=== PATIENT | male | born 1935 | race Two or more races ===

== ENCOUNTER 2016-05-25 18:31 | Emergency (ER) | payer MEDICARE, OTHER ==
[~2016-05-25] VITALS: Ht 165.1 cm; Wt 68.0 kg
[~2016-05-25 18:31] MED LIST: ACETAMINOPHEN500 MG ORAL; ASCORBIC ACID500 MG GT; BETADINE TOPIC; CLONIDINE0.1 MG GT; COLACE100 MG/10 NG; COZAAR50 MG GT; DAKIN'S1 APPLIC TOPIC; HEPARIN SO5000 UNIT2 SUBQ; LANOXIN125 MCG GT; Multivitamins GT; NITROSTAT0.4 M1 SL; NORVASC10 MG GT; SALINE 10ML FLU10 ML IVF; SULFAMETHOXAZO473 ML NG; TYLENOL650 MG/20. GT; Vancomycin Hcl MISC; ZINC SULFATE220 M1 GT
[2016-05-25 18:53] VITALS: BP 106/74
[2016-05-25 20:14] VITALS: BP 110/80
--- NOTE | 2016-05-25 20:35 | Emergency Room Report ---
History of Present Illness General Chief Complaint: Malfunctioning Gastric Tube Source: Medical Record Present Illness HPI 80-year-old male presents to ED for G-tube placement. Per EMS patient pulled out G-tube today at [facility]. Upon arrival patient not in distress. patient has dementia and is unable to provide any additional history at this time. No reported fevers or chills. Upper nausea or vomiting. No other reported aggravating or leading factors. No other associated symptoms. Per EMS nursing staff placed a Lilly catheter in G-tube site Allergies: Coded Allergies: No Known Allergies (Unverified , 12/08/13) Patient History Past Medical History: HTN, AFib, CVA/TIA Past Surgical History: other - gtube Social History: Denies: alcohol use, drug use, smoking Immunizations: UTD Reviewed Nursing Documentation: PMH: Agreed, PSxH: Agreed Nursing Documentation-PMH Hx Cardiac Problems: Yes - AFIB Hx Hypertension: Yes Hx Pacemaker: No Hx COPD: No - PRESSURE ULCERS Hx Cancer: No Hx Gastrointestinal Problems: Yes - Dysphagia, G-tube Hx Neurological Problems: Yes - Hemiplegia Hx Cerebrovascular Accident: Yes Hx Seizures: No Review of Systems All Other Systems: negative except mentioned in HPI Physical Exam Vital Signs Date Time Temp Pulse Resp B/P Pulse Ox O2 Delivery O2 Flow Rate FiO2 05/25/16 18:40 98.1 113 18 106/74 98 Room Air Sp02 EP Interpretation: reviewed, normal General Appearance: no apparent distress, non-toxic, other - dementia Head: normocephalic Eyes: bilateral eye PERRL, bilateral eye normal inspection ENT: normal ENT inspection Neck: normal inspection Respiratory: normal inspection Cardiovascular #1: normal inspection Gastrointestinal: normal bowel sounds, non tender, soft, non-distended, no guarding, no rebound, other - gtube site c/d/i Rectal: black stool Genitourinary: no CVA tenderness Musculoskeletal: normal inspection Neurologic: other - dementia Psychiatric: other - dementia Skin: normal inspection Lymphatic: normal inspection Procedures Additional Procedure Procedure Narrative G-tube placement Patient placed on stretcher. Old G-tube is removed by deflating the balloon using syringe. G-tube site is inspected with no contraindications to G-tube placement. G-tube slowly inserted until resistance is met; G-tube balloon is slowly filled with 20 mL of normal saline and slowly retracted back until resistance is met. G-tube placement is confirmed with KUB study using Gastrografin Medical Decision Making Diagnostic Impression: Primary Impression: Malfunction of gastrostomy tube ER Course Hospital Course 80-year-old male presents to ED for G-tube placement. Pulled out G-tube at retirement Clinical course Patient placed on stretcher. After initial history and physical I replaced G- tube and inflate the balloon. G-tube placement confirmed with KUB study. Patient remained stable without any signs of distress. senior living called and patient subsequently discharged back to facility. Dr Garcia made aware that G-tube was successfully replaced and patient return to facility Diagnosis - malfunction of G tube stable and discharged back to facility. Followup with PMD. Return to ED if symptoms recur or worsen Other X-Ray Diagnostic Results Other X-Ray Diagnostic Results : X-Ray Ordered: kub EP Interpretation: No Findings: no fractures, no dislocation, no soft tissue swelling, other - gtube in place. Number of Views: 1 Last Vital Signs Date Time Temp Pulse Resp B/P Pulse Ox O2 Delivery O2 Flow Rate FiO2 05/25/16 18:53 98.1 103 18 106/74 98 Room Air Status: improved Disposition: XFER SNF Condition: Stable Referrals: Seamus Garcia MD (PCP) Patient Instructions: Gastrostomy Tube Home Guide, Adult MIKAELA AGGARWAL M.D. May 25, 2016 20:34
--- NOTE | 2016-05-26 09:24 | Diagnostic Imaging Report ---
Indication: Status post gastrostomy replacement Technique: Supine view of the abdomen after injection of water-soluble contrast into gastrostomy Comparison: 10/07/2014 Findings: Contrast opacifies the stomach. No contrast extravasation is demonstrated. The bowel gas pattern is unremarkable. Impression: Satisfactory position of gastrostomy tube
[2016-05-27] MEDS ORDERED: DIGOXIN0.125 MG/2 GT (15:23)
[2016-05-27] MEDS ORDERED: DUONEB 0.5-3(2.53 ML HHN (15:23)
[2016-05-27] MEDS ORDERED: DOCUSATE SODIU100 MG GT (15:23)
[2016-05-27] MEDS ORDERED: ASPIRIN81 MG ORAL (15:23)
[2016-05-27] MEDS ORDERED: COZAAR25 MG GT (15:23)
[2016-05-27] MEDS ORDERED: FISH OIL300 M1 GT (15:23)
[2016-05-27] MEDS ORDERED: MULTIVITAMINS1 EAC2 GT (15:23)
[2016-05-27] MEDS ORDERED: CLONIDINE HCL0.1 MG GT (15:23)
== END 2016-05-25 20:47 ==
LOC: EDBD 18:31 → EDUNIT# 18:31 → EMR 19:35
DX: K94.23 Gastrostomy malfunction (principal); F03.90 Unspecified dementia, unspecified severity, without behavioral disturbance, psychotic disturbance, mood disturbance, and anxiety; I10 Essential (primary) hypertension; I48.91 Unspecified atrial fibrillation; Z86.73 Personal history of transient ischemic attack (TIA), and cerebral infarction without residual deficits; R13.10 Dysphagia, unspecified; G81.90 Hemiplegia, unspecified affecting unspecified side
CPT/HCPCS: 43760; 74000

== ENCOUNTER 2016-05-27 15:26 | Inpatient (IN) | payer OTHER, MEDICARE ==
[~2016-05-27] VITALS: Ht 165.1 cm; Wt 68.9 kg
--- NOTE | 2016-05-27 15:14 | Emergency Room Report ---
History of Present Illness General Source: Patient, EMS Present Illness HPI Patient is an 80-year-old male who presented from long term after increased fever and congestion. Patient prior history of advanced dementia. Patient was noted to have increased respiratory rate as well as some increased congestion. Patient has had prior G-tube placement and is at baseline nonverbal. He had prior history of atrial fibrillation. History is obtained from EMS and old chart. The patient was noted to have a low-grade temperature at the facility. Allergies: Coded Allergies: No Known Allergies (Unverified , 12/08/13) Patient History Past Medical History: see triage record Reviewed Nursing Documentation: PMH: Agreed, PSxH: Agreed Review of Systems All Other Systems: limited - by mental status Physical Exam Sp02 EP Interpretation: normal General Appearance: moderate distress, Chronically Ill Neck: limited range of motion Respiratory: rhonchi Cardiovascular #1: normal peripheral pulses, irregularly irregular Gastrointestinal: normal bowel sounds, non tender, soft Neurologic: aphasia, motor weakness Psychiatric: other - nonverbal Procedures Critical Care Time Critical Care Time Patient had a critical medical condition which untreated could potentially result in life or limb threatening injury. Total critical care time excluding procedures approximately 45 minutes. Medical Decision Making Diagnostic Impression: Primary Impression: Severe sepsis Additional Impressions: Decubitus skin ulcer Dementia Rhabdomyolysis Hypernatremia ER Course Patient presented for fever. Differential diagnosis included was not limited to sepsis, urinary tract infection, pneumonia , decubitus infection, G-tube infection, bowel obstruction among others. Because of complexity of patient's case laboratory testing and imaging studies were ordered.Laboratory testing was notable for elevated white blood count as well as lactic acidosis. Patient started on IV fluids and IV antibiotics. Patient noted have a small neck lesion which appear to be somewhat infected which may be the patient's recent fever. This does not appear be requiring incision and drainage this time.Had Dr. Emmett Pressley was contacted for inpatient management due to the patient severity of illness. Head CT as read by radiologist showed atrophic changes without evident fracture or hemorrhage.The patient started on IV fluids patient was noted to have marked hypernatremia as well as rhabdomyolysis. Labs Test 05/27/16 16:10 05/27/16 16:21 Arterial Blood pH 7.390 (7.350-7.450) Arterial Blood Partial Pressure CO2 47.5 mmHg (35.0-45.0) Arterial Blood Partial Pressure O2 130.5 mmHg (75.0-100.0) Arterial Blood HCO3 28.6 mmol/L (22.0-26.0) Arterial Blood Oxygen Saturation 98.3 % (92.0-98.0) Arterial Blood Base Excess 3.0 Anderson Test Positive White Blood Count 13.4 K/UL (4.8-10.8) Red Blood Count 4.94 M/UL (4.70-6.10) Hemoglobin 16.1 G/DL (14.2-18.0) Hematocrit 53.6 % (42.0-52.0) Mean Corpuscular Volume 109 FL (80-99) Mean Corpuscular Hemoglobin 32.7 PG (27.0-31.0) Mean Corpuscular Hemoglobin Concent 30.1 G/DL (32.0-36.0) Red Cell Distribution Width 14.0 % (11.6-14.8) Platelet Count 160 K/UL (150-450) Mean Platelet Volume 12.3 FL (6.5-10.1) Neutrophils (%) (Auto) 57.2 % (45.0-75.0) Lymphocytes (%) (Auto) 34.3 % (20.0-45.0) Monocytes (%) (Auto) 5.4 % (1.0-10.0) Eosinophils (%) (Auto) 2.6 % (0.0-3.0) Basophils (%) (Auto) 0.5 % (0.0-2.0) Lactic Acid Level 2.30 mmol/L (0.66-2.22) Troponin I < 0.30 ng/mL (<=0.30) EKG Diagnostic Results Rate: tachycardiac - afib rvr Rhythm Strip Diag. Results EP Interpretation: yes Rhythm: no PVC's, no ectopy Chest X-Ray Diagnostic Results EP Interpretation: Yes Findings: no consolidation, no effusion, no pneumothorax, no acute cardiopulmonary disease Number of Views: 1 Status: unchanged Disposition: ADMITTED INPATIENT Condition: Ulices Flowers May 27, 2016 15:14
[~2016-05-27 15:26] MED LIST changes: +ASPIRIN81 MG ORAL; +CLONIDINE HCL0.1 MG GT; +COZAAR25 MG GT; +DIGOXIN0.125 MG/2 GT; +DOCUSATE SODIU100 MG GT; +DUONEB 0.5-3(2.53 ML HHN; +FISH OIL300 M1 GT; +MULTIVITAMINS1 EAC2 GT
[2016-05-27 16:12] VITALS: BP 101/69
[2016-05-27] MEDS ORDERED: Unasyn 3gm Inj ONE (16:17)
[2016-05-27 16:24] LABS: ABG PCO2 47.5 mmHg (35.0-45.0)
[2016-05-27 16:25] LABS: ABG ALLEN TEST POSITIVE
[2016-05-27] MEDS: metroNIDAZOLE 500mg 100 ML IV SCH (16:27)
[2016-05-27] MEDS: Ampicillin/Sulbactam Sod 3 GM in NS 100 ML IV SCH ×3 (16:28→22:00)
[2016-05-27 16:40] VITALS: BP 93/78
[2016-05-27] MEDS ORDERED: Acetaminophen 650 MG SUPP RECTAL ONE (16:45)
[2016-05-27] MEDS ORDERED: LOSARTAN POTAS100 MG GT (16:51)
[2016-05-27] MEDS ORDERED: FISH OIL300 M1 PO (16:51)
[2016-05-27] MEDS ORDERED: VITAMIN C500 M1 GT (16:51)
[2016-05-27] MEDS ORDERED: TYLENOL EXTRA500 MG GT ×2 (16:51)
[2016-05-27] MEDS ORDERED: POTASSIUM CHLO20 ME2 GT (16:51)
[2016-05-27 16:52] LABS: BASOPHILS % (AUTO) 0.5 % (0.0-2.0); EOSINOPHILS % (AUTO) 2.6 % (0.0-3.0); LYMPHOCYTES % (AUTO) 34.3 % (20.0-45.0); MEAN CORPUSCULAR HEMOGLOBIN 32.7 PG (27.0-31.0); MEAN CORPUSCULAR HGB CONC 30.1 G/DL (32.0-36.0); MEAN CORPUSCULAR VOLUME 109 FL (80-99); MEAN PLATELET VOLUME 12.3 FL (6.5-10.1); MONOCYTES % (AUTO) 5.4 % (1.0-10.0); NEUTROPHILS % (AUTO) 57.2 % (45.0-75.0); PLATELET COUNT 160 K/UL (150-450); RED BLOOD COUNT 4.94 M/UL (4.70-6.10); WHITE BLOOD COUNT 13.4 K/UL (4.8-10.8)
[2016-05-27 16:54] LABS: REFLEX LACTIC ACID YES OR NO YES
[2016-05-27 17:56] VITALS: BP 101/70
[2016-05-27 18:14] LABS: ALANINE AMINOTRANSFERASE 31 U/L (3-41); ALBUMIN/GLOBULIN RATIO 0.7 (1.0-2.7); ASPARTATE AMINO TRANSFERASE 51 U/L (5-40); CALCIUM 9.2 mg/dL (8.6-10.2); CARBON DIOXIDE 31 mEQ/L (20-30); CREATININE 2.3 mg/dL (0.7-1.2); HEMOLYSIS 3; POTASSIUM 4.4 mEQ/L (3.4-4.9); TOTAL PROTEIN 7.5 g/dL (6.6-8.7)
[2016-05-27 18:25] LABS: CKMB 2.7 ng/mL (< 6.7)
[2016-05-27 18:35] LABS: ANION GAP 10 (5-15); CHLORIDE 146 mEQ/L (98-107); SODIUM 187 mEQ/L (135-145)
[2016-05-27 18:45] LABS: TROPONIN I < 0.30 ng/mL (<=0.30)
[2016-05-27 19:56] VITALS: BP 102/67
[2016-05-27] MEDS ORDERED: Morphine Sulfate 2mg/ml Inj IVP PRN (20:15)
[2016-05-27] MEDS ORDERED: Nitroglycerin Subl 0.4mg tab (Bottle Of 25) SL PRN (20:15)
[2016-05-27] MEDS ORDERED: DuoNeb 0.5-3(2.5)mg/3ml neb HHN PRN (20:15)
[2016-05-27] MEDS ORDERED: Miralax 17gm pkt ORAL PRN (20:15)
--- NOTE | 2016-05-27 20:40 | Infectious Diseases Prog Note ---
Assessment/Plan Problems: (1) Severe sepsis Assessment & Plan: continue wide spectrum antibiotics with vancomycin and cefepime, send blood culture (2) Hypernatremia Assessment & Plan: due to sever dehydration , continue IVF , with close monitor of sodium level, consult renal (3) Decubitus skin ulcer Assessment & Plan: continue local wound care, and offloading, await culture results, continue wide spectrum antibiotics (4) Rhabdomyolysis Assessment & Plan: continue IVF , and monitor CK level. (5) Cellulitis of right foot Assessment & Plan: on vancomycin and cefepime (6) KINGA (acute kidney injury) Assessment & Plan: due to sever dehydration and rhabdomyolysis , continue hydration and monitor renal function and UOP, avoid nephrotoxic meds (7) Neck abscess Assessment & Plan: will need CT scan image to evaluate once clinically stable , continue wide spectrum antibiotics therapy Subjective Allergies: Coded Allergies: No Known Allergies (Unverified , 12/08/13) Objective Vital Signs Last 24 Hour Vital Signs Date Time Temp Pulse Resp B/P Pulse Ox O2 Delivery O2 Flow Rate FiO2 05/27/16 19:56 98.5 89 23 102/67 100 Nasal Cannula 1.0 05/27/16 17:56 98.5 97 26 101/70 100 Nasal Cannula 1.0 05/27/16 17:26 98.5 05/27/16 16:40 100.8 117 35 93/78 100 Nasal Cannula 3.0 05/27/16 16:12 100.0 118 38 101/69 100 Nasal Cannula 3.0 05/27/16 15:08 100.0 114 36 100/68 99 Nasal Cannula 4.0 Height (Feet): 5 Height (Inches): 5.00 Weight (Pounds): 125 Laboratory Tests Test 05/27/16 16:10 05/27/16 16:21 05/27/16 17:39 Arterial Blood pH 7.390 (7.350-7.450) Arterial Blood Partial Pressure CO2 47.5 mmHg (35.0-45.0) H Arterial Blood Partial Pressure O2 130.5 mmHg (75.0-100.0) H Arterial Blood HCO3 28.6 mmol/L (22.0-26.0) H Arterial Blood Oxygen Saturation 98.3 % (92.0-98.0) H Arterial Blood Base Excess 3.0 Anderson Test Positive White Blood Count 13.4 K/UL (4.8-10.8) H Red Blood Count 4.94 M/UL (4.70-6.10) Hemoglobin 16.1 G/DL (14.2-18.0) Hematocrit 53.6 % (42.0-52.0) H Mean Corpuscular Volume 109 FL (80-99) H Mean Corpuscular Hemoglobin 32.7 PG (27.0-31.0) H Mean Corpuscular Hemoglobin Concent 30.1 G/DL (32.0-36.0) L Red Cell Distribution Width 14.0 % (11.6-14.8) Platelet Count 160 K/UL (150-450) Mean Platelet Volume 12.3 FL (6.5-10.1) H Neutrophils (%) (Auto) 57.2 % (45.0-75.0) Lymphocytes (%) (Auto) 34.3 % (20.0-45.0) Monocytes (%) (Auto) 5.4 % (1.0-10.0) Eosinophils (%) (Auto) 2.6 % (0.0-3.0) Basophils (%) (Auto) 0.5 % (0.0-2.0) Lactic Acid Level 2.30 mmol/L (0.66-2.22) H Sodium Level 187 mEQ/L (135-145) *H Potassium Level 4.4 mEQ/L (3.4-4.9) Chloride Level 146 mEQ/L (98-107) H Carbon Dioxide Level 31 mEQ/L (20-30) H Anion Gap 10 (5-15) Blood Urea Nitrogen 72 mg/dL (7-23) H Creatinine 2.3 mg/dL (0.7-1.2) H Estimat Glomerular Filtration Rate mL/min (>60) Glucose Level 120 mg/dL (74-106) H Calcium Level 9.2 mg/dL (8.6-10.2) Total Bilirubin 1.0 mg/dL (0.0-1.2) Aspartate Amino Transf (AST/SGOT) 51 U/L (5-40) H Alanine Aminotransferase (ALT/SGPT) 31 U/L (3-41) Alkaline Phosphatase 87 U/L (40-129) Total Creatine Kinase 4009 U/L (26-140) H Creatine Kinase MB 2.7 ng/mL (< 6.7) Creatine Kinase MB Relative Index 0.0 Troponin I < 0.30 ng/mL (<=0.30) Pro-B-Type Natriuretic Peptide 258 pg/mL (0-450) Total Protein 7.5 g/dL (6.6-8.7) Albumin 3.1 g/dL (3.5-5.2) L Globulin 4.4 g/dL Albumin/Globulin Ratio 0.7 (1.0-2.7) L Current Medications Medications (Trade) Dose Ordered Sig/Omi Route PRN Reason Start Time Stop Time Status Last Admin Dose Admin Acetaminophen (Tylenol) 650 mg Q4H PRN ORAL fever 05/27/16 20:15 06/26/16 20:14 UNV Albuterol/ Ipratropium 3 ml 3 ml EVERY 4 HOURS PRN HHN Shortness of Breath 05/27/16 20:15 06/01/16 20:14 UNV Amlodipine Besylate (Norvasc) 10 mg DAILY GT 05/28/16 09:00 06/27/16 08:59 UNV Ampicillin Sodium/ Sulbactam Sodium/ Sodium Chloride (Unasyn/Sodium Chloride 100ml bag) 100 ml @ 200 mls/hr Q6H IV 05/27/16 16:00 05/28/16 15:59 05/27/16 16:48 Cefepime HCl 2 gm/ Dextrose 100 ml @ 100 mls/hr EVERY 12 HOURS IV 05/27/16 21:00 06/03/16 20:59 UNV Digoxin (Lanoxin) 0.125 mg DAILY GT 05/28/16 09:00 06/27/16 08:59 UNV Heparin Sodium (Porcine) (Heparin 5000 units/ml) 5,000 units EVERY 12 HOURS SUBQ 05/27/16 21:00 06/26/16 20:59 UNV Metronidazole 100 ml @ 100 mls/hr Q8H IV 05/27/16 16:00 05/28/16 15:59 05/27/16 16:27 Morphine Sulfate (Morphine Sulfate) 2 mg EVERY 4 HOURS PRN IVP Moderate Pain (Pain Scale 4-6) 05/27/16 20:15 06/03/16 20:14 UNV Nitroglycerin 0.4 mg 0.4 mg Every 5 Minutes PRN SL Prn Chest Pain 05/27/16 20:15 06/26/16 20:14 UNV Ondansetron HCl (Zofran) 4 mg Q6H PRN IVP Nausea & Vomiting 05/27/16 20:15 06/26/16 20:14 UNV Polyethylene Glycol (Miralax) 17 gm DAILYPRN PRN ORAL Constipation 05/27/16 20:15 06/26/16 20:14 UNV Sodium Bicarbonate/ Dextrose (Sodium Bicarbonate/D5W 1000ml) 1,150 ml @ 100 mls/hr [id number] IV 05/27/16 20:15 06/26/16 20:14 UNV Temazepam (Restoril) 15 mg HSPRN PRN ORAL Insomnia 05/27/16 20:15 06/03/16 20:14 UNV Vancomycin HCl/ Dextrose (Vancomycin/D5W 250ml) 250 ml @ 167 mls/hr Q24H IV 05/28/16 00:30 06/02/16 00:29 UNV Karla Stringer M.D. May 27, 2016 20:40
[2016-05-27 21:06] LABS: APPEARANCE,URINE CLEAR; KETONES,URINE NEGATIVE (NEGATIVE); LEUKOCYTE ESTERASE ,URINE 1+ (NEGATIVE); NITRITE,URINE NEGATIVE (NEGATIVE); PH,URINE 6 (4.5-8.0); PROTEIN,URINE 3+ (NEGATIVE); UROBILINOGEN,URINE 4 MG/DL (0.0-1.0)
[2016-05-27 21:16] LABS: AMORPHOUS SEDIMENT,UR FEW /LPF; SQUAMOUS EPITHELIAL CELL,UR FEW /LPF (NONE/OCC)
[2016-05-27 21:17] LABS: ICTOTEST N
[2016-05-27 21:41] VITALS: BP 106/69
[2016-05-27] MEDS: Heparin 5000 units/ml inj SUBQ SCH (22:10)
[2016-05-27] MEDS ORDERED: Vancomycin 1250mg/D5W 250ml IVPB ONE ×4 (22:15→23:00)
[2016-05-27 22:42] VITALS: BP 102/71
[2016-05-27] MEDS: Sodium Bicarbonate 150 ML in D5W 1000ml 1,000 ML IV SCH (23:27)
[2016-05-28] VITALS: BP 97/72
[2016-05-28] MEDS: metroNIDAZOLE 500mg 100 ML IV SCH
[2016-05-28 04:00] VITALS: BP 102/59
[2016-05-28 07:55] LABS: BASOPHILS % (AUTO) 0.6 % (0.0-2.0); EOSINOPHILS % (AUTO) 4.6 % (0.0-3.0); LYMPHOCYTES % (AUTO) 27.4 % (20.0-45.0); MEAN CORPUSCULAR HEMOGLOBIN 33.8 PG (27.0-31.0); MEAN CORPUSCULAR HGB CONC 31.6 G/DL (32.0-36.0); MEAN CORPUSCULAR VOLUME 107 FL (80-99); MEAN PLATELET VOLUME 13.5 FL (6.5-10.1); MONOCYTES % (AUTO) 6.3 % (1.0-10.0); PLATELET COUNT 122 K/UL (150-450); RED BLOOD COUNT 3.52 M/UL (4.70-6.10); RED CELL DISTRIBUTION WIDTH 13.5 % (11.6-14.8); WHITE BLOOD COUNT 11.4 K/UL (4.8-10.8)
[2016-05-28 08:00] VITALS: BP 99/59
[2016-05-28 08:19] LABS: ALANINE AMINOTRANSFERASE 27 U/L (3-41); ALBUMIN/GLOBULIN RATIO 0.6 (1.0-2.7); ASPARTATE AMINO TRANSFERASE 56 U/L (5-40); CALCIUM 8.1 mg/dL (8.6-10.2); CARBON DIOXIDE 30 mEQ/L (20-30); CREATININE 1.7 mg/dL (0.7-1.2); HEMOLYSIS 8; POTASSIUM 3.2 mEQ/L (3.4-4.9); TOTAL PROTEIN 6.4 g/dL (6.6-8.7)
[2016-05-28 08:32] LABS: ANION GAP 11 (5-15); CHLORIDE 140 mEQ/L (98-107); SODIUM 181 mEQ/L (135-145)
[2016-05-28] MEDS: Heparin 5000 units/ml inj SUBQ SCH ×2 (09:00→21:19)
[2016-05-28] MEDS ORDERED: Digoxin Elixir 0.125mg GT SCH (09:00)
[2016-05-28] MEDS ORDERED: KCl 10% 40mEq/30ml liquid NG ONE (09:30)
[2016-05-28] MEDS: Digoxin 0.125mg tab GT SCH (10:05)
--- NOTE | 2016-05-28 10:26 | Consultation ---
History of Present Illness General Date patient seen: May 28, 2016 Time patient seen: 09:30 Chief Complaint: General Complaint Referring physician: Huan Reason for Consultation: congestion, fever, tachypnea Present Illness HPI 80 y/old male presented to ED from [facility] with congestion and fever, initial evaluation found to him to be tachypneic, he was placed on supplemental O2 ABG on 3 L NC, mild hypercapnia and stable oxygenation Patient with low grade fever -100.8, tachycardia 118, tachypnea -36 lab work revealed leukocytosis-13.4.; lactic acidosis -2.3 Evidence of severe hypernatremia -187, CK-[id number], BUN 72 and creat 2.3 patient with underlying A fib, tachycardia- 118 troponin negative ECG with A fib tachy CXR with possible infiltrate septic workup initiated in ED, patient started on empiric abx and transferred to [facility] for further management Allergies: Coded Allergies: No Known Allergies (Unverified , 12/08/13) Medication History Scheduled Amlodipine Besylate (Norvasc), 10 MG GT DAILY Ascorbic Acid* (Ascorbic Acid*), 500 MG GT DAILY Ascorbic Acid* (Vitamin C*), 5 ML GT DAILY, (Reported) Aspirin* (Aspirin*), 81 MG ORAL DAILY, (Reported) Digoxin* (Lanoxin*), 0.125 MG GT DAILY Digoxin* (Digoxin*), 0.125 MG GT DAILY, (Reported) Docusate Sodium (Docusate Sodium), 100 MG NG TWICE A DAY Docusate Sodium* (Docusate Sodium*), 100 MG GT BID, (Reported) Losartan Potassium (Losartan Potassium), 100 MG GT DAILY, (Reported) Losartan Potassium* (Cozaar*), 100 MG GT DAILY Losartan Potassium* (Cozaar*), 100 MG GT DAILY, (Reported) Multivitamins* (Multivitamins*), Unknown Dose GT DAILY, (Reported) [place]-3 Fatty Acids (Fish Oil), 1,000 MG GT BID, (Reported) Potassium Chloride (Potassium Chloride), 20 MEQ GT DAILY, (Reported) Zinc Sulfate (Zinc Sulfate*), 220 MG GT DAILY [Multivitamins], 15 ML GT DAILY Scheduled PRN Acetaminophen* (Tylenol Extra Strength*), 650 MG GT Q4HR PRN for Mild Pain/Temp > 100.5, (Reported) Acetaminophen* (Tylenol Extra Strength*), 1,000 MG GT Q6H PRN for Mild Pain/ Temp > 100.5, (Reported) Acetaminophen* (Tylenol Extra Strength*), 500 MG GT Q6H PRN for Mild Pain/Temp > 100.5, (Reported) Clonidine HCl (Clonidine HCl), 0.1 MG GT DAILYPRN PRN for FOR SBP>160 Nitroglycerin (Nitrostat), 0.4 MG SL .Q5MIN X 3 DOSES PRN for Prn Chest Pain Miscellaneous Medications Clonidine Hcl (Clonidine Hcl), 0.1 MG GT, (Reported) Ipratropium/Albuterol Sulfate (DuoNeb 0.5-3(2.5)mg/3ml), 3 ML HHN, (Reported) [place]-3 Fatty Acids (Fish Oil), 1 GM PO, (Reported) Discontinued Medications Acetaminophen (Acetaminophen), 650 MG GT Q4H PRN for Moderate Pain (Pain Scale 4 -6) Discontinued Reason: Therapy completed Acetaminophen* (Tylenol Extra Strength*), 500 MG ORAL Q4H PRN for Mild Pain/ Temp > 100.5 Discontinued Reason: Therapy completed Acetaminophen* (Tylenol Extra Strength*), 1,000 MG ORAL Q4H PRN for Severe Pain (Pain Scale 7-10) Discontinued Reason: Therapy completed Heparin Sod (Porcine) (Heparin Sodium*), 5,000 UNITS SUBQ EVERY 12 HOURS Discontinued Reason: Therapy completed Povidone Iodine (Betadine), 1 APPLIC TOPIC DAILY PRN for FOR DRESSING CHANGES Discontinued Reason: Therapy completed Saline (Sodium Chloride), 10 ML IVF EVERY 8 HOURS PRN for for line flush Discontinued Reason: Therapy completed Sodium Hypochlorite (Dakin's), 1 APPLIC TOPIC DAILY Discontinued Reason: Therapy completed Sulfamethoxazole/Trimethoprim Susp* (Bactrim Susp*), 20 ML NG EVERY 12 HOURS Discontinued Reason: Therapy completed [Vancomycin Hcl], 1 EA MISC DAILY PRN for protocol Discontinued Reason: Therapy completed Patient History History Provided By: Medical Record, EMS Healthcare decision maker Marie Jeffrey () Resuscitation status Full Code Advanced Directive on File Past Medical/Surgical History Past Medical/Surgical History: (1) COPD (chronic obstructive pulmonary disease) (2) Atrial fibrillation (3) Decubitus skin ulcer (4) Foot ulcer, right (5) Osteomyelitis of ankle or foot (6) HTN (hypertension) (7) History of CVA (cerebrovascular accident) Review of Systems ROS Narrative unable to provide any information due to altered LOC Physical Exam General Appearance: no apparent distress, other - chroncially ill looking, nonverbal, bedridden, lethargic male in NAD Lines, tubes and drains: peripheral HEENT: normocephalic, atraumatic Neck: other - neck rigid Respiratory/Chest: lungs clear - with decreased air entry , no respiratory distress, no accessory muscle use Cardiovascular/Chest: no JVD, irregularly irregular - A fib on tele, rate controlled Abdomen: normal bowel sounds, non tender, soft, feeding tube - G tube Extremities: other - R foot drop, L hand % th finger flexion contracture, arthritic changes bilateral hands, spsastic LE, Skin Exam: other Neurologic: other - nonverbal, bedridden, spastic LE, Last 24 Hour Vital Signs Date Time Temp Pulse Resp B/P Pulse Ox O2 Delivery O2 Flow Rate FiO2 05/28/16 10:05 71 05/28/16 09:00 71 99/59 05/28/16 04:00 82 05/28/16 04:00 97.8 90 20 102/59 95 Nasal Cannula 2.0 05/28/16 00:00 89 05/28/16 00:00 97.7 90 16 97/72 98 Nasal Cannula 2.0 05/27/16 22:42 74 18 102/71 Nasal Cannula 1.0 95 05/27/16 22:30 88 05/27/16 21:41 98.5 89 23 102/67 100 Nasal Cannula 1.0 05/27/16 21:41 98.5 83 19 106/69 100 Nasal Cannula 1.0 05/27/16 19:56 98.5 89 23 102/67 100 Nasal Cannula 1.0 05/27/16 17:56 98.5 97 26 101/70 100 Nasal Cannula 1.0 05/27/16 17:26 98.5 05/27/16 16:40 100.8 117 35 93/78 100 Nasal Cannula 3.0 05/27/16 16:12 100.0 118 38 101/69 100 Nasal Cannula 3.0 05/27/16 15:08 100.0 114 36 100/68 99 Nasal Cannula 4.0 Intake and Output 05/27/16 05/28/16 19:00 07:00 Intake Total 1450 ml Output Total 200 ml Balance 1250 ml Free Water 400 ml IV Total 1050 ml Output Urine Total 200 ml # Voids 1 # Bowel Movements 2 Laboratory Tests Test 05/27/16 16:10 05/27/16 16:21 05/27/16 17:39 05/27/16 20:45 Arterial Blood pH 7.390 (7.350-7.450) Arterial Blood Partial Pressure CO2 47.5 mmHg (35.0-45.0) H Arterial Blood Partial Pressure O2 130.5 mmHg (75.0-100.0) H Arterial Blood HCO3 28.6 mmol/L (22.0-26.0) H Arterial Blood Oxygen Saturation 98.3 % (92.0-98.0) H Arterial Blood Base Excess 3.0 Anderson Test Positive White Blood Count 13.4 K/UL (4.8-10.8) H Red Blood Count 4.94 M/UL (4.70-6.10) Hemoglobin 16.1 G/DL (14.2-18.0) Hematocrit 53.6 % (42.0-52.0) H Mean Corpuscular Volume 109 FL (80-99) H Mean Corpuscular Hemoglobin 32.7 PG (27.0-31.0) H Mean Corpuscular Hemoglobin Concent 30.1 G/DL (32.0-36.0) L Red Cell Distribution Width 14.0 % (11.6-14.8) Platelet Count 160 K/UL (150-450) Mean Platelet Volume 12.3 FL (6.5-10.1) H Neutrophils (%) (Auto) 57.2 % (45.0-75.0) Lymphocytes (%) (Auto) 34.3 % (20.0-45.0) Monocytes (%) (Auto) 5.4 % (1.0-10.0) Eosinophils (%) (Auto) 2.6 % (0.0-3.0) Basophils (%) (Auto) 0.5 % (0.0-2.0) Lactic Acid Level 2.30 mmol/L (0.66-2.22) H Sodium Level 187 mEQ/L (135-145) *H Potassium Level 4.4 mEQ/L (3.4-4.9) Chloride Level 146 mEQ/L (98-107) H Carbon Dioxide Level 31 mEQ/L (20-30) H Anion Gap 10 (5-15) Blood Urea Nitrogen 72 mg/dL (7-23) H Creatinine 2.3 mg/dL (0.7-1.2) H Estimat Glomerular Filtration Rate mL/min (>60) Glucose Level 120 mg/dL (74-106) H Calcium Level 9.2 mg/dL (8.6-10.2) Total Bilirubin 1.0 mg/dL (0.0-1.2) Aspartate Amino Transf (AST/SGOT) 51 U/L (5-40) H Alanine Aminotransferase (ALT/SGPT) 31 U/L (3-41) Alkaline Phosphatase 87 U/L (40-129) Total Creatine Kinase 4009 U/L (26-140) H Creatine Kinase MB 2.7 ng/mL (< 6.7) Creatine Kinase MB Relative Index 0.0 Troponin I < 0.30 ng/mL (<=0.30) Pro-B-Type Natriuretic Peptide 258 pg/mL (0-450) Total Protein 7.5 g/dL (6.6-8.7) Albumin 3.1 g/dL (3.5-5.2) L Globulin 4.4 g/dL Albumin/Globulin Ratio 0.7 (1.0-2.7) L Urine Color Kelli Urine Appearance Clear Urine pH 6 (4.5-8.0) Urine Specific [place] 1.015 (1.005-1.035) Urine Protein 3+ (NEGATIVE) H Urine Glucose (UA) Negative (NEGATIVE) Urine Ketones Negative (NEGATIVE) Urine Occult Blood 5+ (NEGATIVE) H Urine Nitrite Negative (NEGATIVE) Urine Bilirubin Negative (NEGATIVE) Urine Ictotest N Urine Urobilinogen 4 MG/DL (0.0-1.0) H Urine Leukocyte Esterase 1+ (NEGATIVE) H Urine RBC 2-4 /HPF (0 - 0) H Urine WBC 2-4 /HPF (0 - 0) Urine Squamous Epithelial Cells Few /LPF (NONE/OCC) Urine Amorphous Sediment Few /LPF (NONE) H Urine Bacteria None /HPF (NONE) Test 05/27/16 21:53 05/28/16 07:10 Lactic Acid Level 1.80 mmol/L (0.66-2.22) White Blood Count 11.4 K/UL (4.8-10.8) H Red Blood Count 3.52 M/UL (4.70-6.10) L Hemoglobin 11.9 G/DL (14.2-18.0) L Hematocrit 37.7 % (42.0-52.0) L Mean Corpuscular Volume 107 FL (80-99) H Mean Corpuscular Hemoglobin 33.8 PG (27.0-31.0) H Mean Corpuscular Hemoglobin Concent 31.6 G/DL (32.0-36.0) L Red Cell Distribution Width 13.5 % (11.6-14.8) Platelet Count 122 K/UL (150-450) L Mean Platelet Volume 13.5 FL (6.5-10.1) H Neutrophils (%) (Auto) 61.0 % (45.0-75.0) Lymphocytes (%) (Auto) 27.4 % (20.0-45.0) Monocytes (%) (Auto) 6.3 % (1.0-10.0) Eosinophils (%) (Auto) 4.6 % (0.0-3.0) H Basophils (%) (Auto) 0.6 % (0.0-2.0) Sodium Level 181 mEQ/L (135-145) *H Potassium Level 3.2 mEQ/L (3.4-4.9) L Chloride Level 140 mEQ/L (98-107) H Carbon Dioxide Level 30 mEQ/L (20-30) Anion Gap 11 (5-15) Blood Urea Nitrogen 60 mg/dL (7-23) H Creatinine 1.7 mg/dL (0.7-1.2) H Estimat Glomerular Filtration Rate mL/min (>60) Glucose Level 147 mg/dL (74-106) H Calcium Level 8.1 mg/dL (8.6-10.2) L Total Bilirubin 0.9 mg/dL (0.0-1.2) Aspartate Amino Transf (AST/SGOT) 56 U/L (5-40) H Alanine Aminotransferase (ALT/SGPT) 27 U/L (3-41) Alkaline Phosphatase 78 U/L (40-129) Total Protein 6.4 g/dL (6.6-8.7) L Albumin 2.6 g/dL (3.5-5.2) L Globulin 3.8 g/dL Albumin/Globulin Ratio 0.6 (1.0-2.7) L Height (Feet): 5 Height (Inches): 5.00 Weight (Pounds): 152 Medications Current Medications Medications (Trade) Dose Ordered Sig/Omi Route PRN Reason Start Time Stop Time Status Last Admin Dose Admin Acetaminophen (Tylenol) 650 mg Q4H PRN ORAL fever 05/27/16 20:15 06/26/16 20:14 Albuterol/ Ipratropium 3 ml 3 ml EVERY 4 HOURS PRN HHN Shortness of Breath 05/27/16 20:15 06/01/16 20:14 Amlodipine Besylate (Norvasc) 10 mg DAILY GT 05/28/16 09:00 06/27/16 08:59 Cefepime HCl/ Dextrose (Maxipime/D5W 100ml) 100 ml @ 100 mls/hr Q12H IV 05/28/16 01:00 06/04/16 00:59 05/28/16 01:10 Digoxin (Lanoxin) 0.125 mg DAILY GT 05/28/16 09:45 06/27/16 09:44 05/28/16 10:05 Heparin Sodium (Porcine) (Heparin 5000 units/ml) 5,000 units EVERY 12 HOURS SUBQ 05/27/16 21:00 06/26/16 20:59 05/28/16 09:00 Morphine Sulfate (Morphine Sulfate) 2 mg EVERY 4 HOURS PRN IVP Moderate Pain (Pain Scale 4-6) 05/27/16 20:15 06/03/16 20:14 Nitroglycerin 0.4 mg 0.4 mg Q 5 MINS PRN SL Prn Chest Pain 05/27/16 20:15 06/26/16 20:14 Ondansetron HCl (Zofran) 4 mg Q6H PRN IVP Nausea & Vomiting 05/27/16 20:15 06/26/16 20:14 Polyethylene Glycol (Miralax) 17 gm DAILYPRN PRN ORAL Constipation 05/27/16 20:15 06/26/16 20:14 Sodium Bicarbonate 150 ml/Dextrose 1,150 ml @ 100 mls/hr [id number] IV 05/27/16 23:30 06/26/16 23:29 05/27/16 23:27 Temazepam (Restoril) 15 mg HSPRN PRN ORAL Insomnia 05/27/16 20:15 06/03/16 20:14 Vancomycin HCl/ Dextrose (Vancomycin/D5W 250ml) 250 ml @ 167 mls/hr Q48H IVPB 05/29/16 21:00 06/03/16 20:59 Assessment/Plan Assessment/Plan ASSESSMENT sepsis possible HCAP severe hypernatremia rhabdo KINGA 2 to rhabdo and dehydration AF with RVR R foot cellulitis hypokalemia HTN COPD Hx of CVA functional quadriplegia ulcer R leg (POA) hx of osteo R leg PLAN OF CARE tele septic workup initiated, started on empiric abx, ID follows fup with cx O2, HHN fup with CXR in am change IVF to D5W, monitor lytes closely K replaced already as per nephro orders avoid nephrotoxic trend CK KINGA likely 2 to dehydration and rhabdo acute hypernatremia, depletional due to dehydration strict aspiration precautions, GT feeding- start after dietary eval and recommendations, monitor tolerance, increase free water via G tube MRI R knee as ordered by ID to eval for osteo BP management with CCB, optimize as needed continue Digoxin, check level cardio follows wound care wound nurse eval DVT, GI prophylaxis pain management bowel regimen case discussed and evaluated by supervising physician Saul (Martín),Alyssa CANELA May 28, 2016 10:26
[2016-05-28] MEDS: Sodium Bicarbonate 150 ML in D5W 1000ml 1,000 ML IV SCH (11:00)
--- NOTE | 2016-05-28 11:42 | Diagnostic Imaging Report ---
Indication: Dyspnea Comparison: None A single view chest radiograph was obtained. Findings: No definite infiltrate or pulmonary vascular congestion identified. The heart is enlarged. The aorta is mildly enlarged consistent with atherosclerotic vascular disease. The bones are osteopenic. Impression: No acute disease
[2016-05-28 12:00] VITALS: BP 97/56
--- NOTE | 2016-05-28 12:03 | Cardiac Electrophysiology PN ---
Subjective Subjective [id number]. Cardiology consult dictated. HELEN RN,Dr. Pressley and Alyssa Hughes. Objective Last 24 Hour Vital Signs Date Time Temp Pulse Resp B/P Pulse Ox O2 Delivery O2 Flow Rate FiO2 05/28/16 10:05 71 05/28/16 09:00 71 99/59 05/28/16 08:00 80 05/28/16 08:00 97.8 71 18 99/59 Nasal Cannula 2.0 05/28/16 04:00 82 05/28/16 04:00 97.8 90 20 102/59 95 Nasal Cannula 2.0 05/28/16 00:00 89 05/28/16 00:00 97.7 90 16 97/72 98 Nasal Cannula 2.0 05/27/16 22:42 74 18 102/71 Nasal Cannula 1.0 95 05/27/16 22:30 88 05/27/16 21:41 98.5 89 23 102/67 100 Nasal Cannula 1.0 05/27/16 21:41 98.5 83 19 106/69 100 Nasal Cannula 1.0 05/27/16 19:56 98.5 89 23 102/67 100 Nasal Cannula 1.0 05/27/16 17:56 98.5 97 26 101/70 100 Nasal Cannula 1.0 05/27/16 17:26 98.5 05/27/16 16:40 100.8 117 35 93/78 100 Nasal Cannula 3.0 05/27/16 16:12 100.0 118 38 101/69 100 Nasal Cannula 3.0 05/27/16 15:08 100.0 114 36 100/68 99 Nasal Cannula 4.0 Intake and Output 05/27/16 05/28/16 19:00 07:00 Intake Total 1450 ml Output Total 200 ml Balance 1250 ml Free Water 400 ml IV Total 1050 ml Output Urine Total 200 ml # Voids 1 # Bowel Movements 2 Laboratory Tests Test 05/27/16 16:10 05/27/16 16:21 05/27/16 17:39 05/27/16 20:45 Arterial Blood pH 7.390 (7.350-7.450) Arterial Blood Partial Pressure CO2 47.5 mmHg (35.0-45.0) H Arterial Blood Partial Pressure O2 130.5 mmHg (75.0-100.0) H Arterial Blood HCO3 28.6 mmol/L (22.0-26.0) H Arterial Blood Oxygen Saturation 98.3 % (92.0-98.0) H Arterial Blood Base Excess 3.0 Anderson Test Positive White Blood Count 13.4 K/UL (4.8-10.8) H Red Blood Count 4.94 M/UL (4.70-6.10) Hemoglobin 16.1 G/DL (14.2-18.0) Hematocrit 53.6 % (42.0-52.0) H Mean Corpuscular Volume 109 FL (80-99) H Mean Corpuscular Hemoglobin 32.7 PG (27.0-31.0) H Mean Corpuscular Hemoglobin Concent 30.1 G/DL (32.0-36.0) L Red Cell Distribution Width 14.0 % (11.6-14.8) Platelet Count 160 K/UL (150-450) Mean Platelet Volume 12.3 FL (6.5-10.1) H Neutrophils (%) (Auto) 57.2 % (45.0-75.0) Lymphocytes (%) (Auto) 34.3 % (20.0-45.0) Monocytes (%) (Auto) 5.4 % (1.0-10.0) Eosinophils (%) (Auto) 2.6 % (0.0-3.0) Basophils (%) (Auto) 0.5 % (0.0-2.0) Lactic Acid Level 2.30 mmol/L (0.66-2.22) H Sodium Level 187 mEQ/L (135-145) *H Potassium Level 4.4 mEQ/L (3.4-4.9) Chloride Level 146 mEQ/L (98-107) H Carbon Dioxide Level 31 mEQ/L (20-30) H Anion Gap 10 (5-15) Blood Urea Nitrogen 72 mg/dL (7-23) H Creatinine 2.3 mg/dL (0.7-1.2) H Estimat Glomerular Filtration Rate mL/min (>60) Glucose Level 120 mg/dL (74-106) H Calcium Level 9.2 mg/dL (8.6-10.2) Total Bilirubin 1.0 mg/dL (0.0-1.2) Aspartate Amino Transf (AST/SGOT) 51 U/L (5-40) H Alanine Aminotransferase (ALT/SGPT) 31 U/L (3-41) Alkaline Phosphatase 87 U/L (40-129) Total Creatine Kinase 4009 U/L (26-140) H Creatine Kinase MB 2.7 ng/mL (< 6.7) Creatine Kinase MB Relative Index 0.0 Troponin I < 0.30 ng/mL (<=0.30) Pro-B-Type Natriuretic Peptide 258 pg/mL (0-450) Total Protein 7.5 g/dL (6.6-8.7) Albumin 3.1 g/dL (3.5-5.2) L Globulin 4.4 g/dL Albumin/Globulin Ratio 0.7 (1.0-2.7) L Urine Color Kelli Urine Appearance Clear Urine pH 6 (4.5-8.0) Urine Specific [place] 1.015 (1.005-1.035) Urine Protein 3+ (NEGATIVE) H Urine Glucose (UA) Negative (NEGATIVE) Urine Ketones Negative (NEGATIVE) Urine Occult Blood 5+ (NEGATIVE) H Urine Nitrite Negative (NEGATIVE) Urine Bilirubin Negative (NEGATIVE) Urine Ictotest N Urine Urobilinogen 4 MG/DL (0.0-1.0) H Urine Leukocyte Esterase 1+ (NEGATIVE) H Urine RBC 2-4 /HPF (0 - 0) H Urine WBC 2-4 /HPF (0 - 0) Urine Squamous Epithelial Cells Few /LPF (NONE/OCC) Urine Amorphous Sediment Few /LPF (NONE) H Urine Bacteria None /HPF (NONE) Test 05/27/16 21:53 05/28/16 07:10 Lactic Acid Level 1.80 mmol/L (0.66-2.22) White Blood Count 11.4 K/UL (4.8-10.8) H Red Blood Count 3.52 M/UL (4.70-6.10) L Hemoglobin 11.9 G/DL (14.2-18.0) L Hematocrit 37.7 % (42.0-52.0) L Mean Corpuscular Volume 107 FL (80-99) H Mean Corpuscular Hemoglobin 33.8 PG (27.0-31.0) H Mean Corpuscular Hemoglobin Concent 31.6 G/DL (32.0-36.0) L Red Cell Distribution Width 13.5 % (11.6-14.8) Platelet Count 122 K/UL (150-450) L Mean Platelet Volume 13.5 FL (6.5-10.1) H Neutrophils (%) (Auto) 61.0 % (45.0-75.0) Lymphocytes (%) (Auto) 27.4 % (20.0-45.0) Monocytes (%) (Auto) 6.3 % (1.0-10.0) Eosinophils (%) (Auto) 4.6 % (0.0-3.0) H Basophils (%) (Auto) 0.6 % (0.0-2.0) Sodium Level 181 mEQ/L (135-145) *H Potassium Level 3.2 mEQ/L (3.4-4.9) L Chloride Level 140 mEQ/L (98-107) H Carbon Dioxide Level 30 mEQ/L (20-30) Anion Gap 11 (5-15) Blood Urea Nitrogen 60 mg/dL (7-23) H Creatinine 1.7 mg/dL (0.7-1.2) H Estimat Glomerular Filtration Rate mL/min (>60) Glucose Level 147 mg/dL (74-106) H Calcium Level 8.1 mg/dL (8.6-10.2) L Total Bilirubin 0.9 mg/dL (0.0-1.2) Aspartate Amino Transf (AST/SGOT) 56 U/L (5-40) H Alanine Aminotransferase (ALT/SGPT) 27 U/L (3-41) Alkaline Phosphatase 78 U/L (40-129) Total Protein 6.4 g/dL (6.6-8.7) L Albumin 2.6 g/dL (3.5-5.2) L Globulin 3.8 g/dL Albumin/Globulin Ratio 0.6 (1.0-2.7) L TRINIDAD RUBY May 28, 2016 12:03
--- NOTE | 2016-05-28 13:25 | Consultation ---
Consult Note Assessment/Plan Discussed with Dr. Maier and Dr. Saeed. Will change IVF to D5W @100cc/hr. Monitor Na closely. Repeat BMP this afternoon. Free water flush via GT. FEMI MEZA May 28, 2016 13:25
[2016-05-28 16:00] VITALS: BP 107/59
[2016-05-28 16:54] LABS: ANION GAP 11 (5-15); CARBON DIOXIDE 28 mEQ/L (20-30); CHLORIDE 135 mEQ/L (98-107); CREATININE 1.6 mg/dL (0.7-1.2); HEMOLYSIS 12; POTASSIUM 3.3 mEQ/L (3.4-4.9)
[2016-05-28 17:23] LABS: SODIUM 175 mEQ/L (135-145)
[2016-05-28] MEDS ORDERED: Tubing IV Secondary IV ONE (17:42)
[2016-05-28] MEDS ORDERED: NS 275ml ONE (17:42)
[2016-05-28] MEDS ORDERED: Sterile Water Irrig 1000ml IRRIG ONE (17:42)
[2016-05-28] MEDS ORDERED: KCl 10% 20 mEq/15ml liquid NG ONE (18:00)
--- NOTE | 2016-05-28 18:01 | Infectious Diseases Prog Note ---
Assessment/Plan Problems: (1) Severe sepsis Assessment & Plan: continue wide spectrum antibiotics with vancomycin and cefepime, await blood culture (2) Hypernatremia Assessment & Plan: due to sever dehydration , continue IVF , with close monitor of sodium level, nephrology is following (3) Decubitus skin ulcer Assessment & Plan: will order an MRI of the right foot and knee to rule out osteomyelitis, continue local wound care, and offloading, await culture results , continue wide spectrum antibiotics (4) Rhabdomyolysis Assessment & Plan: continue IVF , and monitor CK level. (5) Cellulitis of right foot Assessment & Plan: on vancomycin and cefepime (6) KINGA (acute kidney injury) Assessment & Plan: due to sever dehydration and rhabdomyolysis , continue hydration and monitor renal function and UOP, avoid nephrotoxic meds (7) Neck abscess Assessment & Plan: will need CT scan image to evaluate once clinically stable , continue wide spectrum antibiotics therapy Subjective ROS Limited/Unobtainable: Yes Allergies: Coded Allergies: No Known Allergies (Unverified , 12/08/13) Subjective he is comfortable, demented, resting in bed , not in distress Objective Vital Signs Last 24 Hour Vital Signs Date Time Temp Pulse Resp B/P Pulse Ox O2 Delivery O2 Flow Rate FiO2 05/28/16 16:00 97.2 80 20 107/59 Nasal Cannula 2.0 94 05/28/16 16:00 82 05/28/16 12:00 97.4 73 18 97/56 Nasal Cannula 2.0 05/28/16 10:05 71 05/28/16 09:00 71 99/59 05/28/16 08:00 80 05/28/16 08:00 97.8 71 18 99/59 Nasal Cannula 2.0 05/28/16 04:00 82 05/28/16 04:00 97.8 90 20 102/59 95 Nasal Cannula 2.0 05/28/16 00:00 89 05/28/16 00:00 97.7 90 16 97/72 98 Nasal Cannula 2.0 05/27/16 22:42 74 18 102/71 Nasal Cannula 1.0 95 05/27/16 22:30 88 05/27/16 21:41 98.5 89 23 102/67 100 Nasal Cannula 1.0 05/27/16 21:41 98.5 83 19 106/69 100 Nasal Cannula 1.0 05/27/16 19:56 98.5 89 23 102/67 100 Nasal Cannula 1.0 Height (Feet): 5 Height (Inches): 5.00 Weight (Pounds): 152 General Appearance: WD/WN, no acute distress HEENT: normocephalic, atraumatic, anicteric Respiratory/Chest: chest wall non-tender, normal breath sounds, no respiratory distress, no accessory muscle use, decreased breath sounds, crackles/rales Cardiovascular: normal rate, regular rhythm, no gallop/murmur Abdomen: normal bowel sounds, soft, non tender, no organomegaly, non distended , no mass, no scars Extremities: no cyanosis, no clubbing Skin: no rash, ulcers Laboratory Tests Test 05/27/16 20:45 05/27/16 21:53 05/28/16 07:10 05/28/16 16:00 Urine Color Kelli Urine Appearance Clear Urine pH 6 (4.5-8.0) Urine Specific [place] 1.015 (1.005-1.035) Urine Protein 3+ (NEGATIVE) H Urine Glucose (UA) Negative (NEGATIVE) Urine Ketones Negative (NEGATIVE) Urine Occult Blood 5+ (NEGATIVE) H Urine Nitrite Negative (NEGATIVE) Urine Bilirubin Negative (NEGATIVE) Urine Ictotest N Urine Urobilinogen 4 MG/DL (0.0-1.0) H Urine Leukocyte Esterase 1+ (NEGATIVE) H Urine RBC 2-4 /HPF (0 - 0) H Urine WBC 2-4 /HPF (0 - 0) Urine Squamous Epithelial Cells Few /LPF (NONE/OCC) Urine Amorphous Sediment Few /LPF (NONE) H Urine Bacteria None /HPF (NONE) Lactic Acid Level 1.80 mmol/L (0.66-2.22) White Blood Count 11.4 K/UL (4.8-10.8) H Red Blood Count 3.52 M/UL (4.70-6.10) L Hemoglobin 11.9 G/DL (14.2-18.0) L Hematocrit 37.7 % (42.0-52.0) L Mean Corpuscular Volume 107 FL (80-99) H Mean Corpuscular Hemoglobin 33.8 PG (27.0-31.0) H Mean Corpuscular Hemoglobin Concent 31.6 G/DL (32.0-36.0) L Red Cell Distribution Width 13.5 % (11.6-14.8) Platelet Count 122 K/UL (150-450) L Mean Platelet Volume 13.5 FL (6.5-10.1) H Neutrophils (%) (Auto) 61.0 % (45.0-75.0) Lymphocytes (%) (Auto) 27.4 % (20.0-45.0) Monocytes (%) (Auto) 6.3 % (1.0-10.0) Eosinophils (%) (Auto) 4.6 % (0.0-3.0) H Basophils (%) (Auto) 0.6 % (0.0-2.0) Sodium Level 181 mEQ/L (135-145) *H 175 mEQ/L (135-145) *H Potassium Level 3.2 mEQ/L (3.4-4.9) L 3.3 mEQ/L (3.4-4.9) L Chloride Level 140 mEQ/L (98-107) H 135 mEQ/L (98-107) H Carbon Dioxide Level 30 mEQ/L (20-30) 28 mEQ/L (20-30) Anion Gap 11 (5-15) 11 (5-15) Blood Urea Nitrogen 60 mg/dL (7-23) H 53 mg/dL (7-23) H Creatinine 1.7 mg/dL (0.7-1.2) H 1.6 mg/dL (0.7-1.2) H Estimat Glomerular Filtration Rate mL/min (>60) mL/min (>60) Glucose Level 147 mg/dL (74-106) H 139 mg/dL (74-106) H Calcium Level 8.1 mg/dL (8.6-10.2) L 8.0 mg/dL (8.6-10.2) L Total Bilirubin 0.9 mg/dL (0.0-1.2) Aspartate Amino Transf (AST/SGOT) 56 U/L (5-40) H Alanine Aminotransferase (ALT/SGPT) 27 U/L (3-41) Alkaline Phosphatase 78 U/L (40-129) Total Protein 6.4 g/dL (6.6-8.7) L Albumin 2.6 g/dL (3.5-5.2) L Globulin 3.8 g/dL Albumin/Globulin Ratio 0.6 (1.0-2.7) L Current Medications Medications (Trade) Dose Ordered Sig/Omi Route PRN Reason Start Time Stop Time Status Last Admin Dose Admin Acetaminophen (Tylenol) 650 mg Q4H PRN ORAL fever 05/27/16 20:15 06/26/16 20:14 Albuterol/ Ipratropium 3 ml 3 ml EVERY 4 HOURS PRN HHN Shortness of Breath 05/27/16 20:15 06/01/16 20:14 Amlodipine Besylate (Norvasc) 10 mg DAILY GT 05/28/16 09:00 06/27/16 08:59 Cefepime HCl 2 gm/ Dextrose 100 ml @ 100 mls/hr Q24H IV 05/29/16 01:00 06/05/16 00:59 Dextrose (D5W 1000ml) 1,000 ml @ 100 mls/hr Q10H IV 05/28/16 13:30 06/27/16 13:29 05/28/16 13:00 Digoxin (Lanoxin) 0.125 mg DAILY GT 05/28/16 09:45 06/27/16 09:44 05/28/16 10:05 Heparin Sodium (Porcine) (Heparin 5000 units/ml) 5,000 units EVERY 12 HOURS SUBQ 05/27/16 21:00 06/26/16 20:59 05/28/16 09:00 Morphine Sulfate (Morphine Sulfate) 2 mg EVERY 4 HOURS PRN IVP Moderate Pain (Pain Scale 4-6) 05/27/16 20:15 06/03/16 20:14 Nitroglycerin (Ntg) 0.4 mg Q 5 MINS PRN SL Prn Chest Pain 05/27/16 20:15 06/26/16 20:14 Ondansetron HCl (Zofran) 4 mg Q6H PRN IVP Nausea & Vomiting 05/27/16 20:15 06/26/16 20:14 Polyethylene Glycol (Miralax) 17 gm DAILYPRN PRN ORAL Constipation 05/27/16 20:15 06/26/16 20:14 Potassium Chloride (KCl 10% 20 mEq oral solution) 20 meq ONCE ONCE NG 05/28/16 18:00 05/28/16 18:01 05/28/16 17:51 Ranitidine HCl 150 mg 150 mg BEDTIME ORAL 05/28/16 21:00 06/27/16 20:59 Temazepam (Restoril) 15 mg HSPRN PRN ORAL Insomnia 05/27/16 20:15 06/03/16 20:14 Vancomycin HCl/ Dextrose (Vancomycin/D5W 250ml) 250 ml @ 167 mls/hr Q48H IVPB 05/29/16 21:00 06/03/16 20:59 Karla Stringer M.D. May 28, 2016 18:01
--- NOTE | 2016-05-28 18:40 | Wound Care Consultation ---
Wound Assessment Wound Assessment #1: Wound Present on Admission: Yes New Wound: No Status Change of Wound: No Wound Location Body Site Modif: right, upper Wound Location Body Site: back Wound Type: pressure ulcer Royer Test: Does not Royer Pressure Ulcer Stage: IV/unstageable Wound Thickness: Full Thickness Wound Length: 4.0 Wound Width: 3.0 Wound Depth: utd Percent of Wound [place]/Red: 10 Percent of Wound Bed Yellow/Wh: 90 Wound Drainage Description: Serosanguineous Wound Drainage Amount: Moderate Wound Drainage Odor: None/Absent Tissue Surrounding Wound: Erythemic Wound General Appearance: Reddened, Draining, Necrotic Wound Assessment #2: Wound Number: #2 Wound Present on Admission: Yes New Wound: No Status Change of Wound: No Wound Location Body Site Modif: right, lateral Wound Location Body Site: malleolus/ankle Wound Type: pressure ulcer Royer Test: Does not Royer Pressure Ulcer Stage: IV/unstageable Wound Thickness: Full Thickness Wound Length: 4.0 Wound Width: 4.0 Wound Depth: utd Percent of Wound [place]/Red: 10 Percent of Wound Bed Yellow/Wh: 90 Wound Drainage Description: Serosanguineous Wound Drainage Amount: Moderate Wound Drainage Odor: None/Absent Tissue Surrounding Wound: Macerated Wound General Appearance: Reddened, Draining, Necrotic Wound Assessment #3: Wound Number: #3 Wound Present on Admission: Yes New Wound: No Status Change of Wound: No Wound Location Body Site Modif: right, lateral Wound Location Body Site: foot Wound Type: pressure ulcer Royer Test: Does not Royer Pressure Ulcer Stage: IV/unstageable Wound Thickness: Full Thickness Wound Length: 2.0 Wound Width: 2.0 Wound Depth: utd Percent of Wound [place]/Red: 80 Percent of Wound Bed Yellow/Wh: 20 Wound Drainage Description: Serosanguineous Wound Drainage Amount: Moderate Wound Drainage Odor: None/Absent Tissue Surrounding Wound: Macerated Wound General Appearance: Reddened, Draining Wound Assessment #4: Wound Number: #4 Wound Present on Admission: Yes New Wound: No Status Change of Wound: No Wound Location Body Site Modif: left, anterior Wound Location Body Site: toe - 4th Wound Type: lesion-etiology unknown Royer Test: Does not Royer Wound Thickness: Full Thickness Wound Length: 2.0 Wound Width: 2.0 Wound Depth: utd Percent of Wound [place]/Red: 80 Percent of Wound Bed Yellow/Wh: 20 Wound Drainage Description: Serosanguineous Wound Drainage Amount: Scant Wound Drainage Odor: None/Absent Tissue Surrounding Wound: Macerated Wound General Appearance: Reddened, Draining Wound Assessment #5: Wound Number: #5 Wound Present on Admission: Yes New Wound: No Status Change of Wound: No Wound Location Body Site Modif: mid Wound Location Body Site: sacral Wound Type: pressure ulcer Wound Thickness: Full Thickness Wound Length: 5.0 Wound Width: 9.0 Wound Depth: utd Percent of Wound [place]/Red: 00 Wound Drainage Amount: None Wound Drainage Odor: None/Absent Tissue Surrounding Wound: full-thickness scar tissue Wound General Appearance: Reddened Wound Assessment #6: Wound Number: #6 Wound Present on Admission: Yes New Wound: No Status Change of Wound: No Wound Location Body Site Modif: left, upper Wound Location Body Site: back Wound Type: pressure ulcer Royer Test: Does not Royer Pressure Ulcer Stage: deep tissue injury Wound Thickness: Full Thickness Wound Length: 2.5 Wound Width: 3.5 Wound Depth: utd Percent of Wound Black/Brown: 100 Wound Drainage Amount: None Wound Drainage Odor: None/Absent Tissue Surrounding Wound: Intact Wound General Appearance: Asymptomatic, Blackened Wound Assessment #7: Wound Number: #7 Wound Present on Admission: Yes New Wound: No Status Change of Wound: No Wound Location Body Site Modif: left Wound Location Body Site: heel Wound Type: pressure ulcer Royer Test: Does not Royer Pressure Ulcer Stage: IV/unstageable Wound Thickness: Full Thickness Wound Length: 3.0 Wound Width: 4.0 Wound Depth: utd Percent of Wound Bed Yellow/Wh: 100 Wound Drainage Amount: None Wound Drainage Odor: None/Absent Tissue Surrounding Wound: Erythemic Wound General Appearance: Reddened Wound Assessment #8: Wound Number: #8 Wound Present on Admission: Yes New Wound: No Status Change of Wound: No Wound Location Body Site Modif: right Wound Location Body Site: heel Wound Type: pressure ulcer Royer Test: Does not Royer Pressure Ulcer Stage: deep tissue injury Wound Thickness: Full Thickness Wound Length: 4.0 Wound Width: 4.0 Wound Depth: utd Percent of Wound [place]/Red: 50 Percent of Wound Purple/Maroon: 50 Wound Drainage Amount: None Wound Drainage Odor: None/Absent Tissue Surrounding Wound: Erythemic Wound General Appearance: Asymptomatic, Reddened Wound Assessment #9: Wound Number: #9 Wound Present on Admission: Yes New Wound: No Status Change of Wound: No Wound Location Body Site Modif: right, lower, anterior Wound Location Body Site: leg Wound Type: lesion-etiology unknown Royer Test: Does not Royer Wound Thickness: Full Thickness Wound Length: 4.0 Wound Width: 2.0 Wound Depth: utd Percent of Wound [place]/Red: 50 Percent of Wound Bed Yellow/Wh: 50 Wound Drainage Amount: None Wound Drainage Odor: None/Absent Tissue Surrounding Wound: Intact Wound General Appearance: Asymptomatic Wound Comment #1 sacral pressure ulcer redness with full thickness scar tissue #2 Right upper back stage IV/unstageable pressure ulcer #3 Right lateral malleolus stage IV/unstageable pressure ulcer #4 Right lateral foot stage IV/unstageable pressure ulcer #5 Left anterior 4th toe open wound etiology unknown #6 Left heel stage IV/unstageable healing pressure ulcer #7 Right lower anterior leg wound with dry scab, open partial-thickness wound and scattered scar tissue etiology unknown #8 Left upper back suspected DTI pressure ulcer #9 Right heel DTI pressure ulcer Recommendation -Turn and reposition -Keep clean and dry -Local wound care as ordered -Low air loss overlay mattress -Optimize nutrition -Offload both heels -Assess and f/u with MD for any changes KALINA LENZ RN May 28, 2016 18:40
[2016-05-28 20:00] VITALS: BP 111/40
--- NOTE | 2016-05-28 21:48 | Consultation ---
DATE OF CONSULTATION: 05/28/2016 REASON FOR CONSULTATION: Atrial fibrillation rapid ventricular response. HISTORY OF PRESENT ILLNESS: The patient is an 80-year-old gentleman was [place] for fever and congestion. The patient has advanced dementia. The patient has had prior G-tube placement and he is usually nonverbal. The patient also has history of atrial fibrillation. The patient's EKG showed atrial fibrillation, ventricular response rate of 118 beats per minute. PAST MEDICAL HISTORY: Includes, 1. Dementia. 2. Dysphagia, status post G-tube placement. 3. Decubitus ulcer. 4. Questionable history of atrial fibrillation. SOCIAL HISTORY: He lives in a detention. FAMILY HISTORY: Noncontributory. REVIEW OF SYSTEMS: Cannot be obtained. PHYSICAL EXAMINATION: VITAL SIGNS: Blood pressure is 99/59, pulse 71, respirations 18, and temperature 97.8 degrees. HEAD AND NECK: No JVD. LUNGS: Decreased breath sounds. CARDIOVASCULAR: Irregular S1-S2 with no gallop. ABDOMEN: Status post G-tube. EXTREMITIES: No pitting edema. LABORATORY DATA: Sodium initially 187 today is 181, potassium of 3.2, BUN 60, creatinine 1.7, and glucose of 147. CK is more than 4000. BNP 258. White count is 11.4, hemoglobin 11.9, hematocrit 37.7, and platelet 122,000. ASSESSMENT AND PLAN: 1. Atrial fibrillation with rapid ventricular response. The patient is on digoxin 0.125 mg through gastrostomy tube daily. However, there is no digoxin level. At this time, digoxin in view of patient's acute renal failure. The patient is on no other AV marnie blocking agents off anticoagulation. I will check PT and INR as he has not any baseline. Echocardiogram will also performed to rule out myocardial infarction protocol. 2. Hypertension on Norvasc 10 mg daily and will be continued. Losartan is held in view of the patient's renal failure. 3. Profound hypernatremia. Sodium bicarbonate will be discontinued and start the patient on D5W and further evaluation by Dr. Maier from Nephrology perspective. 4. Rhabdomyolysis, recent profound dehydration. 5. Severe azotemia with BUN of 70 and creatinine 2.3 that is going down to 60 and 1.7. Further evaluation by Dr. Maier. We will start the patient on D5W for now. 6. Rhabdomyolysis with a CK of more than 4000 and troponin is negative. His BNP is only 258. Keep the patient on IV fluids for now. the patient is scheduled Dr. Maier. Thank you very much, Dr. Pressley, for allowing me to participate in the care of this patient. Please do not hesitate to contact me for any questions regarding my evaluation. Juan Ramon Saeed M.D. DR: Franko JOB#: [id number] CC:
--- NOTE | 2016-05-28 22:18 | History and Physical Report ---
DATE OF ADMISSION: 05/27/2016 Time: 10:00 a.m. CONSULTANTS: 1. Karla Stringer M.D. 2. Aleksey Reyes M.D. 3. CHIEF COMPLAINT: Fever, shortness of breath, and congestion. BRIEF HISTORY: This is an 80-year-old male from [facility], presented with above-mentioned diagnosis diagnosed with pneumonia, fever, sepsis, and shock, and admitted to telemetry for further care. Currently, O2 via NC, sleeping in bed, not talking much. PAST MEDICAL HISTORY: Include decubitus ulcer, dementia, and atrial fibrillation. PAST SURGICAL HISTORY: Unknown. MEDICATIONS: Include vancomycin, digoxin, Norvasc, cefepime, heparin, albuterol, morphine, Zofran, and temazepam. ALLERGIES: Denies. SOCIAL HISTORY: Unable to be obtained. FAMILY HISTORY: Noncontributory . REVIEW OF SYSTEMS: Not available. PHYSICAL EXAMINATION: GENERAL: Lethargic in bed, nonverbal, O2 via NC, and very sleepy. VITAL SIGNS: Temperature 97 degrees, pulse 71, respirations 20, and blood pressure 99/59. CARDIOVASCULAR: No murmur. LUNGS: Distant and poor air exchange. ABDOMEN: Bowel sounds are positive. Nontender and nondistended. EXTREMITIES: No cyanosis, clubbing, or edema. NEUROLOGIC: The patient moves all extremities. Does not want to follow commands. LABORATORY AND DIAGNOSTIC DATA: White count 11.4, hemoglobin and hematocrit 11.9 /37, and platelets 122,000. BMP shows sodium 181, potassium 3.2, chloride , BUN and creatinine 60 and 1.7, and glucose 147. Urinalysis shows 1+ leukocyte esterase. ASSESSMENT: 1. Pneumonia. 2. Fever. 3. Congestion. 4. Renal failure. 5. Septic shock. 6. Decubitus ulcer. 7. Dementia. 8. Atrial fibrillation. 9. Hypernatremia. PLAN: Continue premedications. O2 pulmonary treatment. Antibiotics per Infectious Disease. Blood pressure and blood sugar controlled. Nephrology followup. OT/PT and dietary evaluation. CBC and BMP in the morning. We will continue follow this patient medically. Dr. Stringer, Dr. Reyes, and to consult. Emmett Pressley D.O. DR: Ashtyn JOB#: [id number] CC:
--- NOTE | 2016-05-28 22:38 | Consultation ---
DATE OF CONSULTATION: INFECTIOUS DISEASES CONSULTATION CONSULTING PHYSICIAN: Karla Stringer M.D. REQUESTING PHYSICIAN: Emmett Pressley D.O. REASON FOR CONSULTATION: Sepsis, multiple decubitus wound infection. Recommendation for antibiotics therapy. HISTORY OF PRESENT ILLNESS: The patient is an 80-year-old male, [facility] resident, who was brought into [facility] with increasing fever and pulmonary congestion. The patient had advanced dementia. He was found to have increased breathing rate. His chest was congested as per the report. The patient also was found to have low-grade fever at the [facility] facility and he was altered, so he was brought into [facility] for evaluation and management. ABG has showed hypoxemia with CO2 retention. White count was elevated. He met the criteria for sepsis and he was admitted to the hospital for further evaluation and management and I was consulted by the primary provider for antibiotics recommendation and management. As of note, the patient is demented, cannot provide any history. History was mainly obtained from the medical record. PAST MEDICAL HISTORY: Includes dementia, dysphagia, and atrial fibrillation. PAST SURGICAL HISTORY: He had G-tube placement due to dysphagia. ALLERGIES: The patient had no known drug allergy. MEDICATIONS: The patient was started on vancomycin, digoxin, Norvasc, cefepime, sodium bicarb, DuoNeb, Tylenol, morphine sulfate, MiraLAX, Zofran, Restoril, and nitroglycerin. FAMILY HISTORY: Unable to obtain. SOCIAL HISTORY: alf resident. No recent drugs, tobacco, or alcohol. PHYSICAL EXAMINATION: VITAL SIGNS: Temperature 98.5, pulse 97, respirations 26, blood pressure 101/70, and pulse oximetry is 100% on 1 liter nasal cannula. GENERAL: This is an elderly male, demented, lying in bed, unresponsive, not in distress. HEENT: Normocephalic and atraumatic. Pale sclera. Dry oral mucosa. NECK: Supple. No lymphadenopathy. CARDIOVASCULAR: He was tachycardic. S1 and S2 positive. No gallop or murmur. LUNGS: He had diminished breathing sound on the bases. No wheezing. No rhonchi. No tachypnea. ABDOMEN: Soft, nontender, and nondistended. PEG tube site looks intact. No bleeding or drainage. EXTREMITIES: He had multiple decubitus wounds, mainly on the right leg including right knee and the right toes with cellulitis involving the right foot area. SKIN: He had multiple decubitus ulcer, one on the sacrum and one on his back, which looks infected, had multiple on both legs, mainly on the right side. LABORATORY DATA: Showed his white count of 13.4, hemoglobin 16.1, hematocrit of 53.6, and platelet count of 160,000. Sodium of 187, chloride of 146, BUN of 72, and creatinine of 2.3. Lactic acid of 2.3. AST of 51. CK level of 4009. Urinalysis showed protein, blood, +1 leukocyte esterase, WBC 2 to 4, and no bacteria. IMAGING DATA: Chest x-ray did not show any acute infiltration, effusion, or consolidation. ASSESSMENT AND PLAN: 1. Severe sepsis. The patient will be started on wide-spectrum antibiotics therapy with vancomycin and cefepime. We will await blood culture results. We will adjust antibiotics as needed. 2. Decubitus skin ulcer, mainly on the back and the right foot looks infected. We will get an MRI of his right foot and right knee to rule out septic joint and osteomyelitis. Continue wide-spectrum antibiotics therapy, offloading, and local wound care. 3. Hypernatremia due to severe dehydration. Continue intravenous fluids and close monitor of sodium level. Consult renal service. 4. Rhabdomyolysis. Continue intravenous fluid for hydration and monitor CK level. 5. Cellulitis of the right foot. The patient will be on vancomycin and cefepime. 6. Acute renal failure due to severe dehydration, hypotension, sepsis, and rhabdomyolysis. Continue hydration, monitor renal function, urine output, avoid nephrotoxic medications. Karla Stringer M.D. DR: BIRDIE JOB#: [id number] CC: ELIZABETH
[2016-05-29 00:23] VITALS: BP 118/58
[2016-05-29 04:25] VITALS: BP 106/70
[2016-05-29 08:07] LABS: BASOPHILS % (AUTO) 0.9 % (0.0-2.0); EOSINOPHILS % (AUTO) 6.2 % (0.0-3.0); LYMPHOCYTES % (AUTO) 29.9 % (20.0-45.0); MEAN CORPUSCULAR HEMOGLOBIN 31.6 PG (27.0-31.0); MEAN CORPUSCULAR HGB CONC 30.4 G/DL (32.0-36.0); MEAN CORPUSCULAR VOLUME 104 FL (80-99); MEAN PLATELET VOLUME 13.1 FL (6.5-10.1); MONOCYTES % (AUTO) 5.1 % (1.0-10.0); NEUTROPHILS % (AUTO) 57.9 % (45.0-75.0); PLATELET COUNT 124 K/UL (150-450); WHITE BLOOD COUNT 8.7 K/UL (4.8-10.8)
[2016-05-29 08:10] LABS: INR 1.1 (0.9-1.1); PROTHROMBIN TIME 11.4 SEC (9.30-11.50)
[2016-05-29 08:14] VITALS: BP 96/49
[2016-05-29] MEDS: Heparin 5000 units/ml inj SUBQ SCH ×2 (08:15→21:00)
[2016-05-29 08:23] LABS: CALCIUM 8.1 mg/dL (8.6-10.2); CARBON DIOXIDE 25 mEQ/L (20-30); CHLORIDE 131 mEQ/L (98-107); CREATININE 1.5 mg/dL (0.7-1.2); HEMOLYSIS 5
[2016-05-29 08:36] LABS: TROPONIN I < 0.30 ng/mL (<=0.30)
[2016-05-29 08:40] LABS: ANION GAP 14 (5-15)
[2016-05-29 08:42] LABS: SODIUM 170 mEQ/L (135-145)
[2016-05-29] MEDS: Digoxin 0.125mg tab GT SCH (09:22)
--- NOTE | 2016-05-29 10:04 | Consultation ---
History of Present Illness General Date patient seen: May 28, 2016 Chief Complaint: General Complaint Referring physician: Huan Reason for Consultation: congestion, fever, tachypnea Present Illness HPI This is an 80 y/o male with hx of dementia and dysphagia s/p PEG from SNF who was BIBA for fever. Patient also reported to have chest congestion and altered mental status from his baseline. Patient's history is limited due to his mental status and obtained from patient's chart. In the ED, patient had ABG which showed hypoexmia ands CO2 retention. WBC was elevated. Severe hypernatremia with renal failure was noted and renal consult was requested by primary MD. Allergies: Coded Allergies: No Known Allergies (Unverified , 12/08/13) Medication History Scheduled Amlodipine Besylate (Norvasc), 10 MG GT DAILY Ascorbic Acid* (Ascorbic Acid*), 500 MG GT DAILY Ascorbic Acid* (Vitamin C*), 5 ML GT DAILY, (Reported) Aspirin* (Aspirin*), 81 MG ORAL DAILY, (Reported) Digoxin* (Lanoxin*), 0.125 MG GT DAILY Digoxin* (Digoxin*), 0.125 MG GT DAILY, (Reported) Docusate Sodium (Docusate Sodium), 100 MG NG TWICE A DAY Docusate Sodium* (Docusate Sodium*), 100 MG GT BID, (Reported) Losartan Potassium (Losartan Potassium), 100 MG GT DAILY, (Reported) Losartan Potassium* (Cozaar*), 100 MG GT DAILY Losartan Potassium* (Cozaar*), 100 MG GT DAILY, (Reported) Multivitamins* (Multivitamins*), Unknown Dose GT DAILY, (Reported) Bethel-3 Fatty Acids (Fish Oil), 1,000 MG GT BID, (Reported) Potassium Chloride (Potassium Chloride), 20 MEQ GT DAILY, (Reported) Zinc Sulfate (Zinc Sulfate*), 220 MG GT DAILY [Multivitamins], 15 ML GT DAILY Scheduled PRN Acetaminophen* (Tylenol Extra Strength*), 650 MG GT Q4HR PRN for Mild Pain/Temp > 100.5, (Reported) Acetaminophen* (Tylenol Extra Strength*), 1,000 MG GT Q6H PRN for Mild Pain/ Temp > 100.5, (Reported) Acetaminophen* (Tylenol Extra Strength*), 500 MG GT Q6H PRN for Mild Pain/Temp > 100.5, (Reported) Clonidine HCl (Clonidine HCl), 0.1 MG GT DAILYPRN PRN for FOR SBP>160 Nitroglycerin (Nitrostat), 0.4 MG SL .Q5MIN X 3 DOSES PRN for Prn Chest Pain Miscellaneous Medications Clonidine Hcl (Clonidine Hcl), 0.1 MG GT, (Reported) Ipratropium/Albuterol Sulfate (DuoNeb 0.5-3(2.5)mg/3ml), 3 ML HHN, (Reported) Bethel-3 Fatty Acids (Fish Oil), 1 GM PO, (Reported) Discontinued Medications Acetaminophen (Acetaminophen), 650 MG GT Q4H PRN for Moderate Pain (Pain Scale 4 -6) Discontinued Reason: Therapy completed Acetaminophen* (Tylenol Extra Strength*), 500 MG ORAL Q4H PRN for Mild Pain/ Temp > 100.5 Discontinued Reason: Therapy completed Acetaminophen* (Tylenol Extra Strength*), 1,000 MG ORAL Q4H PRN for Severe Pain (Pain Scale 7-10) Discontinued Reason: Therapy completed Heparin Sod (Porcine) (Heparin Sodium*), 5,000 UNITS SUBQ EVERY 12 HOURS Discontinued Reason: Therapy completed Povidone Iodine (Betadine), 1 APPLIC TOPIC DAILY PRN for FOR DRESSING CHANGES Discontinued Reason: Therapy completed Saline (Sodium Chloride), 10 ML IVF EVERY 8 HOURS PRN for for line flush Discontinued Reason: Therapy completed Sodium Hypochlorite (Dakin's), 1 APPLIC TOPIC DAILY Discontinued Reason: Therapy completed Sulfamethoxazole/Trimethoprim Susp* (Bactrim Susp*), 20 ML NG EVERY 12 HOURS Discontinued Reason: Therapy completed [Vancomycin Hcl], 1 EA MISC DAILY PRN for protocol Discontinued Reason: Therapy completed Patient History Limited by: medical condition History Provided By: Medical Record Healthcare decision maker Marie Jeffrey () Resuscitation status Full Code Advanced Directive on File Past Medical/Surgical History Past Medical/Surgical History: (1) Dementia (2) COPD (chronic obstructive pulmonary disease) (3) Atrial fibrillation (4) Decubitus skin ulcer Review of Systems ROS Narrative unable to obtain due to patient's mental status. Physical Exam General Appearance: WD/WN, confused HEENT: normocephalic, atraumatic Respiratory/Chest: decreased breath sounds Cardiovascular/Chest: normal rate, regular rhythm Abdomen: non tender, soft Extremities: trace edema Neurologic: disoriented Last 24 Hour Vital Signs Date Time Temp Pulse Resp B/P Pulse Ox O2 Delivery O2 Flow Rate FiO2 05/29/16 09:22 61 05/29/16 08:16 61 96/49 05/29/16 08:14 96.8 61 20 96/49 96 Nasal Cannula 2.0 05/29/16 04:25 97.0 61 20 106/70 100 Room Air 05/29/16 04:00 62 05/29/16 00:23 98.2 69 20 118/58 95 Nasal Cannula 2.0 05/29/16 00:00 63 05/28/16 20:00 61 05/28/16 20:00 97.7 70 18 111/40 Nasal Cannula 2.0 90 05/28/16 16:00 97.2 80 20 107/59 Nasal Cannula 2.0 94 05/28/16 16:00 82 05/28/16 12:00 97.4 73 18 97/56 Nasal Cannula 2.0 05/28/16 10:05 71 Intake and Output 05/28/16 05/29/16 19:00 07:00 Intake Total 940 ml 1525 ml Output Total 200 ml 2 ml Balance 740 ml 1523 ml Free Water 200 ml 400 ml IV Total 260 ml 1125 ml Other 480 ml Output Urine Total 200 ml 2 ml # Voids 1 2 # Bowel Movements 3 2 Laboratory Tests Test 05/28/16 16:00 05/29/16 07:00 Sodium Level 175 mEQ/L (135-145) *H 170 mEQ/L (135-145) *H Potassium Level 3.3 mEQ/L (3.4-4.9) L 3.0 mEQ/L (3.4-4.9) L Chloride Level 135 mEQ/L (98-107) H 131 mEQ/L (98-107) H Carbon Dioxide Level 28 mEQ/L (20-30) 25 mEQ/L (20-30) Anion Gap 11 (5-15) 14 (5-15) Blood Urea Nitrogen 53 mg/dL (7-23) H 40 mg/dL (7-23) H Creatinine 1.6 mg/dL (0.7-1.2) H 1.5 mg/dL (0.7-1.2) H Estimat Glomerular Filtration Rate mL/min (>60) mL/min (>60) Glucose Level 139 mg/dL (74-106) H 136 mg/dL (74-106) H Calcium Level 8.0 mg/dL (8.6-10.2) L 8.1 mg/dL (8.6-10.2) L White Blood Count 8.7 K/UL (4.8-10.8) Red Blood Count 3.80 M/UL (4.70-6.10) L Hemoglobin 12.0 G/DL (14.2-18.0) L Hematocrit 39.5 % (42.0-52.0) L Mean Corpuscular Volume 104 FL (80-99) H Mean Corpuscular Hemoglobin 31.6 PG (27.0-31.0) H Mean Corpuscular Hemoglobin Concent 30.4 G/DL (32.0-36.0) L Red Cell Distribution Width 13.0 % (11.6-14.8) Platelet Count 124 K/UL (150-450) L Mean Platelet Volume 13.1 FL (6.5-10.1) H Neutrophils (%) (Auto) 57.9 % (45.0-75.0) Lymphocytes (%) (Auto) 29.9 % (20.0-45.0) Monocytes (%) (Auto) 5.1 % (1.0-10.0) Eosinophils (%) (Auto) 6.2 % (0.0-3.0) H Basophils (%) (Auto) 0.9 % (0.0-2.0) Prothrombin Time 11.4 SEC (9.30-11.50) Prothromb Time International Ratio 1.1 (0.9-1.1) Total Creatine Kinase 6254 U/L (38-174) H Troponin I < 0.30 ng/mL (<=0.30) Free Thyroxine 1.06 ng/dL (0.86-1.85) Digoxin Level 0.3 ng/mL (0.5-2.0) L Height (Feet): 5 Height (Inches): 5.00 Weight (Pounds): 152 Medications Current Medications Medications (Trade) Dose Ordered Sig/Omi Route PRN Reason Start Time Stop Time Status Last Admin Dose Admin Acetaminophen (Tylenol) 650 mg Q4H PRN ORAL fever 05/27/16 20:15 2/6/17 20:14 Albuterol/ Ipratropium 3 ml 3 ml EVERY 4 HOURS PRN HHN Shortness of Breath 05/27/16 20:15 06/01/16 20:14 Amlodipine Besylate (Norvasc) 10 mg DAILY GT 05/28/16 09:00 06/27/16 08:59 Cefepime HCl 2 gm/ Dextrose 100 ml @ 100 mls/hr Q24H IV 05/29/16 01:00 06/05/16 00:59 05/29/16 01:14 Dextrose (D5W 1000ml) 1,000 ml @ 100 mls/hr Q10H IV 05/28/16 13:30 06/27/16 13:29 05/29/16 08:08 Digoxin (Lanoxin) 0.125 mg DAILY GT 05/28/16 09:45 06/27/16 09:44 05/29/16 09:22 Heparin Sodium (Porcine) (Heparin 5000 units/ml) 5,000 units EVERY 12 HOURS SUBQ 05/27/16 21:00 06/26/16 20:59 05/28/16 21:19 Morphine Sulfate (Morphine Sulfate) 2 mg EVERY 4 HOURS PRN IVP Moderate Pain (Pain Scale 4-6) 05/27/16 20:15 06/03/16 20:14 Nitroglycerin (Ntg) 0.4 mg Q 5 MINS PRN SL Prn Chest Pain 05/27/16 20:15 06/26/16 20:14 Ondansetron HCl (Zofran) 4 mg Q6H PRN IVP Nausea & Vomiting 05/27/16 20:15 06/26/16 20:14 Polyethylene Glycol (Miralax) 17 gm DAILYPRN PRN ORAL Constipation 05/27/16 20:15 06/26/16 20:14 Potassium Chloride (KCl 10% 20 mEq oral solution) 40 meq ONCE ONCE NG 05/29/16 10:00 05/29/16 10:01 UNV Ranitidine HCl 150 mg 150 mg BEDTIME ORAL 05/28/16 21:00 06/27/16 20:59 05/28/16 21:19 Temazepam (Restoril) 15 mg HSPRN PRN ORAL Insomnia 05/27/16 20:15 06/03/16 20:14 Vancomycin HCl/ Dextrose (Vancomycin/D5W 250ml) 250 ml @ 167 mls/hr Q48H IVPB 05/29/16 21:00 06/03/16 20:59 Assessment/Plan Problem List: (1) Hypernatremia ICD Codes: E87.0 - Hyperosmolality and hypernatremia SNOMED: 49131453 (2) KINGA (acute kidney injury) ICD Codes: N17.9 - Acute kidney failure, unspecified SNOMED: 82396945 (3) COPD (chronic obstructive pulmonary disease) ICD Codes: J44.9 - Chronic obstructive pulmonary disease, unspecified SNOMED: 15723059 (4) Atrial fibrillation ICD Codes: I48.91 - Unspecified atrial fibrillation SNOMED: 26993618 (5) Foot ulcer, right ICD Codes: L97.519 - Non-prs chronic ulcer oth prt right foot w unsp severity SNOMED: 56835164 (6) HTN (hypertension) ICD Codes: I10 - Essential (primary) hypertension SNOMED: 64786151 (7) History of CVA (cerebrovascular accident) ICD Codes: Z86.73 - Personal history of transient ischemic attack (TIA), and cerebral infarction without residual deficits SNOMED: 253453168 (8) Dementia ICD Codes: F03.90 - Unspecified dementia without behavioral disturbance SNOMED: 26470803 (9) Decubitus skin ulcer ICD Codes: L89.90 - Pressure ulcer of unspecified site, unspecified stage SNOMED: 895316459 (10) Rhabdomyolysis ICD Codes: M62.82 - Rhabdomyolysis SNOMED: 963999555 (11) Sepsis ICD Codes: A41.9 - Sepsis SNOMED: 33972011 (12) Hypokalemia ICD Codes: E87.6 - Hypokalemia SNOMED: 18912943 Assessment/Plan Discussed with Dr. Maier and Dr. Saeed. Will change IVF to D5W @100cc/hr. Monitor Na closely. Repeat BMP this afternoon. Free water flush via GT. FEMI MEZA May 29, 2016 10:04
[2016-05-29] MEDS ORDERED: KCl 10% 20 mEq/15ml liquid NG ONE (10:30)
[2016-05-29 11:39] VITALS: BP 96/65
--- NOTE | 2016-05-29 13:54 | Nephrology Progress Note ---
Assessment/Plan Problem List: (1) Prerenal azotemia (2) Decubitus skin ulcer (3) Dementia (4) Hypernatremia (5) Severe sepsis (6) Cellulitis of right foot (7) KINGA (acute kidney injury) (8) Hypokalemia (9) Foot ulcer, right (10) Atrial fibrillation Plan Continue D5W, monitor Na level Replace K Monitor BUN/cr Monitor lytes Cardiology F/U Leucocytosis resolved, continue abx per ID Monitor counts Continue wound care Continue free water flush via G-tube Monitor I&O DVT prophylaxis Resume tube feeding AM labs Subjective ROS Limited/Unobtainable: Yes Subjective Unable to obtain due to patient's mental state Objective Objective Last 24 Hour Vital Signs Date Time Temp Pulse Resp B/P Pulse Ox O2 Delivery O2 Flow Rate FiO2 05/29/16 11:39 96.6 68 20 96/65 96 Nasal Cannula 2.0 05/29/16 09:22 61 05/29/16 08:16 61 96/49 05/29/16 08:14 96.8 61 20 96/49 96 Nasal Cannula 2.0 05/29/16 08:00 69 05/29/16 04:25 97.0 61 20 106/70 100 Room Air 05/29/16 04:00 62 05/29/16 00:23 98.2 69 20 118/58 95 Nasal Cannula 2.0 05/29/16 00:00 63 05/28/16 20:00 61 05/28/16 20:00 97.7 70 18 111/40 Nasal Cannula 2.0 90 05/28/16 16:00 97.2 80 20 107/59 Nasal Cannula 2.0 94 05/28/16 16:00 82 Intake and Output 05/28/16 05/29/16 19:00 07:00 Intake Total 940 ml 1525 ml Output Total 200 ml 2 ml Balance 740 ml 1523 ml Free Water 200 ml 400 ml IV Total 260 ml 1125 ml Other 480 ml Output Urine Total 200 ml 2 ml # Voids 1 2 # Bowel Movements 3 2 Laboratory Tests 05/28/16 16:00: Sodium Level 175*H, Potassium Level 3.3L, Chloride Level 135H, Carbon Dioxide Level 28, Anion Gap 11, Blood Urea Nitrogen 53H, Creatinine 1.6H, Estimat Glomerular Filtration Rate , Glucose Level 139H, Calcium Level 8.0L 1/9/17 07:00: Sodium Level 170*H, Potassium Level 3.0L, Chloride Level 131H, Carbon Dioxide Level 25, Anion Gap 14, Blood Urea Nitrogen 40H, Creatinine 1.5H, Estimat Glomerular Filtration Rate , Glucose Level 136H, Calcium Level 8.1L, White Blood Count 8.7, Red Blood Count 3.80L, Hemoglobin 12.0L, Hematocrit 39.5L, Mean Corpuscular Volume 104H, Mean Corpuscular Hemoglobin 31.6H, Mean Corpuscular Hemoglobin Concent 30.4L, Red Cell Distribution Width 13.0, Platelet Count 124L, Mean Platelet Volume 13.1H, Neutrophils (%) (Auto) 57.9, Lymphocytes (%) (Auto) 29.9, Monocytes (%) (Auto) 5.1, Eosinophils (%) (Auto) 6.2H, Basophils (%) (Auto) 0.9, Prothrombin Time 11.4, Prothromb Time International Ratio 1.1, Total Creatine Kinase 6254H, Troponin I < 0.30, Free Thyroxine 1.06, Digoxin Level 0.3L Height (Feet): 5 Height (Inches): 5.00 Weight (Pounds): 152 General Appearance: no apparent distress, confused EENT: normal ENT inspection Neck: non-tender, normal alignment Cardiovascular: normal rate, no JVD Respiratory/Chest: crackles/rales Abdomen: non tender, soft, other - PEG Extremities: other - extremities contracted Neurologic: motor weakness, disoriented Janeth Cuello N.P. May 29, 2016 13:54
--- NOTE | 2016-05-29 14:14 | Pulmonology Progress Note ---
Assessment/Plan Problems: (1) Severe sepsis (2) Prerenal azotemia (3) Hypokalemia (4) Foot ulcer, right (5) COPD (chronic obstructive pulmonary disease) (6) Decubitus skin ulcer (7) History of CVA (cerebrovascular accident) Assessment/Plan IV antibiotics check cultures wound care K supplement check electrolytes dvt prophylaxis heart rate controlled might go to med/surg Subjective ROS Limited/Unobtainable: Yes Constitutional: Reports: no symptoms Allergies: Coded Allergies: No Known Allergies (Unverified , 12/08/13) Objective Last 24 Hour Vital Signs Date Time Temp Pulse Resp B/P Pulse Ox O2 Delivery O2 Flow Rate FiO2 05/29/16 12:00 66 05/29/16 11:39 96.6 68 20 96/65 96 Nasal Cannula 2.0 05/29/16 09:22 61 05/29/16 08:16 61 96/49 05/29/16 08:14 96.8 61 20 96/49 96 Nasal Cannula 2.0 05/29/16 08:00 69 05/29/16 04:25 97.0 61 20 106/70 100 Room Air 05/29/16 04:00 62 05/29/16 00:23 98.2 69 20 118/58 95 Nasal Cannula 2.0 05/29/16 00:00 63 05/28/16 20:00 61 05/28/16 20:00 97.7 70 18 111/40 Nasal Cannula 2.0 90 05/28/16 16:00 97.2 80 20 107/59 Nasal Cannula 2.0 94 05/28/16 16:00 82 Intake and Output 05/28/16 05/29/16 19:00 07:00 Intake Total 940 ml 1525 ml Output Total 200 ml 2 ml Balance 740 ml 1523 ml Free Water 200 ml 400 ml IV Total 260 ml 1125 ml Other 480 ml Output Urine Total 200 ml 2 ml # Voids 1 2 # Bowel Movements 3 2 General Appearance: WD/WN HEENT: normocephalic Respiratory/Chest: chest wall non-tender, lungs clear Cardiovascular: normal peripheral pulses, normal rate, no JVD Abdomen: normal bowel sounds, soft, non tender Genitourinary: normal external genitalia Extremities: no cyanosis 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 Complete 05/27/16 17:11 Rectum VRE Culture - Final NO VANCOMYCIN RESISTANT ENTEROCOCCUS ... Complete Laboratory Tests 05/28/16 16:00: Sodium Level 175*H, Potassium Level 3.3L, Chloride Level 135H, Carbon Dioxide Level 28, Anion Gap 11, Blood Urea Nitrogen 53H, Creatinine 1.6H, Estimat Glomerular Filtration Rate , Glucose Level 139H, Calcium Level 8.0L 05/29/16 07:00: Sodium Level 170*H, Potassium Level 3.0L, Chloride Level 131H, Carbon Dioxide Level 25, Anion Gap 14, Blood Urea Nitrogen 40H, Creatinine 1.5H, Estimat Glomerular Filtration Rate , Glucose Level 136H, Calcium Level 8.1L, White Blood Count 8.7, Red Blood Count 3.80L, Hemoglobin 12.0L, Hematocrit 39.5L, Mean Corpuscular Volume 104H, Mean Corpuscular Hemoglobin 31.6H, Mean Corpuscular Hemoglobin Concent 30.4L, Red Cell Distribution Width 13.0, Platelet Count 124L, Mean Platelet Volume 13.1H, Neutrophils (%) (Auto) 57.9, Lymphocytes (%) (Auto) 29.9, Monocytes (%) (Auto) 5.1, Eosinophils (%) (Auto) 6.2H, Basophils (%) (Auto) 0.9, Prothrombin Time 11.4, Prothromb Time International Ratio 1.1, Total Creatine Kinase 6254H, Troponin I < 0.30, Free Thyroxine 1.06, Digoxin Level 0.3L Current Medications Medications (Trade) Dose Ordered Sig/Omi Route PRN Reason Start Time Stop Time Status Last Admin Dose Admin Acetaminophen (Tylenol) 650 mg Q4H PRN ORAL fever 05/27/16 20:15 06/26/16 20:14 Albuterol/ Ipratropium 3 ml 3 ml EVERY 4 HOURS PRN HHN Shortness of Breath 05/27/16 20:15 06/01/16 20:14 Amlodipine Besylate (Norvasc) 10 mg DAILY GT 05/28/16 09:00 06/27/16 08:59 Cefepime HCl 2 gm/ Dextrose 100 ml @ 100 mls/hr Q24H IV 05/29/16 01:00 06/05/16 00:59 05/29/16 01:14 Dextrose (D5W 1000ml) 1,000 ml @ 100 mls/hr Q10H IV 05/28/16 13:30 06/27/16 13:29 05/29/16 08:08 Digoxin (Lanoxin) 0.125 mg DAILY GT 05/28/16 09:45 06/27/16 09:44 05/29/16 09:22 Heparin Sodium (Porcine) (Heparin 5000 units/ml) 5,000 units EVERY 12 HOURS SUBQ 05/27/16 21:00 06/26/16 20:59 05/28/16 21:19 Morphine Sulfate (Morphine Sulfate) 2 mg EVERY 4 HOURS PRN IVP Moderate Pain (Pain Scale 4-6) 05/27/16 20:15 06/03/16 20:14 Nitroglycerin (Ntg) 0.4 mg Q 5 MINS PRN SL Prn Chest Pain 05/27/16 20:15 06/26/16 20:14 Ondansetron HCl (Zofran) 4 mg Q6H PRN IVP Nausea & Vomiting 05/27/16 20:15 06/26/16 20:14 Polyethylene Glycol (Miralax) 17 gm DAILYPRN PRN ORAL Constipation 05/27/16 20:15 06/26/16 20:14 Ranitidine HCl 150 mg 150 mg BEDTIME ORAL 05/28/16 21:00 06/27/16 20:59 05/28/16 21:19 Temazepam (Restoril) 15 mg HSPRN PRN ORAL Insomnia 05/27/16 20:15 06/03/16 20:14 Vancomycin HCl/ Dextrose (Vancomycin/D5W 250ml) 250 ml @ 167 mls/hr Q48H IVPB 05/29/16 21:00 06/03/16 20:59 BOB IGNACIO May 29, 2016 14:14
--- NOTE | 2016-05-29 14:30 | General Progress Note ---
Assessment/Plan Problem List: (1) Hypernatremia ICD Codes: E87.0 - Hyperosmolality and hypernatremia SNOMED: 28887597 (2) Dementia ICD Codes: F03.90 - Unspecified dementia without behavioral disturbance SNOMED: 78404885 (3) Decubitus skin ulcer ICD Codes: L89.90 - Pressure ulcer of unspecified site, unspecified stage SNOMED: 606799473 (4) KINGA (acute kidney injury) ICD Codes: N17.9 - Acute kidney failure, unspecified SNOMED: 34296502 Status: stable, progressing, tolerating diet Assessment/Plan ot pt diet o2 pulm tx abx neph eval cbc bmp am Subjective Constitutional: Reports: weakness Allergies: Coded Allergies: No Known Allergies (Unverified , 12/08/13) All Systems: reviewed and negative except above Subjective o2nc sleepy Objective Last 24 Hour Vital Signs Date Time Temp Pulse Resp B/P Pulse Ox O2 Delivery O2 Flow Rate FiO2 05/29/16 12:00 66 05/29/16 11:39 96.6 68 20 96/65 96 Nasal Cannula 2.0 05/29/16 09:22 61 05/29/16 08:16 61 96/49 05/29/16 08:14 96.8 61 20 96/49 96 Nasal Cannula 2.0 05/29/16 08:00 69 05/29/16 04:25 97.0 61 20 106/70 100 Room Air 05/29/16 04:00 62 05/29/16 00:23 98.2 69 20 118/58 95 Nasal Cannula 2.0 05/29/16 00:00 63 05/28/16 20:00 61 05/28/16 20:00 97.7 70 18 111/40 Nasal Cannula 2.0 90 05/28/16 16:00 97.2 80 20 107/59 Nasal Cannula 2.0 94 05/28/16 16:00 82 Intake and Output 05/28/16 05/29/16 19:00 07:00 Intake Total 940 ml 1525 ml Output Total 200 ml 2 ml Balance 740 ml 1523 ml Free Water 200 ml 400 ml IV Total 260 ml 1125 ml Other 480 ml Output Urine Total 200 ml 2 ml # Voids 1 2 # Bowel Movements 3 2 Laboratory Tests 05/28/16 16:00: Sodium Level 175*H, Potassium Level 3.3L, Chloride Level 135H, Carbon Dioxide Level 28, Anion Gap 11, Blood Urea Nitrogen 53H, Creatinine 1.6H, Estimat Glomerular Filtration Rate , Glucose Level 139H, Calcium Level 8.0L 05/29/16 07:00: Sodium Level 170*H, Potassium Level 3.0L, Chloride Level 131H, Carbon Dioxide Level 25, Anion Gap 14, Blood Urea Nitrogen 40H, Creatinine 1.5H, Estimat Glomerular Filtration Rate , Glucose Level 136H, Calcium Level 8.1L, White Blood Count 8.7, Red Blood Count 3.80L, Hemoglobin 12.0L, Hematocrit 39.5L, Mean Corpuscular Volume 104H, Mean Corpuscular Hemoglobin 31.6H, Mean Corpuscular Hemoglobin Concent 30.4L, Red Cell Distribution Width 13.0, Platelet Count 124L, Mean Platelet Volume 13.1H, Neutrophils (%) (Auto) 57.9, Lymphocytes (%) (Auto) 29.9, Monocytes (%) (Auto) 5.1, Eosinophils (%) (Auto) 6.2H, Basophils (%) (Auto) 0.9, Prothrombin Time 11.4, Prothromb Time International Ratio 1.1, Total Creatine Kinase 6254H, Troponin I < 0.30, Free Thyroxine 1.06, Digoxin Level 0.3L Height (Feet): 5 Height (Inches): 5.00 Weight (Pounds): 152 General Appearance: lethargic EENT: normal ENT inspection Neck: normal alignment Cardiovascular: normal peripheral pulses, normal rate, regular rhythm Respiratory/Chest: chest wall non-tender, lungs clear, normal breath sounds Abdomen: normal bowel sounds, non tender, soft Extremities: normal inspection Edema: no edema noted Arm (L), no edema noted Arm (R), no edema noted Leg (L), no edema noted Leg (R), no edema noted Pedal (L), no edema noted Pedal (R), no edema noted Generalized Neurologic: motor weakness Skin: normal pigmentation, warm/dry DEVEN GRACE May 29, 2016 14:30
[2016-05-29] MEDS: Potassium Chloride 10 MEQ in D5W 1000ml 1,000 ML IV SCH (15:44)
[2016-05-29] MEDS ORDERED: Sterile Water Irrig 1000ml IRRIG ONE (15:49)
[2016-05-29 16:00] VITALS: BP 136/58
--- NOTE | 2016-05-29 16:09 | Diagnostic Imaging Report ---
Indication: right knee pain and swelling. Concern for prostatitis Technique: MRI of the right knee was imaged in a 1.5 Tamia magnet. Pulse sequences obtained include T1 fast spin-echo and STIR in multiple planes. Comparison: None Findings: The study was protocoled for evaluation of infection and not internal derangement. There is a small joint effusion. Bone marrow signal is essentially normal and there is no compelling evidence for osteomyelitis. Severe degenerative changes of the knee are noted with tricompartmental osteophyte formation, grade 3-4 loss of articular cartilage/chondrosis, rupture of ACL. There is severe meniscal degeneration present in the medial compartment. Impression: No evidence of acute osteomyelitis. Trace joint effusion noted. Moderate to severe osteoarthritis of the knee as discussed above.
--- NOTE | 2016-05-29 16:12 | Diagnostic Imaging Report ---
Indication: Pain Technique: Right forefoot imaging utilizing multiplanar T1 fast spin-echo, proton and T2 fast spin-echo with fat saturation, and STIR. Comparison: None Findings: There is no plain film correlation. Examination demonstrates abnormal low T1/high T2 signal involving the phalanges of the fourth toe. There is no obvious fracture appreciated on this examination. However plain film may be more sensitive and the current exam as obtained is limited as there is motion artifact present. The findings could certainly be on the basis of osteomyelitis. Please correlate clinically. The remainder of the osseous structures of the forefoot appear normal in signal. There is generalized subcutaneous edema of the foot which is nonspecific finding. There is no abscess. Ulceration is better demonstrated clinically. Impression: Abnormal signal involving the phalanges of the fourth toe. Osteomyelitis is certainly possible and could account for the findings. Differential diagnosis includes trauma which should be considered and not excludable on the basis of the current exam as obtained. Correlation with plain film is recommended
--- NOTE | 2016-05-29 17:28 | Infectious Diseases Prog Note ---
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 (5) Cellulitis of right foot Assessment & Plan: on vancomycin and cefepime (6) KINGA (acute kidney injury) Assessment & Plan: due to sever dehydration and rhabdomyolysis , continue hydration and monitor renal function and UOP, avoid nephrotoxic meds Subjective ROS Limited/Unobtainable: Yes Allergies: Coded Allergies: No Known Allergies (Unverified , 12/08/13) Subjective he is comfortable, demented, resting in bed , not in distress Objective Vital Signs Last 24 Hour Vital Signs Date Time Temp Pulse Resp B/P Pulse Ox O2 Delivery O2 Flow Rate FiO2 05/29/16 16:00 97.5 70 21 136/58 97 Nasal Cannula 2.0 05/29/16 12:00 66 05/29/16 11:39 96.6 68 20 96/65 96 Nasal Cannula 2.0 05/29/16 09:22 61 05/29/16 08:16 61 96/49 05/29/16 08:14 96.8 61 20 96/49 96 Nasal Cannula 2.0 05/29/16 08:00 69 05/29/16 04:25 97.0 61 20 106/70 100 Room Air 05/29/16 04:00 62 05/29/16 00:23 98.2 69 20 118/58 95 Nasal Cannula 2.0 05/29/16 00:00 63 05/28/16 20:00 61 05/28/16 20:00 97.7 70 18 111/40 Nasal Cannula 2.0 90 Height (Feet): 5 Height (Inches): 5.00 Weight (Pounds): 152 General Appearance: WD/WN, no acute distress HEENT: normocephalic, atraumatic, anicteric Respiratory/Chest: chest wall non-tender, lungs clear, normal breath sounds, no respiratory distress Cardiovascular: normal peripheral pulses, normal rate, regular rhythm, no gallop/murmur Abdomen: normal bowel sounds, soft, non tender, no organomegaly, non distended , no mass Extremities: no cyanosis, no clubbing, other - wounds with cellulitis Skin: no rash, no lesions, ulcers Microbiology Date/Time Source Procedure Growth Status 05/27/16 16:25 Blood Blood Culture - Preliminary NO GROWTH AFTER 24 HOURS Resulted 05/27/16 16:00 Blood Blood Culture - Preliminary NO GROWTH AFTER 24 HOURS Resulted 05/28/16 01:00 Wound Gram Stain - Final Resulted 05/28/16 01:00 Wound Wound Culture Pending Resulted 05/27/16 17:11 Nasal Nares MRSA Culture - Final NO METHICILLIN RESISTANT STAPH AUREUS... Complete 05/27/16 17:11 Rectum VRE Culture - Final NO VANCOMYCIN RESISTANT ENTEROCOCCUS ... Complete Laboratory Tests Test 05/29/16 07:00 White Blood Count 8.7 K/UL (4.8-10.8) Red Blood Count 3.80 M/UL (4.70-6.10) L Hemoglobin 12.0 G/DL (14.2-18.0) L Hematocrit 39.5 % (42.0-52.0) L Mean Corpuscular Volume 104 FL (80-99) H Mean Corpuscular Hemoglobin 31.6 PG (27.0-31.0) H Mean Corpuscular Hemoglobin Concent 30.4 G/DL (32.0-36.0) L Red Cell Distribution Width 13.0 % (11.6-14.8) Platelet Count 124 K/UL (150-450) L Mean Platelet Volume 13.1 FL (6.5-10.1) H Neutrophils (%) (Auto) 57.9 % (45.0-75.0) Lymphocytes (%) (Auto) 29.9 % (20.0-45.0) Monocytes (%) (Auto) 5.1 % (1.0-10.0) Eosinophils (%) (Auto) 6.2 % (0.0-3.0) H Basophils (%) (Auto) 0.9 % (0.0-2.0) Prothrombin Time 11.4 SEC (9.30-11.50) Prothromb Time International Ratio 1.1 (0.9-1.1) Sodium Level 170 mEQ/L (135-145) *H Potassium Level 3.0 mEQ/L (3.4-4.9) L Chloride Level 131 mEQ/L (98-107) H Carbon Dioxide Level 25 mEQ/L (20-30) Anion Gap 14 (5-15) Blood Urea Nitrogen 40 mg/dL (7-23) H Creatinine 1.5 mg/dL (0.7-1.2) H Estimat Glomerular Filtration Rate mL/min (>60) Glucose Level 136 mg/dL (74-106) H Calcium Level 8.1 mg/dL (8.6-10.2) L Total Creatine Kinase 6254 U/L (38-174) H Troponin I < 0.30 ng/mL (<=0.30) Free Thyroxine 1.06 ng/dL (0.86-1.85) Digoxin Level 0.3 ng/mL (0.5-2.0) L Current Medications Medications (Trade) Dose Ordered Sig/Omi Route PRN Reason Start Time Stop Time Status Last Admin Dose Admin Acetaminophen (Tylenol) 650 mg Q4H PRN ORAL fever 05/27/16 20:15 06/26/16 20:14 Albuterol/ Ipratropium 3 ml 3 ml EVERY 4 HOURS PRN HHN Shortness of Breath 05/27/16 20:15 06/01/16 20:14 Amlodipine Besylate (Norvasc) 10 mg DAILY GT 05/28/16 09:00 06/27/16 08:59 Cefepime HCl 2 gm/ Dextrose 100 ml @ 100 mls/hr Q24H IV 05/29/16 01:00 06/05/16 00:59 05/29/16 01:14 Digoxin (Lanoxin) 0.125 mg DAILY GT 05/28/16 09:45 06/27/16 09:44 05/29/16 09:22 Heparin Sodium (Porcine) (Heparin 5000 units/ml) 5,000 units EVERY 12 HOURS SUBQ 05/27/16 21:00 06/26/16 20:59 05/28/16 21:19 Morphine Sulfate (Morphine Sulfate) 2 mg EVERY 4 HOURS PRN IVP Moderate Pain (Pain Scale 4-6) 05/27/16 20:15 1/14/17 20:14 Nitroglycerin (Ntg) 0.4 mg Q 5 MINS PRN SL Prn Chest Pain 05/27/16 20:15 06/26/16 20:14 Ondansetron HCl (Zofran) 4 mg Q6H PRN IVP Nausea & Vomiting 05/27/16 20:15 06/26/16 20:14 Polyethylene Glycol (Miralax) 17 gm DAILYPRN PRN ORAL Constipation 05/27/16 20:15 06/26/16 20:14 Potassium Chloride/Dextrose (KCl/D5W 1000ml) 1,005 ml @ 100 mls/hr Q10H3M IV 05/30/16 14:45 06/29/16 14:44 05/29/16 15:44 Ranitidine HCl 150 mg 150 mg BEDTIME ORAL 05/28/16 21:00 06/27/16 20:59 05/28/16 21:19 Temazepam (Restoril) 15 mg HSPRN PRN ORAL Insomnia 05/27/16 20:15 06/03/16 20:14 Vancomycin HCl (Vanco rx to dose) 1 ea DAILY PRN MISC . 05/29/16 16:45 06/28/16 16:44 Vancomycin HCl/ Dextrose (Vancomycin/D5W 250ml) 250 ml @ 167 mls/hr Q48H IVPB 05/29/16 21:00 06/03/16 20:59 Karla Stringer M.D. May 29, 2016 17:28
[2016-05-29 20:00] VITALS: BP 91/61
[2016-05-30] VITALS (7 sets, daily range): BP systolic 91–114; BP diastolic 43–61
[2016-05-30] MEDS: Potassium Chloride 10 MEQ in D5W 1000ml 1,000 ML IV SCH (08:05)
[2016-05-30] MEDS: Digoxin 0.125mg tab GT SCH (08:53)
[2016-05-30] MEDS: Heparin 5000 units/ml inj SUBQ SCH (08:54)
[2016-05-30 09:24] LABS: BASOPHILS % (AUTO) 0.6 % (0.0-2.0); EOSINOPHILS % (AUTO) 3.6 % (0.0-3.0); LYMPHOCYTES % (AUTO) 32.2 % (20.0-45.0); MEAN CORPUSCULAR HEMOGLOBIN 32.4 PG (27.0-31.0); MEAN CORPUSCULAR HGB CONC 31.9 G/DL (32.0-36.0); MEAN CORPUSCULAR VOLUME 102 FL (80-99); MEAN PLATELET VOLUME 14.2 FL (6.5-10.1); MONOCYTES % (AUTO) 5.6 % (1.0-10.0); PLATELET COUNT 136 K/UL (150-450); RED CELL DISTRIBUTION WIDTH 12.9 % (11.6-14.8)
[2016-05-30 09:37] LABS: INR 1.1 (0.9-1.1); PROTHROMBIN TIME 10.7 SEC (9.30-11.50)
[2016-05-30 09:41] LABS: ALANINE AMINOTRANSFERASE 41 U/L (3-41); ALBUMIN/GLOBULIN RATIO 0.6 (1.0-2.7); ASPARTATE AMINO TRANSFERASE 88 U/L (5-40); CALCIUM 7.7 mg/dL (8.6-10.2); CARBON DIOXIDE 26 mEQ/L (20-30); CHLORIDE 126 mEQ/L (98-107); CREATININE 1.4 mg/dL (0.7-1.2); HEMOLYSIS 2; MAGNESIUM 2.3 mg/dL (1.7-2.5); PHOSPHORUS 1.8 mg/dL (2.5-4.8); POTASSIUM 3.2 mEQ/L (3.4-4.9); TOTAL PROTEIN 6.5 g/dL (6.6-8.7)
[2016-05-30 09:46] LABS: ANION GAP 9 (5-15)
[2016-05-30 10:33] LABS: SODIUM 161 mEQ/L (135-145)
--- NOTE | 2016-05-30 11:50 | Nephrology Progress Note ---
Assessment/Plan Problem List: (1) Rhabdomyolysis (2) Prerenal azotemia (3) Hypokalemia Assessment: being repleted. (4) Sepsis (5) History of CVA (cerebrovascular accident) (6) HTN (hypertension) (7) COPD (chronic obstructive pulmonary disease) (8) KINGA (acute kidney injury) Assessment: improving. (9) Hypernatremia Assessment: improving. (10) Dementia Plan Recommend to dec ivf rate to avoid fluid overload. agree with adding kcl in ivf. also give po dose via GT. cont h20 flush via gt. monitor labs. Subjective Subjective no acute events. Objective Objective Last 24 Hour Vital Signs Date Time Temp Pulse Resp B/P Pulse Ox O2 Delivery O2 Flow Rate FiO2 05/30/16 11:33 97.5 76 20 96/55 99 Nasal Cannula 1.0 05/30/16 08:53 65 05/30/16 08:53 65 114/61 05/30/16 07:56 98.1 65 20 114/61 99 Nasal Cannula 1.0 05/30/16 04:25 100.6 80 20 96/59 96 Room Air 05/30/16 00:00 97.0 86 20 106/61 99 Room Air 05/29/16 20:00 97.8 69 21 91/61 95 Nasal Cannula 2.0 05/29/16 19:49 72 05/29/16 16:00 61 05/29/16 16:00 97.5 70 21 136/58 97 Nasal Cannula 2.0 05/29/16 12:00 66 Intake and Output 05/29/16 05/30/16 19:00 07:00 Intake Total 1050 ml 1900 ml Output Total 3 ml Balance 1050 ml 1897 ml Free Water 300 ml IV Total 1000 ml 1100 ml Tube Feeding 50 ml 500 ml Output Urine Total 3 ml # Voids 2 # Bowel Movements 1 2 Laboratory Tests 05/30/16 08:20: White Blood Count 9.0, Red Blood Count 3.80L, Hemoglobin 12.3L, Hematocrit 38.6L , Mean Corpuscular Volume 102H, Mean Corpuscular Hemoglobin 32.4H, Mean Corpuscular Hemoglobin Concent 31.9L, Red Cell Distribution Width 12.9, Platelet Count 136L, Mean Platelet Volume 14.2H, Neutrophils (%) (Auto) 58.0, Lymphocytes (%) (Auto) 32.2, Monocytes (%) (Auto) 5.6, Eosinophils (%) (Auto) 3.6H, Basophils (%) (Auto) 0.6, Prothrombin Time 10.7, Prothromb Time International Ratio 1.1, Activated Partial Thromboplast Time 28, Sodium Level 161*H, Potassium Level 3.2L, Chloride Level 126H, Carbon Dioxide Level 26, Anion Gap 9, Blood Urea Nitrogen 27H, Creatinine 1.4H, Estimat Glomerular Filtration Rate , Glucose Level 146H, Calcium Level 7.7L, Phosphorus Level 1.8L , Magnesium Level 2.3, Total Bilirubin 0.8, Aspartate Amino Transf (AST/SGOT) 88H, Alanine Aminotransferase (ALT/SGPT) 41, Alkaline Phosphatase 99, Total Protein 6.5L, Albumin 2.6L, Globulin 3.9, Albumin/Globulin Ratio 0.6L Height (Feet): 5 Height (Inches): 5.00 Weight (Pounds): 152 General Appearance: no apparent distress Cardiovascular: normal rate, regular rhythm Respiratory/Chest: lungs clear Abdomen: non tender, soft Extremities: trace edema ERNESTO BEACH May 30, 2016 11:50
[2016-05-30] MEDS ORDERED: Potassium Chloride 10 MEQ in D5W 1000ml 1,000 ML IV SCH ×3 (12:00→20:45)
[2016-05-30] MEDS ORDERED: KCl 10% 40mEq/30ml liquid NG ONE (12:00)
[2016-05-30] MEDS ORDERED: Miralax 17gm pkt ORAL PRN (12:15)
[2016-05-30] MEDS ORDERED: Nitroglycerin Subl 0.4mg tab (Bottle Of 25) SL PRN (12:15)
[2016-05-30] MEDS ORDERED: Morphine Sulfate 2mg/ml Inj IVP PRN (13:00)
[2016-05-30] MEDS ORDERED: DuoNeb 0.5-3(2.5)mg/3ml neb HHN PRN (13:00)
--- NOTE | 2016-05-30 14:22 | Nephrology Progress Note ---
Assessment/Plan Problem List: (1) Prerenal azotemia (2) Decubitus skin ulcer (3) Dementia (4) Hypernatremia (5) Severe sepsis (6) Cellulitis of right foot (7) KINGA (acute kidney injury) (8) Hypokalemia (9) Foot ulcer, right (10) Atrial fibrillation Plan Continue D5W+K, Na level improved Monitor BUN/cr - improved renal function Monitor lytes Cardiology F/U Leucocytosis resolved, continue abx per ID Monitor counts Continue wound care Continue free water flush via G-tube Monitor I&O DVT prophylaxis Continue G-tube feeding, monitor residual AM labs Subjective ROS Limited/Unobtainable: Yes Subjective In bed, no distress observed Objective Objective Last 24 Hour Vital Signs Date Time Temp Pulse Resp B/P Pulse Ox O2 Delivery O2 Flow Rate FiO2 05/30/16 11:33 97.5 76 20 96/55 99 Nasal Cannula 1.0 05/30/16 08:53 65 05/30/16 08:53 65 114/61 05/30/16 07:56 98.1 65 20 114/61 99 Nasal Cannula 1.0 05/30/16 04:25 100.6 80 20 96/59 96 Room Air 05/30/16 00:00 97.0 86 20 106/61 99 Room Air 05/29/16 20:00 97.8 69 21 91/61 95 Nasal Cannula 2.0 05/29/16 19:49 72 05/29/16 16:00 61 05/29/16 16:00 97.5 70 21 136/58 97 Nasal Cannula 2.0 Intake and Output 05/29/16 05/30/16 19:00 07:00 Intake Total 1050 ml 1900 ml Output Total 3 ml Balance 1050 ml 1897 ml Free Water 300 ml IV Total 1000 ml 1100 ml Tube Feeding 50 ml 500 ml Output Urine Total 3 ml # Voids 2 # Bowel Movements 1 2 Laboratory Tests 05/30/16 08:20: White Blood Count 9.0, Red Blood Count 3.80L, Hemoglobin 12.3L, Hematocrit 38.6L , Mean Corpuscular Volume 102H, Mean Corpuscular Hemoglobin 32.4H, Mean Corpuscular Hemoglobin Concent 31.9L, Red Cell Distribution Width 12.9, Platelet Count 136L, Mean Platelet Volume 14.2H, Neutrophils (%) (Auto) 58.0, Lymphocytes (%) (Auto) 32.2, Monocytes (%) (Auto) 5.6, Eosinophils (%) (Auto) 3.6H, Basophils (%) (Auto) 0.6, Prothrombin Time 10.7, Prothromb Time International Ratio 1.1, Activated Partial Thromboplast Time 28, Sodium Level 161*H, Potassium Level 3.2L, Chloride Level 126H, Carbon Dioxide Level 26, Anion Gap 9, Blood Urea Nitrogen 27H, Creatinine 1.4H, Estimat Glomerular Filtration Rate , Glucose Level 146H, Calcium Level 7.7L, Phosphorus Level 1.8L , Magnesium Level 2.3, Total Bilirubin 0.8, Aspartate Amino Transf (AST/SGOT) 88H, Alanine Aminotransferase (ALT/SGPT) 41, Alkaline Phosphatase 99, Total Protein 6.5L, Albumin 2.6L, Globulin 3.9, Albumin/Globulin Ratio 0.6L Height (Feet): 5 Height (Inches): 5.00 Weight (Pounds): 152 General Appearance: no apparent distress EENT: normal ENT inspection Neck: normal alignment Cardiovascular: regular rhythm, no JVD Respiratory/Chest: normal breath sounds, no respiratory distress Abdomen: normal bowel sounds, other - PEG Extremities: trace edema - contracted Neurologic: sensory deficit, disoriented Janeth Cuello N.P. May 30, 2016 14:22
--- NOTE | 2016-05-30 14:29 | General Progress Note ---
Assessment/Plan Problem List: (1) Hypernatremia ICD Codes: E87.0 - Hyperosmolality and hypernatremia SNOMED: 23215923 (2) Dementia ICD Codes: F03.90 - Unspecified dementia without behavioral disturbance SNOMED: 18150853 (3) Decubitus skin ulcer ICD Codes: L89.90 - Pressure ulcer of unspecified site, unspecified stage SNOMED: 458677428 (4) KINGA (acute kidney injury) ICD Codes: N17.9 - Acute kidney failure, unspecified SNOMED: 31456091 Status: stable, progressing, tolerating diet Assessment/Plan ot pt diet o2 pulm tx abx neph eval dc if clear w cardio pulm Subjective Constitutional: Reports: weakness Allergies: Coded Allergies: No Known Allergies (Unverified , 12/08/13) All Systems: reviewed and negative except above Subjective calm in bed Objective Last 24 Hour Vital Signs Date Time Temp Pulse Resp B/P Pulse Ox O2 Delivery O2 Flow Rate FiO2 05/30/16 11:33 97.5 76 20 96/55 99 Nasal Cannula 1.0 05/30/16 08:53 65 05/30/16 08:53 65 114/61 05/30/16 07:56 98.1 65 20 114/61 99 Nasal Cannula 1.0 05/30/16 04:25 100.6 80 20 96/59 96 Room Air 05/30/16 00:00 97.0 86 20 106/61 99 Room Air 05/29/16 20:00 97.8 69 21 91/61 95 Nasal Cannula 2.0 05/29/16 19:49 72 05/29/16 16:00 61 05/29/16 16:00 97.5 70 21 136/58 97 Nasal Cannula 2.0 Intake and Output 05/29/16 05/30/16 19:00 07:00 Intake Total 1050 ml 1900 ml Output Total 3 ml Balance 1050 ml 1897 ml Free Water 300 ml IV Total 1000 ml 1100 ml Tube Feeding 50 ml 500 ml Output Urine Total 3 ml # Voids 2 # Bowel Movements 1 2 Laboratory Tests 05/30/16 08:20: White Blood Count 9.0, Red Blood Count 3.80L, Hemoglobin 12.3L, Hematocrit 38.6L , Mean Corpuscular Volume 102H, Mean Corpuscular Hemoglobin 32.4H, Mean Corpuscular Hemoglobin Concent 31.9L, Red Cell Distribution Width 12.9, Platelet Count 136L, Mean Platelet Volume 14.2H, Neutrophils (%) (Auto) 58.0, Lymphocytes (%) (Auto) 32.2, Monocytes (%) (Auto) 5.6, Eosinophils (%) (Auto) 3.6H, Basophils (%) (Auto) 0.6, Prothrombin Time 10.7, Prothromb Time International Ratio 1.1, Activated Partial Thromboplast Time 28, Sodium Level 161*H, Potassium Level 3.2L, Chloride Level 126H, Carbon Dioxide Level 26, Anion Gap 9, Blood Urea Nitrogen 27H, Creatinine 1.4H, Estimat Glomerular Filtration Rate , Glucose Level 146H, Calcium Level 7.7L, Phosphorus Level 1.8L , Magnesium Level 2.3, Total Bilirubin 0.8, Aspartate Amino Transf (AST/SGOT) 88H, Alanine Aminotransferase (ALT/SGPT) 41, Alkaline Phosphatase 99, Total Protein 6.5L, Albumin 2.6L, Globulin 3.9, Albumin/Globulin Ratio 0.6L Height (Feet): 5 Height (Inches): 5.00 Weight (Pounds): 152 General Appearance: lethargic EENT: normal ENT inspection Neck: normal alignment Cardiovascular: normal peripheral pulses, normal rate, regular rhythm Respiratory/Chest: chest wall non-tender, lungs clear, normal breath sounds Abdomen: normal bowel sounds, non tender, soft Extremities: normal inspection Edema: no edema noted Arm (L), no edema noted Arm (R), no edema noted Leg (L), no edema noted Leg (R), no edema noted Pedal (L), no edema noted Pedal (R), no edema noted Generalized Neurologic: motor weakness Skin: normal pigmentation, warm/dry DEVEN GRACE May 30, 2016 14:29
--- NOTE | 2016-05-30 16:55 | Pulmonology Progress Note ---
Assessment/Plan Problems: (1) Severe sepsis (2) Prerenal azotemia (3) Hypokalemia (4) Foot ulcer, right (5) COPD (chronic obstructive pulmonary disease) (6) Decubitus skin ulcer (7) History of CVA (cerebrovascular accident) Assessment/Plan bun/creatinte decreasing Na improvng IV antibiotics check cultures staph in wound wound care K supplement check electrolytes dvt prophylaxis heart rate controlled Subjective ROS Limited/Unobtainable: Yes Constitutional: Reports: no symptoms HEENT: Repors: no symptoms Allergies: Coded Allergies: No Known Allergies (Unverified , 12/08/13) Objective Last 24 Hour Vital Signs Date Time Temp Pulse Resp B/P Pulse Ox O2 Delivery O2 Flow Rate FiO2 05/30/16 16:00 98.7 116 20 91/56 97 Nasal Cannula 2.0 05/30/16 11:33 97.5 76 20 96/55 99 Nasal Cannula 1.0 05/30/16 08:53 65 05/30/16 08:53 65 114/61 05/30/16 07:56 98.1 65 20 114/61 99 Nasal Cannula 1.0 05/30/16 04:25 100.6 80 20 96/59 96 Room Air 05/30/16 00:00 97.0 86 20 106/61 99 Room Air 05/29/16 20:00 97.8 69 21 91/61 95 Nasal Cannula 2.0 05/29/16 19:49 72 Intake and Output 05/29/16 05/30/16 19:00 07:00 Intake Total 1050 ml 1900 ml Output Total 3 ml Balance 1050 ml 1897 ml Free Water 300 ml IV Total 1000 ml 1100 ml Tube Feeding 50 ml 500 ml Output Urine Total 3 ml # Voids 2 # Bowel Movements 1 2 General Appearance: WD/WN HEENT: normocephalic, PERRL Respiratory/Chest: normal breath sounds Cardiovascular: normal peripheral pulses, regular rhythm Abdomen: normal bowel sounds, soft, non tender Genitourinary: normal external genitalia Skin: no rash Microbiology Date/Time Source Procedure Growth Status 05/28/16 01:00 Wound Gram Stain - Final Resulted 05/28/16 01:00 Wound Culture - Preliminary Staphylococcus Aureus Resulted 05/27/16 17:11 Nasal Nares MRSA Culture - Final NO METHICILLIN RESISTANT STAPH AUREUS... Complete 05/27/16 17:11 Rectum VRE Culture - Final NO VANCOMYCIN RESISTANT ENTEROCOCCUS ... Complete Laboratory Tests 05/30/16 08:20: White Blood Count 9.0, Red Blood Count 3.80L, Hemoglobin 12.3L, Hematocrit 38.6L , Mean Corpuscular Volume 102H, Mean Corpuscular Hemoglobin 32.4H, Mean Corpuscular Hemoglobin Concent 31.9L, Red Cell Distribution Width 12.9, Platelet Count 136L, Mean Platelet Volume 14.2H, Neutrophils (%) (Auto) 58.0, Lymphocytes (%) (Auto) 32.2, Monocytes (%) (Auto) 5.6, Eosinophils (%) (Auto) 3.6H, Basophils (%) (Auto) 0.6, Prothrombin Time 10.7, Prothromb Time International Ratio 1.1, Activated Partial Thromboplast Time 28, Sodium Level 161*H, Potassium Level 3.2L, Chloride Level 126H, Carbon Dioxide Level 26, Anion Gap 9, Blood Urea Nitrogen 27H, Creatinine 1.4H, Estimat Glomerular Filtration Rate , Glucose Level 146H, Calcium Level 7.7L, Phosphorus Level 1.8L , Magnesium Level 2.3, Total Bilirubin 0.8, Aspartate Amino Transf (AST/SGOT) 88H, Alanine Aminotransferase (ALT/SGPT) 41, Alkaline Phosphatase 99, Total Protein 6.5L, Albumin 2.6L, Globulin 3.9, Albumin/Globulin Ratio 0.6L Current Medications Medications (Trade) Dose Ordered Sig/Omi Route PRN Reason Start Time Stop Time Status Last Admin Dose Admin Acetaminophen (Tylenol) 650 mg Q4H PRN ORAL fever 05/30/16 12:15 06/29/16 12:14 Albuterol/ Ipratropium (DuoNeb 0.5-3(2.5)mg/3ml) 3 ml Q4H PRN HHN Shortness of Breath 05/30/16 13:00 06/04/16 12:59 Amlodipine Besylate (Norvasc) 10 mg DAILY GT 05/31/16 09:00 06/30/16 08:59 Cefepime HCl 2 gm/ Dextrose 100 ml @ 100 mls/hr Q24H IV 05/31/16 01:00 06/07/16 00:59 Digoxin (Lanoxin) 0.125 mg DAILY GT 05/31/16 09:00 06/30/16 08:59 Heparin Sodium (Porcine) (Heparin 5000 units/ml) 5,000 units EVERY 12 HOURS SUBQ 05/30/16 21:00 06/29/16 20:59 Morphine Sulfate (Morphine Sulfate) 2 mg Q4H PRN IVP Moderate Pain (Pain Scale 4-6) 05/30/16 13:00 06/06/16 12:59 Nitroglycerin (Ntg) 0.4 mg Q 5 MINS PRN SL Prn Chest Pain 05/30/16 12:15 06/29/16 12:14 Ondansetron HCl (Zofran) 4 mg Q6H PRN IVP Nausea & Vomiting 05/30/16 12:15 06/29/16 12:14 Polyethylene Glycol (Miralax) 17 gm DAILYPRN PRN ORAL Constipation 05/30/16 12:15 06/29/16 12:14 Potassium Chloride 10 meq/ Dextrose 1,005 ml @ 80 mls/hr [id number] IV 05/30/16 12:15 06/29/16 12:14 05/30/16 16:08 Ranitidine HCl (Zantac) 150 mg BEDTIME ORAL 05/30/16 21:00 06/29/16 20:59 Temazepam (Restoril) 15 mg HSPRN PRN ORAL Insomnia 05/30/16 20:15 06/06/16 20:14 Vancomycin HCl (Vanco rx to dose) 1 ea DAILY PRN MISC PRN RX PROTOCOL 05/30/16 15:00 06/29/16 14:59 Vancomycin HCl/ Dextrose (Vancomycin/D5W 250ml) 250 ml @ 167 mls/hr Q48H IVPB 05/31/16 21:00 06/05/16 20:59 BOB IGNACIO May 30, 2016 16:55
--- NOTE | 2016-05-30 18:01 | Cardiology Report ---
APPROVED REPORT EKG Measurement Heart [id number] Atrial fibrillation with rapid ventricular response Abnormal ECG
--- NOTE | 2016-05-30 18:18 | Infectious Diseases Prog Note ---
Assessment/Plan Problems: (1) Osteoarthritis of right foot Assessment & Plan: will treat with IV antibiotics for 6 weeks, await culture results (2) Severe sepsis Assessment & Plan: continue wide spectrum antibiotics with vancomycin and cefepime, await blood culture (3) Hypernatremia Assessment & Plan: due to sever dehydration , continue IVF , with close monitor of sodium level, nephrology is following (4) Decubitus skin ulcer Assessment & Plan: MRI of the right foot was suggestive of osteomylitis, and MRI of the right knee was negative for osteomyelitis , continue local wound care, and offloading, await culture results, will continue wide spectrum antibiotics for 6 weeks to treat right foot osteomyelitis (5) Rhabdomyolysis Assessment & Plan: continue IVF , and monitor CK level. (6) Cellulitis of right foot Assessment & Plan: on vancomycin and cefepime (7) KINGA (acute kidney injury) Assessment & Plan: due to sever dehydration and rhabdomyolysis , continue hydration and monitor renal function and UOP, avoid nephrotoxic meds Subjective ROS Limited/Unobtainable: Yes Allergies: Coded Allergies: No Known Allergies (Unverified , 12/08/13) Subjective he is comfortable, demented, resting in bed , not in distress Objective Vital Signs Last 24 Hour Vital Signs Date Time Temp Pulse Resp B/P Pulse Ox O2 Delivery O2 Flow Rate FiO2 05/30/16 16:00 98.7 116 20 91/56 97 Nasal Cannula 2.0 05/30/16 11:33 97.5 76 20 96/55 99 Nasal Cannula 1.0 05/30/16 08:53 65 05/30/16 08:53 65 114/61 05/30/16 07:56 98.1 65 20 114/61 99 Nasal Cannula 1.0 05/30/16 04:25 100.6 80 20 96/59 96 Room Air 05/30/16 00:00 97.0 86 20 106/61 99 Room Air 05/29/16 20:00 97.8 69 21 91/61 95 Nasal Cannula 2.0 05/29/16 19:49 72 Height (Feet): 5 Height (Inches): 5.00 Weight (Pounds): 152 General Appearance: WD/WN, no acute distress HEENT: normocephalic, atraumatic, anicteric, mucous membranes moist Respiratory/Chest: chest wall non-tender, lungs clear, normal breath sounds, no respiratory distress, no accessory muscle use Cardiovascular: normal peripheral pulses, normal rate, regular rhythm, no gallop/murmur Abdomen: normal bowel sounds, soft, non tender, no organomegaly, non distended , no mass Extremities: no cyanosis, no clubbing Skin: no rash, no lesions Microbiology Date/Time Source Procedure Growth Status 05/28/16 01:00 Wound Gram Stain - Final Resulted 05/28/16 01:00 Wound Culture - Preliminary Staphylococcus Aureus Resulted Laboratory Tests Test 05/30/16 08:20 White Blood Count 9.0 K/UL (4.8-10.8) Red Blood Count 3.80 M/UL (4.70-6.10) L Hemoglobin 12.3 G/DL (14.2-18.0) L Hematocrit 38.6 % (42.0-52.0) L Mean Corpuscular Volume 102 FL (80-99) H Mean Corpuscular Hemoglobin 32.4 PG (27.0-31.0) H Mean Corpuscular Hemoglobin Concent 31.9 G/DL (32.0-36.0) L Red Cell Distribution Width 12.9 % (11.6-14.8) Platelet Count 136 K/UL (150-450) L Mean Platelet Volume 14.2 FL (6.5-10.1) H Neutrophils (%) (Auto) 58.0 % (45.0-75.0) Lymphocytes (%) (Auto) 32.2 % (20.0-45.0) Monocytes (%) (Auto) 5.6 % (1.0-10.0) Eosinophils (%) (Auto) 3.6 % (0.0-3.0) H Basophils (%) (Auto) 0.6 % (0.0-2.0) Prothrombin Time 10.7 SEC (9.30-11.50) Prothromb Time International Ratio 1.1 (0.9-1.1) Activated Partial Thromboplast Time 28 SEC (23-33) Sodium Level 161 mEQ/L (135-145) *H Potassium Level 3.2 mEQ/L (3.4-4.9) L Chloride Level 126 mEQ/L (98-107) H Carbon Dioxide Level 26 mEQ/L (20-30) Anion Gap 9 (5-15) Blood Urea Nitrogen 27 mg/dL (7-23) H Creatinine 1.4 mg/dL (0.7-1.2) H Estimat Glomerular Filtration Rate mL/min (>60) Glucose Level 146 mg/dL (74-106) H Calcium Level 7.7 mg/dL (8.6-10.2) L Phosphorus Level 1.8 mg/dL (2.5-4.8) L Magnesium Level 2.3 mg/dL (1.7-2.5) Total Bilirubin 0.8 mg/dL (0.0-1.2) Aspartate Amino Transf (AST/SGOT) 88 U/L (5-40) H Alanine Aminotransferase (ALT/SGPT) 41 U/L (3-41) Alkaline Phosphatase 99 U/L (40-129) Total Protein 6.5 g/dL (6.6-8.7) L Albumin 2.6 g/dL (3.5-5.2) L Globulin 3.9 g/dL Albumin/Globulin Ratio 0.6 (1.0-2.7) L Current Medications Medications (Trade) Dose Ordered Sig/Omi Route PRN Reason Start Time Stop Time Status Last Admin Dose Admin Acetaminophen (Tylenol) 650 mg Q4H PRN ORAL fever 05/30/16 12:15 06/29/16 12:14 Albuterol/ Ipratropium (DuoNeb 0.5-3(2.5)mg/3ml) 3 ml Q4H PRN HHN Shortness of Breath 05/30/16 13:00 06/04/16 12:59 Amlodipine Besylate (Norvasc) 10 mg DAILY GT 05/31/16 09:00 06/30/16 08:59 Cefepime HCl 2 gm/ Dextrose 100 ml @ 100 mls/hr Q24H IV 05/31/16 01:00 06/07/16 00:59 Digoxin (Lanoxin) 0.125 mg DAILY GT 05/31/16 09:00 06/30/16 08:59 Heparin Sodium (Porcine) (Heparin 5000 units/ml) 5,000 units EVERY 12 HOURS SUBQ 05/30/16 21:00 06/29/16 20:59 Morphine Sulfate (Morphine Sulfate) 2 mg Q4H PRN IVP Moderate Pain (Pain Scale 4-6) 05/30/16 13:00 06/06/16 12:59 Nitroglycerin (Ntg) 0.4 mg Q 5 MINS PRN SL Prn Chest Pain 05/30/16 12:15 06/29/16 12:14 Ondansetron HCl (Zofran) 4 mg Q6H PRN IVP Nausea & Vomiting 05/30/16 12:15 06/29/16 12:14 Polyethylene Glycol (Miralax) 17 gm DAILYPRN PRN ORAL Constipation 05/30/16 12:15 06/29/16 12:14 Potassium Chloride 10 meq/ Dextrose 1,005 ml @ 80 mls/hr [id number] IV 05/30/16 12:15 06/29/16 12:14 05/30/16 16:08 Ranitidine HCl (Zantac) 150 mg BEDTIME ORAL 05/30/16 21:00 06/29/16 20:59 Temazepam (Restoril) 15 mg HSPRN PRN ORAL Insomnia 05/30/16 20:15 06/06/16 20:14 Vancomycin HCl (Vanco rx to dose) 1 ea DAILY PRN MISC PRN RX PROTOCOL 05/30/16 15:00 06/29/16 14:59 Vancomycin HCl/ Dextrose (Vancomycin/D5W 250ml) 250 ml @ 167 mls/hr Q48H IVPB 05/31/16 21:00 06/05/16 20:59 Karla Stringer M.D. May 30, 2016 18:18
--- NOTE | 2016-05-30 18:35 | Cardiac Electrophysiology PN ---
Assessment/Plan Assessment/Plan 1. Atrial fibrillation with rapid ventricular response. Continue digoxin 0.125 mg through gastrostomy tube daily. Echocardiogram EF 50% 2. Hypertension on Norvasc 10 mg daily. 3. Profound hypernatremia. D5W @ 80cc/hr. NA still 161 but much better than 187 when he came in. 4. Rhabdomyolysis, recent profound dehydration. 5. Severe azotemia with BUN of 70 and creatinine 2.3 that is going down to 27 and 1.4. 6. Rhabdomyolysis with a CK of more than 4000 and troponin is negative. 7. S/p PEG DW RN Subjective Subjective Comfortable in NAD. No events overnight. Nonverbal with PEG feeding. Objective Last 24 Hour Vital Signs Date Time Temp Pulse Resp B/P Pulse Ox O2 Delivery O2 Flow Rate FiO2 05/30/16 16:00 98.7 116 20 91/56 97 Nasal Cannula 2.0 05/30/16 11:33 97.5 76 20 96/55 99 Nasal Cannula 1.0 05/30/16 08:53 65 05/30/16 08:53 65 114/61 05/30/16 07:56 98.1 65 20 114/61 99 Nasal Cannula 1.0 05/30/16 04:25 100.6 80 20 96/59 96 Room Air 05/30/16 00:00 97.0 86 20 106/61 99 Room Air 05/29/16 20:00 97.8 69 21 91/61 95 Nasal Cannula 2.0 05/29/16 19:49 72 Intake and Output 05/29/16 05/30/16 19:00 07:00 Intake Total 1050 ml 1900 ml Output Total 3 ml Balance 1050 ml 1897 ml Free Water 300 ml IV Total 1000 ml 1100 ml Tube Feeding 50 ml 500 ml Output Urine Total 3 ml # Voids 2 # Bowel Movements 1 2 Laboratory Tests Test 05/30/16 08:20 White Blood Count 9.0 K/UL (4.8-10.8) Red Blood Count 3.80 M/UL (4.70-6.10) L Hemoglobin 12.3 G/DL (14.2-18.0) L Hematocrit 38.6 % (42.0-52.0) L Mean Corpuscular Volume 102 FL (80-99) H Mean Corpuscular Hemoglobin 32.4 PG (27.0-31.0) H Mean Corpuscular Hemoglobin Concent 31.9 G/DL (32.0-36.0) L Red Cell Distribution Width 12.9 % (11.6-14.8) Platelet Count 136 K/UL (150-450) L Mean Platelet Volume 14.2 FL (6.5-10.1) H Neutrophils (%) (Auto) 58.0 % (45.0-75.0) Lymphocytes (%) (Auto) 32.2 % (20.0-45.0) Monocytes (%) (Auto) 5.6 % (1.0-10.0) Eosinophils (%) (Auto) 3.6 % (0.0-3.0) H Basophils (%) (Auto) 0.6 % (0.0-2.0) Prothrombin Time 10.7 SEC (9.30-11.50) Prothromb Time International Ratio 1.1 (0.9-1.1) Activated Partial Thromboplast Time 28 SEC (23-33) Sodium Level 161 mEQ/L (135-145) *H Potassium Level 3.2 mEQ/L (3.4-4.9) L Chloride Level 126 mEQ/L (98-107) H Carbon Dioxide Level 26 mEQ/L (20-30) Anion Gap 9 (5-15) Blood Urea Nitrogen 27 mg/dL (7-23) H Creatinine 1.4 mg/dL (0.7-1.2) H Estimat Glomerular Filtration Rate mL/min (>60) Glucose Level 146 mg/dL (74-106) H Calcium Level 7.7 mg/dL (8.6-10.2) L Phosphorus Level 1.8 mg/dL (2.5-4.8) L Magnesium Level 2.3 mg/dL (1.7-2.5) Total Bilirubin 0.8 mg/dL (0.0-1.2) Aspartate Amino Transf (AST/SGOT) 88 U/L (5-40) H Alanine Aminotransferase (ALT/SGPT) 41 U/L (3-41) Alkaline Phosphatase 99 U/L (40-129) Total Protein 6.5 g/dL (6.6-8.7) L Albumin 2.6 g/dL (3.5-5.2) L Globulin 3.9 g/dL Albumin/Globulin Ratio 0.6 (1.0-2.7) L Microbiology Date/Time Source Procedure Growth Status 05/28/16 01:00 Wound Gram Stain - Final Resulted 05/28/16 01:00 Wound Culture - Preliminary Staphylococcus Aureus Resulted Objective HEAD AND NECK: No JVD. LUNGS: Decreased breath sounds. CARDIOVASCULAR: Irregular S1-S2 with no gallop. ABDOMEN: Status post G-tube. EXTREMITIES: No pitting edema. TRINIDAD RUBY May 30, 2016 18:35
[2016-05-30] MEDS ORDERED: Heparin 5000 units/ml inj SUBQ SCH (21:00)
[2016-05-31] MEDS ORDERED: CEFEPIME-D2 GM/50 ML IVPB (00:51)
[2016-05-31] MEDS ORDERED: HEPARIN SO5000 UNIT2 SUBQ (00:51)
[2016-05-31] MEDS ORDERED: MORPHINE 22 MG/1 ML IV (00:52)
[2016-05-31] MEDS ORDERED: ZOFRAN 4 MG4 MG/2 ML IV (00:52)
[2016-05-31] MEDS ORDERED: MIRALAX17 G2 ORAL (00:52)
[2016-05-31] MEDS ORDERED: RANITIDINE HCL150 M2 GT (00:53)
[2016-05-31] MEDS ORDERED: RESTORIL15 MG ORAL (00:54)
[2016-05-31] MEDS ORDERED: VANCOMYCIN1 GM/2502 IVPB (00:54)
[2016-05-31] MEDS ORDERED: POTASSIUM CHLORIDE IV (00:56)
[2016-05-31] MEDS ORDERED: DEXTROSE IV (00:56)
[2016-05-31] MEDS ORDERED: Digoxin 0.125mg tab GT SCH (09:00)
--- NOTE | 2016-06-01 12:21 | Discharge Summary ---
Discharge Summary Hospital Course Date of Admission May 27, 2016 at 17:51 Date of Discharge May 31, 2016 at 03:15 Admitting Diagnosis severe sepsis, chronic dementia OSIRIS Jeffrey is a 80 year old male who was admitted on May 27, 2016 at 17:51 for Severe Sepsis/Chronic Dementia Hospital Course [id number] Discharge Discharge Disposition Patient was discharged to Contracted Hospital Discharge Diagnoses: Shonna Angeles NP Jun 01, 2016 12:21
--- NOTE | 2016-06-02 04:48 | Discharge Summary 2 SIG ---
DATE OF ADMISSION: 05/27/2016 DATE OF DISCHARGE: 05/31/2016 CONSULTANTS: 1. Juan Ramon Saeed M.D. 2. Karla Stringer M.D. 3. Aleksey Reyes M.D. 4. Alessandro Maier M.D. BRIEF HOSPITAL COURSE: The patient is an 80-year-old male from [facility], came in to ED for increased fever and congestion. He has history of advanced dementia, atrial fibrillation, and had a prior gastrostomy tube placement. He was noted to have low-grade temperature at the facility. On evaluation at ED, head CT showed atrophic changes without evidence of fracture or hemorrhage. Laboratories showed elevated WBC as well as lactic acidosis. He was started on IV fluids and IV antibiotics and had marked hypernatremia as well as rhabdomyolysis. Dr. Reyes was consulted. The patient was placed on O2. ABG showed mild hypercapnia with stable oxygenation. Chest x-ray showed possible infiltrate. Septic workup was initiated at ED and was started on empiric antibiotic and was admitted to telemetry. Dr. Stringer was consulted for foot cellulitis and was started on wide spectrum antibiotic with vancomycin and cefepime. MRI confirmed osteomyelitis. Dr. Maier was consulted for evaluation of hypernatremia and rhabdomyolysis. He was given IV hydration. Dr. Saeed was consulted for atrial fibrillation with rapid ventricular response. He was continued on digoxin 0.125 mg daily. Echocardiogram showed ejection fraction of 50%. Intravenous fluids was changed to D5 water. Sodium still elevated, but improved. Also, came in with severe azotemia and elevated creatinine. Wound care nurse was consulted for right lateral foot and lateral malleolus stage IV/unstageable pressure ulcer, left heel stage 4/unstageable pressure ulcer, right lower leg dry scab with open partial thickness wound, right heel DTI pressure ulcer, left upper back DTI pressure ulcer, and right upper back stage IV/unstageable pressure ulcer. Wound care was provided. Given low air loss overlay mattress with offloading and frequent repositioning. He was then eventually discharged to [facility]. FINAL DIAGNOSES: 1. Osteomyelitis of the right foot. 2. Severe sepsis. 3. Severe hypernatremia. 4. Multiple decubiti pressure ulcer, present on admission. 5. Rhabdomyolysis. 6. Cellulitis of right foot. 7. Atrial fibrillation with rapid ventricular response. 8. Hypertension. 9. Acute kidney injury. 10. Old cerebrovascular accident. 11. Dementia. 12. Chronic obstructive pulmonary disease. 13. Functional quadriplegia. Emmett Pressley D.O. I have been assigned to dictate discharge summary on this account and I was not involved in the patient's management. Shonna Angeles N.P. DR: RAMYA JOB#: [id number] CC: ELIZABETH
--- NOTE | 2016-06-06 11:55 | Cardiology Report ---
APPROVED REPORT EXAM: Two-dimensional and M-mode echocardiogram with Doppler and color Doppler. M-Mode DIMENSIONS IVSd1.4 (0.7-1.1cm)Left Atrium (MM)3.8 (1.6-4.0cm) LVDd4.7 (3.5-5.6cm)Aortic Root3.2 (2.0-3.7cm) PWd1.2 (0.7-1.1cm)Aortic Cusp Exc.1.7 (1.5-2.0cm) LVDs3.2 (2.5-4.0cm) PWs1.3 cm Technically difficult study due to poor acoustic windows patient posistion and patient not responsive. Normal left ventricular chamber size, systolic function and wall motion. Left ventricular ejection fraction estimated to be 60-65%. Mild left ventricular hypertrophy. Mild aortic root calcification. Mild Bi-atrial enlargment seen in 2D. Focal aortic valve sclerosis with adequate cusp excursion Mildy thickened mitral valve leaflets with normal excursion. Pulmonic valve not well visualized. Normal tricuspid valve structure. IVC not obtainable due to GI tube. A color flow and spectral Doppler study was performed and revealed: Trace aortic regurgitation. Mild mitral regurgitation. Mitral inflow velocities not indicated Mild-moderate tricuspid regurgitation. Tricuspid systolic velocities suggests peak right ventricular systolic pressure of 32 mmHg. Mild pulmonic regurgitation present.
--- NOTE | 2016-06-06 11:59 | Diagnostic Imaging Report ---
Indication: Pain Technique: Right ankle/hind foot imaging utilizing multiplanar T1 fast spin-echo, proton and T2 fast spin-echo with fat saturation, and STIR. Comparison: None Findings: There is skin thickening and ulceration along the lateral part of the ankle demonstrated on this study. The adjacent lateral aspect of the lateral malleolus demonstrates abnormal signal intensity which is low on T1 and high and T2. The abnormal signal is ill-defined. There is some loss of cortex. The findings are suspicious for acute osteomyelitis. There is alignment deformity of the ankle due to severe contraction. Impression: Suspected acute osteomyelitis involving the lateral malleolus.
--- NOTE | 2016-06-06 12:00 | Diagnostic Imaging Report ---
Indication: Chest Pain Comparison: 05/27/16 A single view chest radiograph was obtained. Findings: Left hemidiaphragm is elevated. The heart is enlarged. Aorta is enlarged and calcified. Impression: Development of mild volume loss atelectasis left lung base
== END 2016-05-31 03:15 | disposition short-term general hospital (02) | DRG 720 ==
LOC: EDBD 15:26 → EMR 16:05 → 2E 17:51 → EDBEDREQ 21:05 → 2E 05-28 17:07 → 4E 05-30 14:15
DX: A41.9 Sepsis, unspecified organism (principal); L89.894 Pressure ulcer of other site, stage 4; N17.9 Acute kidney failure, unspecified; L89.624 Pressure ulcer of left heel, stage 4; E87.0 Hyperosmolality and hypernatremia; E87.2 Acidosis; L89.129 Pressure ulcer of left upper back, unspecified stage; R53.2 Functional quadriplegia; F03.90 Unspecified dementia, unspecified severity, without behavioral disturbance, psychotic disturbance, mood disturbance, and anxiety; M62.82 Rhabdomyolysis; I48.91 Unspecified atrial fibrillation; J44.9 Chronic obstructive pulmonary disease, unspecified; R65.20 Severe sepsis without septic shock; L89.619 Pressure ulcer of right heel, unspecified stage; M86.8X7 Other osteomyelitis, ankle and foot; L03.115 Cellulitis of right lower limb; R06.89 Other abnormalities of breathing; E87.6 Hypokalemia; E86.0 Dehydration; I69.398 Other sequelae of cerebral infarction; I69.365 Other paralytic syndrome following cerebral infarction, bilateral; Z93.1 Gastrostomy status; R13.10 Dysphagia, unspecified; I10 Essential (primary) hypertension; M17.11 Unilateral primary osteoarthritis, right knee
CPT/HCPCS: 36415; 36600; 71010; 80048; 80053; 80162; 81003; 82550; 82553; 82803; 82962; 83605; 83735; 83880; 84100; 84439; 84484; 85025; 85610; 85730; 86710; 87040; 87070; 87081; 87181; 87205; 93005; 93306

== ENCOUNTER 2016-07-25 00:27 | Inpatient (IN) | payer OTHER, MEDICARE ==
[~2016-07-25] VITALS: Ht 177.8 cm; Wt 81.2 kg
[2016-07-25] VITALS (18 sets, daily range): BP systolic 93–128; BP diastolic 54–96
[~2016-07-25 00:27] MED LIST changes: +CEFEPIME-D2 GM/50 ML IVPB; +DEXTROSE IV; +FISH OIL300 M1 PO; +LOSARTAN POTAS100 MG GT; +MIRALAX17 G2 ORAL; +MORPHINE 22 MG/1 ML IV; +POTASSIUM CHLO20 ME2 GT; +POTASSIUM CHLORIDE IV; +RANITIDINE HCL150 M2 GT; +RESTORIL15 MG ORAL; +TYLENOL EXTRA500 MG GT; +VANCOMYCIN1 GM/2502 IVPB; +VITAMIN C500 M1 GT; +ZOFRAN 4 MG4 MG/2 ML IV
[2016-07-25 01:26] LABS: MEAN CORPUSCULAR HEMOGLOBIN 32.3 PG (27.0-31.0); MEAN CORPUSCULAR HGB CONC 34.1 G/DL (32.0-36.0); MEAN CORPUSCULAR VOLUME 95 FL (80-99); MEAN PLATELET VOLUME 9.5 FL (6.5-10.1); PLATELET COUNT 289 K/UL (150-450); RED CELL DISTRIBUTION WIDTH 13.3 % (11.6-14.8)
[2016-07-25 01:30] LABS: WHITE BLOOD COUNT 24.8 K/UL (4.8-10.8)
[2016-07-25 01:37] LABS: ALANINE AMINOTRANSFERASE 20 U/L (3-41); ALBUMIN/GLOBULIN RATIO 0.8 (1.0-2.7); ASPARTATE AMINO TRANSFERASE 22 U/L (5-40); CALCIUM 9.8 mg/dL (8.6-10.2); CARBON DIOXIDE 23 mEQ/L (20-30); CREATININE 1.1 mg/dL (0.7-1.2); HEMOLYSIS 3; TOTAL PROTEIN 8.2 g/dL (6.6-8.7); TROPONIN I < 0.30 ng/mL (<=0.30)
[2016-07-25] MEDS ORDERED: Piperacillin/Tazobactam 3.375 GM in NS 110 ML IVPB ONE (01:45)
[2016-07-25] MEDS ORDERED: Vancomycin 1.5gm/D5W 300ml 325 ML IVPB ONE (01:45)
[2016-07-25 01:47] LABS: CKMB < 1.5 ng/mL (< 6.7); PROTHROMBIN TIME 10.6 SEC (9.30-11.50)
[2016-07-25 01:53] LABS: ANION GAP 18 (5-15); CHLORIDE 100 mEQ/L (98-107)
[2016-07-25] MEDS ORDERED: Zosyn 3.375gm inj ONE (01:53)
[2016-07-25 01:55] LABS: SODIUM 141 mEQ/L (135-145)
[2016-07-25 01:58] LABS: BILIRUBIN,DIRECT 0.3 mg/dL (0.1-0.3)
[2016-07-25 02:06] LABS: BAND NEUTROPHILS % (MANUAL) 2 % (0-8); BASOPHILS % (MANUAL) 0 % (0-2); EOSINOPHILS % (MANUAL) 0 % (0-3); LYMPHOCYTES % (MANUAL) 25 % (20-45); NEUTROPHILS % (MANUAL) 65 % (45-75); PLATELET ESTIMATE ADEQUATE; PLATELET MORPHOLOGY NORMAL; TOTAL CELLS COUNTED 100
[2016-07-25 02:26] LABS: APPEARANCE,URINE CLEAR; KETONES,URINE NEGATIVE (NEGATIVE); LEUKOCYTE ESTERASE ,URINE 2+ (NEGATIVE); NITRITE,URINE NEGATIVE (NEGATIVE); PH,URINE 6.5 (4.5-8.0); PROTEIN,URINE 2+ (NEGATIVE); UROBILINOGEN,URINE NORMAL MG/DL (0.0-1.0)
--- NOTE | 2016-07-25 02:29 | Emergency Room Report ---
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 Also has a history of atrial fibrillation. He present with chief complaint of fever and vomiting x3. Onset tonight. He also has a history of sepsis secondary to UTI and wound infection. Unable to get any history from this patient. Allergies: Coded Allergies: No Known Allergies (Unverified , 12/08/13) Patient History Past Medical History: see triage record, old chart reviewed Past Surgical History: other Pertinent Family History: none Social History: Denies: smoking Immunizations: other Reviewed Nursing Documentation: PMH: Agreed, PSxH: Agreed Nursing Documentation-PMH Hx Cardiac Problems: Yes - atrial fibrillation Hx Hypertension: Yes Hx Pacemaker: No Hx COPD: No - PRESSURE ULCERS Hx Diabetes: Yes Hx Cancer: No Hx Gastrointestinal Problems: Yes - G tube Hx Neurological Problems: Yes - functional quadriplegia Hx Cerebrovascular Accident: Yes Hx Dementia: Yes Hx Seizures: No Hx Aphasia: Yes Review of Systems Constitutional: Reports: weakness Gastrointestinal: Reports: vomiting All Other Systems: limited - Secondary condition Physical Exam Vital Signs Date Time Temp Pulse Resp B/P Pulse Ox O2 Delivery O2 Flow Rate FiO2 07/25/16 00:27 99.0 80 16 124/76 90 Room Air vitals with low-grade fever and hypoxia Sp02 EP Interpretation: reviewed, normal General Appearance: alert, mild distress, Chronically Ill Head: normocephalic, atraumatic Eyes: bilateral eye EOMI, bilateral eye PERRL ENT: normal pharynx, dry mucus membranes Neck: full range of motion, supple, no meningismus Respiratory: chest non-tender, decreased breath sounds Cardiovascular #1: no murmur, irregularly irregular Gastrointestinal: normal bowel sounds, non tender, no mass, no organomegaly, no bruit, non-distended, other - G-tube intact Musculoskeletal: other - Contracted. Unable to Left side Skin: warm/dry Procedures Critical Care Time Critical Care Time Critical care is mandated in this patient who presented with sepsis. Patient require my urgent intervention to attenuate the risks of metabolic collapse which may lead to cardiovascular collapse and . Critical care time is 35 minutes excluding any reportable procedure. Critical care time included evaluation, multiple reevaluation, looking at old charts, interpreting laboratory and diagnostic data, discussing case with patient and family and consultants, and charting. Medical Decision Making Diagnostic Impression: Primary Impression: Sepsis Qualified Codes: A41.9 - Sepsis, unspecified organism Additional Impressions: Dehydration Chronic a-fib UTI (urinary tract infection) Qualified Codes: N30.00 - Acute cystitis without hematuria Proteinuria ER Course She presents with fever and high white count. Urinalysis still pending. He does have previous ulcer infection. He grew out MRSA in gram-negative rods. We 'll put him on Zosyn and vancomycin to cover for these to bugs. He has been sensitive in the past. Blood pressure improved after IV fluid. No longer vomiting here. Will admit patient to telemetry. Laboratory Tests Test 07/25/16 01:10 07/25/16 02:20 White Blood Count 24.8 K/UL (4.8-10.8) *H Red Blood Count 4.30 M/UL (4.70-6.10) L Hemoglobin 13.9 G/DL (14.2-18.0) L Hematocrit 40.7 % (42.0-52.0) L Mean Corpuscular Volume 95 FL (80-99) Mean Corpuscular Hemoglobin 32.3 PG (27.0-31.0) H Mean Corpuscular Hemoglobin Concent 34.1 G/DL (32.0-36.0) Red Cell Distribution Width 13.3 % (11.6-14.8) Platelet Count 289 K/UL (150-450) Mean Platelet Volume 9.5 FL (6.5-10.1) Neutrophils (%) (Auto) % (45.0-75.0) Lymphocytes (%) (Auto) % (20.0-45.0) Monocytes (%) (Auto) % (1.0-10.0) Eosinophils (%) (Auto) % (0.0-3.0) Basophils (%) (Auto) % (0.0-2.0) Differential Total Cells Counted 100 Neutrophils % (Manual) 65 % (45-75) Lymphocytes % (Manual) 25 % (20-45) Monocytes % (Manual) 8 % (1-10) Eosinophils % (Manual) 0 % (0-3) Basophils % (Manual) 0 % (0-2) Band Neutrophils 2 % (0-8) Platelet Estimate Adequate Platelet Morphology Normal Red Blood Cell Morphology Normal Prothrombin Time 10.6 SEC (9.30-11.50) Prothromb Time International Ratio 1.0 (0.9-1.1) Activated Partial Thromboplast Time 31 SEC (23-33) Sodium Level 141 mEQ/L (135-145) Potassium Level 4.0 mEQ/L (3.4-4.9) Chloride Level 100 mEQ/L (98-107) Carbon Dioxide Level 23 mEQ/L (20-30) Anion Gap 18 (5-15) H Blood Urea Nitrogen 24 mg/dL (7-23) H Creatinine 1.1 mg/dL (0.7-1.2) Estimat Glomerular Filtration Rate mL/min (>60) Glucose Level 115 mg/dL (74-106) H Lactic Acid Level 1.60 mmol/L (0.66-2.22) Calcium Level 9.8 mg/dL (8.6-10.2) Total Bilirubin 1.4 mg/dL (0.0-1.2) H Direct Bilirubin 0.3 mg/dL (0.1-0.3) Aspartate Amino Transf (AST/SGOT) 22 U/L (5-40) Alanine Aminotransferase (ALT/SGPT) 20 U/L (3-41) Alkaline Phosphatase 82 U/L (40-129) Total Creatine Kinase 225 U/L (38-174) H Creatine Kinase MB < 1.5 ng/mL (< 6.7) Creatine Kinase MB Relative Index 0.6 Troponin I < 0.30 ng/mL (<=0.30) Total Protein 8.2 g/dL (6.6-8.7) Albumin 3.8 g/dL (3.5-5.2) Globulin 4.4 g/dL Albumin/Globulin Ratio 0.8 (1.0-2.7) L Urine Color Pending Urine Appearance Pending Urine pH Pending Urine Specific [place] Pending Urine Protein Pending Urine Glucose (UA) Pending Urine Ketones Pending Urine Occult Blood Pending Urine Nitrite Pending Urine Bilirubin Pending Urine Urobilinogen Pending Urine Leukocyte Esterase Pending Lab Results Impression labs with leukocytosis EKG Diagnostic Results Rate: normal Rhythm: other - afib ST Segments: no acute changes Rhythm Strip Diag. Results EP Interpretation: yes Rate: 65 Rhythm: no PVC's, no ectopy, other - afib Chest X-Ray Diagnostic Results EP Interpretation: Yes Findings: no effusion, no pneumothorax, no acute cardiopulmonary disease, other - atectlasis Number of Views: 1 Last Vital Signs Date Time Temp Pulse Resp B/P Pulse Ox O2 Delivery O2 Flow Rate FiO2 07/25/16 00:27 99.0 80 16 124/76 90 Room Air Status: improved Disposition: ADMITTED INPATIENT Condition: Serious Referrals: Seamus Garcia MD (PCP) BHAVYA ARANDA M.D. Jul 25, 2016 02:29
[2016-07-25 02:40] LABS: BACTERIA,URINE FEW /HPF; RBC,URINE 0-2 /HPF (0 - 0); SQUAMOUS EPITHELIAL CELL,UR FEW /LPF (NONE/OCC); WBC,URINE 15-20 /HPF (0 - 0)
[2016-07-25] MEDS ORDERED: HEPARIN SO5000 UNIT2 SUBQ (05:50)
[2016-07-25] MEDS ORDERED: NORVASC10 MG ORAL (05:50)
[2016-07-25] MEDS ORDERED: ZOFRAN4 M1 ORAL (05:50)
[2016-07-25] MEDS ORDERED: DOCUSATE SODIU100 MG NG (05:50)
[2016-07-25] MEDS ORDERED: HUMALOG100 UNIT/4 SUBQ (05:50)
[2016-07-25] MEDS ORDERED: DIGOXIN125 MCG NG (05:50)
[2016-07-25] MEDS ORDERED: IPRAT-ALBUT 0.5-3 ML IH (05:50)
[2016-07-25] MEDS ORDERED: MULTI-DELYN237 ML NG (05:50)
[2016-07-25] MEDS ORDERED: TYLENOL EXTRA500 MG ORAL (05:50)
[2016-07-25] MEDS ORDERED: TYLENOL EXTRA500 MG NG (05:50)
[2016-07-25] MEDS ORDERED: NITROGLYCERIN0.4 MG SL (05:50)
[2016-07-25] MEDS ORDERED: VITAMIN C500 MG/11 PO (05:50)
[2016-07-25] MEDS ORDERED: FAMOTIDINE20 MG ORAL (05:50)
[2016-07-25] MEDS ORDERED: FISH OIL CAP1000 MG NG (05:50)
[2016-07-25] MEDS ORDERED: TYLENOL650 MG/20. NG (05:50)
[2016-07-25] MEDS ORDERED: DuoNeb 0.5-3(2.5)mg/3ml neb HHN PRN (07:00)
[2016-07-25] MEDS ORDERED: Miralax 17gm pkt ORAL PRN (07:00)
[2016-07-25] MEDS ORDERED: Morphine Sulfate 2mg/ml Inj IVP PRN (07:00)
[2016-07-25] MEDS ORDERED: Morphine Sulfate 2mg/ml Inj IV PRN (07:00)
[2016-07-25] MEDS ORDERED: Nitroglycerin Subl 0.4mg tab (Bottle Of 25) SL PRN (07:15)
[2016-07-25] MEDS ORDERED: Cefepime HCl 2 GM in D5W 110 ML IV SCH (09:00)
[2016-07-25] MEDS ORDERED: Cefepime 2gm ONE ×2 (10:05→10:27)
[2016-07-25] MEDS: Heparin 5000 units/ml inj SUBQ SCH ×2 (10:14→22:16)
[2016-07-25] MEDS: Digoxin Elixir 0.125mg GT SCH (10:31)
--- NOTE | 2016-07-25 11:04 | Diagnostic Imaging Report ---
Indication: Chest pain Technique: One view of the chest Comparison: 05/29/2016 Findings: Inspiration is suboptimal. Patient's chin obscures the upper mediastinum and bilateral medial lung apices. There is mild generalized interstitial prominence, particularly on the right, which appears similar to the prior study. The heart is borderline enlarged. Impression: Borderline cardiomegaly Mild interstitial prominence, probably exaggerated by vascular crowding from suboptimal inspiration, mild interstitial congestion not completely excludable. Correlate with clinical findings
[2016-07-25 11:55] LABS: APPEARANCE,URINE CLEAR; KETONES,URINE NEGATIVE (NEGATIVE); LEUKOCYTE ESTERASE ,URINE 1+ (NEGATIVE); NITRITE,URINE NEGATIVE (NEGATIVE); PH,URINE 8 (4.5-8.0); PROTEIN,URINE 2+ (NEGATIVE); UROBILINOGEN,URINE NORMAL MG/DL (0.0-1.0)
[2016-07-25 12:04] LABS: BACTERIA,URINE FEW /HPF; SQUAMOUS EPITHELIAL CELL,UR OCCASIONAL /LPF (NONE/OCC)
--- NOTE | 2016-07-25 14:10 | Infectious Diseases Prog Note ---
Assessment/Plan Problems: (1) HCAP (healthcare-associated pneumonia) Assessment & Plan: will send sputum culture and screen for influenza , continue vancomycin and cefepime (2) Osteomyelitis of ankle or foot Assessment & Plan: with right malleolus wound, continue vancomycin and cefepime , will order ankle X ray. recommend ecological economist consult (3) UTI (urinary tract infection) Assessment & Plan: will send culture, continue cefepime (4) Sepsis Assessment & Plan: will send blood culture and continue vancomycin and cefepime , pharmacy to monitor vancomycin trough and to keep between 15-20 (5) History of CVA (cerebrovascular accident) Assessment & Plan: stable, continue meds Subjective Allergies: Coded Allergies: No Known Allergies (Unverified , 12/08/13) Objective Vital Signs Last 24 Hour Vital Signs Date Time Temp Pulse Resp B/P Pulse Ox O2 Delivery O2 Flow Rate FiO2 07/25/16 10:31 80 07/25/16 10:23 80 108/62 07/25/16 08:20 72 27 128/71 100 Nasal Cannula 2.0 07/25/16 07:17 68 26 120/64 100 Nasal Cannula 2.0 07/25/16 06:53 84 15 120/64 100 Nasal Cannula 2.0 07/25/16 06:32 98.0 83 17 98/69 100 Nasal Cannula 2.0 07/25/16 04:30 81 15 118/68 99 Nasal Cannula 2.0 07/25/16 03:00 98.9 70 17 99/54 100 Nasal Cannula 2.0 07/25/16 02:00 68 16 93/57 100 Nasal Cannula 2.0 07/25/16 00:30 99.0 67 16 103/96 97 Room Air 07/25/16 00:27 99.0 80 16 124/76 90 Room Air Height (Feet): 5 Height (Inches): 10.00 Weight (Pounds): 180 Laboratory Tests Test 07/25/16 01:10 07/25/16 02:20 07/25/16 11:25 White Blood Count 24.8 K/UL (4.8-10.8) *H Red Blood Count 4.30 M/UL (4.70-6.10) L Hemoglobin 13.9 G/DL (14.2-18.0) L Hematocrit 40.7 % (42.0-52.0) L Mean Corpuscular Volume 95 FL (80-99) Mean Corpuscular Hemoglobin 32.3 PG (27.0-31.0) H Mean Corpuscular Hemoglobin Concent 34.1 G/DL (32.0-36.0) Red Cell Distribution Width 13.3 % (11.6-14.8) Platelet Count 289 K/UL (150-450) Mean Platelet Volume 9.5 FL (6.5-10.1) Neutrophils (%) (Auto) % (45.0-75.0) Lymphocytes (%) (Auto) % (20.0-45.0) Monocytes (%) (Auto) % (1.0-10.0) Eosinophils (%) (Auto) % (0.0-3.0) Basophils (%) (Auto) % (0.0-2.0) Differential Total Cells Counted 100 Neutrophils % (Manual) 65 % (45-75) Lymphocytes % (Manual) 25 % (20-45) Monocytes % (Manual) 8 % (1-10) Eosinophils % (Manual) 0 % (0-3) Basophils % (Manual) 0 % (0-2) Band Neutrophils 2 % (0-8) Platelet Estimate Adequate Platelet Morphology Normal Red Blood Cell Morphology Normal Prothrombin Time 10.6 SEC (9.30-11.50) Prothromb Time International Ratio 1.0 (0.9-1.1) Activated Partial Thromboplast Time 31 SEC (23-33) Sodium Level 141 mEQ/L (135-145) Potassium Level 4.0 mEQ/L (3.4-4.9) Chloride Level 100 mEQ/L (98-107) Carbon Dioxide Level 23 mEQ/L (20-30) Anion Gap 18 (5-15) H Blood Urea Nitrogen 24 mg/dL (7-23) H Creatinine 1.1 mg/dL (0.7-1.2) Estimat Glomerular Filtration Rate mL/min (>60) Glucose Level 115 mg/dL (74-106) H Lactic Acid Level 1.60 mmol/L (0.66-2.22) Calcium Level 9.8 mg/dL (8.6-10.2) Total Bilirubin 1.4 mg/dL (0.0-1.2) H Direct Bilirubin 0.3 mg/dL (0.1-0.3) Aspartate Amino Transf (AST/SGOT) 22 U/L (5-40) Alanine Aminotransferase (ALT/SGPT) 20 U/L (3-41) Alkaline Phosphatase 82 U/L (40-129) Total Creatine Kinase 225 U/L (38-174) H Creatine Kinase MB < 1.5 ng/mL (< 6.7) Creatine Kinase MB Relative Index 0.6 Troponin I < 0.30 ng/mL (<=0.30) Total Protein 8.2 g/dL (6.6-8.7) Albumin 3.8 g/dL (3.5-5.2) Globulin 4.4 g/dL Albumin/Globulin Ratio 0.8 (1.0-2.7) L Urine Color Pale yellow Pale yellow Urine Appearance Clear Clear Urine pH 6.5 (4.5-8.0) 8 (4.5-8.0) Urine Specific [place] 1.010 (1.005-1.035) 1.010 (1.005-1.035) Urine Protein 2+ (NEGATIVE) H 2+ (NEGATIVE) H Urine Glucose (UA) Negative (NEGATIVE) Negative (NEGATIVE) Urine Ketones Negative (NEGATIVE) Negative (NEGATIVE) Urine Occult Blood 1+ (NEGATIVE) H 2+ (NEGATIVE) H Urine Nitrite Negative (NEGATIVE) Negative (NEGATIVE) Urine Bilirubin Negative (NEGATIVE) Negative (NEGATIVE) Urine Urobilinogen Normal MG/DL (0.0-1.0) Normal MG/DL (0.0-1.0) Urine Leukocyte Esterase 2+ (NEGATIVE) H 1+ (NEGATIVE) H Urine RBC 0-2 /HPF (0 - 0) H 5-10 /HPF (0 - 0) H Urine WBC 15-20 /HPF (0 - 0) H 2-4 /HPF (0 - 0) Urine Squamous Epithelial Cells Few /LPF (NONE/OCC) Occasional /LPF Urine Bacteria Few /HPF (NONE) Few /HPF (NONE) Current Medications Medications (Trade) Dose Ordered Sig/Omi Route PRN Reason Start Time Stop Time Status Last Admin Dose Admin Acetaminophen (Tylenol) 650 mg Q4H PRN ORAL T>100.5 07/25/16 07:00 08/24/16 06:59 Albuterol/ Ipratropium 3 ml 3 ml Q4H PRN HHN Shortness of Breath 07/25/16 07:00 07/30/16 06:59 Amlodipine Besylate (Norvasc) 10 mg DAILY GT 07/25/16 09:00 08/24/16 08:59 07/25/16 10:23 Cefepime HCl 2 gm/ Dextrose 110 ml @ 220 mls/hr EVERY 12 HOURS IV 07/25/16 09:00 08/01/16 08:59 07/25/16 10:25 Digoxin (Lanoxin) 0.125 mg DAILY GT 07/25/16 09:00 08/24/16 08:59 07/25/16 10:31 Heparin Sodium (Porcine) (Heparin 5000 units/ml) 5,000 units EVERY 12 HOURS SUBQ 07/25/16 09:00 08/24/16 08:59 07/25/16 10:14 Morphine Sulfate (Morphine Sulfate) 2 mg Q4H PRN IVP PAIN 4-10 07/25/16 07:00 08/01/16 06:59 Nitroglycerin (Ntg) 0.4 mg Q5MIN X 3 DOSES PRN SL Prn Chest Pain 07/25/16 07:15 08/24/16 07:14 Ondansetron HCl (Zofran) 4 mg Q6H PRN IVP Nausea & Vomiting 07/25/16 07:00 08/24/16 06:59 Polyethylene Glycol (Miralax) 17 gm DAILYPRN PRN ORAL Constipation 07/25/16 07:00 08/24/16 06:59 Temazepam (Restoril) 15 mg HSPRN PRN ORAL Insomnia 07/25/16 21:00 08/01/16 20:59 Vancomycin HCl (Vanco rx to dose) 1 ea DAILY PRN MISC . 07/25/16 07:15 08/24/16 07:14 Vancomycin HCl/ Dextrose (Vancomycin/D5W) 275 ml @ 183.3 mls/ hr Q24H IV 07/26/16 00:30 07/31/16 00:29 Karla Potter M.D. Jul 25, 2016 14:10
--- NOTE | 2016-07-25 16:20 | Diagnostic Imaging Report ---
Indication: Infection, pain Technique: 3 views of the right ankle Comparison: Reference made to MRI of 05/29/2016 Findings: Exam is very limited, due to severe extension abnormality of the ankle as well as without osteoporotic changes. There is some irregularity of the tibiotalar joint, probably secondary to degenerative change. Prior MRI suggested osteomyelitis of the distal fibula. Due to bony overlap, the distal fibular cortex is only seen well on a single view, where it appears grossly unremarkable. No definite osseous erosions elsewhere. No definite acute fractures. No dislocations. There are vascular calcifications. Impression: No definite plain radiographic evidence of osteomyelitis. Note, however, limitations of this exam, and limitations of plain radiography in general, for evaluation of such. If there is high clinical suspicion, MRI or bone scan should be considered. Note that prior MRI of 05/29/2016 was positive for acute osteomyelitis of the distal fibula.
[2016-07-25] MEDS ORDERED: CLONIDINE HCL0.1 MG (19:31)
--- NOTE | 2016-07-25 20:28 | History and Physical Report ---
DATE OF ADMISSION: 07/25/2016 HISTORY OF PRESENT ILLNESS: The patient reported early dementia. The patient is being admitted for vomiting x2, fever of 100 at the long-term and white blood cell of 25,000, rule out pneumonia. Rule out sepsis. Cannot obtain any history from the patient, as the patient is a poor historian. PAST MEDICAL HISTORY: Dementia, NIDDM, hypertension, GERD, psychosis, and mood disorder. PAST SURGICAL HISTORY: Denies. MEDICATIONS: Refer to medications in the chart. ALLERGIES: . SOCIAL HISTORY: Denies alcohol or illicit drugs. FAMILY HISTORY: Noncontributory. REVIEW OF SYSTEMS: Poor historian, cannot get a reliable history from him. PHYSICAL EXAMINATION: VITAL SIGNS: Temperature 97.3 degrees, pulse 78, and blood pressure 130/70. HEENT: PERRLA. NECK: Supple. No lymphadenopathy. CHEST: Clear to auscultation. GASTROINTESTINAL: Soft and nontender. Positive bowel sounds. EXTREMITIES: There is 1+ edema. NEUROLOGIC: Reflexes on both sides. LABORATORY AND DIAGNOSTIC DATA: White blood cell 25,000. ASSESSMENT AND PLAN: Sepsis, possible pneumonia. The patient has had leukocytosis and vomiting at the long-term. I have contacted Dr. Reyes, Dr. Stringer, Dr. Alvarado, Dr. Kan for the above-mentioned diagnoses and treatment. Seamus Garcia M.D. DR: FEDE JOB#: [id number] CC:
--- NOTE | 2016-07-25 21:08 | Consultation ---
DATE OF CONSULTATION: INFECTIOUS DISEASE CONSULTATION: REASON FOR CONSULTATION: Sepsis, leukocytosis, right ankle wound, and recommendation for antibiotics therapy. REQUESTING PHYSICIAN: Seamus Garcia M.D. HISTORY OF PRESENT ILLNESS: The patient is an 80-year-old male with a history of CVA and left side weakness with paralysis and history of right ankle osteomyelitis, who was treated in May of this year with vancomycin and cefepime for six weeks for osteomyelitis of the right ankle, was sent from his convalescent home for fever, nausea, and vomiting. The patient vomited for couple of times and he had previous history of sepsis and wound infection, so he was sent to the emergency room for evaluation. In ED, he had low grade temperature of 99 degrees. His white count was found to be elevated at 24.8. The patient's urinalysis showed evidence of infection, so he was started on vancomycin and cefepime and I was consulted by the primary provider for antibiotics recommendation. PAST MEDICAL HISTORY: Significant for atrial fibrillation, hypertension, decubitus wound ulcer, diabetes, dysphagia status post G-tube placement, quadriplegia with contractions, CVA, dementia, and aphasia. PAST SURGICAL HISTORY: He had a G-tube placement . MEDICATIONS: He is on vancomycin and cefepime. For the rest of his medications, please refer to [facility]. ALLERGIES: He has no known drug allergy. SOCIAL HISTORY: He lives in convalescent home. No recent drugs, tobacco, or alcohol. FAMILY HISTORY: Unable to obtain. REVIEW OF SYSTEMS: Unable to obtain. The patient demented, cannot provide any history. PHYSICAL EXAMINATION: VITAL SIGNS: Temperature 98 degrees, pulse 77, respiration 27, blood pressure 117/62, and pulse oximetry 92% on two liters nasal cannula. GENERAL: The patient is an elderly male, demented, aphasic, quadriplegic, contracted, lying in bed, seems comfortable, open eyes spontaneously, not in distress. HEENT: Normocephalic and atraumatic. Congested sclera. Dry oral mucosa. Poor dental hygiene. NECK: Supple. No lymphadenopathy. CARDIOVASCULAR: Regular rate and rhythm. No murmur or gallop. LUNGS: He had diminished breathing sounds with crackles on the bases. ABDOMEN: Soft, nontender, nondistended. Positive bowel sounds. G-tube site looks intact. No bleeding or drainage. EXTREMITIES: He has contraction nearly in the right foot with the right lateral malleolus wound draining serosanguineous fluids with cellulitis. SKIN: No rash or hives. LABORATORY AND DIAGNOSTIC DATA: Labs showed white count 24.8, hemoglobin 13.9, and platelet count 289,000. BUN 24 and creatinine 1.1. Urinalysis was negative for nitrite, positive for leukocyte esterase +2, WBC 15-20, and few bacteria. Imaging, chest x-ray showed mild interstitial prominence, with vascular crowding . ASSESSMENT AND PLAN: 1. Healthcare-acquired pneumonia with bilateral interstitial infiltrates. We will continue vancomycin and cefepime for now and sent sputum for culture. We will screen for influenza. Continue oxygen titrate as needed. 2. Urinary tract infection. The patient already on cefepime. We will send urine culture . 3. Sepsis due to the above. Blood culture already sent. Continue vancomycin and cefepime. Empiric treatment. Pharmacy to monitor vancomycin trough to keep between 50 to 20 . 4. Right ankle osteomyelitis. We will open lateral malleolus wound draining pus material. We will continue vancomycin and cefepime for now. We will send wound culture. Order x-ray of the ankle to further evaluate his above condition. Recommend specialties operator consultation. Karla Stringer M.D. DR: Jessica JOB#: [id number] CC: [email or web address]
--- NOTE | 2016-07-25 22:04 | General Progress Note ---
Assessment/Plan Assessment/Plan Assessment - N/V - dysphagia / GT - OBS Recommendations - Hold TF - follow labs and exam - check stool cultures Subjective Allergies: Coded Allergies: No Known Allergies (Unverified , 12/08/13) Objective Last 24 Hour Vital Signs Date Time Temp Pulse Resp B/P Pulse Ox O2 Delivery O2 Flow Rate FiO2 07/25/16 20:00 97.5 86 19 122/76 Nasal Cannula 2.0 92 07/25/16 18:44 88 24 117/60 100 Nasal Cannula 2.0 07/25/16 17:50 99.0 88 24 117/60 100 Nasal Cannula 2.0 07/25/16 16:27 87 33 125/61 94 Nasal Cannula 2.0 07/25/16 15:23 99.5 83 33 127/78 99 Nasal Cannula 2.0 07/25/16 14:00 77 27 117/62 29 Nasal Cannula 2.0 07/25/16 13:00 65 27 93/62 96 Nasal Cannula 2.0 07/25/16 12:00 61 26 123/63 96 Nasal Cannula 2.0 07/25/16 11:00 74 29 121/77 95 Nasal Cannula 2.0 07/25/16 10:31 80 07/25/16 10:23 80 108/62 07/25/16 10:00 68 29 108/62 97 Nasal Cannula 2.0 07/25/16 09:00 72 27 110/61 96 Nasal Cannula 2.0 07/25/16 08:20 72 27 128/71 100 Nasal Cannula 2.0 07/25/16 07:17 68 26 120/64 100 Nasal Cannula 2.0 07/25/16 06:53 84 15 120/64 100 Nasal Cannula 2.0 07/25/16 06:32 98.0 83 17 98/69 100 Nasal Cannula 2.0 07/25/16 04:30 81 15 118/68 99 Nasal Cannula 2.0 07/25/16 03:00 98.9 70 17 99/54 100 Nasal Cannula 2.0 07/25/16 02:00 68 16 93/57 100 Nasal Cannula 2.0 07/25/16 00:30 99.0 67 16 103/96 97 Room Air 07/25/16 00:27 99.0 80 16 124/76 90 Room Air Intake and Output 07/24/16 07/25/16 19:00 07:00 Intake Total 2500 ml Output Total 100 ml Balance 2400 ml Intake IV Total 2500 ml Output Urine Total 100 ml Laboratory Tests 07/25/16 01:10: White Blood Count 24.8*H, Red Blood Count 4.30L, Hemoglobin 13.9L, Hematocrit 40.7L, Mean Corpuscular Volume 95, Mean Corpuscular Hemoglobin 32.3H, Mean Corpuscular Hemoglobin Concent 34.1, Red Cell Distribution Width 13.3, Platelet Count 289, Mean Platelet Volume 9.5, Neutrophils (%) (Auto) , Lymphocytes (%) ( Auto) , Monocytes (%) (Auto) , Eosinophils (%) (Auto) , Basophils (%) (Auto) , Differential Total Cells Counted 100, Neutrophils % (Manual) 65, Lymphocytes % ( Manual) 25, Monocytes % (Manual) 8, Eosinophils % (Manual) 0, Basophils % ( Manual) 0, Band Neutrophils 2, Platelet Estimate Adequate, Platelet Morphology Normal, Red Blood Cell Morphology Normal, Prothrombin Time 10.6, Prothromb Time International Ratio 1.0, Activated Partial Thromboplast Time 31, Sodium Level 141, Potassium Level 4.0, Chloride Level 100, Carbon Dioxide Level 23, Anion Gap 18H, Blood Urea Nitrogen 24H, Creatinine 1.1, Estimat Glomerular Filtration Rate , Glucose Level 115H, Lactic Acid Level 1.60, Calcium Level 9.8, Total Bilirubin 1.4H, Direct Bilirubin 0.3, Aspartate Amino Transf (AST/SGOT) 22, Alanine Aminotransferase (ALT/SGPT) 20, Alkaline Phosphatase 82, Total Creatine Kinase 225H, Creatine Kinase MB < 1.5, Creatine Kinase MB Relative Index 0.6, Troponin I < 0.30, Total Protein 8.2, Albumin 3.8, Globulin 4.4, Albumin/ Globulin Ratio 0.8L 07/25/16 02:20: Urine Color Pale yellow, Urine Appearance Clear, Urine pH 6.5, Urine Specific [place] 1.010, Urine Protein 2+H, Urine Glucose (UA) Negative, Urine Ketones Negative, Urine Occult Blood 1+H, Urine Nitrite Negative, Urine Bilirubin Negative, Urine Urobilinogen Normal, Urine Leukocyte Esterase 2+H, Urine RBC 0- 2H, Urine WBC 15-20H, Urine Squamous Epithelial Cells Few, Urine Bacteria Few 07/25/16 11:25: Urine Color Pale yellow, Urine Appearance Clear, Urine pH 8, Urine Specific [place] 1.010, Urine Protein 2+H, Urine Glucose (UA) Negative, Urine Ketones Negative, Urine Occult Blood 2+H, Urine Nitrite Negative, Urine Bilirubin Negative, Urine Urobilinogen Normal, Urine Leukocyte Esterase 1+H, Urine RBC 5- 10H, Urine WBC 2-4, Urine Squamous Epithelial Cells Occasional, Urine Bacteria Few Height (Feet): 5 Height (Inches): 10.00 Weight (Pounds): 180 ALMAZ VIVAS Jul 25, 2016 22:04
--- NOTE | 2016-07-25 23:18 | Pulmonology Progress Note ---
Assessment/Plan Problems: (1) Sepsis (2) Chronic a-fib (3) HTN (hypertension) (4) History of CVA (cerebrovascular accident) (5) COPD (chronic obstructive pulmonary disease) Assessment/Plan iv fluids iv antibiotics vogel cultures telemetry monitoring respiratory treatment nutrition evaluation dvt prophylaxis Subjective ROS Limited/Unobtainable: No Interval Events: awake, not communicating Allergies: Coded Allergies: No Known Allergies (Unverified , 12/08/13) Objective Last 24 Hour Vital Signs Date Time Temp Pulse Resp B/P Pulse Ox O2 Delivery O2 Flow Rate FiO2 07/25/16 20:00 97.5 86 19 122/76 Nasal Cannula 2.0 92 07/25/16 18:44 88 24 117/60 100 Nasal Cannula 2.0 07/25/16 17:50 99.0 88 24 117/60 100 Nasal Cannula 2.0 07/25/16 16:27 87 33 125/61 94 Nasal Cannula 2.0 07/25/16 15:23 99.5 83 33 127/78 99 Nasal Cannula 2.0 07/25/16 14:00 77 27 117/62 29 Nasal Cannula 2.0 07/25/16 13:00 65 27 93/62 96 Nasal Cannula 2.0 07/25/16 12:00 61 26 123/63 96 Nasal Cannula 2.0 07/25/16 11:00 74 29 121/77 95 Nasal Cannula 2.0 07/25/16 10:31 80 07/25/16 10:23 80 108/62 07/25/16 10:00 68 29 108/62 97 Nasal Cannula 2.0 07/25/16 09:00 72 27 110/61 96 Nasal Cannula 2.0 07/25/16 08:20 72 27 128/71 100 Nasal Cannula 2.0 07/25/16 07:17 68 26 120/64 100 Nasal Cannula 2.0 07/25/16 06:53 84 15 120/64 100 Nasal Cannula 2.0 07/25/16 06:32 98.0 83 17 98/69 100 Nasal Cannula 2.0 07/25/16 04:30 81 15 118/68 99 Nasal Cannula 2.0 07/25/16 03:00 98.9 70 17 99/54 100 Nasal Cannula 2.0 07/25/16 02:00 68 16 93/57 100 Nasal Cannula 2.0 07/25/16 00:30 99.0 67 16 103/96 97 Room Air 07/25/16 00:27 99.0 80 16 124/76 90 Room Air Intake and Output 07/24/16 07/25/16 19:00 07:00 Intake Total 2500 ml Output Total 100 ml Balance 2400 ml Intake IV Total 2500 ml Output Urine Total 100 ml General Appearance: WD/WN HEENT: normocephalic, atraumatic Respiratory/Chest: chest wall non-tender, lungs clear Cardiovascular: normal peripheral pulses, normal rate Abdomen: normal bowel sounds, soft, non tender, other - peg in place Extremities: no cyanosis, no clubbing Skin: no rash Laboratory Tests 07/25/16 01:10: White Blood Count 24.8*H, Red Blood Count 4.30L, Hemoglobin 13.9L, Hematocrit 40.7L, Mean Corpuscular Volume 95, Mean Corpuscular Hemoglobin 32.3H, Mean Corpuscular Hemoglobin Concent 34.1, Red Cell Distribution Width 13.3, Platelet Count 289, Mean Platelet Volume 9.5, Neutrophils (%) (Auto) , Lymphocytes (%) ( Auto) , Monocytes (%) (Auto) , Eosinophils (%) (Auto) , Basophils (%) (Auto) , Differential Total Cells Counted 100, Neutrophils % (Manual) 65, Lymphocytes % ( Manual) 25, Monocytes % (Manual) 8, Eosinophils % (Manual) 0, Basophils % ( Manual) 0, Band Neutrophils 2, Platelet Estimate Adequate, Platelet Morphology Normal, Red Blood Cell Morphology Normal, Prothrombin Time 10.6, Prothromb Time International Ratio 1.0, Activated Partial Thromboplast Time 31, Sodium Level 141, Potassium Level 4.0, Chloride Level 100, Carbon Dioxide Level 23, Anion Gap 18H, Blood Urea Nitrogen 24H, Creatinine 1.1, Estimat Glomerular Filtration Rate , Glucose Level 115H, Lactic Acid Level 1.60, Calcium Level 9.8, Total Bilirubin 1.4H, Direct Bilirubin 0.3, Aspartate Amino Transf (AST/SGOT) 22, Alanine Aminotransferase (ALT/SGPT) 20, Alkaline Phosphatase 82, Total Creatine Kinase 225H, Creatine Kinase MB < 1.5, Creatine Kinase MB Relative Index 0.6, Troponin I < 0.30, Total Protein 8.2, Albumin 3.8, Globulin 4.4, Albumin/ Globulin Ratio 0.8L 07/25/16 02:20: Urine Color Pale yellow, Urine Appearance Clear, Urine pH 6.5, Urine Specific [place] 1.010, Urine Protein 2+H, Urine Glucose (UA) Negative, Urine Ketones Negative, Urine Occult Blood 1+H, Urine Nitrite Negative, Urine Bilirubin Negative, Urine Urobilinogen Normal, Urine Leukocyte Esterase 2+H, Urine RBC 0- 2H, Urine WBC 15-20H, Urine Squamous Epithelial Cells Few, Urine Bacteria Few 07/25/16 11:25: Urine Color Pale yellow, Urine Appearance Clear, Urine pH 8, Urine Specific [place] 1.010, Urine Protein 2+H, Urine Glucose (UA) Negative, Urine Ketones Negative, Urine Occult Blood 2+H, Urine Nitrite Negative, Urine Bilirubin Negative, Urine Urobilinogen Normal, Urine Leukocyte Esterase 1+H, Urine RBC 5- 10H, Urine WBC 2-4, Urine Squamous Epithelial Cells Occasional, Urine Bacteria Few Current Medications Medications (Trade) Dose Ordered Sig/Omi Route PRN Reason Start Time Stop Time Status Last Admin Dose Admin Acetaminophen (Tylenol) 650 mg Q4H PRN ORAL T>100.5 07/25/16 07:00 08/24/16 06:59 Albuterol/ Ipratropium 3 ml 3 ml Q4H PRN HHN Shortness of Breath 07/25/16 07:00 07/30/16 06:59 Amlodipine Besylate (Norvasc) 10 mg DAILY GT 07/25/16 09:00 08/24/16 08:59 07/25/16 10:23 Cefepime HCl 2 gm/ Dextrose 110 ml @ 220 mls/hr EVERY 12 HOURS IV 07/25/16 09:00 08/01/16 08:59 07/25/16 10:25 Digoxin (Lanoxin) 0.125 mg DAILY GT 07/25/16 09:00 08/24/16 08:59 07/25/16 10:31 Heparin Sodium (Porcine) (Heparin 5000 units/ml) 5,000 units EVERY 12 HOURS SUBQ 07/25/16 09:00 08/24/16 08:59 07/25/16 22:16 Morphine Sulfate (Morphine Sulfate) 2 mg Q4H PRN IVP PAIN 4-10 07/25/16 07:00 08/01/16 06:59 Nitroglycerin (Ntg) 0.4 mg Q5MIN X 3 DOSES PRN SL Prn Chest Pain 07/25/16 07:15 08/24/16 07:14 Ondansetron HCl (Zofran) 4 mg Q6H PRN IVP Nausea & Vomiting 07/25/16 07:00 08/24/16 06:59 Polyethylene Glycol (Miralax) 17 gm DAILYPRN PRN ORAL Constipation 07/25/16 07:00 08/24/16 06:59 Temazepam (Restoril) 15 mg HSPRN PRN ORAL Insomnia 07/25/16 21:00 08/01/16 20:59 Vancomycin HCl (Vanco rx to dose) 1 ea DAILY PRN MISC . 07/25/16 07:15 08/24/16 07:14 Vancomycin HCl/ Dextrose (Vancomycin/D5W) 275 ml @ 183.3 mls/ hr Q24H IVPB 07/26/16 02:00 07/31/16 01:59 BOB IGNACIO Jul 25, 2016 23:18
[2016-07-26] VITALS (7 sets, daily range): BP systolic 117–127; BP diastolic 66–82
[2016-07-26] MEDS ORDERED: Cefepime 2gm ONE (01:28)
[2016-07-26] MEDS: Cefepime HCl 2 GM in D5W 110 ML IV SCH ×2 (01:41→13:05)
[2016-07-26] MEDS: Vancomycin 1.25 GM in D5W 275 ML IVPB SCH (02:21)
[2016-07-26 08:08] LABS: BASOPHILS % (AUTO) 1.1 % (0.0-2.0); EOSINOPHILS % (AUTO) 2.9 % (0.0-3.0); LYMPHOCYTES % (AUTO) 28.4 % (20.0-45.0); MEAN CORPUSCULAR HGB CONC 33.2 G/DL (32.0-36.0); MEAN CORPUSCULAR VOLUME 96 FL (80-99); MEAN PLATELET VOLUME 9.9 FL (6.5-10.1); MONOCYTES % (AUTO) 7.7 % (1.0-10.0); NEUTROPHILS % (AUTO) 59.9 % (45.0-75.0); PLATELET COUNT 287 K/UL (150-450); RED BLOOD COUNT 4.59 M/UL (4.70-6.10); RED CELL DISTRIBUTION WIDTH 13.4 % (11.6-14.8)
[2016-07-26 08:30] LABS: ALANINE AMINOTRANSFERASE 21 U/L (3-41); ANION GAP 18 (5-15); ASPARTATE AMINO TRANSFERASE 23 U/L (5-40); CALCIUM 9.7 mg/dL (8.6-10.2); CARBON DIOXIDE 23 mEQ/L (20-30); CHLORIDE 101 mEQ/L (98-107); CREATININE 1.1 mg/dL (0.7-1.2); HEMOLYSIS 7; POTASSIUM 4.4 mEQ/L (3.4-4.9); SODIUM 142 mEQ/L (135-145); TOTAL PROTEIN 8.1 g/dL (6.6-8.7)
[2016-07-26] MEDS: Pantoprazole Inj IVP SCH (08:46)
[2016-07-26] MEDS: Digoxin Elixir 0.125mg GT SCH (08:47)
[2016-07-26] MEDS: Heparin 5000 units/ml inj SUBQ SCH ×2 (08:48→21:14)
[2016-07-26 09:00] LABS: BILIRUBIN,DIRECT 0.2 mg/dL (0.1-0.3)
--- NOTE | 2016-07-26 10:18 | General Progress Note ---
Assessment/Plan Problem List: (1) HTN (hypertension) ICD Codes: I10 - Essential (primary) hypertension SNOMED: 79847303 (2) UTI (urinary tract infection) ICD Codes: N39.0 - Urinary tract infection, site not specified SNOMED: 58924230 Qualifiers: Qualified Codes: N30.00 - Acute cystitis without hematuria (3) Chronic a-fib ICD Codes: I48.2 - Chronic atrial fibrillation SNOMED: 417698749 (4) Dehydration ICD Codes: E86.0 - Dehydration SNOMED: 04744725 (5) Sepsis ICD Codes: A41.9 - Sepsis SNOMED: 77273874 Qualifiers: Qualified Codes: A41.9 - Sepsis, unspecified organism (6) History of CVA (cerebrovascular accident) ICD Codes: Z86.73 - Personal history of transient ischemic attack (TIA), and cerebral infarction without residual deficits SNOMED: 579882255 Status: progressing Assessment/Plan sepsis afebrile abx per id reviewed chart and labs getting better Subjective ROS Limited/Unobtainable: Yes Constitutional: Reports: no symptoms Allergies: Coded Allergies: No Known Allergies (Unverified , 12/08/13) Objective Last 24 Hour Vital Signs Date Time Temp Pulse Resp B/P Pulse Ox O2 Delivery O2 Flow Rate FiO2 07/26/16 08:47 83 07/26/16 08:46 83 122/68 07/26/16 08:10 98.1 83 20 122/68 98 Nasal Cannula 2.0 07/26/16 04:15 97.9 80 20 120/80 98 Room Air 07/26/16 04:00 62 07/26/16 01:53 97.3 68 20 117/68 97 Room Air 07/26/16 00:06 98.2 92 20 121/66 97 Nasal Cannula 2.0 07/26/16 00:00 53 07/25/16 20:00 97.5 86 19 122/76 Nasal Cannula 2.0 92 07/25/16 20:00 91 07/25/16 18:44 88 24 117/60 100 Nasal Cannula 2.0 07/25/16 17:50 99.0 88 24 117/60 100 Nasal Cannula 2.0 07/25/16 16:27 87 33 125/61 94 Nasal Cannula 2.0 07/25/16 15:23 99.5 83 33 127/78 99 Nasal Cannula 2.0 07/25/16 14:00 77 27 117/62 29 Nasal Cannula 2.0 07/25/16 13:00 65 27 93/62 96 Nasal Cannula 2.0 07/25/16 12:00 61 26 123/63 96 Nasal Cannula 2.0 07/25/16 11:00 74 29 121/77 95 Nasal Cannula 2.0 07/25/16 10:31 80 07/25/16 10:23 80 108/62 Intake and Output 07/25/16 07/26/16 19:00 07:00 Intake Total 366.6 ml Balance 366.6 ml Intake IV Total 366.6 ml Laboratory Tests 07/25/16 11:25: Urine Color Pale yellow, Urine Appearance Clear, Urine pH 8, Urine Specific [place] 1.010, Urine Protein 2+H, Urine Glucose (UA) Negative, Urine Ketones Negative, Urine Occult Blood 2+H, Urine Nitrite Negative, Urine Bilirubin Negative, Urine Urobilinogen Normal, Urine Leukocyte Esterase 1+H, Urine RBC 5- 10H, Urine WBC 2-4, Urine Squamous Epithelial Cells Occasional, Urine Bacteria Few 07/26/16 07:28: White Blood Count 13.0H, Red Blood Count 4.59L, Hemoglobin 14.7, Hematocrit 44.2 , Mean Corpuscular Volume 96, Mean Corpuscular Hemoglobin 32.0H, Mean Corpuscular Hemoglobin Concent 33.2, Red Cell Distribution Width 13.4, Platelet Count 287, Mean Platelet Volume 9.9, Neutrophils (%) (Auto) 59.9, Lymphocytes (% ) (Auto) 28.4, Monocytes (%) (Auto) 7.7, Eosinophils (%) (Auto) 2.9, Basophils ( %) (Auto) 1.1, Sodium Level 142, Potassium Level 4.4, Chloride Level 101, Carbon Dioxide Level 23, Anion Gap 18H, Blood Urea Nitrogen 19, Creatinine 1.1, Estimat Glomerular Filtration Rate , Glucose Level 113H, Calcium Level 9.7, Total Bilirubin 1.1, Direct Bilirubin 0.2, Aspartate Amino Transf (AST/SGOT) 23 , Alanine Aminotransferase (ALT/SGPT) 21, Alkaline Phosphatase 85, Total Protein 8.1, Albumin 4.1, Globulin 4.0, Albumin/Globulin Ratio 1.0, Amylase Level 52 Height (Feet): 5 Height (Inches): 10.00 Weight (Pounds): 179 Cardiovascular: normal rate Respiratory/Chest: lungs clear Abdomen: soft Seamus Garcia MD Jul 26, 2016 10:18
--- NOTE | 2016-07-26 12:51 | Pulmonology Progress Note ---
Assessment/Plan Problems: (1) Sepsis (2) Chronic a-fib (3) HTN (hypertension) (4) History of CVA (cerebrovascular accident) (5) COPD (chronic obstructive pulmonary disease) Assessment/Plan wbc lowerr cultures pending iv fluids iv antibiotics vogel cultures telemetry monitoring respiratory treatment nutrition evaluation dvt prophylaxis Subjective ROS Limited/Unobtainable: No Allergies: Coded Allergies: No Known Allergies (Unverified , 12/08/13) Objective Last 24 Hour Vital Signs Date Time Temp Pulse Resp B/P Pulse Ox O2 Delivery O2 Flow Rate FiO2 07/26/16 11:21 98.1 80 20 124/70 97 Nasal Cannula 2.0 07/26/16 08:47 83 07/26/16 08:46 83 122/68 07/26/16 08:10 98.1 83 20 122/68 98 Nasal Cannula 2.0 07/26/16 08:00 74 07/26/16 04:15 97.9 80 20 120/80 98 Room Air 07/26/16 04:00 62 07/26/16 01:53 97.3 68 20 117/68 97 Room Air 07/26/16 00:06 98.2 92 20 121/66 97 Nasal Cannula 2.0 07/26/16 00:00 53 07/25/16 20:00 97.5 86 19 122/76 Nasal Cannula 2.0 92 07/25/16 20:00 91 07/25/16 18:44 88 24 117/60 100 Nasal Cannula 2.0 07/25/16 17:50 99.0 88 24 117/60 100 Nasal Cannula 2.0 07/25/16 16:27 87 33 125/61 94 Nasal Cannula 2.0 07/25/16 15:23 99.5 83 33 127/78 99 Nasal Cannula 2.0 07/25/16 14:00 77 27 117/62 29 Nasal Cannula 2.0 07/25/16 13:00 65 27 93/62 96 Nasal Cannula 2.0 Intake and Output 07/25/16 07/26/16 19:00 07:00 Intake Total 366.6 ml Balance 366.6 ml Intake IV Total 366.6 ml Objective General Appearance: WD/WN HEENT: normocephalic, atraumatic Respiratory/Chest: chest wall non-tender, lungs clear Cardiovascular: normal peripheral pulses, normal rate Abdomen: normal bowel sounds, soft, non tender, other - peg in place Extremities: no cyanosis, no clubbing Skin: no rash Laboratory Tests Microbiology Date/Time Source Procedure Growth Status 07/25/16 01:10 Blood Blood Culture - Preliminary NO GROWTH AFTER 24 HOURS Resulted 07/25/16 01:10 Blood Blood Culture - Preliminary NO GROWTH AFTER 24 HOURS Resulted 07/25/16 02:20 Urine,Clean Catch Urine Culture - Preliminary Gram Negative Bacillus 1 Resulted Laboratory Tests 07/26/16 07:28: White Blood Count 13.0H, Red Blood Count 4.59L, Hemoglobin 14.7, Hematocrit 44.2 , Mean Corpuscular Volume 96, Mean Corpuscular Hemoglobin 32.0H, Mean Corpuscular Hemoglobin Concent 33.2, Red Cell Distribution Width 13.4, Platelet Count 287, Mean Platelet Volume 9.9, Neutrophils (%) (Auto) 59.9, Lymphocytes (% ) (Auto) 28.4, Monocytes (%) (Auto) 7.7, Eosinophils (%) (Auto) 2.9, Basophils ( %) (Auto) 1.1, Sodium Level 142, Potassium Level 4.4, Chloride Level 101, Carbon Dioxide Level 23, Anion Gap 18H, Blood Urea Nitrogen 19, Creatinine 1.1, Estimat Glomerular Filtration Rate , Glucose Level 113H, Calcium Level 9.7, Total Bilirubin 1.1, Direct Bilirubin 0.2, Aspartate Amino Transf (AST/SGOT) 23 , Alanine Aminotransferase (ALT/SGPT) 21, Alkaline Phosphatase 85, Total Protein 8.1, Albumin 4.1, Globulin 4.0, Albumin/Globulin Ratio 1.0, Amylase Level 52 Current Medications Medications (Trade) Dose Ordered Sig/Omi Route PRN Reason Start Time Stop Time Status Last Admin Dose Admin Acetaminophen (Tylenol) 650 mg Q4H PRN ORAL T>100.5 07/25/16 07:00 08/24/16 06:59 Albuterol/ Ipratropium 3 ml 3 ml Q4H PRN HHN Shortness of Breath 07/25/16 07:00 07/30/16 06:59 Amlodipine Besylate (Norvasc) 10 mg DAILY GT 07/25/16 09:00 08/24/16 08:59 07/26/16 08:46 Cefepime HCl/ Dextrose (Maxipime/D5W) 110 ml @ 220 mls/hr Q12H IV 07/26/16 01:30 08/02/16 01:29 07/26/16 01:41 Digoxin (Lanoxin) 0.125 mg DAILY GT 07/25/16 09:00 08/24/16 08:59 07/26/16 08:47 Heparin Sodium (Porcine) (Heparin 5000 units/ml) 5,000 units EVERY 12 HOURS SUBQ 07/25/16 09:00 08/24/16 08:59 07/26/16 08:48 Morphine Sulfate (Morphine Sulfate) 2 mg Q4H PRN IVP PAIN 4-10 07/25/16 07:00 08/01/16 06:59 Nitroglycerin (Ntg) 0.4 mg Q5MIN X 3 DOSES PRN SL Prn Chest Pain 07/25/16 07:15 08/24/16 07:14 Ondansetron HCl (Zofran) 4 mg Q6H PRN IVP Nausea & Vomiting 07/25/16 07:00 08/24/16 06:59 Pantoprazole (Protonix) 40 mg DAILY IVP 07/26/16 09:00 08/25/16 08:59 07/26/16 08:46 Polyethylene Glycol (Miralax) 17 gm DAILYPRN PRN ORAL Constipation 07/25/16 07:00 08/24/16 06:59 Temazepam (Restoril) 15 mg HSPRN PRN ORAL Insomnia 07/25/16 21:00 08/01/16 20:59 Vancomycin HCl 1 ea 1 ea DAILY PRN MISC . 07/25/16 07:15 08/24/16 07:14 Vancomycin HCl/ Dextrose (Vancomycin/D5W) 275 ml @ 183.3 mls/ hr Q24H IVPB 07/26/16 02:00 07/31/16 01:59 07/26/16 02:21 BOB IGNACIO Jul 26, 2016 12:51
--- NOTE | 2016-07-26 13:28 | Consultation ---
DATE OF CONSULTATION: 07/25/2016 GASTROLOGY CONSULTATION: CONSULTING PHYSICIAN: Trent Kan M.D. CHIEF COMPLAINT: I was asked to see this patient by Dr. Seamus Garcia today for evaluation of vomiting and gastrostomy tube feeds. HISTORY OF PRESENT ILLNESS: The patient is a debilitated 80-year-old man with a history of dementia, who was brought into the hospital due to nausea, vomiting, and fevers in the long term. He has a high white count and was admitted for possible pneumonia. The patient himself is unable to provide any history and most of the information is only available from the chart. The patient is debilitated and has contractures. He has a history of osteomyelitis of the lower extremities. PAST MEDICAL HISTORY: History of dementia, dysphagia, status post gastrostomy tube placement, right lower extremity osteomyelitis, skin breakdown, history of stroke, status post gastrostomy tube placement for feeding. ALLERGIES: Unobtainable. FAMILY HISTORY: Unobtainable. SOCIAL HISTORY: The patient is a long-term long term resident with no recent history of smoking or drinking. REVIEW OF SYSTEMS: Unobtainable. PHYSICAL EXAMINATION: GENERAL: This is a debilitated man, seen in his room. HEENT: Normocephalic and atraumatic. Oropharynx could not be seen. NECK: Appeared supple. CHEST: Revealed coarse rhonchi. CARDIOVASCULAR: Revealed regular rate. ABDOMEN: Soft with gastrostomy tube in place. EXTREMITIES: Revealed right lower extremity . NEUROLOGIC: Notable for dementia, but arousable state. LABORATORY DATA: Noted the patient had white count of 25,000. Urinalysis, which showed some white count. ASSESSMENT: This patient appears to have a urinary tract infection with leukocytosis. Nausea and vomiting may have been secondary. On the other hand, degree of gastroesophageal reflux, esophagitis, and vomiting. The pathology also reveals gastroenteritis, could also be due to pain. At this time, the patient appears somewhat stable and became hydrated. Tube feedings can be started from tomorrow if stable. I will place the patient on proton pump inhibitor and I will also add antibiotics for his infection. condition persists, then further workup would be recommended. RECOMMENDATION: 1. Keep NPO overnight IV fluids and treat tomorrow. 2. Proton pump inhibitor. 3. I will follow this patient closely with you. Thank you for asking me to participate in the care of this patient. Trent Kan M.D. DR: NELLA JOB#: [id number] CC:
--- NOTE | 2016-07-26 14:09 | Diagnostic Imaging Report ---
Indication: Vomiting and abdominal pain Comparison: 05/25/16 Single view of the abdomen obtained Gastrostomy tube projected over the upper abdomen. Bowel gas pattern is nonspecific. Lilly catheter noted. Degenerative changes of the lumbar spine noted with extensive hypertrophic endplate osteophytes. Impression: No acute findings
--- NOTE | 2016-07-26 15:55 | Cardiology Report ---
APPROVED REPORT EKG Measurement Heart [id number] Atrial fibrillation Abnormal ECG
--- NOTE | 2016-07-26 16:08 | Consultation ---
DATE OF CONSULTATION: 07/25/2016 HEMATOLOGY/ONCOLOGY CONSULTATION: REASON FOR CONSULTATION: Evaluation of leukocytosis. IDENTIFYING DATA: Dear Dr. Seamus Garcia, The patient is an 80-year-old male with past medical history significant for pneumonia, fever, septic shock, , atrial fibrillation, osteomyelitis of the right foot, functional quadriplegia on digoxin May this year, sent to the hospital with elevated leukocytosis and fever as well as vomiting for the last several days. He has a history sepsis, UTI as well. Difficult to obtain any further information from the patient given the mental status. Hematology service was consulted for evaluation of the patient's leukocytosis, which is new. PAST MEDICAL HISTORY: As noted above. PAST SURGICAL HISTORY: None noted except as noted above. ALLERGIES: No known drug allergies. SOCIAL HISTORY: No alcohol, tobacco, or illicit drug use. FAMILY HISTORY: Difficult to obtain. REVIEW OF SYSTEMS: Difficult to obtain given the patient's dementia. PHYSICAL EXAMINATION: GENERAL: No acute distress. VITAL SIGNS: Temperature 99 degrees Fahrenheit, heart rate , respiratory rate 12, blood pressure 117/60, and O2 saturation . PULMONARY: Decreased breath sounds. CARDIOVASCULAR: Regular rate and rhythm. No S3 or S4. ABDOMEN: Soft, nontender, and nondistended. EXTREMITIES: A 1+ edema. LABORATORY AND DIAGNOSTIC DATA: WBC 25,000, hemoglobin 13.9, hematocrit , platelet 289,000. Imaging, ankle x-ray evidence of osteomyelitis. Chest x-ray shows mild interstitial prominence. ASSESSMENT: 1. Leukocytosis likely secondary to underlying urinary tract infection. 2. Healthcare associated pneumonia. 3. Anemia of chronic disease. 4. Decreased hemoglobin and hematocrit, rule out gastrointestinal bleed. 5. Sepsis. 6. Septic shock. 7. Functional quadriplegia. 8. Proteinuria. 9. Atrial fibrillation on digoxin. RECOMMENDATIONS: 1. Obtain peripheral smear. 2. Antibiotics per ID service. 3. Follow up . 4. Peripheral smear again to review. 5. Does not require anemia workup at this point. 6. Unlikely, the patient has myelodysplastic syndrome. 7. The patient does have a history of , which has currently resolved interestingly patient's transaminitis . 8. DVT prophylaxis with heparin. 9. Pain control . 10. Imaging reviewed. 11. Discussed with staff. Thank you, Dr. Seamus Garcia, for this kind referral. Please do not hesitate to contact me if you have any further questions. Raul Tapia M.D. DR: Una JOB#: [id number] CC:
--- NOTE | 2016-07-26 16:11 | Infectious Diseases Prog Note ---
Assessment/Plan Problems: (1) HCAP (healthcare-associated pneumonia) Assessment & Plan: sputum culture and screen for influenza are pending , continue vancomycin and cefepime (2) Osteomyelitis of ankle or foot Assessment & Plan: with right malleolus wound, vancomycin and cefepime , ankle X ray didn't show osteomyelitis, will order MRI . recommend winch driver consult (3) UTI (urinary tract infection) Assessment & Plan: culture is growing gram negative rods, on cefepime (4) Sepsis Assessment & Plan: blood culture is pending . continue vancomycin and cefepime , pharmacy to monitor vancomycin trough and to keep between 15-20 (5) History of CVA (cerebrovascular accident) Assessment & Plan: stable, continue meds Subjective ROS Limited/Unobtainable: Yes Allergies: Coded Allergies: No Known Allergies (Unverified , 12/08/13) Subjective he is demented lying in bed, not in distress Objective Vital Signs Last 24 Hour Vital Signs Date Time Temp Pulse Resp B/P Pulse Ox O2 Delivery O2 Flow Rate FiO2 07/26/16 12:00 80 07/26/16 11:21 98.1 80 20 124/70 97 Nasal Cannula 2.0 07/26/16 08:47 83 07/26/16 08:46 83 122/68 07/26/16 08:10 98.1 83 20 122/68 98 Nasal Cannula 2.0 07/26/16 08:00 74 07/26/16 04:15 97.9 80 20 120/80 98 Room Air 07/26/16 04:00 62 07/26/16 01:53 97.3 68 20 117/68 97 Room Air 07/26/16 00:06 98.2 92 20 121/66 97 Nasal Cannula 2.0 07/26/16 00:00 53 07/25/16 20:00 97.5 86 19 122/76 Nasal Cannula 2.0 92 07/25/16 20:00 91 07/25/16 18:44 88 24 117/60 100 Nasal Cannula 2.0 07/25/16 17:50 99.0 88 24 117/60 100 Nasal Cannula 2.0 07/25/16 16:27 87 33 125/61 94 Nasal Cannula 2.0 Height (Feet): 5 Height (Inches): 10.00 Weight (Pounds): 179 General Appearance: WD/WN, no acute distress HEENT: normocephalic, atraumatic, anicteric Respiratory/Chest: chest wall non-tender, lungs clear, normal breath sounds, no respiratory distress, no accessory muscle use Cardiovascular: normal peripheral pulses, normal rate, regular rhythm, no gallop/murmur Abdomen: normal bowel sounds, soft, non tender, no organomegaly, non distended , no mass Extremities: no cyanosis, no clubbing Skin: no rash, ulcers - right lateral malleoullus Microbiology Date/Time Source Procedure Growth Status 07/25/16 01:10 Blood Blood Culture - Preliminary NO GROWTH AFTER 24 HOURS Resulted 07/25/16 01:10 Blood Blood Culture - Preliminary NO GROWTH AFTER 24 HOURS Resulted 07/25/16 02:20 Urine,Clean Catch Urine Culture - Preliminary Gram Negative Bacillus 1 Resulted Laboratory Tests Test 07/26/16 07:28 White Blood Count 13.0 K/UL (4.8-10.8) H Red Blood Count 4.59 M/UL (4.70-6.10) L Hemoglobin 14.7 G/DL (14.2-18.0) Hematocrit 44.2 % (42.0-52.0) Mean Corpuscular Volume 96 FL (80-99) Mean Corpuscular Hemoglobin 32.0 PG (27.0-31.0) H Mean Corpuscular Hemoglobin Concent 33.2 G/DL (32.0-36.0) Red Cell Distribution Width 13.4 % (11.6-14.8) Platelet Count 287 K/UL (150-450) Mean Platelet Volume 9.9 FL (6.5-10.1) Neutrophils (%) (Auto) 59.9 % (45.0-75.0) Lymphocytes (%) (Auto) 28.4 % (20.0-45.0) Monocytes (%) (Auto) 7.7 % (1.0-10.0) Eosinophils (%) (Auto) 2.9 % (0.0-3.0) Basophils (%) (Auto) 1.1 % (0.0-2.0) Sodium Level 142 mEQ/L (135-145) Potassium Level 4.4 mEQ/L (3.4-4.9) Chloride Level 101 mEQ/L (98-107) Carbon Dioxide Level 23 mEQ/L (20-30) Anion Gap 18 (5-15) H Blood Urea Nitrogen 19 mg/dL (7-23) Creatinine 1.1 mg/dL (0.7-1.2) Estimat Glomerular Filtration Rate mL/min (>60) Glucose Level 113 mg/dL (74-106) H Calcium Level 9.7 mg/dL (8.6-10.2) Total Bilirubin 1.1 mg/dL (0.0-1.2) Direct Bilirubin 0.2 mg/dL (0.1-0.3) Aspartate Amino Transf (AST/SGOT) 23 U/L (5-40) Alanine Aminotransferase (ALT/SGPT) 21 U/L (3-41) Alkaline Phosphatase 85 U/L (40-129) Total Protein 8.1 g/dL (6.6-8.7) Albumin 4.1 g/dL (3.5-5.2) Globulin 4.0 g/dL Albumin/Globulin Ratio 1.0 (1.0-2.7) Amylase Level 52 U/L (10-110) Current Medications Medications (Trade) Dose Ordered Sig/Omi Route PRN Reason Start Time Stop Time Status Last Admin Dose Admin Acetaminophen (Tylenol) 650 mg Q4H PRN ORAL T>100.5 07/25/16 07:00 08/24/16 06:59 Albuterol/ Ipratropium 3 ml 3 ml Q4H PRN HHN Shortness of Breath 07/25/16 07:00 07/30/16 06:59 Amlodipine Besylate (Norvasc) 10 mg DAILY GT 07/25/16 09:00 08/24/16 08:59 07/26/16 08:46 Cefepime HCl/ Dextrose (Maxipime/D5W) 110 ml @ 220 mls/hr Q12H IV 07/26/16 01:30 08/02/16 01:29 07/26/16 13:05 Digoxin (Lanoxin) 0.125 mg DAILY GT 07/25/16 09:00 08/24/16 08:59 07/26/16 08:47 Heparin Sodium (Porcine) (Heparin 5000 units/ml) 5,000 units EVERY 12 HOURS SUBQ 07/25/16 09:00 08/24/16 08:59 07/26/16 08:48 Morphine Sulfate (Morphine Sulfate) 2 mg Q4H PRN IVP PAIN 4-10 07/25/16 07:00 08/01/16 06:59 Nitroglycerin (Ntg) 0.4 mg Q5MIN X 3 DOSES PRN SL Prn Chest Pain 07/25/16 07:15 08/24/16 07:14 Ondansetron HCl (Zofran) 4 mg Q6H PRN IVP Nausea & Vomiting 07/25/16 07:00 08/24/16 06:59 Pantoprazole (Protonix) 40 mg DAILY IVP 07/26/16 09:00 08/25/16 08:59 07/26/16 08:46 Polyethylene Glycol (Miralax) 17 gm DAILYPRN PRN ORAL Constipation 07/25/16 07:00 08/24/16 06:59 Temazepam (Restoril) 15 mg HSPRN PRN ORAL Insomnia 07/25/16 21:00 08/01/16 20:59 Vancomycin HCl 1 ea 1 ea DAILY PRN MISC . 07/25/16 07:15 08/24/16 07:14 Vancomycin HCl/ Dextrose (Vancomycin/D5W) 275 ml @ 183.3 mls/ hr Q24H IVPB 07/26/16 02:00 07/31/16 01:59 07/26/16 02:21 Karla Stringer M.D. Jul 26, 2016 16:11
--- NOTE | 2016-07-26 18:30 | General Progress Note ---
Assessment/Plan Assessment/Plan ASSESSMENT: 1. Leukocytosis likely secondary to underlying urinary tract infection 2. Healthcare associated pneumonia. 3. Anemia of chronic disease. 4. Decreased hemoglobin and hematocrit, rule out gastrointestinal bleed. 5. Sepsis shock 6. Functional quadriplegia. 7. Proteinuria. 8. Atrial fibrillation on digoxin. RECOMMENDATIONS: 1. Obtain peripheral smear. 2. Antibiotics per ID service. 3. Follow up counts 4. Does not require anemia workup at this point. 5. Unlikely, the patient has myelodysplastic syndrome. 6. DVT prophylaxis with heparin. 7. Pain control . 8. GI ppx with PPI 9. DW staff. Thank you, Raul Tapia MD Subjective Constitutional: Reports: no symptoms HEENT: Reports: no symptoms Cardiovascular: Reports: no symptoms Respiratory: Reports: no symptoms Gastrointestinal/Abdominal: Reports: no symptoms Genitourinary: Reports: no symptoms Neurologic/Psychiatric: Reports: no symptoms Endocrine: Reports: no symptoms Hematologic/Lymphatic: Reports: anemia Allergies: Coded Allergies: No Known Allergies (Unverified , 12/08/13) Subjective stable, no events overnight, no fevers, or chills Objective Last 24 Hour Vital Signs Date Time Temp Pulse Resp B/P Pulse Ox O2 Delivery O2 Flow Rate FiO2 07/26/16 16:23 98.2 74 20 127/82 96 Nasal Cannula 2.0 07/26/16 12:00 80 07/26/16 11:21 98.1 80 20 124/70 97 Nasal Cannula 2.0 07/26/16 08:47 83 07/26/16 08:46 83 122/68 07/26/16 08:10 98.1 83 20 122/68 98 Nasal Cannula 2.0 07/26/16 08:00 74 07/26/16 04:15 97.9 80 20 120/80 98 Room Air 07/26/16 04:00 62 07/26/16 01:53 97.3 68 20 117/68 97 Room Air 07/26/16 00:06 98.2 92 20 121/66 97 Nasal Cannula 2.0 07/26/16 00:00 53 07/25/16 20:00 97.5 86 19 122/76 Nasal Cannula 2.0 92 07/25/16 20:00 91 07/25/16 18:44 88 24 117/60 100 Nasal Cannula 2.0 Intake and Output 07/25/16 07/26/16 19:00 07:00 Intake Total 366.6 ml Balance 366.6 ml Intake IV Total 366.6 ml Laboratory Tests 07/26/16 07:28: White Blood Count 13.0H, Red Blood Count 4.59L, Hemoglobin 14.7, Hematocrit 44.2 , Mean Corpuscular Volume 96, Mean Corpuscular Hemoglobin 32.0H, Mean Corpuscular Hemoglobin Concent 33.2, Red Cell Distribution Width 13.4, Platelet Count 287, Mean Platelet Volume 9.9, Neutrophils (%) (Auto) 59.9, Lymphocytes (% ) (Auto) 28.4, Monocytes (%) (Auto) 7.7, Eosinophils (%) (Auto) 2.9, Basophils ( %) (Auto) 1.1, Sodium Level 142, Potassium Level 4.4, Chloride Level 101, Carbon Dioxide Level 23, Anion Gap 18H, Blood Urea Nitrogen 19, Creatinine 1.1, Estimat Glomerular Filtration Rate , Glucose Level 113H, Calcium Level 9.7, Total Bilirubin 1.1, Direct Bilirubin 0.2, Aspartate Amino Transf (AST/SGOT) 23 , Alanine Aminotransferase (ALT/SGPT) 21, Alkaline Phosphatase 85, Total Protein 8.1, Albumin 4.1, Globulin 4.0, Albumin/Globulin Ratio 1.0, Amylase Level 52 Height (Feet): 5 Height (Inches): 10.00 Weight (Pounds): 179 General Appearance: alert EENT: TMs normal Neck: supple Cardiovascular: regular rhythm Respiratory/Chest: normal breath sounds Abdomen: soft Extremities: non-tender Edema: 1+ Leg (L), 1+ Leg (R) Edema: mild edema Neurologic: alert Skin: warm/dry Raul Tapia Jul 26, 2016 18:30
--- NOTE | 2016-07-26 20:25 | Wound Care Consultation ---
Wound Assessment Wound Assessment #1: Wound Present on Admission: Yes New Wound: No Status Change of Wound: No Wound Location Body Site Modif: mid Wound Location Body Site: sacral Wound Type: pressure ulcer - full thickness scar tissue Royer Test: Does not Royer Wound Length: 5.0 Wound Width: 6.5 Wound Depth: utd Percent of Wound [place]/Red: 100 Wound Drainage Amount: None Wound Drainage Odor: None/Absent Tissue Surrounding Wound: scar tissue Wound General Appearance: Asymptomatic Wound Assessment #2: Wound Number: #2 Wound Present on Admission: Yes New Wound: No Status Change of Wound: No Wound Location Body Site Modif: left Wound Location Body Site: iliac crest Wound Type: pressure ulcer - full thickness scar tissue Royer Test: Does not Royer Wound Thickness: Full Thickness Wound Length: 3.0 Wound Width: 4.5 Wound Depth: utd Percent of Wound [place]/Red: 100 Wound Drainage Amount: None Wound Drainage Odor: None/Absent Tissue Surrounding Wound: scar tissue Wound General Appearance: Asymptomatic Wound Assessment #3: Wound Number: #3 Wound Present on Admission: Yes New Wound: No Status Change of Wound: No Wound Location Body Site Modif: right Wound Location Body Site: iliac crest Wound Type: pressure ulcer Royer Test: Does not Royer Wound Thickness: Full Thickness Wound Length: 3.0 Wound Width: 3.0 Wound Depth: utd Percent of Wound [place]/Red: 100 Wound Drainage Amount: None Wound Drainage Odor: None/Absent Tissue Surrounding Wound: Intact Wound General Appearance: Asymptomatic Wound Assessment #4: Wound Number: #4 Wound Present on Admission: Yes New Wound: No Status Change of Wound: No Wound Location Body Site Modif: right, upper Wound Location Body Site: back Wound Type: pressure ulcer Royer Test: Does not Royer Pressure Ulcer Stage: IV/unstageable Wound Thickness: Full Thickness Wound Length: 2.5 Wound Width: 2.5 Wound Depth: 0.8 Percent of Wound [place]/Red: 40 Percent of Wound Bed Yellow/Wh: 60 Wound Drainage Description: Serosanguineous Wound Drainage Amount: Moderate Wound Drainage Odor: None/Absent Tissue Surrounding Wound: Macerated Wound General Appearance: Reddened, Draining Wound Assessment #5: Wound Number: #5 Wound Present on Admission: Yes New Wound: No Status Change of Wound: No Wound Location Body Site Modif: right Wound Location Body Site: malleolus/ankle Wound Type: pressure ulcer Royer Test: Does not Royer Pressure Ulcer Stage: IV/unstageable Wound Thickness: Full Thickness Wound Length: 2.5 Wound Width: 2.0 Wound Depth: utd Percent of Wound [place]/Red: 60 Percent of Wound Bed Yellow/Wh: 10 Percent of Wound Purple/Maroon: 30 Wound Drainage Description: Serosanguineous Wound Drainage Amount: Scant Wound Drainage Odor: None/Absent Tissue Surrounding Wound: Erythemic Wound General Appearance: Reddened, Bone Palpable Wound Assessment #6: Wound Number: #6 Wound Present on Admission: Yes New Wound: No Status Change of Wound: No Wound Location Body Site Modif: right, dorsal Wound Location Body Site: foot Wound Type: other - cellulitis Royer Test: Does not Royer Percent of Wound [place]/Red: 100 Wound Drainage Amount: None Wound Drainage Odor: None/Absent Tissue Surrounding Wound: Erythemic Wound General Appearance: Reddened Wound Assessment #7: Wound Number: #7 Wound Present on Admission: Yes New Wound: No Status Change of Wound: No Wound Location Body Site Modif: right Wound Location Body Site: heel Wound Type: pressure ulcer Royer Test: Does not Royer Pressure Ulcer Stage: IV/unstageable Wound Thickness: Full Thickness Wound Length: 2.0 Wound Width: 2.0 Wound Depth: utd Percent of Wound [place]/Red: 40 Percent of Wound Black/Brown: 60 Wound Drainage Amount: None Wound Drainage Odor: None/Absent Tissue Surrounding Wound: Indurated Wound General Appearance: Blackened Wound Assessment #8: Wound Number: #8 Wound Present on Admission: Yes New Wound: No Status Change of Wound: No Wound Location Body Site Modif: right, lower Wound Location Body Site: leg Wound Type: scab - scattered Royer Test: Does not Royer Wound Thickness: Full Thickness Percent of Wound Black/Brown: 100 Wound Drainage Amount: None Wound Drainage Odor: None/Absent Tissue Surrounding Wound: Intact Wound General Appearance: Asymptomatic, Blackened Wound Comment #1 Right iliac crest full thickness scar tissue #2 Left iliac crest full thickness scar tissue #3 Sacral scar full thickness scar tissue #4 Right upper back stage IV/unstageable pressure ulcer #5 Right malleolus stage IV/unstageable pressure ulcer #6 Right dorsal foot cellulitis #7 Right heel stage IV/Unstageable pressure ulcer #8 Right lower leg with scattered scar tissue Recommendation -Right upper back pressure ulcer Cleanse with saline, pat dry, apply Santyl ointment on the wound bed, apply Triad to periwound area, cover with bordered gauze daily and PRN soiled/ dislodged -Right malleolus and right heel pressure ulcers Cleanse with saline, pat dry, apply Triad cream, cover with 4x4, wrap with Kerlix daily and PRN soiled/dislodged -Right dorsal foot cellulitis Cleanse with saline pat dry apply adaptic cover with 4x4 wrap with Kerlix daily and PRN soiled/dislodged -Turn and reposition -Keep clean and dry -Local wound care as ordered -Offload both heels -Optimize nutrition -Low air loss overlay mattress -Assess and f/u accordingly for any changes KALINA LENZ RN Jul 26, 2016 20:25
--- NOTE | 2016-07-26 21:00 | General Progress Note ---
Assessment/Plan Assessment/Plan Assessment - N/V - resolved - dysphagia / GT - OBS Recommendations - Continue TF - follow labs and exam - check stool cultures Subjective Allergies: Coded Allergies: No Known Allergies (Unverified , 12/08/13) Subjective uneventful night more awake and interactive TF orders noted Objective Last 24 Hour Vital Signs Date Time Temp Pulse Resp B/P Pulse Ox O2 Delivery O2 Flow Rate FiO2 07/26/16 16:23 98.2 74 20 127/82 96 Nasal Cannula 2.0 07/26/16 16:00 73 07/26/16 12:00 80 07/26/16 11:21 98.1 80 20 124/70 97 Nasal Cannula 2.0 07/26/16 08:47 83 07/26/16 08:46 83 122/68 07/26/16 08:10 98.1 83 20 122/68 98 Nasal Cannula 2.0 07/26/16 08:00 74 07/26/16 04:15 97.9 80 20 120/80 98 Room Air 07/26/16 04:00 62 07/26/16 01:53 97.3 68 20 117/68 97 Room Air 07/26/16 00:06 98.2 92 20 121/66 97 Nasal Cannula 2.0 07/26/16 00:00 53 Intake and Output 07/25/16 07/26/16 19:00 07:00 Intake Total 366.6 ml Balance 366.6 ml Intake IV Total 366.6 ml Laboratory Tests 07/26/16 07:28: White Blood Count 13.0H, Red Blood Count 4.59L, Hemoglobin 14.7, Hematocrit 44.2 , Mean Corpuscular Volume 96, Mean Corpuscular Hemoglobin 32.0H, Mean Corpuscular Hemoglobin Concent 33.2, Red Cell Distribution Width 13.4, Platelet Count 287, Mean Platelet Volume 9.9, Neutrophils (%) (Auto) 59.9, Lymphocytes (% ) (Auto) 28.4, Monocytes (%) (Auto) 7.7, Eosinophils (%) (Auto) 2.9, Basophils ( %) (Auto) 1.1, Sodium Level 142, Potassium Level 4.4, Chloride Level 101, Carbon Dioxide Level 23, Anion Gap 18H, Blood Urea Nitrogen 19, Creatinine 1.1, Estimat Glomerular Filtration Rate , Glucose Level 113H, Calcium Level 9.7, Total Bilirubin 1.1, Direct Bilirubin 0.2, Aspartate Amino Transf (AST/SGOT) 23 , Alanine Aminotransferase (ALT/SGPT) 21, Alkaline Phosphatase 85, Total Protein 8.1, Albumin 4.1, Globulin 4.0, Albumin/Globulin Ratio 1.0, Amylase Level 52 Height (Feet): 5 Height (Inches): 10.00 Weight (Pounds): 179 Objective WDWN WM NCAT supple CTA RRR Soft NT ND, (+) GT no edema OBS ALMAZ VIVAS Jul 26, 2016 21:00
[2016-07-27 00:07] VITALS: BP 130/81
[2016-07-27] MEDS: Cefepime HCl 2 GM in D5W 110 ML IV SCH (01:29)
[2016-07-27] MEDS: Vancomycin 1.25 GM in D5W 275 ML IVPB SCH (02:23)
[2016-07-27 04:05] VITALS: BP 121/76
[2016-07-27] MEDS: Pantoprazole Inj IVP SCH (08:22)
[2016-07-27] MEDS: Digoxin Elixir 0.125mg GT SCH (08:23)
[2016-07-27] MEDS: Heparin 5000 units/ml inj SUBQ SCH ×2 (08:24→21:30)
--- NOTE | 2016-07-27 08:36 | General Progress Note ---
Assessment/Plan Assessment/Plan Assessment - N/V - resolved - dysphagia / GT - OBS Recommendations - Continue TF - advance rate - follow labs and exam - check stool cultures Subjective Allergies: Coded Allergies: No Known Allergies (Unverified , 12/08/13) Subjective uneventful night awake and interactive TF running at 30/ hr Objective Last 24 Hour Vital Signs Date Time Temp Pulse Resp B/P Pulse Ox O2 Delivery O2 Flow Rate FiO2 07/27/16 08:23 77 07/27/16 08:23 77 109/73 07/27/16 04:05 98.7 76 18 121/76 96 Nasal Cannula 2.0 07/27/16 04:00 53 07/27/16 00:07 98.2 81 19 130/81 97 Nasal Cannula 2.0 07/27/16 00:00 68 07/26/16 20:00 98.2 80 24 118/77 95 Nasal Cannula 2.0 07/26/16 20:00 63 07/26/16 16:23 98.2 74 20 127/82 96 Nasal Cannula 2.0 07/26/16 16:00 73 07/26/16 12:00 80 07/26/16 11:21 98.1 80 20 124/70 97 Nasal Cannula 2.0 07/26/16 08:47 83 07/26/16 08:46 83 122/68 Intake and Output 07/26/16 07/27/16 19:00 07:00 Intake Total 220 ml 655.0 ml Output Total 200 ml 700 ml Balance 20 ml -45.0 ml Intake Free Water 100 ml IV Total 220 ml 385.0 ml Tube Feeding 170 ml Output Urine Total 200 ml 700 ml # Bowel Movements 1 Laboratory Tests 07/27/16 00:50: Vancomycin Level Trough 13.1H Height (Feet): 5 Height (Inches): 10.00 Weight (Pounds): 179 Objective WDWN WM NCAT supple CTA RRR Soft NT ND, (+) GT no edema OBS ALMAZ VIVAS Jul 27, 2016 08:36
[2016-07-27 08:39] VITALS: BP 109/73
[2016-07-27] MEDS: Ertapenem 1 GM in NS 55 ML IVPB SCH (09:47)
--- NOTE | 2016-07-27 10:05 | General Progress Note ---
Assessment/Plan Assessment/Plan ASSESSMENT: 1. Leukocytosis likely secondary to underlying urinary tract infection - has improved 2. Healthcare associated pneumonia. 3. Anemia of chronic disease. 4. Decreased hemoglobin and hematocrit, rule out gastrointestinal bleed. 5. Sepsis shock 6. Functional quadriplegia. 7. Proteinuria. 8. Atrial fibrillation on digoxin. RECOMMENDATIONS: 1. Peripheral smear reviewed, no abml 2. Antibiotics per ID service. 3. Follow up counts 4. DVT prophylaxis with heparin. 5. Pain control . 6. GI ppx with PPI 7. staff. Thank you, Raul Tapia MD Subjective Constitutional: Reports: no symptoms HEENT: Reports: no symptoms Cardiovascular: Reports: no symptoms Respiratory: Reports: no symptoms Gastrointestinal/Abdominal: Reports: no symptoms Genitourinary: Reports: no symptoms Neurologic/Psychiatric: Reports: no symptoms Endocrine: Reports: no symptoms Hematologic/Lymphatic: Reports: anemia Allergies: Coded Allergies: No Known Allergies (Unverified , 12/08/13) Subjective stable, no events overnight, no fevers, or chills noted either Objective Last 24 Hour Vital Signs Date Time Temp Pulse Resp B/P Pulse Ox O2 Delivery O2 Flow Rate FiO2 07/27/16 08:39 98.1 77 20 109/73 95 Nasal Cannula 2.0 07/27/16 08:23 77 07/27/16 08:23 77 109/73 07/27/16 08:00 73 07/27/16 04:05 98.7 76 18 121/76 96 Nasal Cannula 2.0 07/27/16 04:00 53 07/27/16 00:07 98.2 81 19 130/81 97 Nasal Cannula 2.0 07/27/16 00:00 68 07/26/16 20:00 98.2 80 24 118/77 95 Nasal Cannula 2.0 07/26/16 20:00 63 07/26/16 16:23 98.2 74 20 127/82 96 Nasal Cannula 2.0 07/26/16 16:00 73 07/26/16 12:00 80 07/26/16 11:21 98.1 80 20 124/70 97 Nasal Cannula 2.0 Intake and Output 07/26/16 07/27/16 19:00 07:00 Intake Total 220 ml 685.0 ml Output Total 200 ml 700 ml Balance 20 ml -15.0 ml Intake Free Water 100 ml IV Total 220 ml 385.0 ml Tube Feeding 200 ml Output Urine Total 200 ml 700 ml # Bowel Movements 1 Laboratory Tests 07/27/16 00:50: Vancomycin Level Trough 13.1H 07/27/16 09:00: Erythrocyte Sedimentation Rate [Pending], C-Reactive Protein, Quantitative 4.1H Height (Feet): 5 Height (Inches): 10.00 Weight (Pounds): 179 General Appearance: alert EENT: TMs normal Neck: supple Cardiovascular: regular rhythm Respiratory/Chest: lungs clear Abdomen: non tender Extremities: non-tender Edema: 1+ Leg (L), 1+ Leg (R) Edema: mild edema Neurologic: alert Skin: warm/dry Raul Tapia Jul 27, 2016 10:05
--- NOTE | 2016-07-27 11:07 | General Progress Note ---
Assessment/Plan Problem List: (1) HTN (hypertension) ICD Codes: I10 - Essential (primary) hypertension SNOMED: 17264106 (2) UTI (urinary tract infection) ICD Codes: N39.0 - Urinary tract infection, site not specified SNOMED: 64441921 Qualifiers: Qualified Codes: N30.00 - Acute cystitis without hematuria (3) Chronic a-fib ICD Codes: I48.2 - Chronic atrial fibrillation SNOMED: 143647892 (4) Dehydration ICD Codes: E86.0 - Dehydration SNOMED: 44122658 (5) Sepsis ICD Codes: A41.9 - Sepsis SNOMED: 14846808 Qualifiers: Qualified Codes: A41.9 - Sepsis, unspecified organism (6) History of CVA (cerebrovascular accident) ICD Codes: Z86.73 - Personal history of transient ischemic attack (TIA), and cerebral infarction without residual deficits SNOMED: 064004833 Status: progressing Assessment/Plan sepsis a fib abx per id afebrile vitals stable reviewed chart and labs Subjective ROS Limited/Unobtainable: Yes Allergies: Coded Allergies: No Known Allergies (Unverified , 12/08/13) Objective Last 24 Hour Vital Signs Date Time Temp Pulse Resp B/P Pulse Ox O2 Delivery O2 Flow Rate FiO2 07/27/16 08:39 98.1 77 20 109/73 95 Nasal Cannula 2.0 07/27/16 08:23 77 07/27/16 08:23 77 109/73 07/27/16 08:00 73 07/27/16 04:05 98.7 76 18 121/76 96 Nasal Cannula 2.0 07/27/16 04:00 53 07/27/16 00:07 98.2 81 19 130/81 97 Nasal Cannula 2.0 07/27/16 00:00 68 07/26/16 20:00 98.2 80 24 118/77 95 Nasal Cannula 2.0 07/26/16 20:00 63 07/26/16 16:23 98.2 74 20 127/82 96 Nasal Cannula 2.0 07/26/16 16:00 73 07/26/16 12:00 80 07/26/16 11:21 98.1 80 20 124/70 97 Nasal Cannula 2.0 Intake and Output 07/26/16 07/27/16 19:00 07:00 Intake Total 220 ml 685.0 ml Output Total 200 ml 700 ml Balance 20 ml -15.0 ml Intake Free Water 100 ml IV Total 220 ml 385.0 ml Tube Feeding 200 ml Output Urine Total 200 ml 700 ml # Bowel Movements 1 Laboratory Tests 07/27/16 00:50: Vancomycin Level Trough 13.1H 07/27/16 09:00: Erythrocyte Sedimentation Rate 50H, C-Reactive Protein, Quantitative 4.1H Height (Feet): 5 Height (Inches): 10.00 Weight (Pounds): 179 General Appearance: confused Respiratory/Chest: lungs clear Abdomen: soft Seamus Garcia MD Jul 27, 2016 11:07
[2016-07-27 11:57] VITALS: BP 106/65
--- NOTE | 2016-07-27 14:27 | Consultation ---
Consult Note Consult Note DATE OF CONSULTATION: 07/27/16 REASON FOR CONSULT: RIGHT FOOT UCLER CONSULTING SPECIALTY: PODIATRY CONSULTING PHYSICIAN: NANCY MACE DPM COVERING FOR SARAH FINE DPM HISTORY OF PRESENT ILLNESS: Patient is unable to communicate effectively. Therefore, the history was obtained from reviewing the chart. 80 year old male with history of right foot contracture and multiple superficial wounds. He was admitted in May 2016 and had right lower extremity wounds with suspicion of osteomyelitis of the right 4th toe and lateral malleolus. He has completed 6 weeks of IV antibiotics and daily wound care. Patient currently has superficial wounds on the right lower extremity that do not probe to bone. 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 No current tobacco, alcohol, or illicit drug use. FAMILY HISTORY: Non contributory SURGICAL HISTORY: Patient has G-tube Last 24 Hour Vital Signs Date Time Temp Pulse Resp B/P Pulse Ox O2 Delivery O2 Flow Rate FiO2 07/27/16 20:00 98.1 71 18 118/76 Nasal Cannula 2.0 99 07/27/16 16:29 60 07/27/16 16:00 99.1 70 18 115/63 Nasal Cannula 2.0 96 07/27/16 12:00 61 07/27/16 11:57 98.4 79 20 106/65 96 Nasal Cannula 2.0 07/27/16 08:39 98.1 77 20 109/73 95 Nasal Cannula 2.0 07/27/16 08:23 77 07/27/16 08:23 77 109/73 07/27/16 08:00 73 07/27/16 04:05 98.7 76 18 121/76 96 Nasal Cannula 2.0 07/27/16 04:00 53 07/27/16 00:07 98.2 81 19 130/81 97 Nasal Cannula 2.0 07/27/16 00:00 68 Intake and Output 07/26/16 07/27/16 19:00 07:00 Intake Total 220 ml 685.0 ml Output Total 200 ml 700 ml Balance 20 ml -15.0 ml Intake Free Water 100 ml IV Total 220 ml 385.0 ml Tube Feeding 200 ml Output Urine Total 200 ml 700 ml # Bowel Movements 1 Microbiology Date/Time Source Procedure Growth Status 07/25/16 01:10 Blood Blood Culture - Preliminary NO GROWTH AFTER 48 HOURS Resulted 07/25/16 01:10 Blood Blood Culture - Preliminary NO GROWTH AFTER 48 HOURS Resulted 07/26/16 07:20 Nasopharynx Influenza Types A,B Antigen (RICARDO) - Final Complete 07/25/16 05:30 Nasal Nares MRSA Culture - Final NO METHICILLIN RESISTANT STAPH AUREUS... Complete 07/25/16 02:20 Urine,Clean Catch Urine Culture - Preliminary Proteus Mirabilis Resulted 07/25/16 12:45 Back Gram Stain - Final Resulted 07/25/16 12:45 Back Wound Culture - Preliminary Resulted 07/25/16 05:30 Rectum VRE Culture - Final Enterococcus Faecium - Vre Complete Laboratory Tests Test 07/26/16 07:28 White Blood Count 13.0 K/UL (4.8-10.8) H Red Blood Count 4.59 M/UL (4.70-6.10) L Hemoglobin 14.7 G/DL (14.2-18.0) Hematocrit 44.2 % (42.0-52.0) Mean Corpuscular Volume 96 FL (80-99) Mean Corpuscular Hemoglobin 32.0 PG (27.0-31.0) H Mean Corpuscular Hemoglobin Concent 33.2 G/DL (32.0-36.0) Red Cell Distribution Width 13.4 % (11.6-14.8) Platelet Count 287 K/UL (150-450) Mean Platelet Volume 9.9 FL (6.5-10.1) Neutrophils (%) (Auto) 59.9 % (45.0-75.0) Lymphocytes (%) (Auto) 28.4 % (20.0-45.0) Monocytes (%) (Auto) 7.7 % (1.0-10.0) Eosinophils (%) (Auto) 2.9 % (0.0-3.0) Basophils (%) (Auto) 1.1 % (0.0-2.0) Sodium Level 142 mEQ/L (135-145) Potassium Level 4.4 mEQ/L (3.4-4.9) Chloride Level 101 mEQ/L (98-107) Carbon Dioxide Level 23 mEQ/L (20-30) Anion Gap 18 (5-15) H Blood Urea Nitrogen 19 mg/dL (7-23) Creatinine 1.1 mg/dL (0.7-1.2) Estimat Glomerular Filtration Rate mL/min (>60) Glucose Level 113 mg/dL (74-106) H Calcium Level 9.7 mg/dL (8.6-10.2) Total Bilirubin 1.1 mg/dL (0.0-1.2) Direct Bilirubin 0.2 mg/dL (0.1-0.3) Aspartate Amino Transf (AST/SGOT) 23 U/L (5-40) Alanine Aminotransferase (ALT/SGPT) 21 U/L (3-41) Alkaline Phosphatase 85 U/L (40-129) Total Protein 8.1 g/dL (6.6-8.7) Albumin 4.1 g/dL (3.5-5.2) Globulin 4.0 g/dL Albumin/Globulin Ratio 1.0 (1.0-2.7) Amylase Level 52 U/L (10-110) Current Medications Medications (Trade) Dose Ordered Sig/Omi Route PRN Reason Start Time Stop Time Status Last Admin Dose Admin Acetaminophen (Tylenol) 650 mg Q4H PRN ORAL T>100.5 07/25/16 07:00 08/24/16 06:59 Albuterol/ Ipratropium 3 ml 3 ml Q4H PRN HHN Shortness of Breath 07/25/16 07:00 07/30/16 06:59 Amlodipine Besylate (Norvasc) 10 mg DAILY GT 07/25/16 09:00 08/24/16 08:59 07/27/16 08:23 Collagenase (Santyl) 1 applic DAILY TOPIC 07/27/16 12:00 08/26/16 11:59 07/27/16 11:50 Digoxin (Lanoxin) 0.125 mg DAILY GT 07/25/16 09:00 08/24/16 08:59 07/27/16 08:23 Ertapenem/Sodium Chloride (INVanz/Sodium Chloride) 55 ml @ 110 mls/hr Q24H IVPB 07/27/16 10:00 08/01/16 09:59 07/27/16 09:47 Heparin Sodium (Porcine) (Heparin 5000 units/ml) 5,000 units EVERY 12 HOURS SUBQ 07/25/16 09:00 08/24/16 08:59 07/27/16 21:30 Morphine Sulfate (Morphine Sulfate) 2 mg Q4H PRN IVP PAIN 4-10 07/25/16 07:00 08/01/16 06:59 Nitroglycerin (Ntg) 0.4 mg Q5MIN X 3 DOSES PRN SL Prn Chest Pain 07/25/16 07:15 08/24/16 07:14 Ondansetron HCl (Zofran) 4 mg Q6H PRN IVP Nausea & Vomiting 07/25/16 07:00 08/24/16 06:59 Pantoprazole 40 mg 40 mg DAILY IVP 07/26/16 09:00 08/25/16 08:59 07/27/16 08:22 Polyethylene Glycol (Miralax) 17 gm DAILYPRN PRN ORAL Constipation 07/25/16 07:00 08/24/16 06:59 Temazepam (Restoril) 15 mg HSPRN PRN ORAL Insomnia 07/25/16 21:00 08/01/16 20:59 Vancomycin HCl (Vanco rx to dose) 1 ea DAILY PRN MISC . 07/25/16 07:15 08/24/16 07:14 Vancomycin HCl/ Dextrose (Vancomycin/D5W) 275 ml @ 183.3 mls/ hr Q24H IVPB 07/26/16 02:00 07/31/16 01:59 07/27/16 02:23 PHYSICAL EXAM: Dermatological: Right dorsal foot with partial thickness ulcerations. No purulence or malodor noted. Some surrounding erythema that has improved compared to initial photos upon admission. No edema noted. Neurological: Unable to assess sensation. Patient reacts to sharp stimulus Vascular: Pedal pulses are difficult to palpate Musculoskeletal: Ankle contracture. Patient is bedbound and does not ambulate Assessment/Plan - Right lower extremity superficial ulcers. The wounds do not probe to bone. Pictures on admission appear to show cellulitic changes at the right dorsal foot which has improved. Xray and MRI is negative for osteomyelitis. Continue daily wound care - Ankle contracture and history of heel ulceration. Continue offloading bilateral heels - Continue antibiotics per infectious disease specialist recommendations Nancy Mace DPM Jul 27, 2016 14:27
[2016-07-27] MEDS ORDERED: NS 275ml ONE (15:25)
[2016-07-27] MEDS ORDERED: Sterile Water Irrig 1000ml IRRIG ONE (15:25)
--- NOTE | 2016-07-27 15:36 | Diagnostic Imaging Report ---
Indication: Acute osteomyelitis demonstrated on prior scan of 2 months earlier, for followup Technique: Sagittal , Coronal, and axial T1 fast spin echo and fast spin echo STIR images Comparison: 05/29/2016 Findings: Previously demonstrated distal fibular signal abnormality is no longer evident. There is still some soft tissue edema surrounding the distal fibula. No new areas of increased STIR or decreased T1 signal are evident. A small amount of fluid is seen within the tibiotalar joint, similar in amount to the previous study. There is also some soft tissue edema medially. Impression: Previously demonstrated distal fibular signal abnormality is now normal. No evidence of active osteomyelitis at this time. Soft tissue edema both medially and laterally, most likely reflecting cellulitis changes.
[2016-07-27 16:00] VITALS: BP 115/63
--- NOTE | 2016-07-27 16:24 | Infectious Diseases Prog Note ---
Assessment/Plan Problems: (1) HCAP (healthcare-associated pneumonia) Assessment & Plan: sputum culture and screen for influenza are pending , continue vancomycin and ertapenem (2) Osteomyelitis of ankle or foot Assessment & Plan: with right malleolus wound, on vancomycin and cefepime , ankle X ray didn't show osteomyelitis, MRI didn't show any osteomyelitis either . bunghole borer is consulted (3) UTI (urinary tract infection) Assessment & Plan: culture is growing MDR proteus mirabilis, so will switch cefepime to ertapenem and treat for 7 days (4) Sepsis Assessment & Plan: blood culture is pending . continue vancomycin and cefepime , pharmacy to monitor vancomycin trough and to keep between 15-20 (5) History of CVA (cerebrovascular accident) Assessment & Plan: stable, continue meds Subjective ROS Limited/Unobtainable: Yes Allergies: Coded Allergies: No Known Allergies (Unverified , 12/08/13) Subjective he is demented lying in bed, not in distress , comfortable. afebrile Objective Vital Signs Last 24 Hour Vital Signs Date Time Temp Pulse Resp B/P Pulse Ox O2 Delivery O2 Flow Rate FiO2 07/27/16 12:00 61 07/27/16 11:57 98.4 79 20 106/65 96 Nasal Cannula 2.0 07/27/16 08:39 98.1 77 20 109/73 95 Nasal Cannula 2.0 07/27/16 08:23 77 07/27/16 08:23 77 109/73 07/27/16 08:00 73 07/27/16 04:05 98.7 76 18 121/76 96 Nasal Cannula 2.0 07/27/16 04:00 53 07/27/16 00:07 98.2 81 19 130/81 97 Nasal Cannula 2.0 07/27/16 00:00 68 07/26/16 20:00 98.2 80 24 118/77 95 Nasal Cannula 2.0 07/26/16 20:00 63 07/26/16 16:23 98.2 74 20 127/82 96 Nasal Cannula 2.0 Height (Feet): 5 Height (Inches): 10.00 Weight (Pounds): 179 General Appearance: WD/WN, no acute distress HEENT: normocephalic, atraumatic, anicteric, mucous membranes moist Respiratory/Chest: chest wall non-tender, lungs clear, normal breath sounds, no respiratory distress, no accessory muscle use Cardiovascular: normal peripheral pulses, normal rate, regular rhythm Abdomen: normal bowel sounds, soft, non tender, no organomegaly, non distended , no mass Extremities: no cyanosis, no clubbing Skin: no rash, no lesions Microbiology Date/Time Source Procedure Growth Status 07/25/16 01:10 Blood Blood Culture - Preliminary NO GROWTH AFTER 48 HOURS Resulted 07/25/16 01:10 Blood Blood Culture - Preliminary NO GROWTH AFTER 48 HOURS Resulted 07/26/16 07:20 Nasopharynx Influenza Types A,B Antigen (RICARDO) - Final Complete 07/25/16 05:30 Nasal Nares MRSA Culture - Final NO METHICILLIN RESISTANT STAPH AUREUS... Complete 07/25/16 02:20 Urine,Clean Catch Urine Culture - Preliminary Proteus Mirabilis Resulted 07/25/16 12:45 Back Gram Stain - Final Resulted 07/25/16 12:45 Back Wound Culture - Preliminary Resulted 07/25/16 05:30 Rectum VRE Culture - Final Enterococcus Faecium - Vre Complete Laboratory Tests Test 07/27/16 00:50 07/27/16 09:00 Vancomycin Level Trough 13.1 ug/mL (5.0-12.0) H Erythrocyte Sedimentation Rate 50 MM/HR (0-20) H C-Reactive Protein, Quantitative 4.1 mg/dL (< 0.5) H Current Medications Medications (Trade) Dose Ordered Sig/Omi Route PRN Reason Start Time Stop Time Status Last Admin Dose Admin Acetaminophen (Tylenol) 650 mg Q4H PRN ORAL T>100.5 07/25/16 07:00 08/24/16 06:59 Albuterol/ Ipratropium 3 ml 3 ml Q4H PRN HHN Shortness of Breath 07/25/16 07:00 07/30/16 06:59 Amlodipine Besylate (Norvasc) 10 mg DAILY GT 07/25/16 09:00 08/24/16 08:59 07/27/16 08:23 Collagenase (Santyl) 1 applic DAILY TOPIC 07/27/16 12:00 08/26/16 11:59 07/27/16 11:50 Digoxin (Lanoxin) 0.125 mg DAILY GT 07/25/16 09:00 08/24/16 08:59 07/27/16 08:23 Ertapenem/Sodium Chloride (INVanz/Sodium Chloride) 55 ml @ 110 mls/hr Q24H IVPB 07/27/16 10:00 08/01/16 09:59 07/27/16 09:47 Heparin Sodium (Porcine) (Heparin 5000 units/ml) 5,000 units EVERY 12 HOURS SUBQ 07/25/16 09:00 08/24/16 08:59 07/27/16 08:24 Morphine Sulfate (Morphine Sulfate) 2 mg Q4H PRN IVP PAIN 4-10 07/25/16 07:00 08/01/16 06:59 Nitroglycerin (Ntg) 0.4 mg Q5MIN X 3 DOSES PRN SL Prn Chest Pain 07/25/16 07:15 08/24/16 07:14 Ondansetron HCl (Zofran) 4 mg Q6H PRN IVP Nausea & Vomiting 07/25/16 07:00 08/24/16 06:59 Pantoprazole 40 mg 40 mg DAILY IVP 07/26/16 09:00 08/25/16 08:59 07/27/16 08:22 Polyethylene Glycol (Miralax) 17 gm DAILYPRN PRN ORAL Constipation 07/25/16 07:00 08/24/16 06:59 Temazepam (Restoril) 15 mg HSPRN PRN ORAL Insomnia 07/25/16 21:00 08/01/16 20:59 Vancomycin HCl (Vanco rx to dose) 1 ea DAILY PRN MISC . 07/25/16 07:15 08/24/16 07:14 Vancomycin HCl/ Dextrose (Vancomycin/D5W) 275 ml @ 183.3 mls/ hr Q24H IVPB 07/26/16 02:00 07/31/16 01:59 07/27/16 02:23 Karla Stringer M.D. Jul 27, 2016 16:24
[2016-07-27 20:00] VITALS: BP 118/76
--- NOTE | 2016-07-27 22:11 | Pulmonology Progress Note ---
Assessment/Plan Problems: (1) Sepsis (2) Chronic a-fib (3) HTN (hypertension) (4) History of CVA (cerebrovascular accident) (5) COPD (chronic obstructive pulmonary disease) Assessment/Plan imvporing wbc lower cultures pending iv fluids iv antibiotics vogel cultures telemetry monitoring respiratory treatment nutrition evaluation dvt prophylaxis Subjective Interval Events: comfortabel Allergies: Coded Allergies: No Known Allergies (Unverified , 12/08/13) Objective Last 24 Hour Vital Signs Date Time Temp Pulse Resp B/P Pulse Ox O2 Delivery O2 Flow Rate FiO2 07/27/16 20:00 98.1 71 18 118/76 Nasal Cannula 2.0 99 07/27/16 16:29 60 07/27/16 16:00 99.1 70 18 115/63 Nasal Cannula 2.0 96 07/27/16 12:00 61 07/27/16 11:57 98.4 79 20 106/65 96 Nasal Cannula 2.0 07/27/16 08:39 98.1 77 20 109/73 95 Nasal Cannula 2.0 07/27/16 08:23 77 07/27/16 08:23 77 109/73 07/27/16 08:00 73 07/27/16 04:05 98.7 76 18 121/76 96 Nasal Cannula 2.0 07/27/16 04:00 53 07/27/16 00:07 98.2 81 19 130/81 97 Nasal Cannula 2.0 07/27/16 00:00 68 Intake and Output 07/26/16 07/27/16 19:00 07:00 Intake Total 220 ml 685.0 ml Output Total 200 ml 700 ml Balance 20 ml -15.0 ml Intake Free Water 100 ml IV Total 220 ml 385.0 ml Tube Feeding 200 ml Output Urine Total 200 ml 700 ml # Bowel Movements 1 Objective General Appearance: WD/WN HEENT: normocephalic, atraumatic Respiratory/Chest: chest wall non-tender, lungs clear Cardiovascular: normal peripheral pulses, normal rate Abdomen: normal bowel sounds, soft, non tender, other - peg in place Extremities: no cyanosis, no clubbing Skin: no rash Laboratory Tests Microbiology Date/Time Source Procedure Growth Status 07/25/16 01:10 Blood Blood Culture - Preliminary NO GROWTH AFTER 48 HOURS Resulted 07/25/16 01:10 Blood Blood Culture - Preliminary NO GROWTH AFTER 48 HOURS Resulted 07/26/16 07:20 Nasopharynx Influenza Types A,B Antigen (RICARDO) - Final Complete 07/25/16 05:30 Nasal Nares MRSA Culture - Final NO METHICILLIN RESISTANT STAPH AUREUS... Complete 07/25/16 02:20 Urine,Clean Catch Urine Culture - Preliminary Proteus Mirabilis Resulted 07/25/16 12:45 Back Gram Stain - Final Resulted 07/25/16 12:45 Back Wound Culture - Preliminary Resulted 07/25/16 05:30 Rectum VRE Culture - Final Enterococcus Faecium - Vre Complete Laboratory Tests 07/27/16 00:50: Vancomycin Level Trough 13.1H 07/27/16 09:00: Erythrocyte Sedimentation Rate 50H, C-Reactive Protein, Quantitative 4.1H Current Medications Medications (Trade) Dose Ordered Sig/Omi Route PRN Reason Start Time Stop Time Status Last Admin Dose Admin Acetaminophen (Tylenol) 650 mg Q4H PRN ORAL T>100.5 07/25/16 07:00 08/24/16 06:59 Albuterol/ Ipratropium 3 ml 3 ml Q4H PRN HHN Shortness of Breath 07/25/16 07:00 07/30/16 06:59 Amlodipine Besylate (Norvasc) 10 mg DAILY GT 07/25/16 09:00 08/24/16 08:59 07/27/16 08:23 Collagenase (Santyl) 1 applic DAILY TOPIC 07/27/16 12:00 08/26/16 11:59 07/27/16 11:50 Digoxin (Lanoxin) 0.125 mg DAILY GT 07/25/16 09:00 08/24/16 08:59 07/27/16 08:23 Ertapenem/Sodium Chloride (INVanz/Sodium Chloride) 55 ml @ 110 mls/hr Q24H IVPB 07/27/16 10:00 08/01/16 09:59 07/27/16 09:47 Heparin Sodium (Porcine) (Heparin 5000 units/ml) 5,000 units EVERY 12 HOURS SUBQ 07/25/16 09:00 08/24/16 08:59 07/27/16 21:30 Morphine Sulfate (Morphine Sulfate) 2 mg Q4H PRN IVP PAIN 4-10 07/25/16 07:00 08/01/16 06:59 Nitroglycerin (Ntg) 0.4 mg Q5MIN X 3 DOSES PRN SL Prn Chest Pain 07/25/16 07:15 08/24/16 07:14 Ondansetron HCl (Zofran) 4 mg Q6H PRN IVP Nausea & Vomiting 07/25/16 07:00 08/24/16 06:59 Pantoprazole 40 mg 40 mg DAILY IVP 07/26/16 09:00 08/25/16 08:59 07/27/16 08:22 Polyethylene Glycol (Miralax) 17 gm DAILYPRN PRN ORAL Constipation 07/25/16 07:00 08/24/16 06:59 Temazepam (Restoril) 15 mg HSPRN PRN ORAL Insomnia 07/25/16 21:00 08/01/16 20:59 Vancomycin HCl (Vanco rx to dose) 1 ea DAILY PRN MISC . 07/25/16 07:15 08/24/16 07:14 Vancomycin HCl/ Dextrose (Vancomycin/D5W) 275 ml @ 183.3 mls/ hr Q24H IVPB 07/26/16 02:00 07/31/16 01:59 07/27/16 02:23 BOB IGNACIO Jul 27, 2016 22:11
[2016-07-28 00:17] VITALS: BP 153/72
[2016-07-28] MEDS: Vancomycin 1.25 GM in D5W 275 ML IVPB SCH (02:06)
[2016-07-28 04:05] VITALS: BP 117/59
[2016-07-28 08:20] VITALS: BP 116/66
[2016-07-28] MEDS: Pantoprazole Inj IVP SCH (08:26)
[2016-07-28] MEDS: Heparin 5000 units/ml inj SUBQ SCH ×2 (08:26→22:24)
[2016-07-28] MEDS: Digoxin Elixir 0.125mg GT SCH (08:26)
--- NOTE | 2016-07-28 10:05 | General Progress Note ---
Assessment/Plan Assessment/Plan ASSESSMENT: 1. Leukocytosis likely secondary to underlying uti - has improved 2. Healthcare associated pneumonia. 3. Anemia of chronic disease. 4. Decreased h/h, rule out gastrointestinal bleed. 5. Sepsis shock 6. Functional quadriplegia. 7. Proteinuria. 8. Atrial fibrillation on digoxin. RECOMMENDATIONS: 1. Peripheral smear reviewed, no abml 2. Antibiotics per ID service. 3. Follow up counts 4. DVT prophylaxis with heparin sq 5. Pain control . 6. GI ppx with PPI 7. staff. Thank you, Raul Tapia MD Subjective Constitutional: Reports: no symptoms HEENT: Reports: no symptoms Cardiovascular: Reports: no symptoms Respiratory: Reports: no symptoms Gastrointestinal/Abdominal: Reports: poor appetite Genitourinary: Reports: no symptoms Neurologic/Psychiatric: Reports: no symptoms Endocrine: Reports: no symptoms Hematologic/Lymphatic: Reports: anemia Allergies: Coded Allergies: No Known Allergies (Unverified , 12/08/13) Subjective stable, no events overnight, no fevers, or chills noted Objective Last 24 Hour Vital Signs Date Time Temp Pulse Resp B/P Pulse Ox O2 Delivery O2 Flow Rate FiO2 07/28/16 08:26 56 07/28/16 08:24 56 116/66 07/28/16 08:20 98.2 67 20 116/66 99 Nasal Cannula 2.0 07/28/16 08:00 64 07/28/16 04:05 98.8 72 20 117/59 94 Nasal Cannula 2.0 07/28/16 04:00 72 07/28/16 00:17 98.7 82 19 153/72 96 Nasal Cannula 2.0 07/28/16 00:00 69 07/27/16 20:00 60 07/27/16 20:00 98.1 71 18 118/76 Nasal Cannula 2.0 99 07/27/16 16:29 60 07/27/16 16:00 99.1 70 18 115/63 Nasal Cannula 2.0 96 07/27/16 12:00 61 07/27/16 11:57 98.4 79 20 106/65 96 Nasal Cannula 2.0 Intake and Output 07/27/16 07/28/16 19:00 07:00 Intake Total 510 ml 1105.0 ml Output Total 200 ml 350 ml Balance 310 ml 755.0 ml Intake Free Water 100 ml 100 ml IV Total 110 ml 275.0 ml Tube Feeding 300 ml 730 ml Output Urine Total 200 ml 350 ml # Bowel Movements 1 Height (Feet): 5 Height (Inches): 10.00 Weight (Pounds): 179 General Appearance: no apparent distress EENT: TMs normal Neck: normal alignment Cardiovascular: regular rhythm Respiratory/Chest: normal breath sounds Abdomen: soft Extremities: non-tender Edema: 1+ Leg (L), 1+ Leg (R) Edema: mild edema Neurologic: alert Skin: warm/dry Raul Tapia Jul 28, 2016 10:05
[2016-07-28] MEDS: Ertapenem 1 GM in NS 55 ML IVPB SCH (10:27)
[2016-07-28 11:30] LABS: BASOPHILS % (AUTO) 1.2 % (0.0-2.0); EOSINOPHILS % (AUTO) 2.6 % (0.0-3.0); MEAN CORPUSCULAR HEMOGLOBIN 32.2 PG (27.0-31.0); MEAN CORPUSCULAR HGB CONC 33.4 G/DL (32.0-36.0); MEAN CORPUSCULAR VOLUME 96 FL (80-99); MEAN PLATELET VOLUME 9.4 FL (6.5-10.1); MONOCYTES % (AUTO) 6.4 % (1.0-10.0); NEUTROPHILS % (AUTO) 52.8 % (45.0-75.0); PLATELET COUNT 270 K/UL (150-450); RED CELL DISTRIBUTION WIDTH 13.5 % (11.6-14.8); WHITE BLOOD COUNT 11.2 K/UL (4.8-10.8)
[2016-07-28 11:37] VITALS: BP 111/62
[2016-07-28] MEDS ORDERED: Sterile Water Irrig 1000ml IRRIG ONE (14:22)
[2016-07-28] MEDS ORDERED: Tubing IV Secondary IV ONE (14:22)
--- NOTE | 2016-07-28 15:04 | Infectious Diseases Prog Note ---
Assessment/Plan Problems: (1) HCAP (healthcare-associated pneumonia) Assessment & Plan: sputum culture is pending , screening for influenza is negative , continue vancomycin and ertapenem empiric therapy (2) Osteomyelitis of ankle or foot Assessment & Plan: with right malleolus wound, on vancomycin and cefepime , ankle X ray didn't show osteomyelitis, MRI didn't show any osteomyelitis either . public works manager is consulted (3) UTI (urinary tract infection) Assessment & Plan: culture is growing MDR proteus mirabilis, continue ertapenem for 7 days (4) Sepsis Assessment & Plan: blood culture is pending . continue vancomycin and ertapenem , pharmacy to monitor vancomycin trough and to keep between 15-20 (5) History of CVA (cerebrovascular accident) Assessment & Plan: stable, continue meds Subjective ROS Limited/Unobtainable: Yes Allergies: Coded Allergies: No Known Allergies (Unverified , 12/08/13) Subjective he is demented lying in bed, not in distress , comfortable. afebrile Objective Vital Signs Last 24 Hour Vital Signs Date Time Temp Pulse Resp B/P Pulse Ox O2 Delivery O2 Flow Rate FiO2 07/28/16 12:00 56 07/28/16 11:37 98.4 69 20 111/62 99 Nasal Cannula 2.0 07/28/16 08:26 56 07/28/16 08:24 56 116/66 07/28/16 08:20 98.2 67 20 116/66 99 Nasal Cannula 2.0 07/28/16 08:00 64 07/28/16 04:05 98.8 72 20 117/59 94 Nasal Cannula 2.0 07/28/16 04:00 72 07/28/16 00:17 98.7 82 19 153/72 96 Nasal Cannula 2.0 07/28/16 00:00 69 07/27/16 20:00 60 07/27/16 20:00 98.1 71 18 118/76 Nasal Cannula 2.0 99 07/27/16 16:29 60 07/27/16 16:00 99.1 70 18 115/63 Nasal Cannula 2.0 96 Height (Feet): 5 Height (Inches): 10.00 Weight (Pounds): 179 General Appearance: WD/WN, no acute distress HEENT: normocephalic, atraumatic, anicteric, mucous membranes moist Respiratory/Chest: chest wall non-tender, lungs clear, normal breath sounds, no respiratory distress, no accessory muscle use Cardiovascular: normal peripheral pulses, normal rate, no JVD Abdomen: normal bowel sounds, soft, non tender, no organomegaly, non distended , no mass Extremities: no cyanosis, no clubbing, other - right ankle wound, with contraction Microbiology Date/Time Source Procedure Growth Status 07/26/16 07:20 Nasopharynx Influenza Types A,B Antigen (RICARDO) - Final Complete Laboratory Tests Test 07/28/16 11:00 White Blood Count 11.2 K/UL (4.8-10.8) H Red Blood Count 4.30 M/UL (4.70-6.10) L Hemoglobin 13.8 G/DL (14.2-18.0) L Hematocrit 41.5 % (42.0-52.0) L Mean Corpuscular Volume 96 FL (80-99) Mean Corpuscular Hemoglobin 32.2 PG (27.0-31.0) H Mean Corpuscular Hemoglobin Concent 33.4 G/DL (32.0-36.0) Red Cell Distribution Width 13.5 % (11.6-14.8) Platelet Count 270 K/UL (150-450) Mean Platelet Volume 9.4 FL (6.5-10.1) Neutrophils (%) (Auto) 52.8 % (45.0-75.0) Lymphocytes (%) (Auto) 37.0 % (20.0-45.0) Monocytes (%) (Auto) 6.4 % (1.0-10.0) Eosinophils (%) (Auto) 2.6 % (0.0-3.0) Basophils (%) (Auto) 1.2 % (0.0-2.0) Current Medications Medications (Trade) Dose Ordered Sig/Omi Route PRN Reason Start Time Stop Time Status Last Admin Dose Admin Acetaminophen (Tylenol) 650 mg Q4H PRN ORAL T>100.5 07/25/16 07:00 08/24/16 06:59 Albuterol/ Ipratropium 3 ml 3 ml Q4H PRN HHN Shortness of Breath 07/25/16 07:00 07/30/16 06:59 Amlodipine Besylate (Norvasc) 10 mg DAILY GT 07/25/16 09:00 08/24/16 08:59 07/28/16 08:24 Collagenase (Santyl) 1 applic DAILY TOPIC 07/27/16 12:00 08/26/16 11:59 07/28/16 08:26 Digoxin (Lanoxin) 0.125 mg DAILY GT 07/25/16 09:00 08/24/16 08:59 07/27/16 08:23 Ertapenem/Sodium Chloride (INVanz/Sodium Chloride) 55 ml @ 110 mls/hr Q24H IVPB 07/27/16 10:00 08/01/16 09:59 07/28/16 10:27 Heparin Sodium (Porcine) (Heparin 5000 units/ml) 5,000 units EVERY 12 HOURS SUBQ 07/25/16 09:00 08/24/16 08:59 07/28/16 08:26 Morphine Sulfate (Morphine Sulfate) 2 mg Q4H PRN IVP PAIN 4-10 07/25/16 07:00 08/01/16 06:59 Nitroglycerin (Ntg) 0.4 mg Q5MIN X 3 DOSES PRN SL Prn Chest Pain 07/25/16 07:15 08/24/16 07:14 Ondansetron HCl (Zofran) 4 mg Q6H PRN IVP Nausea & Vomiting 07/25/16 07:00 08/24/16 06:59 Pantoprazole 40 mg 40 mg DAILY IVP 07/26/16 09:00 08/25/16 08:59 07/28/16 08:26 Polyethylene Glycol (Miralax) 17 gm DAILYPRN PRN ORAL Constipation 07/25/16 07:00 08/24/16 06:59 Temazepam (Restoril) 15 mg HSPRN PRN ORAL Insomnia 07/25/16 21:00 08/01/16 20:59 Vancomycin HCl (Vanco rx to dose) 1 ea DAILY PRN MISC . 07/25/16 07:15 08/24/16 07:14 Vancomycin HCl/ Dextrose (Vancomycin/D5W) 275 ml @ 183.3 mls/ hr Q24H IVPB 07/26/16 02:00 07/31/16 01:59 07/28/16 02:06 Karla Stringer M.D. Jul 28, 2016 15:04
[2016-07-28 16:00] VITALS: BP 105/63
[2016-07-28 20:00] VITALS: BP 146/65
--- NOTE | 2016-07-28 20:41 | General Progress Note ---
Assessment/Plan Assessment/Plan Assessment - N/V - resolved - dysphagia / GT - OBS Recommendations - Continue TF - follow labs and exam - check stool cultures Subjective Allergies: Coded Allergies: No Known Allergies (Unverified , 12/08/13) Subjective uneventful night resting comfortably TF running Objective Last 24 Hour Vital Signs Date Time Temp Pulse Resp B/P Pulse Ox O2 Delivery O2 Flow Rate FiO2 07/28/16 16:00 98.2 68 19 105/63 Nasal Cannula 2.0 87 07/28/16 12:00 56 07/28/16 11:37 98.4 69 20 111/62 99 Nasal Cannula 2.0 07/28/16 08:26 56 07/28/16 08:24 56 116/66 07/28/16 08:20 98.2 67 20 116/66 99 Nasal Cannula 2.0 07/28/16 08:00 64 07/28/16 04:05 98.8 72 20 117/59 94 Nasal Cannula 2.0 07/28/16 04:00 72 07/28/16 00:17 98.7 82 19 153/72 96 Nasal Cannula 2.0 07/28/16 00:00 69 Intake and Output 07/27/16 07/28/16 19:00 07:00 Intake Total 780 ml 1105.0 ml Output Total 200 ml 350 ml Balance 580 ml 755.0 ml Intake Free Water 200 ml 100 ml IV Total 110 ml 275.0 ml Tube Feeding 470 ml 730 ml Output Urine Total 200 ml 350 ml # Bowel Movements 1 Laboratory Tests 07/28/16 11:00: White Blood Count 11.2H, Red Blood Count 4.30L, Hemoglobin 13.8L, Hematocrit 41.5L, Mean Corpuscular Volume 96, Mean Corpuscular Hemoglobin 32.2H, Mean Corpuscular Hemoglobin Concent 33.4, Red Cell Distribution Width 13.5, Platelet Count 270, Mean Platelet Volume 9.4, Neutrophils (%) (Auto) 52.8, Lymphocytes (% ) (Auto) 37.0, Monocytes (%) (Auto) 6.4, Eosinophils (%) (Auto) 2.6, Basophils ( %) (Auto) 1.2 Height (Feet): 5 Height (Inches): 10.00 Weight (Pounds): 179 Objective WDWN WM NCAT supple CTA RRR Soft NT ND, (+) GT no edema OBS ALMAZ VIVAS Jul 28, 2016 20:41
--- NOTE | 2016-07-28 23:26 | Pulmonology Progress Note ---
Assessment/Plan Problems: (1) Sepsis (2) Chronic a-fib (3) HTN (hypertension) (4) History of CVA (cerebrovascular accident) (5) COPD (chronic obstructive pulmonary disease) Assessment/Plan wbc lowerr cultures pending iv fluids iv antibiotics/ on Ertapenem telemetry monitoring, episodes of devi respiratory treatment dvt prophylaxis Subjective Interval Events: looks comfortable Allergies: Coded Allergies: No Known Allergies (Unverified , 12/08/13) Objective Last 24 Hour Vital Signs Date Time Temp Pulse Resp B/P Pulse Ox O2 Delivery O2 Flow Rate FiO2 07/28/16 20:00 98.2 82 19 146/65 Nasal Cannula 2.0 84 07/28/16 20:00 57 07/28/16 16:00 58 07/28/16 16:00 98.2 68 19 105/63 Nasal Cannula 2.0 87 07/28/16 12:00 56 07/28/16 11:37 98.4 69 20 111/62 99 Nasal Cannula 2.0 07/28/16 08:26 56 07/28/16 08:24 56 116/66 07/28/16 08:20 98.2 67 20 116/66 99 Nasal Cannula 2.0 07/28/16 08:00 64 07/28/16 04:05 98.8 72 20 117/59 94 Nasal Cannula 2.0 07/28/16 04:00 72 07/28/16 00:17 98.7 82 19 153/72 96 Nasal Cannula 2.0 07/28/16 00:00 69 Intake and Output 07/27/16 07/28/16 19:00 07:00 Intake Total 780 ml 1105.0 ml Output Total 200 ml 350 ml Balance 580 ml 755.0 ml Intake Free Water 200 ml 100 ml IV Total 110 ml 275.0 ml Tube Feeding 470 ml 730 ml Output Urine Total 200 ml 350 ml # Bowel Movements 1 Objective General Appearance: WD/WN HEENT: normocephalic, atraumatic Respiratory/Chest: chest wall non-tender, lungs clear Cardiovascular: normal peripheral pulses, normal rate Abdomen: normal bowel sounds, soft, non tender, other - peg in place Extremities: no cyanosis, no clubbing Skin: no rash Laboratory Tests Microbiology Date/Time Source Procedure Growth Status 07/26/16 07:20 Nasopharynx Influenza Types A,B Antigen (RICARDO) - Final Complete Laboratory Tests 07/28/16 11:00: White Blood Count 11.2H, Red Blood Count 4.30L, Hemoglobin 13.8L, Hematocrit 41.5L, Mean Corpuscular Volume 96, Mean Corpuscular Hemoglobin 32.2H, Mean Corpuscular Hemoglobin Concent 33.4, Red Cell Distribution Width 13.5, Platelet Count 270, Mean Platelet Volume 9.4, Neutrophils (%) (Auto) 52.8, Lymphocytes (% ) (Auto) 37.0, Monocytes (%) (Auto) 6.4, Eosinophils (%) (Auto) 2.6, Basophils ( %) (Auto) 1.2 Current Medications Medications (Trade) Dose Ordered Sig/Omi Route PRN Reason Start Time Stop Time Status Last Admin Dose Admin Acetaminophen (Tylenol) 650 mg Q4H PRN ORAL T>100.5 07/25/16 07:00 08/24/16 06:59 Albuterol/ Ipratropium 3 ml 3 ml Q4H PRN HHN Shortness of Breath 07/25/16 07:00 07/30/16 06:59 Amlodipine Besylate (Norvasc) 10 mg DAILY GT 07/25/16 09:00 08/24/16 08:59 07/28/16 08:24 Collagenase (Santyl) 1 applic DAILY TOPIC 07/27/16 12:00 08/26/16 11:59 07/28/16 08:26 Digoxin (Lanoxin) 0.125 mg DAILY GT 07/25/16 09:00 08/24/16 08:59 07/27/16 08:23 Ertapenem/Sodium Chloride (INVanz/Sodium Chloride) 55 ml @ 110 mls/hr Q24H IVPB 07/27/16 10:00 08/01/16 09:59 07/28/16 10:27 Heparin Sodium (Porcine) (Heparin 5000 units/ml) 5,000 units EVERY 12 HOURS SUBQ 07/25/16 09:00 08/24/16 08:59 07/28/16 22:24 Morphine Sulfate (Morphine Sulfate) 2 mg Q4H PRN IVP PAIN 4-10 07/25/16 07:00 08/01/16 06:59 Nitroglycerin (Ntg) 0.4 mg Q5MIN X 3 DOSES PRN SL Prn Chest Pain 07/25/16 07:15 08/24/16 07:14 Ondansetron HCl (Zofran) 4 mg Q6H PRN IVP Nausea & Vomiting 07/25/16 07:00 08/24/16 06:59 Pantoprazole 40 mg 40 mg DAILY IVP 07/26/16 09:00 08/25/16 08:59 07/28/16 08:26 Polyethylene Glycol (Miralax) 17 gm DAILYPRN PRN ORAL Constipation 07/25/16 07:00 08/24/16 06:59 Temazepam (Restoril) 15 mg HSPRN PRN ORAL Insomnia 07/25/16 21:00 08/01/16 20:59 Vancomycin HCl (Vanco rx to dose) 1 ea DAILY PRN MISC . 07/25/16 07:15 08/24/16 07:14 Vancomycin HCl/ Dextrose (Vancomycin/D5W) 275 ml @ 183.3 mls/ hr Q24H IVPB 07/26/16 02:00 07/31/16 01:59 07/28/16 02:06 BOB IGNACIO Jul 28, 2016 23:26
[2016-07-29] VITALS: BP 162/87
[2016-07-29] MEDS: Vancomycin 1.25 GM in D5W 275 ML IVPB SCH (03:13)
[2016-07-29 04:00] VITALS: BP 145/58
[2016-07-29 07:57] VITALS: BP 129/83
[2016-07-29] MEDS: Pantoprazole Inj IVP SCH (08:51)
[2016-07-29] MEDS: Digoxin Elixir 0.125mg GT SCH (08:51)
[2016-07-29] MEDS: Heparin 5000 units/ml inj SUBQ SCH ×2 (10:03→20:51)
[2016-07-29] MEDS: Ertapenem 1 GM in NS 55 ML IVPB SCH (10:05)
[2016-07-29 11:24] VITALS: BP 150/88
--- NOTE | 2016-07-29 12:06 | Pulmonology Progress Note ---
Assessment/Plan Problems: (1) Sepsis (2) Chronic a-fib (3) HTN (hypertension) (4) History of CVA (cerebrovascular accident) (5) COPD (chronic obstructive pulmonary disease) Assessment/Plan wbc lowerr cultures pending iv fluids iv antibiotics/ on Ertapenem telemetry monitoring, episodes of devi respiratory treatment dvt prophylaxis Subjective ROS Limited/Unobtainable: No Constitutional: Reports: no symptoms HEENT: Repors: no symptoms Allergies: Coded Allergies: No Known Allergies (Unverified , 12/08/13) Objective Last 24 Hour Vital Signs Date Time Temp Pulse Resp B/P Pulse Ox O2 Delivery O2 Flow Rate FiO2 07/29/16 11:24 98.4 76 20 150/88 96 Nasal Cannula 2.0 07/29/16 08:51 70 07/29/16 08:51 70 129/83 07/29/16 08:04 58 07/29/16 07:57 96.3 81 20 129/83 95 Nasal Cannula 2.0 07/29/16 04:00 67 07/29/16 04:00 98.2 69 16 145/58 95 Nasal Cannula 2.0 07/29/16 00:00 62 07/29/16 00:00 97.9 62 16 162/87 97 Room Air 07/28/16 20:00 98.2 82 19 146/65 Nasal Cannula 2.0 84 07/28/16 20:00 57 07/28/16 16:00 58 07/28/16 16:00 98.2 68 19 105/63 Nasal Cannula 2.0 87 Intake and Output 07/28/16 07/29/16 19:00 07:00 Intake Total 690 ml 526.6 ml Output Total 100 ml 400 ml Balance 590 ml 126.6 ml Intake Free Water 100 ml 100 ml IV Total 110 ml 366.6 ml Tube Feeding 480 ml 60 ml Output Urine Total 100 ml 400 ml # Bowel Movements 1 4 Objective General Appearance: WD/WN HEENT: normocephalic, atraumatic Respiratory/Chest: chest wall non-tender, lungs clear Cardiovascular: normal peripheral pulses, normal rate Abdomen: normal bowel sounds, soft, non tender, other - peg in place Extremities: no cyanosis, no clubbing Skin: no rash Laboratory Tests Current Medications Medications (Trade) Dose Ordered Sig/Omi Route PRN Reason Start Time Stop Time Status Last Admin Dose Admin Acetaminophen (Tylenol) 650 mg Q4H PRN ORAL T>100.5 07/25/16 07:00 08/24/16 06:59 Albuterol/ Ipratropium 3 ml 3 ml Q4H PRN HHN Shortness of Breath 07/25/16 07:00 07/30/16 06:59 Amlodipine Besylate (Norvasc) 10 mg DAILY GT 07/25/16 09:00 08/24/16 08:59 07/29/16 08:51 Collagenase (Santyl) 1 applic DAILY TOPIC 07/27/16 12:00 08/26/16 11:59 07/29/16 09:36 Digoxin (Lanoxin) 0.125 mg DAILY GT 07/25/16 09:00 08/24/16 08:59 07/29/16 08:51 Ertapenem/Sodium Chloride (INVanz/Sodium Chloride) 55 ml @ 110 mls/hr Q24H IVPB 07/27/16 10:00 08/01/16 09:59 07/29/16 10:05 Heparin Sodium (Porcine) (Heparin 5000 units/ml) 5,000 units EVERY 12 HOURS SUBQ 07/25/16 09:00 08/24/16 08:59 07/29/16 10:03 Morphine Sulfate (Morphine Sulfate) 2 mg Q4H PRN IVP PAIN 4-10 07/25/16 07:00 08/01/16 06:59 Nitroglycerin (Ntg) 0.4 mg Q5MIN X 3 DOSES PRN SL Prn Chest Pain 07/25/16 07:15 08/24/16 07:14 Ondansetron HCl (Zofran) 4 mg Q6H PRN IVP Nausea & Vomiting 07/25/16 07:00 08/24/16 06:59 Pantoprazole 40 mg 40 mg DAILY IVP 07/26/16 09:00 08/25/16 08:59 07/29/16 08:51 Polyethylene Glycol (Miralax) 17 gm DAILYPRN PRN ORAL Constipation 07/25/16 07:00 08/24/16 06:59 Temazepam (Restoril) 15 mg HSPRN PRN ORAL Insomnia 07/25/16 21:00 08/01/16 20:59 Vancomycin HCl (Vanco rx to dose) 1 ea DAILY PRN MISC . 07/25/16 07:15 08/24/16 07:14 Vancomycin HCl/ Dextrose (Vancomycin/D5W) 275 ml @ 183.3 mls/ hr Q24H IVPB 07/26/16 02:00 07/31/16 01:59 07/29/16 03:13 BOB IGNACIO Jul 29, 2016 12:06
--- NOTE | 2016-07-29 13:07 | Infectious Diseases Prog Note ---
Assessment/Plan Problems: (1) HCAP (healthcare-associated pneumonia) Assessment & Plan: sputum culture is pending , screening for influenza is negative , continue vancomycin and ertapenem empiric therapy for 10 days (2) Osteomyelitis of ankle or foot Assessment & Plan: with right malleolus wound, on vancomycin and cefepime , ankle X ray didn't show osteomyelitis, MRI didn't show any osteomyelitis either . will treat his right ankle wound with antibiotics for 10 days only. fox raiser is consulted (3) UTI (urinary tract infection) Assessment & Plan: culture grew ESBL + proteus mirabilis, continue ertapenem for 10 days (4) Sepsis Assessment & Plan: blood culture is pending . continue vancomycin and ertapenem , pharmacy to monitor vancomycin trough and to keep between 15-20 (5) History of CVA (cerebrovascular accident) Assessment & Plan: stable, continue meds Subjective ROS Limited/Unobtainable: Yes Allergies: Coded Allergies: No Known Allergies (Unverified , 12/08/13) Subjective he is demented lying in bed, not in distress , comfortable. afebrile Objective Vital Signs Last 24 Hour Vital Signs Date Time Temp Pulse Resp B/P Pulse Ox O2 Delivery O2 Flow Rate FiO2 07/29/16 11:24 98.4 76 20 150/88 96 Nasal Cannula 2.0 07/29/16 08:51 70 07/29/16 08:51 70 129/83 07/29/16 08:04 58 07/29/16 07:57 96.3 81 20 129/83 95 Nasal Cannula 2.0 07/29/16 04:00 67 07/29/16 04:00 98.2 69 16 145/58 95 Nasal Cannula 2.0 07/29/16 00:00 62 07/29/16 00:00 97.9 62 16 162/87 97 Room Air 07/28/16 20:00 98.2 82 19 146/65 Nasal Cannula 2.0 84 07/28/16 20:00 57 07/28/16 16:00 58 07/28/16 16:00 98.2 68 19 105/63 Nasal Cannula 2.0 87 Height (Feet): 5 Height (Inches): 10.00 Weight (Pounds): 179 General Appearance: WD/WN, no acute distress HEENT: normocephalic, atraumatic, anicteric Respiratory/Chest: chest wall non-tender, lungs clear, normal breath sounds, no respiratory distress Cardiovascular: normal peripheral pulses, normal rate, regular rhythm, no JVD Abdomen: normal bowel sounds, soft, non tender, no organomegaly, non distended Extremities: no cyanosis, no clubbing Skin: no rash, no lesions, ulcers Current Medications Medications (Trade) Dose Ordered Sig/Omi Route PRN Reason Start Time Stop Time Status Last Admin Dose Admin Acetaminophen (Tylenol) 650 mg Q4H PRN ORAL T>100.5 07/25/16 07:00 08/24/16 06:59 Albuterol/ Ipratropium 3 ml 3 ml Q4H PRN HHN Shortness of Breath 07/25/16 07:00 07/30/16 06:59 Amlodipine Besylate (Norvasc) 10 mg DAILY GT 07/25/16 09:00 08/24/16 08:59 07/29/16 08:51 Collagenase (Santyl) 1 applic DAILY TOPIC 07/27/16 12:00 08/26/16 11:59 07/29/16 09:36 Digoxin (Lanoxin) 0.125 mg DAILY GT 07/25/16 09:00 08/24/16 08:59 07/29/16 08:51 Ertapenem/Sodium Chloride (INVanz/Sodium Chloride) 55 ml @ 110 mls/hr Q24H IVPB 07/27/16 10:00 08/01/16 09:59 07/29/16 10:05 Heparin Sodium (Porcine) (Heparin 5000 units/ml) 5,000 units EVERY 12 HOURS SUBQ 07/25/16 09:00 08/24/16 08:59 07/29/16 10:03 Morphine Sulfate (Morphine Sulfate) 2 mg Q4H PRN IVP PAIN 4-10 07/25/16 07:00 08/01/16 06:59 07/29/16 12:12 Nitroglycerin (Ntg) 0.4 mg Q5MIN X 3 DOSES PRN SL Prn Chest Pain 07/25/16 07:15 08/24/16 07:14 Ondansetron HCl (Zofran) 4 mg Q6H PRN IVP Nausea & Vomiting 07/25/16 07:00 08/24/16 06:59 Pantoprazole 40 mg 40 mg DAILY IVP 07/26/16 09:00 08/25/16 08:59 07/29/16 08:51 Polyethylene Glycol (Miralax) 17 gm DAILYPRN PRN ORAL Constipation 07/25/16 07:00 08/24/16 06:59 Temazepam (Restoril) 15 mg HSPRN PRN ORAL Insomnia 07/25/16 21:00 08/01/16 20:59 Vancomycin HCl (Vanco rx to dose) 1 ea DAILY PRN MISC . 07/25/16 07:15 08/24/16 07:14 Vancomycin HCl/ Dextrose (Vancomycin/D5W) 275 ml @ 183.3 mls/ hr Q24H IVPB 07/26/16 02:00 07/31/16 01:59 07/29/16 03:13 Karla Stringer M.D. Jul 29, 2016 13:07
--- NOTE | 2016-07-29 13:12 | General Progress Note ---
Assessment/Plan Assessment/Plan Assessment - N/V - resolved - dysphagia / GT - OBS - mild anemia Recommendations - Continue TF - follow labs and exam - [facility] Subjective Allergies: Coded Allergies: No Known Allergies (Unverified , 12/08/13) Subjective uneventful night resting comfortably TF running Objective Last 24 Hour Vital Signs Date Time Temp Pulse Resp B/P Pulse Ox O2 Delivery O2 Flow Rate FiO2 07/29/16 11:24 98.4 76 20 150/88 96 Nasal Cannula 2.0 07/29/16 08:51 70 07/29/16 08:51 70 129/83 07/29/16 08:04 58 07/29/16 07:57 96.3 81 20 129/83 95 Nasal Cannula 2.0 07/29/16 04:00 67 07/29/16 04:00 98.2 69 16 145/58 95 Nasal Cannula 2.0 07/29/16 00:00 62 07/29/16 00:00 97.9 62 16 162/87 97 Room Air 07/28/16 20:00 98.2 82 19 146/65 Nasal Cannula 2.0 84 07/28/16 20:00 57 07/28/16 16:00 58 07/28/16 16:00 98.2 68 19 105/63 Nasal Cannula 2.0 87 Intake and Output 07/28/16 07/29/16 19:00 07:00 Intake Total 690 ml 526.6 ml Output Total 100 ml 400 ml Balance 590 ml 126.6 ml Intake Free Water 100 ml 100 ml IV Total 110 ml 366.6 ml Tube Feeding 480 ml 60 ml Output Urine Total 100 ml 400 ml # Bowel Movements 1 4 Height (Feet): 5 Height (Inches): 10.00 Weight (Pounds): 179 Objective WDWN WM NCAT supple CTA RRR Soft NT ND, (+) GT no edema OBS ALMAZ VIVAS Jul 29, 2016 13:12
--- NOTE | 2016-07-29 14:29 | General Progress Note ---
Assessment/Plan Problem List: (1) HTN (hypertension) ICD Codes: I10 - Essential (primary) hypertension SNOMED: 26043784 (2) UTI (urinary tract infection) ICD Codes: N39.0 - Urinary tract infection, site not specified SNOMED: 30151677 Qualifiers: Qualified Codes: N30.00 - Acute cystitis without hematuria (3) Chronic a-fib ICD Codes: I48.2 - Chronic atrial fibrillation SNOMED: 977303592 (4) Dehydration ICD Codes: E86.0 - Dehydration SNOMED: 79074013 (5) Sepsis ICD Codes: A41.9 - Sepsis SNOMED: 01440330 Qualifiers: Qualified Codes: A41.9 - Sepsis, unspecified organism (6) History of CVA (cerebrovascular accident) ICD Codes: Z86.73 - Personal history of transient ischemic attack (TIA), and cerebral infarction without residual deficits SNOMED: 048598856 Status: progressing Assessment/Plan sepsis a fib afebrile clinically improving reviewed chart and labs Subjective ROS Limited/Unobtainable: Yes Allergies: Coded Allergies: No Known Allergies (Unverified , 12/08/13) Objective Last 24 Hour Vital Signs Date Time Temp Pulse Resp B/P Pulse Ox O2 Delivery O2 Flow Rate FiO2 07/29/16 11:24 98.4 76 20 150/88 96 Nasal Cannula 2.0 07/29/16 08:51 70 07/29/16 08:51 70 129/83 07/29/16 08:04 58 07/29/16 07:57 96.3 81 20 129/83 95 Nasal Cannula 2.0 07/29/16 04:00 67 07/29/16 04:00 98.2 69 16 145/58 95 Nasal Cannula 2.0 07/29/16 00:00 62 07/29/16 00:00 97.9 62 16 162/87 97 Room Air 07/28/16 20:00 98.2 82 19 146/65 Nasal Cannula 2.0 84 07/28/16 20:00 57 07/28/16 16:00 58 07/28/16 16:00 98.2 68 19 105/63 Nasal Cannula 2.0 87 Intake and Output 07/28/16 07/29/16 19:00 07:00 Intake Total 690 ml 526.6 ml Output Total 100 ml 400 ml Balance 590 ml 126.6 ml Intake Free Water 100 ml 100 ml IV Total 110 ml 366.6 ml Tube Feeding 480 ml 60 ml Output Urine Total 100 ml 400 ml # Bowel Movements 1 4 Height (Feet): 5 Height (Inches): 10.00 Weight (Pounds): 179 General Appearance: confused EENT: PERRL/EOMI Neck: supple Respiratory/Chest: lungs clear Abdomen: soft Seamus Garcia MD Jul 29, 2016 14:29
[2016-07-29 16:00] VITALS: BP 133/51
--- NOTE | 2016-07-29 17:39 | General Progress Note ---
Assessment/Plan Assessment/Plan Assessment/Plan ASSESSMENT: 1. Leukocytosis likely secondary to underlying uti - has improved 2. Healthcare associated pneumonia. 3. Anemia of chronic disease. 4. Decreased h/h, rule out gastrointestinal bleed. 5. Sepsis shock 6. Functional quadriplegia. 7. Proteinuria. 8. Atrial fibrillation on digoxin. RECOMMENDATIONS: 1. Peripheral smear reviewed, no abml 2. Antibiotics per ID service. 3. Follow up counts 4. DVT prophylaxis with heparin sq 5. Pain control . 6. GI ppx with PPI 7. staff. Thank you, Fatou Tapia MD Subjective Constitutional: Reports: no symptoms HEENT: Reports: no symptoms Cardiovascular: Reports: no symptoms Respiratory: Reports: no symptoms Gastrointestinal/Abdominal: Reports: no symptoms Genitourinary: Reports: no symptoms Endocrine: Reports: no symptoms Hematologic/Lymphatic: Reports: no symptoms Allergies: Coded Allergies: No Known Allergies (Unverified , 12/08/13) Objective Last 24 Hour Vital Signs Date Time Temp Pulse Resp B/P Pulse Ox O2 Delivery O2 Flow Rate FiO2 07/29/16 16:00 97.9 77 22 133/51 95 Nasal Cannula 2.0 07/29/16 11:56 75 07/29/16 11:24 98.4 76 20 150/88 96 Nasal Cannula 2.0 07/29/16 08:51 70 07/29/16 08:51 70 129/83 07/29/16 08:04 58 07/29/16 07:57 96.3 81 20 129/83 95 Nasal Cannula 2.0 07/29/16 04:00 67 07/29/16 04:00 98.2 69 16 145/58 95 Nasal Cannula 2.0 07/29/16 00:00 62 07/29/16 00:00 97.9 62 16 162/87 97 Room Air 07/28/16 20:00 98.2 82 19 146/65 Nasal Cannula 2.0 84 07/28/16 20:00 57 Intake and Output 07/28/16 07/29/16 19:00 07:00 Intake Total 690 ml 526.6 ml Output Total 100 ml 400 ml Balance 590 ml 126.6 ml Intake Free Water 100 ml 100 ml IV Total 110 ml 366.6 ml Tube Feeding 480 ml 60 ml Output Urine Total 100 ml 400 ml # Bowel Movements 1 4 Height (Feet): 5 Height (Inches): 10.00 Weight (Pounds): 179 General Appearance: WD/WN EENT: normal ENT inspection Neck: supple Cardiovascular: regular rhythm Respiratory/Chest: lungs clear Abdomen: soft Pelvis: no masses Extremities: non-tender Edema: no edema noted Arm (L), no edema noted Arm (R), no edema noted Leg (L), no edema noted Leg (R), no edema noted Pedal (L), no edema noted Pedal (R), no edema noted Generalized Edema: mild edema Neurologic: alert Skin: warm/dry Lymphatic: normal anterior cervical (L), normal anterior cervical (R), normal axillary (L), normal axillary (R), normal inguinal (L), normal inguinal (R), normal other, normal posterior cervical (L), normal posterior cervical (R), normal submandibular (L), normal submandibular (R), normal supraclavicular (L), normal supraclavicular (R) FATOU TAPIA Jul 29, 2016 17:39
[2016-07-29 20:00] VITALS: BP 141/93
[2016-07-29] MEDS ORDERED: Tubing IV Secondary IV ONE (21:45)
[2016-07-29] MEDS ORDERED: Sterile Water For Irrig 2000ml IRRIG ONE (21:45)
[2016-07-30 00:24] VITALS: BP 105/72
[2016-07-30] MEDS: Vancomycin 1.25 GM in D5W 275 ML IVPB SCH (03:21)
[2016-07-30 04:20] VITALS: BP 119/55
--- NOTE | 2016-07-30 07:48 | General Progress Note ---
Assessment/Plan Assessment/Plan ASSESSMENT: 1. Leukocytosis likely secondary to underlying uti - improved 2. Healthcare associated pneumonia. 3. Anemia of chronic disease 4. Decreased h/h, rule out gastrointestinal bleed. 5. Sepsis shock 6. Functional quadriplegia. 7. Proteinuria. 8. Atrial fibrillation on digoxin. RECOMMENDATIONS: 1. Peripheral smear reviewed, no abml 2. Antibiotics per ID service. 3. Follow up counts 4. DVT ppx with heparin sq 5. Pain control . 6. GI ppx with PPI 7. staff. Thank you, Raul Tapia MD Subjective Constitutional: Reports: no symptoms HEENT: Reports: no symptoms Cardiovascular: Reports: no symptoms Respiratory: Reports: no symptoms Gastrointestinal/Abdominal: Reports: poor appetite Genitourinary: Reports: no symptoms Neurologic/Psychiatric: Reports: no symptoms Endocrine: Reports: no symptoms Hematologic/Lymphatic: Reports: anemia Allergies: Coded Allergies: No Known Allergies (Unverified , 12/08/13) Subjective stable, no events overnight, no fevers, or chills, is sleeping Objective Last 24 Hour Vital Signs Date Time Temp Pulse Resp B/P Pulse Ox O2 Delivery O2 Flow Rate FiO2 07/30/16 04:20 98.4 73 20 119/55 96 Room Air 07/30/16 04:00 77 07/30/16 00:24 98.1 71 20 105/72 99 Nasal Cannula 2.0 07/30/16 00:00 55 07/29/16 20:00 97.9 74 20 141/93 97 Nasal Cannula 2.0 07/29/16 20:00 56 07/29/16 16:00 97.9 77 22 133/51 95 Nasal Cannula 2.0 07/29/16 16:00 65 07/29/16 11:56 75 07/29/16 11:24 98.4 76 20 150/88 96 Nasal Cannula 2.0 07/29/16 08:51 70 07/29/16 08:51 70 129/83 07/29/16 08:04 58 07/29/16 07:57 96.3 81 20 129/83 95 Nasal Cannula 2.0 Intake and Output 07/29/16 07/30/16 19:00 07:00 Intake Total 635 ml 366.6 ml Output Total 125 ml 700 ml Balance 510 ml -333.4 ml Intake Free Water 100 ml IV Total 55 ml 366.6 ml Tube Feeding 480 ml Output Urine Total 125 ml 700 ml # Bowel Movements 2 Height (Feet): 5 Height (Inches): 10.00 Weight (Pounds): 179 General Appearance: no apparent distress EENT: TMs normal Neck: supple Cardiovascular: regular rhythm Respiratory/Chest: normal breath sounds Abdomen: non tender Extremities: normal range of motion Edema: 1+ Leg (L), 1+ Leg (R) Edema: mild edema Neurologic: oriented x 3 Skin: warm/dry Raul Tapia Jul 30, 2016 07:48
[2016-07-30 08:01] VITALS: BP 128/76
[2016-07-30] MEDS: Pantoprazole Inj IVP SCH (08:44)
[2016-07-30] MEDS: Digoxin Elixir 0.125mg GT SCH (08:45)
[2016-07-30] MEDS: Heparin 5000 units/ml inj SUBQ SCH ×2 (08:48→23:43)
[2016-07-30] MEDS: Ertapenem 1 GM in NS 55 ML IVPB SCH (09:33)
[2016-07-30] MEDS ORDERED: Tubing IV Secondary IV ONE (10:06)
[2016-07-30] MEDS ORDERED: NS 275ml ONE (10:06)
--- NOTE | 2016-07-30 11:04 | General Progress Note ---
Assessment/Plan Problem List: (1) HTN (hypertension) ICD Codes: I10 - Essential (primary) hypertension SNOMED: 89878733 (2) UTI (urinary tract infection) ICD Codes: N39.0 - Urinary tract infection, site not specified SNOMED: 87011332 Qualifiers: Qualified Codes: N30.00 - Acute cystitis without hematuria (3) Chronic a-fib ICD Codes: I48.2 - Chronic atrial fibrillation SNOMED: 628798679 (4) Dehydration ICD Codes: E86.0 - Dehydration SNOMED: 87521637 (5) Sepsis ICD Codes: A41.9 - Sepsis SNOMED: 62569336 Qualifiers: Qualified Codes: A41.9 - Sepsis, unspecified organism (6) History of CVA (cerebrovascular accident) ICD Codes: Z86.73 - Personal history of transient ischemic attack (TIA), and cerebral infarction without residual deficits SNOMED: 320487377 Status: progressing Assessment/Plan sepsis a fib abx per id no fever clinically improving dc planning Subjective ROS Limited/Unobtainable: Yes Constitutional: Reports: no symptoms Allergies: Coded Allergies: No Known Allergies (Unverified , 12/08/13) Objective Last 24 Hour Vital Signs Date Time Temp Pulse Resp B/P Pulse Ox O2 Delivery O2 Flow Rate FiO2 07/30/16 08:45 67 07/30/16 08:44 67 128/76 07/30/16 08:01 98.2 67 20 128/76 98 Room Air 07/30/16 04:20 98.4 73 20 119/55 96 Room Air 07/30/16 04:00 77 07/30/16 00:24 98.1 71 20 105/72 99 Nasal Cannula 2.0 07/30/16 00:00 55 07/29/16 20:00 97.9 74 20 141/93 97 Nasal Cannula 2.0 07/29/16 20:00 56 07/29/16 16:00 97.9 77 22 133/51 95 Nasal Cannula 2.0 07/29/16 16:00 65 07/29/16 11:56 75 07/29/16 11:24 98.4 76 20 150/88 96 Nasal Cannula 2.0 Intake and Output 07/29/16 07/30/16 19:00 07:00 Intake Total 635 ml 366.6 ml Output Total 125 ml 700 ml Balance 510 ml -333.4 ml Intake Free Water 100 ml IV Total 55 ml 366.6 ml Tube Feeding 480 ml Output Urine Total 125 ml 700 ml # Bowel Movements 2 Height (Feet): 5 Height (Inches): 10.00 Weight (Pounds): 179 General Appearance: confused Cardiovascular: normal rate Respiratory/Chest: lungs clear Abdomen: soft Seamus Garcia MD Jul 30, 2016 11:04
[2016-07-30 11:36] VITALS: BP 100/56
--- NOTE | 2016-07-30 14:55 | General Progress Note ---
Assessment/Plan Assessment/Plan Assessment - N/V - resolved - dysphagia / GT - OBS - mild anemia Recommendations - Continue TF - follow labs and exam - [facility] Subjective Allergies: Coded Allergies: No Known Allergies (Unverified , 12/08/13) Subjective uneventful night resting comfortably TF running Objective Last 24 Hour Vital Signs Date Time Temp Pulse Resp B/P Pulse Ox O2 Delivery O2 Flow Rate FiO2 07/30/16 11:55 63 07/30/16 11:36 96.5 72 20 100/56 99 Nasal Cannula 2.0 07/30/16 08:45 67 07/30/16 08:44 67 128/76 07/30/16 08:03 61 07/30/16 08:01 98.2 67 20 128/76 98 Room Air 07/30/16 04:20 98.4 73 20 119/55 96 Room Air 07/30/16 04:00 77 07/30/16 00:24 98.1 71 20 105/72 99 Nasal Cannula 2.0 07/30/16 00:00 55 07/29/16 20:00 97.9 74 20 141/93 97 Nasal Cannula 2.0 07/29/16 20:00 56 07/29/16 16:00 97.9 77 22 133/51 95 Nasal Cannula 2.0 07/29/16 16:00 65 Intake and Output 07/29/16 07/30/16 19:00 07:00 Intake Total 635 ml 366.6 ml Output Total 125 ml 700 ml Balance 510 ml -333.4 ml Intake Free Water 100 ml IV Total 55 ml 366.6 ml Tube Feeding 480 ml Output Urine Total 125 ml 700 ml # Bowel Movements 2 Height (Feet): 5 Height (Inches): 10.00 Weight (Pounds): 179 Objective WDWN WM NCAT supple CTA RRR Soft NT ND, (+) GT no edema OBS ALMAZ VIVAS Jul 30, 2016 14:55
[2016-07-30 16:00] VITALS: BP 127/74
[2016-07-30 20:00] VITALS: BP 127/70
--- NOTE | 2016-07-30 23:10 | Pulmonology Progress Note ---
Assessment/Plan Problems: (1) Sepsis (2) Chronic a-fib (3) HTN (hypertension) (4) History of CVA (cerebrovascular accident) (5) COPD (chronic obstructive pulmonary disease) Assessment/Plan wbc lowerr cultures pending iv fluids iv antibiotics/ on Ertapenem cdiff negative telemetry monitoring, episodes of devi respiratory treatment dvt prophylaxis cardiology to see for bradycardia Subjective ROS Limited/Unobtainable: Yes Interval Events: comfortable Allergies: Coded Allergies: No Known Allergies (Unverified , 12/08/13) Objective Last 24 Hour Vital Signs Date Time Temp Pulse Resp B/P Pulse Ox O2 Delivery O2 Flow Rate FiO2 07/30/16 20:00 97.8 75 21 127/70 98 Nasal Cannula 2.0 07/30/16 16:00 97.9 77 22 127/74 96 Nasal Cannula 2.0 07/30/16 16:00 51 07/30/16 11:55 63 07/30/16 11:36 96.5 72 20 100/56 99 Nasal Cannula 2.0 07/30/16 08:45 67 07/30/16 08:44 67 128/76 07/30/16 08:03 61 07/30/16 08:01 98.2 67 20 128/76 98 Room Air 07/30/16 04:20 98.4 73 20 119/55 96 Room Air 07/30/16 04:00 77 07/30/16 00:24 98.1 71 20 105/72 99 Nasal Cannula 2.0 07/30/16 00:00 55 Intake and Output 07/29/16 07/30/16 19:00 07:00 Intake Total 635 ml 366.6 ml Output Total 125 ml 700 ml Balance 510 ml -333.4 ml Intake Free Water 100 ml IV Total 55 ml 366.6 ml Tube Feeding 480 ml Output Urine Total 125 ml 700 ml # Bowel Movements 2 Objective General Appearance: WD/WN HEENT: normocephalic, atraumatic Respiratory/Chest: chest wall non-tender, lungs clear Cardiovascular: normal peripheral pulses, normal rate Abdomen: normal bowel sounds, soft, non tender, other - peg in place Extremities: no cyanosis, no clubbing Skin: no rash Laboratory Tests Current Medications Medications (Trade) Dose Ordered Sig/Omi Route PRN Reason Start Time Stop Time Status Last Admin Dose Admin Acetaminophen (Tylenol) 650 mg Q4H PRN ORAL T>100.5 07/25/16 07:00 08/24/16 06:59 Amlodipine Besylate (Norvasc) 10 mg DAILY GT 07/25/16 09:00 08/24/16 08:59 07/30/16 08:44 Collagenase (Santyl) 1 applic DAILY TOPIC 07/27/16 12:00 08/26/16 11:59 07/30/16 08:46 Digoxin 0.125 mg 0.125 mg DAILY GT 07/25/16 09:00 08/24/16 08:59 07/30/16 08:45 Ertapenem/Sodium Chloride (INVanz/Sodium Chloride) 55 ml @ 110 mls/hr Q24H IVPB 07/27/16 10:00 08/01/16 09:59 07/30/16 09:33 Heparin Sodium (Porcine) (Heparin 5000 units/ml) 5,000 units EVERY 12 HOURS SUBQ 07/25/16 09:00 08/24/16 08:59 07/30/16 08:48 Morphine Sulfate (Morphine Sulfate) 2 mg Q4H PRN IVP PAIN 4-10 07/25/16 07:00 08/01/16 06:59 07/29/16 12:12 Nitroglycerin (Ntg) 0.4 mg Q5MIN X 3 DOSES PRN SL Prn Chest Pain 07/25/16 07:15 08/24/16 07:14 Ondansetron HCl (Zofran) 4 mg Q6H PRN IVP Nausea & Vomiting 07/25/16 07:00 08/24/16 06:59 Pantoprazole 40 mg 40 mg DAILY IVP 07/26/16 09:00 08/25/16 08:59 07/30/16 08:44 Polyethylene Glycol (Miralax) 17 gm DAILYPRN PRN ORAL Constipation 07/25/16 07:00 08/24/16 06:59 Temazepam (Restoril) 15 mg HSPRN PRN ORAL Insomnia 07/25/16 21:00 08/01/16 20:59 Vancomycin HCl (Vanco rx to dose) 1 ea DAILY PRN MISC . 07/25/16 07:15 08/24/16 07:14 Vancomycin HCl/ Dextrose (Vancomycin/D5W) 275 ml @ 183.3 mls/ hr Q24H IVPB 07/26/16 02:00 08/01/16 01:59 07/30/16 03:21 BOB IGNACIO Jul 30, 2016 23:10
[2016-07-31 00:27] VITALS: BP 152/85
[2016-07-31] MEDS: Vancomycin 1.25 GM in D5W 275 ML IVPB SCH (02:54)
[2016-07-31 04:10] VITALS: BP 136/71
[2016-07-31 08:03] VITALS: BP 118/64
[2016-07-31] MEDS: Pantoprazole Inj IVP SCH (08:35)
[2016-07-31] MEDS: Heparin 5000 units/ml inj SUBQ SCH ×3 (08:36→21:21)
[2016-07-31] MEDS: Digoxin Elixir 0.125mg GT SCH (08:36)
[2016-07-31 09:44] LABS: BASOPHILS % (AUTO) 1.1 % (0.0-2.0); EOSINOPHILS % (AUTO) 4.7 % (0.0-3.0); LYMPHOCYTES % (AUTO) 28.1 % (20.0-45.0); MEAN CORPUSCULAR HEMOGLOBIN 31.9 PG (27.0-31.0); MEAN CORPUSCULAR HGB CONC 33.6 G/DL (32.0-36.0); MEAN CORPUSCULAR VOLUME 95 FL (80-99); MEAN PLATELET VOLUME 9.9 FL (6.5-10.1); MONOCYTES % (AUTO) 7.1 % (1.0-10.0); NEUTROPHILS % (AUTO) 59.1 % (45.0-75.0); PLATELET COUNT 277 K/UL (150-450); RED BLOOD COUNT 4.08 M/UL (4.70-6.10); WHITE BLOOD COUNT 8.9 K/UL (4.8-10.8)
[2016-07-31 09:52] LABS: ALANINE AMINOTRANSFERASE 19 U/L (3-41); ALBUMIN/GLOBULIN RATIO 0.9 (1.0-2.7); ANION GAP 15 (5-15); ASPARTATE AMINO TRANSFERASE 21 U/L (5-40); CARBON DIOXIDE 25 mEQ/L (20-30); CHLORIDE 98 mEQ/L (98-107); CREATININE 0.9 mg/dL (0.7-1.2); HEMOLYSIS 3; POTASSIUM 3.7 mEQ/L (3.4-4.9); SODIUM 138 mEQ/L (135-145); TOTAL PROTEIN 7.6 g/dL (6.6-8.7); TROPONIN I < 0.30 ng/mL (<=0.30)
[2016-07-31] MEDS: Ertapenem 1 GM in NS 55 ML IVPB SCH (09:55)
[2016-07-31 10:03] LABS: CKMB < 1.5 ng/mL (< 6.7)
[2016-07-31 11:37] VITALS: BP 108/62
--- NOTE | 2016-07-31 12:34 | General Progress Note ---
Assessment/Plan Problem List: (1) HTN (hypertension) ICD Codes: I10 - Essential (primary) hypertension SNOMED: 39791841 (2) UTI (urinary tract infection) ICD Codes: N39.0 - Urinary tract infection, site not specified SNOMED: 58418333 Qualifiers: Qualified Codes: N30.00 - Acute cystitis without hematuria (3) Chronic a-fib ICD Codes: I48.2 - Chronic atrial fibrillation SNOMED: 339510184 (4) Dehydration ICD Codes: E86.0 - Dehydration SNOMED: 46588512 (5) Sepsis ICD Codes: A41.9 - Sepsis SNOMED: 41342265 Qualifiers: Qualified Codes: A41.9 - Sepsis, unspecified organism (6) History of CVA (cerebrovascular accident) ICD Codes: Z86.73 - Personal history of transient ischemic attack (TIA), and cerebral infarction without residual deficits SNOMED: 096987671 Assessment/Plan bradycardia for which i consulted dr alford ordered labs sepsis Subjective ROS Limited/Unobtainable: Yes Constitutional: Reports: no symptoms Allergies: Coded Allergies: No Known Allergies (Unverified , 12/08/13) Objective Last 24 Hour Vital Signs Date Time Temp Pulse Resp B/P Pulse Ox O2 Delivery O2 Flow Rate FiO2 07/31/16 11:37 97.1 71 20 108/62 99 Nasal Cannula 2.0 07/31/16 08:36 72 07/31/16 08:35 72 118/64 07/31/16 08:03 96.9 65 20 118/64 98 Nasal Cannula 2.0 07/31/16 04:10 98.8 62 21 136/71 100 Nasal Cannula 2.0 07/31/16 04:00 57 07/31/16 00:27 98.6 73 21 152/85 97 Nasal Cannula 2.0 07/31/16 00:00 57 07/30/16 20:00 60 07/30/16 20:00 97.8 75 21 127/70 98 Nasal Cannula 2.0 07/30/16 16:00 97.9 77 22 127/74 96 Nasal Cannula 2.0 07/30/16 16:00 51 Intake and Output 07/30/16 07/31/16 19:00 07:00 Intake Total 580 ml 426.6 ml Output Total 200 ml 900 ml Balance 380 ml -473.4 ml Intake Free Water 100 ml IV Total 366.6 ml Tube Feeding 480 ml 60 ml Output Urine Total 200 ml 900 ml # Bowel Movements 2 1 Laboratory Tests 07/31/16 01:00: Random Vancomycin Level 16.2 07/31/16 09:15: White Blood Count 8.9, Red Blood Count 4.08L, Hemoglobin 13.0L, Hematocrit 38.8L , Mean Corpuscular Volume 95, Mean Corpuscular Hemoglobin 31.9H, Mean Corpuscular Hemoglobin Concent 33.6, Red Cell Distribution Width 13.0, Platelet Count 277, Mean Platelet Volume 9.9, Neutrophils (%) (Auto) 59.1, Lymphocytes (% ) (Auto) 28.1, Monocytes (%) (Auto) 7.1, Eosinophils (%) (Auto) 4.7H, Basophils (%) (Auto) 1.1, Sodium Level 138, Potassium Level 3.7, Chloride Level 98, Carbon Dioxide Level 25, Anion Gap 15, Blood Urea Nitrogen 16, Creatinine 0.9, Estimat Glomerular Filtration Rate , Glucose Level 142H, Calcium Level 9.0, Total Bilirubin 0.4, Aspartate Amino Transf (AST/SGOT) 21, Alanine Aminotransferase (ALT/SGPT) 19, Alkaline Phosphatase 88, Total Creatine Kinase 197H, Creatine Kinase MB < 1.5, Creatine Kinase MB Relative Index , Troponin I < 0.30, Total Protein 7.6, Albumin 3.6, Globulin 4.0, Albumin/Globulin Ratio 0.9L, Thyroid Stimulating Hormone (TSH) 3.360, Free Thyroxine 1.33 Height (Feet): 5 Height (Inches): 10.00 Weight (Pounds): 179 EENT: PERRL/EOMI Neck: supple Cardiovascular: normal rate Seamus Garcia MD Jul 31, 2016 12:34
--- NOTE | 2016-07-31 13:06 | General Progress Note ---
Assessment/Plan Assessment/Plan ASSESSMENT: 1. Leukocytosis likely secondary to underlying uti - has improved 2. Healthcare associated pneumonia. 3. Anemia of chronic disease 4. Decreased h/h, rule out gastrointestinal bleed. 5. Sepsis shock 6. Functional quadriplegia. 7. Proteinuria. 8. Atrial fibrillation on digoxin. RECOMMENDATIONS: 1. Peripheral smear reviewed, no abml 2. Antibiotics per ID service. 3. Follow up counts 4. DVT ppx with heparin sq 5. Pain control . 6. GI ppx with PPI 7. DW staff. Thank you, Raul Tapia MD Subjective Constitutional: Reports: no symptoms HEENT: Reports: no symptoms Cardiovascular: Reports: no symptoms Respiratory: Reports: no symptoms Gastrointestinal/Abdominal: Reports: poor appetite Genitourinary: Reports: no symptoms Neurologic/Psychiatric: Reports: no symptoms Endocrine: Reports: no symptoms Hematologic/Lymphatic: Reports: anemia Allergies: Coded Allergies: No Known Allergies (Unverified , 12/08/13) Subjective stable, no events overnight, no fevers, or chills, is sleeping Objective Last 24 Hour Vital Signs Date Time Temp Pulse Resp B/P Pulse Ox O2 Delivery O2 Flow Rate FiO2 07/31/16 11:37 97.1 71 20 108/62 99 Nasal Cannula 2.0 07/31/16 08:36 72 07/31/16 08:35 72 118/64 07/31/16 08:03 96.9 65 20 118/64 98 Nasal Cannula 2.0 07/31/16 04:10 98.8 62 21 136/71 100 Nasal Cannula 2.0 07/31/16 04:00 57 07/31/16 00:27 98.6 73 21 152/85 97 Nasal Cannula 2.0 07/31/16 00:00 57 07/30/16 20:00 60 07/30/16 20:00 97.8 75 21 127/70 98 Nasal Cannula 2.0 07/30/16 16:00 97.9 77 22 127/74 96 Nasal Cannula 2.0 07/30/16 16:00 51 Intake and Output 07/30/16 07/31/16 19:00 07:00 Intake Total 580 ml 426.6 ml Output Total 200 ml 900 ml Balance 380 ml -473.4 ml Intake Free Water 100 ml IV Total 366.6 ml Tube Feeding 480 ml 60 ml Output Urine Total 200 ml 900 ml # Bowel Movements 2 1 Laboratory Tests 07/31/16 01:00: Random Vancomycin Level 16.2 07/31/16 09:15: White Blood Count 8.9, Red Blood Count 4.08L, Hemoglobin 13.0L, Hematocrit 38.8L , Mean Corpuscular Volume 95, Mean Corpuscular Hemoglobin 31.9H, Mean Corpuscular Hemoglobin Concent 33.6, Red Cell Distribution Width 13.0, Platelet Count 277, Mean Platelet Volume 9.9, Neutrophils (%) (Auto) 59.1, Lymphocytes (% ) (Auto) 28.1, Monocytes (%) (Auto) 7.1, Eosinophils (%) (Auto) 4.7H, Basophils (%) (Auto) 1.1, Sodium Level 138, Potassium Level 3.7, Chloride Level 98, Carbon Dioxide Level 25, Anion Gap 15, Blood Urea Nitrogen 16, Creatinine 0.9, Estimat Glomerular Filtration Rate , Glucose Level 142H, Calcium Level 9.0, Total Bilirubin 0.4, Aspartate Amino Transf (AST/SGOT) 21, Alanine Aminotransferase (ALT/SGPT) 19, Alkaline Phosphatase 88, Total Creatine Kinase 197H, Creatine Kinase MB < 1.5, Creatine Kinase MB Relative Index , Troponin I < 0.30, Total Protein 7.6, Albumin 3.6, Globulin 4.0, Albumin/Globulin Ratio 0.9L, Thyroid Stimulating Hormone (TSH) 3.360, Free Thyroxine 1.33 Height (Feet): 5 Height (Inches): 10.00 Weight (Pounds): 179 General Appearance: no apparent distress EENT: TMs normal Neck: supple Cardiovascular: regular rhythm Respiratory/Chest: no respiratory distress Abdomen: soft Pelvis: no masses Extremities: normal inspection Edema: 1+ Leg (L), 1+ Leg (R) Edema: mild edema Neurologic: oriented x 3 Skin: warm/dry Raul Tapia Jul 31, 2016 13:06
--- NOTE | 2016-07-31 14:27 | Pulmonology Progress Note ---
Assessment/Plan Problems: (1) Sepsis (2) Chronic a-fib (3) HTN (hypertension) (4) History of CVA (cerebrovascular accident) (5) COPD (chronic obstructive pulmonary disease) Assessment/Plan wbc lower cultures pending iv fluids iv antibiotics/ on Ertapenem respiratory treatment dvt prophylaxis Subjective ROS Limited/Unobtainable: Yes Interval Events: looks comfortable Allergies: Coded Allergies: No Known Allergies (Unverified , 12/08/13) Objective Last 24 Hour Vital Signs Date Time Temp Pulse Resp B/P Pulse Ox O2 Delivery O2 Flow Rate FiO2 07/31/16 11:37 97.1 71 20 108/62 99 Nasal Cannula 2.0 07/31/16 08:36 72 07/31/16 08:35 72 118/64 07/31/16 08:03 96.9 65 20 118/64 98 Nasal Cannula 2.0 07/31/16 04:10 98.8 62 21 136/71 100 Nasal Cannula 2.0 07/31/16 04:00 57 07/31/16 00:27 98.6 73 21 152/85 97 Nasal Cannula 2.0 07/31/16 00:00 57 07/30/16 20:00 60 07/30/16 20:00 97.8 75 21 127/70 98 Nasal Cannula 2.0 07/30/16 16:00 97.9 77 22 127/74 96 Nasal Cannula 2.0 07/30/16 16:00 51 Intake and Output 07/30/16 07/31/16 19:00 07:00 Intake Total 580 ml 426.6 ml Output Total 200 ml 900 ml Balance 380 ml -473.4 ml Intake Free Water 100 ml IV Total 366.6 ml Tube Feeding 480 ml 60 ml Output Urine Total 200 ml 900 ml # Bowel Movements 2 1 Objective General Appearance: WD/WN HEENT: normocephalic, atraumatic Respiratory/Chest: chest wall non-tender, lungs clear Cardiovascular: normal peripheral pulses, normal rate Abdomen: normal bowel sounds, soft, non tender, other - peg in place Extremities: no cyanosis, no clubbing Skin: no rash Laboratory Tests Microbiology Date/Time Source Procedure Growth Status 07/30/16 23:00 Stool Clostridium difficile Toxin Assay - Final Complete Laboratory Tests 07/31/16 01:00: Random Vancomycin Level 16.2 07/31/16 09:15: White Blood Count 8.9, Red Blood Count 4.08L, Hemoglobin 13.0L, Hematocrit 38.8L , Mean Corpuscular Volume 95, Mean Corpuscular Hemoglobin 31.9H, Mean Corpuscular Hemoglobin Concent 33.6, Red Cell Distribution Width 13.0, Platelet Count 277, Mean Platelet Volume 9.9, Neutrophils (%) (Auto) 59.1, Lymphocytes (% ) (Auto) 28.1, Monocytes (%) (Auto) 7.1, Eosinophils (%) (Auto) 4.7H, Basophils (%) (Auto) 1.1, Sodium Level 138, Potassium Level 3.7, Chloride Level 98, Carbon Dioxide Level 25, Anion Gap 15, Blood Urea Nitrogen 16, Creatinine 0.9, Estimat Glomerular Filtration Rate , Glucose Level 142H, Calcium Level 9.0, Total Bilirubin 0.4, Aspartate Amino Transf (AST/SGOT) 21, Alanine Aminotransferase (ALT/SGPT) 19, Alkaline Phosphatase 88, Total Creatine Kinase 197H, Creatine Kinase MB < 1.5, Creatine Kinase MB Relative Index , Troponin I < 0.30, Total Protein 7.6, Albumin 3.6, Globulin 4.0, Albumin/Globulin Ratio 0.9L, Thyroid Stimulating Hormone (TSH) 3.360, Free Thyroxine 1.33 Current Medications Medications (Trade) Dose Ordered Sig/Omi Route PRN Reason Start Time Stop Time Status Last Admin Dose Admin Acetaminophen (Tylenol) 650 mg Q4H PRN ORAL T>100.5 07/25/16 07:00 08/24/16 06:59 Amlodipine Besylate (Norvasc) 10 mg DAILY GT 07/25/16 09:00 08/24/16 08:59 07/31/16 08:35 Collagenase (Santyl) 1 applic DAILY TOPIC 07/27/16 12:00 08/26/16 11:59 07/31/16 08:35 Digoxin 0.125 mg 0.125 mg DAILY GT 07/25/16 09:00 08/24/16 08:59 07/31/16 08:36 Ertapenem/Sodium Chloride (INVanz/Sodium Chloride) 55 ml @ 110 mls/hr Q24H IVPB 07/27/16 10:00 08/01/16 09:59 07/31/16 09:55 Heparin Sodium (Porcine) (Heparin 5000 units/ml) 5,000 units EVERY 12 HOURS SUBQ 07/25/16 09:00 08/24/16 08:59 07/31/16 10:01 Morphine Sulfate (Morphine Sulfate) 2 mg Q4H PRN IVP PAIN 4-10 07/25/16 07:00 08/01/16 06:59 07/29/16 12:12 Nitroglycerin (Ntg) 0.4 mg Q5MIN X 3 DOSES PRN SL Prn Chest Pain 07/25/16 07:15 08/24/16 07:14 Ondansetron HCl (Zofran) 4 mg Q6H PRN IVP Nausea & Vomiting 07/25/16 07:00 08/24/16 06:59 Pantoprazole 40 mg 40 mg DAILY IVP 07/26/16 09:00 08/25/16 08:59 07/31/16 08:35 Polyethylene Glycol (Miralax) 17 gm DAILYPRN PRN ORAL Constipation 07/25/16 07:00 08/24/16 06:59 Temazepam (Restoril) 15 mg HSPRN PRN ORAL Insomnia 07/25/16 21:00 08/01/16 20:59 Vancomycin HCl (Vanco rx to dose) 1 ea DAILY PRN MISC . 07/25/16 07:15 08/24/16 07:14 Vancomycin HCl/ Dextrose (Vancomycin/D5W) 275 ml @ 183.3 mls/ hr Q24H IVPB 07/26/16 02:00 08/01/16 01:59 07/31/16 02:54 BOB IGNACIO Jul 31, 2016 14:27
--- NOTE | 2016-07-31 14:51 | Cardiac Electrophysiology PN ---
Subjective Subjective [id number] Objective Last 24 Hour Vital Signs Date Time Temp Pulse Resp B/P Pulse Ox O2 Delivery O2 Flow Rate FiO2 07/31/16 11:37 97.1 71 20 108/62 99 Nasal Cannula 2.0 07/31/16 08:36 72 07/31/16 08:35 72 118/64 07/31/16 08:03 96.9 65 20 118/64 98 Nasal Cannula 2.0 07/31/16 04:10 98.8 62 21 136/71 100 Nasal Cannula 2.0 07/31/16 04:00 57 07/31/16 00:27 98.6 73 21 152/85 97 Nasal Cannula 2.0 07/31/16 00:00 57 07/30/16 20:00 60 07/30/16 20:00 97.8 75 21 127/70 98 Nasal Cannula 2.0 07/30/16 16:00 97.9 77 22 127/74 96 Nasal Cannula 2.0 07/30/16 16:00 51 Intake and Output 07/30/16 07/31/16 19:00 07:00 Intake Total 580 ml 426.6 ml Output Total 200 ml 900 ml Balance 380 ml -473.4 ml Intake Free Water 100 ml IV Total 366.6 ml Tube Feeding 480 ml 60 ml Output Urine Total 200 ml 900 ml # Bowel Movements 2 1 Laboratory Tests Test 07/31/16 01:00 07/31/16 09:15 Random Vancomycin Level 16.2 ug/mL White Blood Count 8.9 K/UL (4.8-10.8) Red Blood Count 4.08 M/UL (4.70-6.10) L Hemoglobin 13.0 G/DL (14.2-18.0) L Hematocrit 38.8 % (42.0-52.0) L Mean Corpuscular Volume 95 FL (80-99) Mean Corpuscular Hemoglobin 31.9 PG (27.0-31.0) H Mean Corpuscular Hemoglobin Concent 33.6 G/DL (32.0-36.0) Red Cell Distribution Width 13.0 % (11.6-14.8) Platelet Count 277 K/UL (150-450) Mean Platelet Volume 9.9 FL (6.5-10.1) Neutrophils (%) (Auto) 59.1 % (45.0-75.0) Lymphocytes (%) (Auto) 28.1 % (20.0-45.0) Monocytes (%) (Auto) 7.1 % (1.0-10.0) Eosinophils (%) (Auto) 4.7 % (0.0-3.0) H Basophils (%) (Auto) 1.1 % (0.0-2.0) Sodium Level 138 mEQ/L (135-145) Potassium Level 3.7 mEQ/L (3.4-4.9) Chloride Level 98 mEQ/L (98-107) Carbon Dioxide Level 25 mEQ/L (20-30) Anion Gap 15 (5-15) Blood Urea Nitrogen 16 mg/dL (7-23) Creatinine 0.9 mg/dL (0.7-1.2) Estimat Glomerular Filtration Rate mL/min (>60) Glucose Level 142 mg/dL (74-106) H Calcium Level 9.0 mg/dL (8.6-10.2) Total Bilirubin 0.4 mg/dL (0.0-1.2) Aspartate Amino Transf (AST/SGOT) 21 U/L (5-40) Alanine Aminotransferase (ALT/SGPT) 19 U/L (3-41) Alkaline Phosphatase 88 U/L (40-129) Total Creatine Kinase 197 U/L (38-174) H Creatine Kinase MB < 1.5 ng/mL (< 6.7) Creatine Kinase MB Relative Index Troponin I < 0.30 ng/mL (<=0.30) Total Protein 7.6 g/dL (6.6-8.7) Albumin 3.6 g/dL (3.5-5.2) Globulin 4.0 g/dL Albumin/Globulin Ratio 0.9 (1.0-2.7) L Thyroid Stimulating Hormone (TSH) 3.360 uIU/mL (0.300-4.500) Free Thyroxine 1.33 ng/dL (0.86-1.85) Microbiology Date/Time Source Procedure Growth Status 07/30/16 23:00 Stool Clostridium difficile Toxin Assay - Final Complete TRINIDAD RUBY Jul 31, 2016 14:51
--- NOTE | 2016-07-31 15:50 | Infectious Diseases Prog Note ---
Assessment/Plan Problems: (1) Cellulitis of right foot Assessment & Plan: with no evidence of osteomyelitis on MRI , will treat with vancomycin and ertapenem for two weeks total. EOT 08/10/16 (2) HCAP (healthcare-associated pneumonia) Assessment & Plan: on vancomycin and ertapenem empiric therapy for 10 days (3) UTI (urinary tract infection) Assessment & Plan: culture grew ESBL + proteus mirabilis, continue ertapenem for 14 days (4) Sepsis Assessment & Plan: blood culture is pending . continue vancomycin and ertapenem , pharmacy to monitor vancomycin trough and to keep between 15-20 (5) History of CVA (cerebrovascular accident) Assessment & Plan: stable, continue meds (6) Open back wound Assessment & Plan: presented on admission, infected with ESBL + proteus mirabilis on ertapenem and vancomycin for two weeks , EOT 08/10/16. continue local wound care and off loading Subjective ROS Limited/Unobtainable: Yes Allergies: Coded Allergies: No Known Allergies (Unverified , 12/08/13) Subjective he is demented lying in bed, not in distress , comfortable. afebrile Objective Vital Signs Last 24 Hour Vital Signs Date Time Temp Pulse Resp B/P Pulse Ox O2 Delivery O2 Flow Rate FiO2 07/31/16 11:37 97.1 71 20 108/62 99 Nasal Cannula 2.0 07/31/16 11:27 47 07/31/16 08:36 72 07/31/16 08:35 72 118/64 07/31/16 08:03 96.9 65 20 118/64 98 Nasal Cannula 2.0 07/31/16 07:34 66 07/31/16 04:10 98.8 62 21 136/71 100 Nasal Cannula 2.0 07/31/16 04:00 57 07/31/16 00:27 98.6 73 21 152/85 97 Nasal Cannula 2.0 07/31/16 00:00 57 07/30/16 20:00 60 07/30/16 20:00 97.8 75 21 127/70 98 Nasal Cannula 2.0 07/30/16 16:00 97.9 77 22 127/74 96 Nasal Cannula 2.0 07/30/16 16:00 51 Height (Feet): 5 Height (Inches): 10.00 Weight (Pounds): 179 General Appearance: WD/WN, no acute distress HEENT: normocephalic, atraumatic, anicteric, mucous membranes moist Respiratory/Chest: chest wall non-tender, lungs clear, normal breath sounds, no respiratory distress, no accessory muscle use Cardiovascular: normal peripheral pulses, normal rate, regular rhythm, no gallop/murmur Abdomen: normal bowel sounds, soft, non tender, no organomegaly, non distended , no mass Extremities: no cyanosis, no clubbing, other - ankle wound with cellulitis Skin: no rash Microbiology Date/Time Source Procedure Growth Status 07/30/16 23:00 Stool Clostridium difficile Toxin Assay - Final Complete Laboratory Tests Test 07/31/16 01:00 07/31/16 09:15 Random Vancomycin Level 16.2 ug/mL White Blood Count 8.9 K/UL (4.8-10.8) Red Blood Count 4.08 M/UL (4.70-6.10) L Hemoglobin 13.0 G/DL (14.2-18.0) L Hematocrit 38.8 % (42.0-52.0) L Mean Corpuscular Volume 95 FL (80-99) Mean Corpuscular Hemoglobin 31.9 PG (27.0-31.0) H Mean Corpuscular Hemoglobin Concent 33.6 G/DL (32.0-36.0) Red Cell Distribution Width 13.0 % (11.6-14.8) Platelet Count 277 K/UL (150-450) Mean Platelet Volume 9.9 FL (6.5-10.1) Neutrophils (%) (Auto) 59.1 % (45.0-75.0) Lymphocytes (%) (Auto) 28.1 % (20.0-45.0) Monocytes (%) (Auto) 7.1 % (1.0-10.0) Eosinophils (%) (Auto) 4.7 % (0.0-3.0) H Basophils (%) (Auto) 1.1 % (0.0-2.0) Sodium Level 138 mEQ/L (135-145) Potassium Level 3.7 mEQ/L (3.4-4.9) Chloride Level 98 mEQ/L (98-107) Carbon Dioxide Level 25 mEQ/L (20-30) Anion Gap 15 (5-15) Blood Urea Nitrogen 16 mg/dL (7-23) Creatinine 0.9 mg/dL (0.7-1.2) Estimat Glomerular Filtration Rate mL/min (>60) Glucose Level 142 mg/dL (74-106) H Calcium Level 9.0 mg/dL (8.6-10.2) Total Bilirubin 0.4 mg/dL (0.0-1.2) Aspartate Amino Transf (AST/SGOT) 21 U/L (5-40) Alanine Aminotransferase (ALT/SGPT) 19 U/L (3-41) Alkaline Phosphatase 88 U/L (40-129) Total Creatine Kinase 197 U/L (38-174) H Creatine Kinase MB < 1.5 ng/mL (< 6.7) Creatine Kinase MB Relative Index Troponin I < 0.30 ng/mL (<=0.30) Total Protein 7.6 g/dL (6.6-8.7) Albumin 3.6 g/dL (3.5-5.2) Globulin 4.0 g/dL Albumin/Globulin Ratio 0.9 (1.0-2.7) L Thyroid Stimulating Hormone (TSH) 3.360 uIU/mL (0.300-4.500) Free Thyroxine 1.33 ng/dL (0.86-1.85) Current Medications Medications (Trade) Dose Ordered Sig/Omi Route PRN Reason Start Time Stop Time Status Last Admin Dose Admin Acetaminophen (Tylenol) 650 mg Q4H PRN ORAL T>100.5 07/25/16 07:00 08/24/16 06:59 Amlodipine Besylate 10 mg 10 mg DAILY GT 07/25/16 09:00 08/24/16 08:59 07/31/16 08:35 Collagenase (Santyl) 1 applic DAILY TOPIC 07/27/16 12:00 08/26/16 11:59 07/31/16 08:35 Ertapenem/Sodium Chloride (INVanz/Sodium Chloride) 55 ml @ 110 mls/hr Q24H IVPB 07/27/16 10:00 08/08/16 09:59 07/31/16 09:55 Heparin Sodium (Porcine) (Heparin 5000 units/ml) 5,000 units EVERY 12 HOURS SUBQ 07/25/16 09:00 08/24/16 08:59 07/31/16 10:01 Morphine Sulfate (Morphine Sulfate) 2 mg Q4H PRN IVP PAIN 4-10 07/25/16 07:00 08/01/16 06:59 07/29/16 12:12 Nitroglycerin (Ntg) 0.4 mg Q5MIN X 3 DOSES PRN SL Prn Chest Pain 07/25/16 07:15 08/24/16 07:14 Ondansetron HCl (Zofran) 4 mg Q6H PRN IVP Nausea & Vomiting 07/25/16 07:00 08/24/16 06:59 Pantoprazole 40 mg 40 mg DAILY IVP 07/26/16 09:00 08/25/16 08:59 07/31/16 08:35 Polyethylene Glycol (Miralax) 17 gm DAILYPRN PRN ORAL Constipation 07/25/16 07:00 08/24/16 06:59 Temazepam (Restoril) 15 mg HSPRN PRN ORAL Insomnia 07/25/16 21:00 08/01/16 20:59 Vancomycin HCl (Vanco rx to dose) 1 ea DAILY PRN MISC . 07/25/16 07:15 08/24/16 07:14 Vancomycin HCl/ Dextrose (Vancomycin/D5W) 275 ml @ 183.3 mls/ hr Q24H IVPB 07/26/16 02:00 08/08/16 01:59 07/31/16 02:54 Karla Stringer M.D. Jul 31, 2016 15:50
[2016-07-31 16:00] VITALS: BP 144/68
[2016-07-31 20:00] VITALS: BP 125/85
--- NOTE | 2016-07-31 21:55 | General Progress Note ---
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 Objective Last 24 Hour Vital Signs Date Time Temp Pulse Resp B/P Pulse Ox O2 Delivery O2 Flow Rate FiO2 07/31/16 16:00 97.9 68 20 144/68 98 Room Air 07/31/16 11:37 97.1 71 20 108/62 99 Nasal Cannula 2.0 07/31/16 11:27 47 07/31/16 08:36 72 07/31/16 08:35 72 118/64 07/31/16 08:03 96.9 65 20 118/64 98 Nasal Cannula 2.0 07/31/16 07:34 66 07/31/16 04:10 98.8 62 21 136/71 100 Nasal Cannula 2.0 07/31/16 04:00 57 07/31/16 00:27 98.6 73 21 152/85 97 Nasal Cannula 2.0 07/31/16 00:00 57 Intake and Output 07/30/16 07/31/16 19:00 07:00 Intake Total 580 ml 426.6 ml Output Total 200 ml 900 ml Balance 380 ml -473.4 ml Intake Free Water 100 ml IV Total 366.6 ml Tube Feeding 480 ml 60 ml Output Urine Total 200 ml 900 ml # Bowel Movements 2 1 Laboratory Tests 07/31/16 01:00: Random Vancomycin Level 16.2 07/31/16 09:15: White Blood Count 8.9, Red Blood Count 4.08L, Hemoglobin 13.0L, Hematocrit 38.8L , Mean Corpuscular Volume 95, Mean Corpuscular Hemoglobin 31.9H, Mean Corpuscular Hemoglobin Concent 33.6, Red Cell Distribution Width 13.0, Platelet Count 277, Mean Platelet Volume 9.9, Neutrophils (%) (Auto) 59.1, Lymphocytes (% ) (Auto) 28.1, Monocytes (%) (Auto) 7.1, Eosinophils (%) (Auto) 4.7H, Basophils (%) (Auto) 1.1, Sodium Level 138, Potassium Level 3.7, Chloride Level 98, Carbon Dioxide Level 25, Anion Gap 15, Blood Urea Nitrogen 16, Creatinine 0.9, Estimat Glomerular Filtration Rate , Glucose Level 142H, Calcium Level 9.0, Total Bilirubin 0.4, Aspartate Amino Transf (AST/SGOT) 21, Alanine Aminotransferase (ALT/SGPT) 19, Alkaline Phosphatase 88, Total Creatine Kinase 197H, Creatine Kinase MB < 1.5, Creatine Kinase MB Relative Index , Troponin I < 0.30, Total Protein 7.6, Albumin 3.6, Globulin 4.0, Albumin/Globulin Ratio 0.9L, Thyroid Stimulating Hormone (TSH) 3.360, Free Thyroxine 1.33 Height (Feet): 5 Height (Inches): 10.00 Weight (Pounds): 179 Objective WDWN WM NCAT supple CTA RRR Soft NT ND, (+) GT no edema OBS ALMAZ VIVAS Jul 31, 2016 21:55
[2016-08-01] VITALS (7 sets, daily range): BP systolic 117–148; BP diastolic 61–98
[2016-08-01] MEDS: Vancomycin 1.25 GM in D5W 275 ML IVPB SCH (03:14)
[2016-08-01 07:16] LABS: BASOPHILS % (AUTO) 1.2 % (0.0-2.0); EOSINOPHILS % (AUTO) 3.5 % (0.0-3.0); LYMPHOCYTES % (AUTO) 33.9 % (20.0-45.0); MEAN CORPUSCULAR HEMOGLOBIN 31.2 PG (27.0-31.0); MEAN CORPUSCULAR HGB CONC 32.7 G/DL (32.0-36.0); MEAN CORPUSCULAR VOLUME 96 FL (80-99); MEAN PLATELET VOLUME 10.6 FL (6.5-10.1); MONOCYTES % (AUTO) 7.1 % (1.0-10.0); NEUTROPHILS % (AUTO) 54.3 % (45.0-75.0); PLATELET COUNT 282 K/UL (150-450); RED BLOOD COUNT 4.07 M/UL (4.70-6.10); WHITE BLOOD COUNT 8.6 K/UL (4.8-10.8)
[2016-08-01 07:24] LABS: ALANINE AMINOTRANSFERASE 20 U/L (3-41); ALBUMIN/GLOBULIN RATIO 0.8 (1.0-2.7); ANION GAP 14 (5-15); ASPARTATE AMINO TRANSFERASE 25 U/L (5-40); CALCIUM 8.8 mg/dL (8.6-10.2); CARBON DIOXIDE 24 mEQ/L (20-30); CHLORIDE 99 mEQ/L (98-107); CREATININE 0.9 mg/dL (0.7-1.2); HEMOLYSIS 5; MAGNESIUM 2.1 mg/dL (1.7-2.5); PHOSPHORUS 2.9 mg/dL (2.5-4.8); POTASSIUM 4.1 mEQ/L (3.4-4.9); SODIUM 137 mEQ/L (135-145); TOTAL PROTEIN 7.6 g/dL (6.6-8.7)
[2016-08-01] MEDS: Pantoprazole Inj IVP SCH (08:45)
[2016-08-01] MEDS: Heparin 5000 units/ml inj SUBQ SCH ×2 (08:46→21:51)
--- NOTE | 2016-08-01 09:08 | Consultation ---
DATE OF CONSULTATION: CARDIOLOGY CONSULTATION: REFERRING PHYSICIAN: Seamus Garcia M.D. REASON FOR CONSULTATION: Management of hypertension and atrial fibrillation. 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 He was on vancomycin and was sent from residential for nausea and vomiting. The patient also has atrial fibrillation. On telemetry, he had bradycardia, heart rate down to 50. His white count was 24.6 with evidence of urinary tract infection. Cardiology consultation was requested for further evaluation and management. PAST MEDICAL HISTORY: 1. Hypertension. 2. Atrial fibrillation. 3. History of G-tube placement. 4. Decubitus wound ulcer. 5. Diabetes. 6. Cardioplegia. 7. Contractures. 8. CVA. 9. Dysphagia. PAST SURGICAL HISTORY: G-tube placement. CURRENT MEDICATIONS: Per reconciliation. ALLERGIES: He has no known drug allergies. SOCIAL HISTORY: He lives in residential. Does not smoke or drink alcohol. REVIEW OF SYSTEMS: Cannot be obtained. PHYSICAL EXAMINATION: VITAL SIGNS: Blood pressure is 108/62, pulse 71, respirations 20, and temperature 97.1 degrees. NECK: Shows no JVD. LUNGS: Coarse rhonchi. CARDIOVASCULAR: Shows regular S1 and S2 with no gallop or murmur. ABDOMEN: Soft with gastrostomy tube. EXTREMITIES: Contracted. LABORATORY AND DIAGNOSTIC DATA: His EKG shows atrial fibrillation, rate of 70. Telemetry strip showed heart rate down to 50. His echocardiogram showed ejection fraction of 60% with mild left ventricular hypertrophy. No aortic regurgitation. His labs show white count initially was 24.8 and currently 8.9, hemoglobin 13, hematocrit 38, and platelets 277,000. Sodium 138, potassium 3.7, BUN 16, creatinine 0.9, and glucose of 143. Troponin is negative. T4 and TSH within normal range. His INR is 1. ASSESSMENT AND PLAN: 1. Chronic atrial fibrillation. The patient is on digoxin 0.125 mg daily. 2. Bradycardia. Discontinue digoxin and continue to watch patient on telemetry. The patient has a high risk of recurrence of stroke. anticoagulate however. 3. We need to have clearance. 4. History of hypertension, on Norvasc 10 mg daily. 5. Sepsis. On vancomycin and ertapenem per Infectious Diseases. 6. Right ankle osteomyelitis lateral malleolus, draining pus material. Thank very much, Dr. Garcia, for allowing me to participate in the care of this patient. Please do not hesitate to contact me for any questions regarding my evaluation. Juan Ramon Saeed M.D. DR: Franko JOB#: [id number] CC:
--- NOTE | 2016-08-01 09:14 | Cardiology Report ---
APPROVED REPORT EXAM: Two-dimensional and M-mode echocardiogram with Doppler and color Doppler. INDICATION Bradycardia M-Mode DIMENSIONS IVSd1.3 (0.7-1.1cm)Left Atrium (MM)4.5 (1.6-4.0cm) LVDd4.7 (3.5-5.6cm)Aortic Root2.6 (2.0-3.7cm) PWd1.2 (0.7-1.1cm)Aortic Cusp Exc.1.9 (1.5-2.0cm) LVDs3.5 (2.5-4.0cm) PWs1.0 cm Technically difficult study due to pts position. Normal left ventricular chamber size, systolic function and wall motion to extent visualized. Left ventricular ejection fraction estimated to be 60 %. Mild left ventricular hypertrophy. Anterior Echo-free space, may be due to pericardial fat or effusion. Mild left atrial enlargement. Right atrial size at upper limits of normal. Right ventricular chamber size is within normal limits. Moderate focal aortic valve sclerosis with adequate cusp excursion. Thickened mitral valve leaflets with normal excursion. Mitral annulus and aortic root calcification. Pulmonic valve not well visualized. Normal tricuspid valve structure. Subcostal views unobtaineable due to G-tube. A color flow and spectral Doppler study was performed and revealed: No aortic regurgitation. Mild mitral regurgitation. Can not determine left ventricular diastolic function by mitral diastolic velocities due to atrial fibrillation. Mild tricuspid regurgitation. Tricuspid systolic velocities suggests peak right ventricular systolic pressure of 45 mmHg, consistent with borderline moderate pulmonary hypertension. Mild pulmonic regurgitation present.
[2016-08-01] MEDS: Ertapenem 1 GM in NS 55 ML IVPB SCH (10:42)
--- NOTE | 2016-08-01 12:04 | General Progress Note ---
Assessment/Plan Problem List: (1) HTN (hypertension) ICD Codes: I10 - Essential (primary) hypertension SNOMED: 49629718 (2) UTI (urinary tract infection) ICD Codes: N39.0 - Urinary tract infection, site not specified SNOMED: 27199206 Qualifiers: Qualified Codes: N30.00 - Acute cystitis without hematuria (3) Chronic a-fib ICD Codes: I48.2 - Chronic atrial fibrillation SNOMED: 292906320 (4) Dehydration ICD Codes: E86.0 - Dehydration SNOMED: 15975696 (5) Sepsis ICD Codes: A41.9 - Sepsis SNOMED: 56217238 Qualifiers: Qualified Codes: A41.9 - Sepsis, unspecified organism (6) History of CVA (cerebrovascular accident) ICD Codes: Z86.73 - Personal history of transient ischemic attack (TIA), and cerebral infarction without residual deficits SNOMED: 471069587 Status: progressing Assessment/Plan bradycardia for which i consulted dr alford ordered labs sepsis bradycardiac awaiting clearance by dr alford in order to dc Subjective ROS Limited/Unobtainable: Yes Constitutional: Reports: no symptoms Allergies: Coded Allergies: No Known Allergies (Unverified , 12/08/13) Objective Last 24 Hour Vital Signs Date Time Temp Pulse Resp B/P Pulse Ox O2 Delivery O2 Flow Rate FiO2 08/01/16 11:52 97.5 47 20 136/71 96 Nasal Cannula 2.0 08/01/16 08:48 54 123/61 08/01/16 08:22 97.9 54 20 123/61 97 Nasal Cannula 2.0 08/01/16 04:09 98.7 68 20 117/80 98 Nasal Cannula 2.0 08/01/16 04:00 63 08/01/16 00:21 98.1 77 21 148/98 96 Nasal Cannula 2.0 08/01/16 00:00 57 07/31/16 20:00 55 07/31/16 20:00 97.9 64 18 125/85 Nasal Cannula 2.0 92 07/31/16 16:00 97.9 68 20 144/68 98 Room Air Intake and Output 07/31/16 08/01/16 19:00 07:00 Intake Total 420 ml 366.6 ml Output Total 150 ml 800 ml Balance 270 ml -433.4 ml IV Total 366.6 ml Tube Feeding 420 ml Output Urine Total 150 ml 800 ml # Bowel Movements 2 3 Laboratory Tests 08/01/16 06:10: White Blood Count 8.6, Red Blood Count 4.07L, Hemoglobin 12.7L, Hematocrit 38.9L , Mean Corpuscular Volume 96, Mean Corpuscular Hemoglobin 31.2H, Mean Corpuscular Hemoglobin Concent 32.7, Red Cell Distribution Width 13.0, Platelet Count 282, Mean Platelet Volume 10.6H, Neutrophils (%) (Auto) 54.3, Lymphocytes (%) (Auto) 33.9, Monocytes (%) (Auto) 7.1, Eosinophils (%) (Auto) 3.5H, Basophils (%) (Auto) 1.2, Sodium Level 137, Potassium Level 4.1, Chloride Level 99, Carbon Dioxide Level 24, Anion Gap 14, Blood Urea Nitrogen 16, Creatinine 0.9, Estimat Glomerular Filtration Rate , Glucose Level 139H, Calcium Level 8.8 , Phosphorus Level 2.9, Magnesium Level 2.1, Total Bilirubin 0.4, Aspartate Amino Transf (AST/SGOT) 25, Alanine Aminotransferase (ALT/SGPT) 20, Alkaline Phosphatase 94, Total Protein 7.6, Albumin 3.5, Globulin 4.1, Albumin/Globulin Ratio 0.8L Height (Feet): 5 Height (Inches): 10.00 Weight (Pounds): 179 EENT: PERRL/EOMI Neck: supple Cardiovascular: normal rate Respiratory/Chest: lungs clear Abdomen: soft Seamus Garcia MD Aug 01, 2016 12:04
--- NOTE | 2016-08-01 16:18 | Cardiac Electrophysiology PN ---
Assessment/Plan Assessment/Plan 1. Chronic atrial fibrillation. Keep off any AVN jaqui for bradycardia.Anticoagulation when OK with neurologist. 2. Bradycardia. Better off digoxin. HR 70s. 3. Hypertension, on Norvasc 10 mg daily. 5. Sepsis. On vancomycin and ertapenem per Infectious Diseases. 6. Right ankle osteomyelitis lateral malleolus, draining pus material. HELEN RN and Dr Garcia Subjective Subjective Heart rate was as low as 41 but was sleeping at 5 am. Non verbal in NAD. Objective Last 24 Hour Vital Signs Date Time Temp Pulse Resp B/P Pulse Ox O2 Delivery O2 Flow Rate FiO2 08/01/16 12:00 53 08/01/16 11:52 97.5 47 20 136/71 96 Nasal Cannula 2.0 08/01/16 08:48 54 123/61 08/01/16 08:22 97.9 54 20 123/61 97 Nasal Cannula 2.0 08/01/16 08:00 48 08/01/16 04:09 98.7 68 20 117/80 98 Nasal Cannula 2.0 08/01/16 04:00 63 08/01/16 00:21 98.1 77 21 148/98 96 Nasal Cannula 2.0 08/01/16 00:00 57 07/31/16 20:00 55 07/31/16 20:00 97.9 64 18 125/85 Nasal Cannula 2.0 92 Intake and Output 07/31/16 08/01/16 19:00 07:00 Intake Total 420 ml 366.6 ml Output Total 150 ml 800 ml Balance 270 ml -433.4 ml IV Total 366.6 ml Tube Feeding 420 ml Output Urine Total 150 ml 800 ml # Bowel Movements 2 3 Laboratory Tests Test 08/01/16 06:10 White Blood Count 8.6 K/UL (4.8-10.8) Red Blood Count 4.07 M/UL (4.70-6.10) L Hemoglobin 12.7 G/DL (14.2-18.0) L Hematocrit 38.9 % (42.0-52.0) L Mean Corpuscular Volume 96 FL (80-99) Mean Corpuscular Hemoglobin 31.2 PG (27.0-31.0) H Mean Corpuscular Hemoglobin Concent 32.7 G/DL (32.0-36.0) Red Cell Distribution Width 13.0 % (11.6-14.8) Platelet Count 282 K/UL (150-450) Mean Platelet Volume 10.6 FL (6.5-10.1) H Neutrophils (%) (Auto) 54.3 % (45.0-75.0) Lymphocytes (%) (Auto) 33.9 % (20.0-45.0) Monocytes (%) (Auto) 7.1 % (1.0-10.0) Eosinophils (%) (Auto) 3.5 % (0.0-3.0) H Basophils (%) (Auto) 1.2 % (0.0-2.0) Sodium Level 137 mEQ/L (135-145) Potassium Level 4.1 mEQ/L (3.4-4.9) Chloride Level 99 mEQ/L (98-107) Carbon Dioxide Level 24 mEQ/L (20-30) Anion Gap 14 (5-15) Blood Urea Nitrogen 16 mg/dL (7-23) Creatinine 0.9 mg/dL (0.7-1.2) Estimat Glomerular Filtration Rate mL/min (>60) Glucose Level 139 mg/dL (74-106) H Calcium Level 8.8 mg/dL (8.6-10.2) Phosphorus Level 2.9 mg/dL (2.5-4.8) Magnesium Level 2.1 mg/dL (1.7-2.5) Total Bilirubin 0.4 mg/dL (0.0-1.2) Aspartate Amino Transf (AST/SGOT) 25 U/L (5-40) Alanine Aminotransferase (ALT/SGPT) 20 U/L (3-41) Alkaline Phosphatase 94 U/L (40-129) Total Protein 7.6 g/dL (6.6-8.7) Albumin 3.5 g/dL (3.5-5.2) Globulin 4.1 g/dL Albumin/Globulin Ratio 0.8 (1.0-2.7) L Microbiology Date/Time Source Procedure Growth Status 07/30/16 23:00 Stool Clostridium difficile Toxin Assay - Final Complete Objective NECK: Shows no JVD. LUNGS: Coarse rhonchi. CARDIOVASCULAR: Irregular S1 and S2 with no gallop or murmur. ABDOMEN: Soft with gastrostomy tube. EXTREMITIES: Contracted. TRINIDAD RUBY Aug 01, 2016 16:18
--- NOTE | 2016-08-01 16:22 | Infectious Diseases Prog Note ---
Assessment/Plan Problems: (1) Cellulitis of right foot Assessment & Plan: with no evidence of osteomyelitis on MRI , will treat with vancomycin and ertapenem for two weeks total. EOT 08/10/16 (2) HCAP (healthcare-associated pneumonia) Assessment & Plan: on vancomycin and ertapenem empiric therapy for 10 days (3) UTI (urinary tract infection) Assessment & Plan: culture grew ESBL + proteus mirabilis, continue ertapenem for 14 days (4) Sepsis Assessment & Plan: blood culture is pending . continue vancomycin and ertapenem , pharmacy to monitor vancomycin trough and to keep between 15-20 (5) History of CVA (cerebrovascular accident) Assessment & Plan: stable, continue meds (6) Open back wound Assessment & Plan: presented on admission, infected with ESBL + proteus mirabilis on ertapenem and vancomycin for two weeks , EOT 08/10/16. continue local wound care and off loading Subjective ROS Limited/Unobtainable: Yes Allergies: Coded Allergies: No Known Allergies (Unverified , 12/08/13) Subjective he is demented lying in bed, not in distress , comfortable. afebrile Objective Vital Signs Last 24 Hour Vital Signs Date Time Temp Pulse Resp B/P Pulse Ox O2 Delivery O2 Flow Rate FiO2 08/01/16 12:00 53 08/01/16 11:52 97.5 47 20 136/71 96 Nasal Cannula 2.0 08/01/16 08:48 54 123/61 08/01/16 08:22 97.9 54 20 123/61 97 Nasal Cannula 2.0 08/01/16 08:00 48 08/01/16 04:09 98.7 68 20 117/80 98 Nasal Cannula 2.0 08/01/16 04:00 63 08/01/16 00:21 98.1 77 21 148/98 96 Nasal Cannula 2.0 08/01/16 00:00 57 07/31/16 20:00 55 07/31/16 20:00 97.9 64 18 125/85 Nasal Cannula 2.0 92 Height (Feet): 5 Height (Inches): 10.00 Weight (Pounds): 179 General Appearance: WD/WN, no acute distress HEENT: normocephalic, atraumatic, anicteric Respiratory/Chest: chest wall non-tender, lungs clear, normal breath sounds, no respiratory distress, no accessory muscle use Cardiovascular: normal peripheral pulses, normal rate, regular rhythm, no gallop/murmur Abdomen: normal bowel sounds, soft, non tender, no organomegaly, non distended , no mass Extremities: no cyanosis, no clubbing Skin: no rash, no lesions, ulcers Microbiology Date/Time Source Procedure Growth Status 07/30/16 23:00 Stool Clostridium difficile Toxin Assay - Final Complete Laboratory Tests Test 08/01/16 06:10 White Blood Count 8.6 K/UL (4.8-10.8) Red Blood Count 4.07 M/UL (4.70-6.10) L Hemoglobin 12.7 G/DL (14.2-18.0) L Hematocrit 38.9 % (42.0-52.0) L Mean Corpuscular Volume 96 FL (80-99) Mean Corpuscular Hemoglobin 31.2 PG (27.0-31.0) H Mean Corpuscular Hemoglobin Concent 32.7 G/DL (32.0-36.0) Red Cell Distribution Width 13.0 % (11.6-14.8) Platelet Count 282 K/UL (150-450) Mean Platelet Volume 10.6 FL (6.5-10.1) H Neutrophils (%) (Auto) 54.3 % (45.0-75.0) Lymphocytes (%) (Auto) 33.9 % (20.0-45.0) Monocytes (%) (Auto) 7.1 % (1.0-10.0) Eosinophils (%) (Auto) 3.5 % (0.0-3.0) H Basophils (%) (Auto) 1.2 % (0.0-2.0) Sodium Level 137 mEQ/L (135-145) Potassium Level 4.1 mEQ/L (3.4-4.9) Chloride Level 99 mEQ/L (98-107) Carbon Dioxide Level 24 mEQ/L (20-30) Anion Gap 14 (5-15) Blood Urea Nitrogen 16 mg/dL (7-23) Creatinine 0.9 mg/dL (0.7-1.2) Estimat Glomerular Filtration Rate mL/min (>60) Glucose Level 139 mg/dL (74-106) H Calcium Level 8.8 mg/dL (8.6-10.2) Phosphorus Level 2.9 mg/dL (2.5-4.8) Magnesium Level 2.1 mg/dL (1.7-2.5) Total Bilirubin 0.4 mg/dL (0.0-1.2) Aspartate Amino Transf (AST/SGOT) 25 U/L (5-40) Alanine Aminotransferase (ALT/SGPT) 20 U/L (3-41) Alkaline Phosphatase 94 U/L (40-129) Total Protein 7.6 g/dL (6.6-8.7) Albumin 3.5 g/dL (3.5-5.2) Globulin 4.1 g/dL Albumin/Globulin Ratio 0.8 (1.0-2.7) L Current Medications Medications (Trade) Dose Ordered Sig/Omi Route PRN Reason Start Time Stop Time Status Last Admin Dose Admin Acetaminophen (Tylenol) 650 mg Q4H PRN ORAL T>100.5 07/25/16 07:00 08/24/16 06:59 Amlodipine Besylate 10 mg 10 mg DAILY GT 07/25/16 09:00 08/24/16 08:59 07/31/16 08:35 Collagenase (Santyl) 1 applic DAILY TOPIC 07/27/16 12:00 08/26/16 11:59 08/01/16 08:45 Ertapenem/Sodium Chloride (INVanz/Sodium Chloride) 55 ml @ 110 mls/hr Q24H IVPB 07/27/16 10:00 08/08/16 09:59 08/01/16 10:42 Heparin Sodium (Porcine) (Heparin 5000 units/ml) 5,000 units EVERY 12 HOURS SUBQ 07/25/16 09:00 08/24/16 08:59 08/01/16 08:46 Nitroglycerin (Ntg) 0.4 mg Q5MIN X 3 DOSES PRN SL Prn Chest Pain 07/25/16 07:15 08/24/16 07:14 Ondansetron HCl (Zofran) 4 mg Q6H PRN IVP Nausea & Vomiting 07/25/16 07:00 08/24/16 06:59 Pantoprazole 40 mg 40 mg DAILY IVP 07/26/16 09:00 08/25/16 08:59 08/01/16 08:45 Polyethylene Glycol (Miralax) 17 gm DAILYPRN PRN ORAL Constipation 07/25/16 07:00 08/24/16 06:59 Temazepam (Restoril) 15 mg HSPRN PRN ORAL Insomnia 07/25/16 21:00 08/01/16 20:59 Vancomycin HCl (Vanco rx to dose) 1 ea DAILY PRN MISC . 07/25/16 07:15 08/24/16 07:14 Vancomycin HCl/ Dextrose (Vancomycin/D5W) 275 ml @ 183.3 mls/ hr Q24H IVPB 07/26/16 02:00 08/08/16 01:59 08/01/16 03:14 Karla Stringer M.D. Aug 01, 2016 16:22
--- NOTE | 2016-08-01 16:56 | General Progress Note ---
Assessment/Plan Assessment/Plan ASSESSMENT: 1. Leukocytosis likely secondary to underlying uti - has improved 2. Healthcare associated pneumonia. 3. Anemia of chronic disease 4. Decreased h/h, rule out gastrointestinal bleed. 5. Sepsis shock 6. Functional quadriplegia. 7. Proteinuria. 8. Atrial fibrillation on digoxin. RECOMMENDATIONS: 1. Peripheral smear reviewed, no abml 2. Antibiotics per ID service. 3. Follow up counts 4. DVT ppx with heparin sq 5. Pain control 6. GI ppx with PPI 7. DW staff. Thank you, Raul Tapia MD Subjective Constitutional: Reports: no symptoms HEENT: Reports: no symptoms Cardiovascular: Reports: no symptoms Respiratory: Reports: no symptoms Gastrointestinal/Abdominal: Reports: no symptoms Genitourinary: Reports: no symptoms Neurologic/Psychiatric: Reports: no symptoms Endocrine: Reports: no symptoms Hematologic/Lymphatic: Reports: anemia Allergies: Coded Allergies: No Known Allergies (Unverified , 12/08/13) Subjective stable, no events overnight, no fevers, or chills, demented Objective Last 24 Hour Vital Signs Date Time Temp Pulse Resp B/P Pulse Ox O2 Delivery O2 Flow Rate FiO2 08/01/16 12:00 53 08/01/16 11:52 97.5 47 20 136/71 96 Nasal Cannula 2.0 08/01/16 08:48 54 123/61 08/01/16 08:22 97.9 54 20 123/61 97 Nasal Cannula 2.0 08/01/16 08:00 48 08/01/16 04:09 98.7 68 20 117/80 98 Nasal Cannula 2.0 08/01/16 04:00 63 08/01/16 00:21 98.1 77 21 148/98 96 Nasal Cannula 2.0 08/01/16 00:00 57 07/31/16 20:00 55 07/31/16 20:00 97.9 64 18 125/85 Nasal Cannula 2.0 92 Intake and Output 07/31/16 08/01/16 19:00 07:00 Intake Total 420 ml 366.6 ml Output Total 150 ml 800 ml Balance 270 ml -433.4 ml IV Total 366.6 ml Tube Feeding 420 ml Output Urine Total 150 ml 800 ml # Bowel Movements 2 3 Laboratory Tests 08/01/16 06:10: White Blood Count 8.6, Red Blood Count 4.07L, Hemoglobin 12.7L, Hematocrit 38.9L , Mean Corpuscular Volume 96, Mean Corpuscular Hemoglobin 31.2H, Mean Corpuscular Hemoglobin Concent 32.7, Red Cell Distribution Width 13.0, Platelet Count 282, Mean Platelet Volume 10.6H, Neutrophils (%) (Auto) 54.3, Lymphocytes (%) (Auto) 33.9, Monocytes (%) (Auto) 7.1, Eosinophils (%) (Auto) 3.5H, Basophils (%) (Auto) 1.2, Sodium Level 137, Potassium Level 4.1, Chloride Level 99, Carbon Dioxide Level 24, Anion Gap 14, Blood Urea Nitrogen 16, Creatinine 0.9, Estimat Glomerular Filtration Rate , Glucose Level 139H, Calcium Level 8.8 , Phosphorus Level 2.9, Magnesium Level 2.1, Total Bilirubin 0.4, Aspartate Amino Transf (AST/SGOT) 25, Alanine Aminotransferase (ALT/SGPT) 20, Alkaline Phosphatase 94, Total Protein 7.6, Albumin 3.5, Globulin 4.1, Albumin/Globulin Ratio 0.8L Height (Feet): 5 Height (Inches): 10.00 Weight (Pounds): 179 General Appearance: alert EENT: TMs normal Neck: supple Cardiovascular: regular rhythm Respiratory/Chest: no respiratory distress Abdomen: soft Extremities: normal inspection Edema: 1+ Leg (L), 1+ Leg (R) Edema: mild edema Neurologic: no motor/sensory deficits Skin: warm/dry Raul Tapia Aug 01, 2016 16:56
--- NOTE | 2016-08-01 22:02 | General Progress Note ---
Assessment/Plan Assessment/Plan Assessment - N/V - resolved - dysphagia / GT - OBS - mild anemia Recommendations - Continue TF - follow labs and exam - Elevate HOB - d/c planning Subjective Allergies: Coded Allergies: No Known Allergies (Unverified , 12/08/13) Subjective uneventful night resting comfortably TF running Objective Last 24 Hour Vital Signs Date Time Temp Pulse Resp B/P Pulse Ox O2 Delivery O2 Flow Rate FiO2 08/01/16 20:00 97.0 80 19 120/77 Nasal Cannula 2.0 97 08/01/16 16:00 98.4 88 20 135/67 98 Room Air 08/01/16 16:00 57 08/01/16 12:00 53 08/01/16 11:52 97.5 47 20 136/71 96 Nasal Cannula 2.0 08/01/16 08:48 54 123/61 08/01/16 08:22 97.9 54 20 123/61 97 Nasal Cannula 2.0 08/01/16 08:00 48 08/01/16 04:09 98.7 68 20 117/80 98 Nasal Cannula 2.0 08/01/16 04:00 63 08/01/16 00:21 98.1 77 21 148/98 96 Nasal Cannula 2.0 08/01/16 00:00 57 Intake and Output 07/31/16 08/01/16 19:00 07:00 Intake Total 420 ml 366.6 ml Output Total 150 ml 800 ml Balance 270 ml -433.4 ml IV Total 366.6 ml Tube Feeding 420 ml Output Urine Total 150 ml 800 ml # Bowel Movements 2 3 Laboratory Tests 08/01/16 06:10: White Blood Count 8.6, Red Blood Count 4.07L, Hemoglobin 12.7L, Hematocrit 38.9L , Mean Corpuscular Volume 96, Mean Corpuscular Hemoglobin 31.2H, Mean Corpuscular Hemoglobin Concent 32.7, Red Cell Distribution Width 13.0, Platelet Count 282, Mean Platelet Volume 10.6H, Neutrophils (%) (Auto) 54.3, Lymphocytes (%) (Auto) 33.9, Monocytes (%) (Auto) 7.1, Eosinophils (%) (Auto) 3.5H, Basophils (%) (Auto) 1.2, Sodium Level 137, Potassium Level 4.1, Chloride Level 99, Carbon Dioxide Level 24, Anion Gap 14, Blood Urea Nitrogen 16, Creatinine 0.9, Estimat Glomerular Filtration Rate , Glucose Level 139H, Calcium Level 8.8 , Phosphorus Level 2.9, Magnesium Level 2.1, Total Bilirubin 0.4, Aspartate Amino Transf (AST/SGOT) 25, Alanine Aminotransferase (ALT/SGPT) 20, Alkaline Phosphatase 94, Total Protein 7.6, Albumin 3.5, Globulin 4.1, Albumin/Globulin Ratio 0.8L Height (Feet): 5 Height (Inches): 10.00 Weight (Pounds): 179 Objective WDWN WM NCAT supple CTA RRR Soft NT ND, (+) GT no edema OBS ALMAZ VIVAS Aug 01, 2016 22:02
--- NOTE | 2016-08-01 22:23 | Pulmonology Progress Note ---
Assessment/Plan Problems: (1) Sepsis (2) Chronic a-fib (3) HTN (hypertension) (4) History of CVA (cerebrovascular accident) (5) COPD (chronic obstructive pulmonary disease) Assessment/Plan wbc lowerr cultures pending iv fluids iv antibiotics/ on Ertapenem cdiff negative telemetry monitoring, episodes of devi respiratory treatment dvt prophylaxis cardiology to see for bradycardia Subjective Allergies: Coded Allergies: No Known Allergies (Unverified , 12/08/13) Objective Last 24 Hour Vital Signs Date Time Temp Pulse Resp B/P Pulse Ox O2 Delivery O2 Flow Rate FiO2 08/01/16 20:00 97.0 80 19 120/77 Nasal Cannula 2.0 97 08/01/16 16:00 98.4 88 20 135/67 98 Room Air 08/01/16 16:00 57 08/01/16 12:00 53 08/01/16 11:52 97.5 47 20 136/71 96 Nasal Cannula 2.0 08/01/16 08:48 54 123/61 08/01/16 08:22 97.9 54 20 123/61 97 Nasal Cannula 2.0 08/01/16 08:00 48 08/01/16 04:09 98.7 68 20 117/80 98 Nasal Cannula 2.0 08/01/16 04:00 63 08/01/16 00:21 98.1 77 21 148/98 96 Nasal Cannula 2.0 08/01/16 00:00 57 Intake and Output 07/31/16 08/01/16 19:00 07:00 Intake Total 420 ml 366.6 ml Output Total 150 ml 800 ml Balance 270 ml -433.4 ml IV Total 366.6 ml Tube Feeding 420 ml Output Urine Total 150 ml 800 ml # Bowel Movements 2 3 Objective General Appearance: WD/WN HEENT: normocephalic, atraumatic Respiratory/Chest: chest wall non-tender, lungs clear Cardiovascular: normal peripheral pulses, normal rate Abdomen: normal bowel sounds, soft, non tender, other - peg in place Extremities: no cyanosis, no clubbing Skin: no rash Laboratory Tests Microbiology Date/Time Source Procedure Growth Status 07/30/16 23:00 Stool Clostridium difficile Toxin Assay - Final Complete Laboratory Tests 08/01/16 06:10: White Blood Count 8.6, Red Blood Count 4.07L, Hemoglobin 12.7L, Hematocrit 38.9L , Mean Corpuscular Volume 96, Mean Corpuscular Hemoglobin 31.2H, Mean Corpuscular Hemoglobin Concent 32.7, Red Cell Distribution Width 13.0, Platelet Count 282, Mean Platelet Volume 10.6H, Neutrophils (%) (Auto) 54.3, Lymphocytes (%) (Auto) 33.9, Monocytes (%) (Auto) 7.1, Eosinophils (%) (Auto) 3.5H, Basophils (%) (Auto) 1.2, Sodium Level 137, Potassium Level 4.1, Chloride Level 99, Carbon Dioxide Level 24, Anion Gap 14, Blood Urea Nitrogen 16, Creatinine 0.9, Estimat Glomerular Filtration Rate , Glucose Level 139H, Calcium Level 8.8 , Phosphorus Level 2.9, Magnesium Level 2.1, Total Bilirubin 0.4, Aspartate Amino Transf (AST/SGOT) 25, Alanine Aminotransferase (ALT/SGPT) 20, Alkaline Phosphatase 94, Total Protein 7.6, Albumin 3.5, Globulin 4.1, Albumin/Globulin Ratio 0.8L Current Medications Medications (Trade) Dose Ordered Sig/Omi Route PRN Reason Start Time Stop Time Status Last Admin Dose Admin Acetaminophen (Tylenol) 650 mg Q4H PRN ORAL T>100.5 07/25/16 07:00 08/24/16 06:59 Amlodipine Besylate 10 mg 10 mg DAILY GT 07/25/16 09:00 08/24/16 08:59 07/31/16 08:35 Collagenase (Santyl) 1 applic DAILY TOPIC 07/27/16 12:00 08/26/16 11:59 08/01/16 08:45 Ertapenem/Sodium Chloride (INVanz/Sodium Chloride) 55 ml @ 110 mls/hr Q24H IVPB 07/27/16 10:00 08/08/16 09:59 08/01/16 10:42 Heparin Sodium (Porcine) (Heparin 5000 units/ml) 5,000 units EVERY 12 HOURS SUBQ 07/25/16 09:00 08/24/16 08:59 08/01/16 21:51 Nitroglycerin (Ntg) 0.4 mg Q5MIN X 3 DOSES PRN SL Prn Chest Pain 07/25/16 07:15 08/24/16 07:14 Ondansetron HCl (Zofran) 4 mg Q6H PRN IVP Nausea & Vomiting 07/25/16 07:00 08/24/16 06:59 Pantoprazole 40 mg 40 mg DAILY IVP 07/26/16 09:00 08/25/16 08:59 08/01/16 08:45 Polyethylene Glycol (Miralax) 17 gm DAILYPRN PRN ORAL Constipation 07/25/16 07:00 08/24/16 06:59 Vancomycin HCl (Vanco rx to dose) 1 ea DAILY PRN MISC . 07/25/16 07:15 08/24/16 07:14 Vancomycin HCl/ Dextrose (Vancomycin/D5W) 275 ml @ 183.3 mls/ hr Q24H IVPB 07/26/16 02:00 08/08/16 01:59 08/01/16 03:14 BOB IGNACIO Aug 01, 2016 22:23
[2016-08-01] MEDS ORDERED: Nitroglycerin Subl 0.4mg tab (Bottle Of 25) SL PRN (22:30)
[2016-08-02] VITALS: BP 124/42
[2016-08-02] MEDS ORDERED: Vancomycin 1.25 GM in D5W 275 ML IVPB SCH (02:00)
[2016-08-02 04:00] VITALS: BP 107/66
[2016-08-02] MEDS ORDERED: Miralax 17gm pkt ORAL PRN (07:00)
[2016-08-02 08:00] VITALS: BP 140/76
--- NOTE | 2016-08-02 08:35 | General Progress Note ---
Assessment/Plan Assessment/Plan ASSESSMENT: 1. Leukocytosis likely secondary to underlying uti - has improved 2. Healthcare associated pneumonia. is on abx 3. Anemia of chronic disease 4. Decreased h/h, rule out gastrointestinal bleed. 5. Sepsis shock 6. Functional quadriplegia. 7. Proteinuria. 8. Atrial fibrillation on digoxin. RECOMMENDATIONS: 1. Peripheral smear reviewed, no abml 2. Antibiotics per ID service. 3. Follow up counts 4. DVT ppx with heparin sq 5. Pain control 6. GI ppx with PPI 7. DW staff. Thank you, Raul Tapia MD Subjective Constitutional: Reports: no symptoms HEENT: Reports: no symptoms Cardiovascular: Reports: no symptoms Respiratory: Reports: no symptoms Gastrointestinal/Abdominal: Reports: poor fluid intake Genitourinary: Reports: no symptoms Neurologic/Psychiatric: Reports: no symptoms Endocrine: Reports: no symptoms Hematologic/Lymphatic: Reports: anemia Allergies: Coded Allergies: No Known Allergies (Unverified , 12/08/13) Subjective stable, no events overnight, no fevers, or chills, is demented Objective Last 24 Hour Vital Signs Date Time Temp Pulse Resp B/P Pulse Ox O2 Delivery O2 Flow Rate FiO2 08/02/16 04:00 98.4 65 18 107/66 96 Nasal Cannula 2.0 08/02/16 00:00 98.6 69 20 124/42 95 Room Air 08/01/16 22:30 98.2 79 20 130/74 Nasal Cannula 2.0 95 08/01/16 20:00 97.0 80 19 120/77 Nasal Cannula 2.0 97 08/01/16 16:00 98.4 88 20 135/67 98 Room Air 08/01/16 16:00 57 08/01/16 12:00 53 08/01/16 11:52 97.5 47 20 136/71 96 Nasal Cannula 2.0 08/01/16 08:48 54 123/61 Intake and Output 08/01/16 08/02/16 19:00 07:00 Intake Total 1015.0 ml Output Total 250 ml 750 ml Balance -250 ml 265.0 ml Intake Free Water 200 ml IV Total 275.0 ml Tube Feeding 540 ml Output Urine Total 250 ml 750 ml Height (Feet): 5 Height (Inches): 10.00 Weight (Pounds): 179 General Appearance: no apparent distress EENT: TMs normal Neck: supple Cardiovascular: regular rhythm Respiratory/Chest: normal breath sounds Abdomen: no organomegaly Extremities: non-tender Edema: 1+ Leg (L), 1+ Leg (R) Edema: moderate edema Neurologic: alert Skin: warm/dry Raul Tapia Aug 02, 2016 08:35
[2016-08-02] MEDS ORDERED: Heparin 5000 units/ml inj SUBQ SCH (09:00)
[2016-08-02] MEDS ORDERED: Pantoprazole Inj IVP SCH (09:00)
[2016-08-02] MEDS ORDERED: Ertapenem 1 GM in NS 55 ML IVPB SCH (10:00)
[2016-08-02 12:00] VITALS: BP 113/64
--- NOTE | 2016-08-02 13:07 | General Progress Note ---
Assessment/Plan Problem List: (1) HTN (hypertension) ICD Codes: I10 - Essential (primary) hypertension SNOMED: 62491413 (2) UTI (urinary tract infection) ICD Codes: N39.0 - Urinary tract infection, site not specified SNOMED: 39585855 Qualifiers: Qualified Codes: N30.00 - Acute cystitis without hematuria (3) Chronic a-fib ICD Codes: I48.2 - Chronic atrial fibrillation SNOMED: 735935961 (4) Dehydration ICD Codes: E86.0 - Dehydration SNOMED: 81716495 (5) Sepsis ICD Codes: A41.9 - Sepsis SNOMED: 64584521 Qualifiers: Qualified Codes: A41.9 - Sepsis, unspecified organism (6) History of CVA (cerebrovascular accident) ICD Codes: Z86.73 - Personal history of transient ischemic attack (TIA), and cerebral infarction without residual deficits SNOMED: 496471983 Status: progressing Assessment/Plan dr cortes cleared pt for dc so dc to snf Subjective ROS Limited/Unobtainable: Yes Constitutional: Reports: no symptoms Allergies: Coded Allergies: No Known Allergies (Unverified , 12/08/13) Objective Last 24 Hour Vital Signs Date Time Temp Pulse Resp B/P Pulse Ox O2 Delivery O2 Flow Rate FiO2 08/02/16 12:00 98.3 64 18 113/64 98 Room Air 08/02/16 08:00 97.9 80 18 140/76 97 Nasal Cannula 2.0 08/02/16 04:00 98.4 65 18 107/66 96 Nasal Cannula 2.0 08/02/16 00:00 98.6 69 20 124/42 95 Room Air 08/01/16 22:30 98.2 79 20 130/74 Nasal Cannula 2.0 95 08/01/16 20:00 97.0 80 19 120/77 Nasal Cannula 2.0 97 08/01/16 16:00 98.4 88 20 135/67 98 Room Air 08/01/16 16:00 57 Intake and Output 08/01/16 08/02/16 19:00 07:00 Intake Total 1015.0 ml Output Total 250 ml 750 ml Balance -250 ml 265.0 ml Intake Free Water 200 ml IV Total 275.0 ml Tube Feeding 540 ml Output Urine Total 250 ml 750 ml Height (Feet): 5 Height (Inches): 10.00 Weight (Pounds): 179 Neck: non-tender Cardiovascular: normal rate Respiratory/Chest: lungs clear Abdomen: soft Seamus Garcia MD Aug 02, 2016 13:07
--- NOTE | 2016-08-02 14:31 | Wound Care Consultation ---
Wound Assessment Wound Assessment #1: Wound Number: #1 Wound Present on Admission: Yes New Wound: No Status Change of Wound: No Wound Location Body Site Modif: mid Wound Location Body Site: sacral Wound Type: scar Royer Test: Does not Royer Wound Thickness: Full Thickness Wound Length: 5.0 Wound Width: 6.5 Wound Drainage Amount: None Wound Drainage Odor: None/Absent Tissue Surrounding Wound: Intact Wound General Appearance: Asymptomatic, Open to air, Clean/Dry Wound Assessment #2: Wound Number: #2 Wound Present on Admission: Yes New Wound: No Status Change of Wound: No Wound Location Body Site Modif: left Wound Location Body Site: iliac crest Wound Type: scar Royer Test: Does not Royer Wound Thickness: Full Thickness Wound Length: 3.0 Wound Width: 4.5 Wound Drainage Amount: None Wound Drainage Odor: None/Absent Tissue Surrounding Wound: Intact Wound General Appearance: Asymptomatic, Open to air, Clean/Dry Wound Assessment #3: Wound Number: #3 Wound Present on Admission: Yes New Wound: No Status Change of Wound: No Wound Location Body Site Modif: right Wound Location Body Site: iliac crest Wound Type: scar Royer Test: Does not Royer Wound Thickness: Full Thickness Wound Length: 3.0 Wound Width: 3.0 Wound Drainage Amount: None Wound Drainage Odor: None/Absent Tissue Surrounding Wound: Intact Wound General Appearance: Asymptomatic, Open to air, Clean/Dry Wound Assessment #4: Wound Number: #4 Wound Present on Admission: Yes New Wound: No Status Change of Wound: No Wound Location Body Site Modif: right, upper Wound Location Body Site: back Wound Type: pressure ulcer Royer Test: Does not Royer Pressure Ulcer Stage: IV/unstageable Wound Thickness: Full Thickness Wound Length: 2.0 Wound Width: 2.0 Wound Depth: 0.3 Percent of Wound Hampton/Red: 60 Percent of Wound Bed Yellow/Wh: 40 Wound Drainage Description: Serosanguineous Wound Drainage Amount: Moderate Wound Drainage Odor: None/Absent Tissue Surrounding Wound: Macerated Wound General Appearance: Reddened, Necrotic Wound Assessment #5: Wound Number: #5 Wound Present on Admission: Yes New Wound: No Status Change of Wound: No Wound Location Body Site Modif: right Wound Location Body Site: malleolus/ankle Wound Type: pressure ulcer Royer Test: Does not Royer Pressure Ulcer Stage: IV/unstageable Wound Thickness: Full Thickness Wound Length: 2.5 Wound Width: 2.0 Wound Depth: 0.2 Percent of Wound [place]/Red: 90 Percent of Wound Bed Yellow/Wh: 10 Wound Drainage Description: Serosanguineous Wound Drainage Amount: Scant Wound Drainage Odor: None/Absent Tissue Surrounding Wound: Macerated Wound General Appearance: Reddened Wound Assessment #6: Wound Number: #6 Wound Present on Admission: Yes New Wound: No Status Change of Wound: No Wound Location Body Site Modif: right, dorsal Wound Location Body Site: foot Wound Type: other - cellulitis Royer Test: Does not Royer Percent of Wound [place]/Red: 100 Wound Drainage Amount: None Wound Drainage Odor: None/Absent Tissue Surrounding Wound: Erythemic Wound General Appearance: Reddened Wound Assessment #7: Wound Number: #7 Wound Present on Admission: Yes New Wound: No Status Change of Wound: No Wound Location Body Site Modif: right Wound Location Body Site: heel Wound Type: pressure ulcer Royer Test: Does not Royer Pressure Ulcer Stage: IV/unstageable Wound Thickness: Full Thickness Wound Length: 2.0 Wound Width: 2.0 Wound Depth: utd Percent of Wound Hampton/Red: 40 Percent of Wound Black/Brown: 60 Wound Drainage Amount: None Wound Drainage Odor: None/Absent Tissue Surrounding Wound: Erythemic Wound General Appearance: Blackened - dry adhered scab Wound Assessment #8: Wound Number: #8 Wound Present on Admission: Yes New Wound: No Status Change of Wound: No Wound Location Body Site Modif: right, lower Wound Location Body Site: leg Wound Type: scab - scattered scabs Royer Test: Does not Royer Wound Thickness: Full Thickness Percent of Wound Black/Brown: 100 Wound Drainage Amount: None Wound Drainage Odor: None/Absent Tissue Surrounding Wound: Erythemic Wound General Appearance: Reddened Wound Comment #1 Mid sacral full thickness scar tissue. #2 Left iliac crest full thickness scar tissue. #3 Right iliac crest full thickness scar tissue. #4 Right upper back stage IV/Unstageable pressure ulcer. #5 Right malleolus stage IV/Unstageable pressure ulcer. #6 Right dorsal foot cellulitis. #7 Right heel stage IV/Unstageable pressure ulcer. #8 Right lower leg scattered scabs. upon reassessment to admitted wound sites, noted good progress, no further deterioration present, current treatment remains effective. Recommendation -Right upper back pressure ulcer Cleanse with saline, pat dry, apply Santyl ointment on the wound bed, apply Triad to periwound area, cover with bordered gauze daily and PRN soiled/ dislodged -Right malleolus and right heel pressure ulcers Cleanse with saline, pat dry, apply Triad cream, cover with 4x4, wrap with Kerlix daily and PRN soiled/dislodged -Right dorsal foot cellulitis Cleanse with saline pat dry apply adaptic cover with 4x4 wrap with Kerlix daily and PRN soiled/dislodged -Turn and reposition -Keep clean and dry -Local wound care as ordered -Offload both heels, and right upper back stage IV/Unstageable. -Optimize nutrition -Low air loss overlay mattress -Avoid shear and friction -Assess and f/u accordingly for any changes SONI SABILLON Aug 02, 2016 14:31
--- NOTE | 2016-08-02 15:57 | Infectious Diseases Prog Note ---
Assessment/Plan Problems: (1) Cellulitis of right foot Assessment & Plan: with no evidence of osteomyelitis on MRI , will treat with vancomycin and ertapenem for two weeks total. EOT 08/10/16 (2) HCAP (healthcare-associated pneumonia) Assessment & Plan: on vancomycin and ertapenem empiric therapy for 10 days (3) UTI (urinary tract infection) Assessment & Plan: culture grew ESBL + proteus mirabilis, continue ertapenem for 14 days , EOT 08/10/16. (4) Sepsis Assessment & Plan: blood culture is pending . continue vancomycin and ertapenem , pharmacy to monitor vancomycin trough and to keep between 15-20 (5) History of CVA (cerebrovascular accident) Assessment & Plan: stable, continue meds (6) Open back wound Assessment & Plan: presented on admission, infected with ESBL + proteus mirabilis on ertapenem and vancomycin for two weeks , EOT 08/10/16. continue local wound care and off loading Subjective ROS Limited/Unobtainable: Yes Allergies: Coded Allergies: No Known Allergies (Unverified , 12/08/13) Subjective he is demented lying in bed, not in distress , comfortable. afebrile Objective Vital Signs Last 24 Hour Vital Signs Date Time Temp Pulse Resp B/P Pulse Ox O2 Delivery O2 Flow Rate FiO2 08/02/16 12:00 98.3 64 18 113/64 98 Room Air 08/02/16 09:00 64 113/64 08/02/16 08:00 97.9 80 18 140/76 97 Nasal Cannula 2.0 08/02/16 04:00 98.4 65 18 107/66 96 Nasal Cannula 2.0 08/02/16 00:00 98.6 69 20 124/42 95 Room Air 08/01/16 22:30 98.2 79 20 130/74 Nasal Cannula 2.0 95 08/01/16 20:00 97.0 80 19 120/77 Nasal Cannula 2.0 97 08/01/16 16:00 98.4 88 20 135/67 98 Room Air 08/01/16 16:00 57 Height (Feet): 5 Height (Inches): 10.00 Weight (Pounds): 179 General Appearance: WD/WN, no acute distress HEENT: normocephalic, atraumatic, anicteric Respiratory/Chest: chest wall non-tender, lungs clear, normal breath sounds Cardiovascular: normal peripheral pulses, normal rate, regular rhythm Abdomen: normal bowel sounds, soft, non tender, no organomegaly, non distended Extremities: no cyanosis, no clubbing Skin: no rash, no lesions Microbiology Date/Time Source Procedure Growth Status 07/30/16 23:00 Stool Clostridium difficile Toxin Assay - Final Complete Current Medications Medications (Trade) Dose Ordered Sig/Omi Route PRN Reason Start Time Stop Time Status Last Admin Dose Admin Acetaminophen (Tylenol) 650 mg Q4H PRN ORAL T>100.5 08/01/16 23:00 08/31/16 22:59 Amlodipine Besylate (Norvasc) 10 mg DAILY GT 08/02/16 09:00 09/01/16 08:59 Collagenase (Santyl) 1 applic DAILY TOPIC 08/02/16 09:00 09/01/16 08:59 08/02/16 14:16 Ertapenem 1 gm/ Sodium Chloride 55 ml @ 110 mls/hr Q24H IVPB 08/02/16 10:00 08/07/16 09:59 08/02/16 11:22 Heparin Sodium (Porcine) (Heparin 5000 units/ml) 5,000 units EVERY 12 HOURS SUBQ 08/02/16 09:00 09/01/16 08:59 08/02/16 10:46 Nitroglycerin (Ntg) 0.4 mg Q5MIN X 3 DOSES PRN SL Prn Chest Pain 08/01/16 22:30 08/31/16 22:29 Ondansetron HCl (Zofran) 4 mg Q6H PRN IVP Nausea & Vomiting 08/02/16 01:00 09/01/16 00:59 Pantoprazole (Protonix) 40 mg DAILY IVP 08/02/16 09:00 09/01/16 08:59 08/02/16 10:50 Polyethylene Glycol (Miralax) 17 gm DAILYPRN PRN ORAL Constipation 08/02/16 07:00 09/01/16 06:59 Vancomycin HCl (Vanco rx to dose) 1 ea DAILY PRN MISC . 08/02/16 09:00 09/01/16 08:59 Vancomycin HCl/ Dextrose (Vancomycin/D5W) 275 ml @ 183.3 mls/ hr Q24H IVPB 08/02/16 02:00 08/07/16 01:59 08/02/16 02:00 Karla Stringer M.D. Aug 02, 2016 15:57
[2016-08-02 16:00] VITALS: BP 129/73
[2016-08-02] MEDS ORDERED: INVANZ1 G1 IM (18:05)
[2016-08-02] MEDS ORDERED: VANCOMYCIN1 GM/2502 IVPB (18:05)
[2016-08-02] MEDS ORDERED: INVANZ1 GM IVPB (18:14)
[2016-08-02] MEDS ORDERED: Sterile Water Irrig 1000ml IRRIG ONE (19:44)
--- NOTE | 2016-08-02 22:33 | General Progress Note ---
Assessment/Plan Assessment/Plan Assessment - N/V - resolved - dysphagia / GT - OBS - mild anemia Recommendations - Continue TF - follow labs and exam - [facility] HOB - d/c planning Subjective Allergies: Coded Allergies: No Known Allergies (Unverified , 12/08/13) Subjective uneventful night resting comfortably TF running Objective Last 24 Hour Vital Signs Date Time Temp Pulse Resp B/P Pulse Ox O2 Delivery O2 Flow Rate FiO2 08/02/16 16:00 97.9 69 18 129/73 98 Nasal Cannula 3.0 08/02/16 12:00 98.3 64 18 113/64 98 Room Air 08/02/16 09:00 64 113/64 08/02/16 08:00 97.9 80 18 140/76 97 Nasal Cannula 2.0 08/02/16 04:00 98.4 65 18 107/66 96 Nasal Cannula 2.0 08/02/16 00:00 98.6 69 20 124/42 95 Room Air Intake and Output 08/01/16 08/02/16 19:00 07:00 Intake Total 1015.0 ml Output Total 250 ml 750 ml Balance -250 ml 265.0 ml Intake Free Water 200 ml IV Total 275.0 ml Tube Feeding 540 ml Output Urine Total 250 ml 750 ml Height (Feet): 5 Height (Inches): 10.00 Weight (Pounds): 179 Objective WDWN WM NCAT supple CTA RRR Soft NT ND, (+) GT no edema OBS SANGEETHASHAHBAZASHA Aug 02, 2016 22:33
--- NOTE | 2016-08-02 22:39 | General Progress Note ---
Assessment/Plan Assessment/Plan Assessment - N/V - resolved - dysphagia / GT - OBS - mild anemia Recommendations - Continue TF - follow labs and exam - [facility] HOB - d/c planning - follow weight and nutritional parameters as outpt Subjective Allergies: Coded Allergies: No Known Allergies (Unverified , 12/08/13) Subjective uneventful night resting comfortably TF running for discharge today Objective Last 24 Hour Vital Signs Date Time Temp Pulse Resp B/P Pulse Ox O2 Delivery O2 Flow Rate FiO2 08/02/16 16:00 97.9 69 18 129/73 98 Nasal Cannula 3.0 08/02/16 12:00 98.3 64 18 113/64 98 Room Air 08/02/16 09:00 64 113/64 08/02/16 08:00 97.9 80 18 140/76 97 Nasal Cannula 2.0 08/02/16 04:00 98.4 65 18 107/66 96 Nasal Cannula 2.0 08/02/16 00:00 98.6 69 20 124/42 95 Room Air Intake and Output 08/01/16 08/02/16 19:00 07:00 Intake Total 1015.0 ml Output Total 250 ml 750 ml Balance -250 ml 265.0 ml Intake Free Water 200 ml IV Total 275.0 ml Tube Feeding 540 ml Output Urine Total 250 ml 750 ml Height (Feet): 5 Height (Inches): 10.00 Weight (Pounds): 179 Objective WDWN WM NCAT supple CTA RRR Soft NT ND, (+) GT no edema OBS ALMAZ VIVAS Aug 02, 2016 22:38
--- NOTE | 2016-08-02 23:59 | Pulmonology Progress Note ---
Assessment/Plan Problems: (1) Sepsis (2) Chronic a-fib (3) HTN (hypertension) (4) History of CVA (cerebrovascular accident) (5) COPD (chronic obstructive pulmonary disease) Assessment/Plan wbc lowerr cultures pending iv fluids iv antibiotics/ on Ertapenem cdiff negative telemetry monitoring, episodes of devi respiratory treatment dvt prophylaxis cardiology to see for bradycardia Subjective Allergies: Coded Allergies: No Known Allergies (Unverified , 12/08/13) Objective Last 24 Hour Vital Signs Date Time Temp Pulse Resp B/P Pulse Ox O2 Delivery O2 Flow Rate FiO2 08/02/16 16:00 97.9 69 18 129/73 98 Nasal Cannula 3.0 08/02/16 12:00 98.3 64 18 113/64 98 Room Air 08/02/16 09:00 64 113/64 08/02/16 08:00 97.9 80 18 140/76 97 Nasal Cannula 2.0 08/02/16 04:00 98.4 65 18 107/66 96 Nasal Cannula 2.0 08/02/16 00:00 98.6 69 20 124/42 95 Room Air Intake and Output 08/01/16 08/02/16 19:00 07:00 Intake Total 1015.0 ml Output Total 250 ml 750 ml Balance -250 ml 265.0 ml Intake Free Water 200 ml IV Total 275.0 ml Tube Feeding 540 ml Output Urine Total 250 ml 750 ml Objective General Appearance: WD/WN HEENT: normocephalic, atraumatic Respiratory/Chest: chest wall non-tender, lungs clear Cardiovascular: normal peripheral pulses, normal rate Abdomen: normal bowel sounds, soft, non tender, other - peg in place Extremities: no cyanosis, no clubbing Skin: no rash Laboratory Tests BOB IGNACIO Aug 02, 2016 23:59
--- NOTE | 2016-08-03 14:11 | Cardiology Report ---
APPROVED REPORT EKG Measurement Heart [id number] Atrial fibrillation Abnormal ECG
--- NOTE | 2016-08-04 13:02 | Discharge Summary ---
Discharge Summary Hospital Course Date of Admission Jul 25, 2016 at 01:17 Date of Discharge Aug 02, 2016 at 19:45 Admitting Diagnosis SEPSIS, A-FIB HPI Jena Jeffrey is a 80 year old male who was admitted on Jul 25, 2016 at 01:17 for Sepsis, A-Fib Hospital Course [id number] Discharge Discharge Disposition Patient was discharged to SNF/Subacute Facility(03) Discharge Diagnoses: Shonna Angeles NP Aug 04, 2016 13:02
--- NOTE | 2016-08-05 01:38 | Discharge Summary 2 SIG ---
DATE OF ADMISSION: 07/25/2016 DATE OF DISCHARGE: 08/02/2016 CONSULTANTS: 1. Juan Ramon Saeed M.D. 2. Bonilla Mace D.P.M. 3. Raul Tapia M.D. 4. Trent Kan M.D. 5. Karla Stringer M.D. BRIEF HOSPITAL COURSE: The patient is an 80-year-old male with history of dementia, CVA with left-sided hemiparesis, and atrial fibrillation, presented with a chief complaint of fever and vomiting. On evaluation at ED, presented with fever and leukocytosis. 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 He was given vancomycin and cefepime. An MRI was done and was negative for osteomyelitis. Wound cultures show ESBL and Proteus mirabilis. He was given ertapenem and vancomycin. Urine culture grew ESBL and Proteus. Dr. Kan was consulted for evaluation of nausea and vomiting. Initially, feeding was placed on hold. Nausea and vomiting, resolved. He was continued on the tube feeding. Dr. Tapia was consulted for evaluation of leukocytosis. Peripheral blood smear showed no abnormalities. Leukocytosis was secondary to underlying urinary tract infection. The patient has chronic atrial fibrillation and had episodes of bradycardia. He was taken off digoxin with improvement on heart rate. He was seen by Podiatry for examination of right lower extremity superficial ulcers. On examination, wounds do not probe to the bone and was continued daily wound care. He was eventually discharged to SNF. FINAL DIAGNOSES: 1. Sepsis. 2. Urinary tract infection with extended-spectrum beta-lactamases and Proteus. 3. Healthcare-associated pneumonia. 4. Cellulitis of the right foot. 5. Cerebrovascular accident with left-sided hemiparesis. 6. Nausea and vomiting secondary to gastroenteritis. 7. Dysphagia, on gastrostomy tube. 8. Anemia of chronic disease. 9. Atrial fibrillation. 10. Proteinuria. 11. Dehydration. 12. Hypertension. 13. Multiple decubitus pressure ulcer, present on admission. Seamus Garcia M.D. I have been assigned to dictate discharge summary on this account and I was not involved in the patient's management. Shonna Angeles N.P. DR: JUAQUIN JOB#: [id number] CC:
== END 2016-08-02 19:45 | DRG 720 ==
LOC: EDBD 00:27 → EMR 00:45 → EDBEDREQ 00:52 → 2E 01:17 → EDBEDREQ 14:58 → 2E 07-26 07:06 → 4W 08-01 22:00
DX: A41.9 Sepsis, unspecified organism (principal); L89.114 Pressure ulcer of right upper back, stage 4; L89.514 Pressure ulcer of right ankle, stage 4; L89.614 Pressure ulcer of right heel, stage 4; J18.9 Pneumonia, unspecified organism; R53.2 Functional quadriplegia; F03.90 Unspecified dementia, unspecified severity, without behavioral disturbance, psychotic disturbance, mood disturbance, and anxiety; R00.1 Bradycardia, unspecified; I48.2 Chronic atrial fibrillation; I69.354 Hemiplegia and hemiparesis following cerebral infarction affecting left non-dominant side; N39.0 Urinary tract infection, site not specified; R13.10 Dysphagia, unspecified; L03.115 Cellulitis of right lower limb; J44.9 Chronic obstructive pulmonary disease, unspecified; M86.9 Osteomyelitis, unspecified; B96.4 Proteus (mirabilis) (morganii) as the cause of diseases classified elsewhere; Z16.12 Extended spectrum beta lactamase (ESBL) resistance; K52.9 Noninfective gastroenteritis and colitis, unspecified; Z43.1 Encounter for attention to gastrostomy; D63.8 Anemia in other chronic diseases classified elsewhere; E86.0 Dehydration; L89.90 Pressure ulcer of unspecified site, unspecified stage; M86.8X7 Other osteomyelitis, ankle and foot; I10 Essential (primary) hypertension; T46.0X5A Adverse effect of cardiac-stimulant glycosides and drugs of similar action, initial encounter
CPT/HCPCS: 36415; 71010; 74000; 80053; 80202; 81001; 81003; 82150; 82248; 82550; 82553; 82962; 83605; 83735; 84100; 84439; 84443; 84484; 85007; 85025; 85610; 85651; 85730; 86140; 86710; 87040; 87070; 87081; 87086; 87181; 87205; 87493; 93005; 93306

== ENCOUNTER 2016-08-20 11:34 | Emergency (ER) | payer MEDICARE, OTHER ==
[~2016-08-20] VITALS: Ht 167.6 cm; Wt 68.0 kg
[~2016-08-20 11:34] MED LIST changes: +CLONIDINE HCL0.1 MG; +DIGOXIN125 MCG NG; +DOCUSATE SODIU100 MG NG; +FAMOTIDINE20 MG ORAL; +FISH OIL CAP1000 MG NG; +HUMALOG100 UNIT/4 SUBQ; +INVANZ1 G1 IM; +INVANZ1 GM IVPB; +IPRAT-ALBUT 0.5-3 ML IH; +MULTI-DELYN237 ML NG; +NITROGLYCERIN0.4 MG SL; +NORVASC10 MG ORAL; +TYLENOL EXTRA500 MG NG; +TYLENOL EXTRA500 MG ORAL; +TYLENOL650 MG/20. NG; +VITAMIN C500 MG/11 PO; +ZOFRAN4 M1 ORAL
--- NOTE | 2016-08-20 12:25 | Emergency Room Report ---
History of Present Illness General Chief Complaint: Malfunctioning Gastric Tube Source: Medical Record, EMS Present Illness HPI 81 YOM from SNF with request for Gtube replacement. patient allegedly removed this morning. Per SNF, deny fever/chills, pain, vomiting, diarrhea. 16F is the Gtube, placed bedside by EMS. HPI otherwise limited as patient aphasic d/t previous CVA? Allergies: Coded Allergies: No Known Allergies (Unverified , 12/08/13) Patient History Past Medical History: old chart reviewed, unable to obtain Past Surgical History: unable to obtain Pertinent Family History: unable to obtain Social History: Denies: alcohol use, drug use, smoking Immunizations: UTD Reviewed Nursing Documentation: PMH: Agreed, PSxH: Agreed Nursing Documentation-PMH Past Medical History: No History, Except For Hx Cardiac Problems: Yes - quadriplegic, afib Hx Hypertension: Yes Hx Pacemaker: No Hx COPD: No - PRESSURE ULCERS Hx Diabetes: Yes Hx Cancer: No Hx Gastrointestinal Problems: No Hx Neurological Problems: Yes - dementia Hx Cerebrovascular Accident: Yes - left side weakness Hx Transient Ischemic Attacks: Yes Hx Dementia: Yes Hx Seizures: No Hx Aphasia: Yes Review of Systems All Other Systems: limited - Aphasic at baseline Physical Exam Vital Signs Date Time Temp Pulse Resp B/P Pulse Ox O2 Delivery O2 Flow Rate FiO2 08/20/16 11:37 97.2 64 24 141/94 95 Room Air Sp02 EP Interpretation: reviewed, normal General Appearance: normal inspection, well appearing, no apparent distress, alert, GCS 15, non-toxic Head: normocephalic, atraumatic Eyes: bilateral eye EOMI, bilateral eye PERRL ENT: normal ENT inspection, hearing grossly normal, normal voice Neck: normal inspection, full range of motion, supple, no bony tend Respiratory: normal inspection, lungs clear, normal breath sounds, no respiratory distress, no retraction, no wheezing Cardiovascular #1: regular rate, rhythm, no edema Gastrointestinal: normal inspection, normal bowel sounds, non tender, soft, no guarding, no hernia, other - No sign of infection around Gtube stoma site Genitourinary: no CVA tenderness Musculoskeletal: normal inspection, back normal, normal range of motion, Juan Daniel' s Sign negative Neurologic: normal inspection, alert, oriented x3, responsive, manager garage III-XII nml as tested, motor strength/tone normal, speech normal Psychiatric: normal inspection, judgement/insight normal, mood/affect normal Skin: normal inspection, normal color, no rash Procedures Additional Procedure Procedure Narrative Patient positioned upright in bed Area of stoma exposed 16F Gtube lubricated on end Passed without issue or resistance 20cc saline injected into balloon Pending KUB to reassess Medical Decision Making Diagnostic Impression: Primary Impression: Malfunction of gastrostomy tube ER Course GTUBE replaced in ED. Verified by ED review of bedside KUB VSS. Afebrile. No signs of local infection, abd/pelvic infection or sepsis requiring addiitonal evaluation, imaging or admission DC back to [facility] Other X-Ray Diagnostic Results Other X-Ray Diagnostic Results : X-Ray Ordered: KUB EP Interpretation: Yes Findings: other - Gastrogaffin seen in stomach. No distention. No air/ fluid levels Number of Views: 1 Last Vital Signs Date Time Temp Pulse Resp B/P Pulse Ox O2 Delivery O2 Flow Rate FiO2 08/20/16 11:37 97.2 64 24 141/94 95 Room Air Status: improved Disposition: [facility] JOSELYN NOONAN M.D. Aug 20, 2016 12:25
[2016-08-20 12:34] VITALS: BP 141/94
[2016-08-20 13:24] VITALS: BP 150/95
[2016-08-20 13:27] VITALS: BP 150/95
== END 2016-08-20 13:28 ==
LOC: EDUNIT# 11:34 → EDBD 11:34 → EMR 12:56
DX: K94.23 Gastrostomy malfunction (principal); Y83.3 Surgical operation with formation of external stoma as the cause of abnormal reaction of the patient, or of later complication, without mention of misadventure at the time of the procedure; Y92.129 Unspecified place in nursing home as the place of occurrence of the external cause; G82.50 Quadriplegia, unspecified; I10 Essential (primary) hypertension; I48.91 Unspecified atrial fibrillation; I69.354 Hemiplegia and hemiparesis following cerebral infarction affecting left non-dominant side; E11.9 Type 2 diabetes mellitus without complications
CPT/HCPCS: 74000

== ENCOUNTER 2016-10-12 07:10 | Inpatient (IN) | payer MEDICARE, OTHER ==
[~2016-10-12] VITALS: Ht 165.1 cm; Wt 86.2 kg
[2016-10-12] VITALS (10 sets, daily range): BP systolic 104–149; BP diastolic 63–99
[2016-10-12] MEDS ORDERED: PANTOPRAZOLE SO40 MG GT (07:17)
[2016-10-12 07:57] LABS: MEAN CORPUSCULAR HEMOGLOBIN 30.4 PG (27.0-31.0); MEAN CORPUSCULAR HGB CONC 31.7 G/DL (32.0-36.0); MEAN CORPUSCULAR VOLUME 96 FL (80-99); MEAN PLATELET VOLUME 7.7 FL (6.5-10.1); PLATELET COUNT 523 K/UL (150-450); RED BLOOD COUNT 2.87 M/UL (4.70-6.10); RED CELL DISTRIBUTION WIDTH 17.1 % (11.6-14.8); WHITE BLOOD COUNT 19.3 K/UL (4.8-10.8)
[2016-10-12 08:02] LABS: APPEARANCE,URINE SLIGHTLY CLOUDY; KETONES,URINE NEGATIVE (NEGATIVE); LEUKOCYTE ESTERASE ,URINE 2+ (NEGATIVE); NITRITE,URINE NEGATIVE (NEGATIVE); PH,URINE 6 (4.5-8.0); PROTEIN,URINE 3+ (NEGATIVE); UROBILINOGEN,URINE NORMAL MG/DL (0.0-1.0)
[2016-10-12 08:05] LABS: TROPONIN I < 0.30 ng/mL (<=0.30)
[2016-10-12 08:06] LABS: ALANINE AMINOTRANSFERASE 48 U/L (3-41); ALBUMIN/GLOBULIN RATIO 0.4 (1.0-2.7); ANION GAP 16 (5-15); ASPARTATE AMINO TRANSFERASE 69 U/L (5-40); CALCIUM 8.8 mg/dL (8.6-10.2); CARBON DIOXIDE 21 mEQ/L (20-30); CHLORIDE 100 mEQ/L (98-107); CREATININE 1.2 mg/dL (0.7-1.2); HEMOLYSIS 1; POTASSIUM 4.6 mEQ/L (3.4-4.9); SODIUM 137 mEQ/L (135-145); TOTAL PROTEIN 8.9 g/dL (6.6-8.7)
[2016-10-12 08:15] LABS: SQUAMOUS EPITHELIAL CELL,UR FEW /LPF (NONE/OCC)
[2016-10-12 08:16] LABS: BACTERIA,URINE FEW /HPF; CKMB 5.2 ng/mL (< 6.7); YEAST,URINE FEW /HPF
[2016-10-12] MEDS ORDERED: Azithromycin 500 MG in NS 275 ML IV ONE (08:30)
[2016-10-12] MEDS ORDERED: Cefepime HCl 1 GM in NS 55 ML IV ONE (08:30)
--- NOTE | 2016-10-12 08:31 | Diagnostic Imaging Report ---
Indications: Shortness of breath Technique: Portable AP chest Findings: Comparison: 07/25/2016 Pulmonary inflation has improved. Cardiac silhouette remains upper limits of normal in size. Bilateral interstitial infiltrates, bibasal pleural effusions have developed. Linear density has developed in left midlung. Patchy airspace consolidation has developed in the right mid and lower lung. Left retrocardiac region less well-defined. Tracheostomy tube has been placed, adequately positioned. IMPRESSION: Findings compatible with development of congestive heart failure with bibasal pleural effusions Patchy airspace opacities in the right lung may represent atelectasis, alveolar pulmonary edema, or superimposed pneumonia Subsegmental atelectasis left midlung Tracheostomy
[2016-10-12] MEDS ORDERED: Azithromycin Inj IV ONE (08:35)
[2016-10-12] MEDS ORDERED: Cefepime 1gm vial ONE (08:36)
--- NOTE | 2016-10-12 08:52 | Emergency Room Report ---
History of Present Illness General Chief Complaint: Dyspnea/Respdistress Present Illness HPI 81-year-old male presents to ED for evaluation. Per EMS patient noted to be desaturating this morning at the residential. Patient is on ventilator with a trach. O2 sats were in the 80s. Patient was suctioned and O2 saturations improved. Per EMS patient appeared to be in some distress. O2 saturations 100 % on arrival. Patient has dementia and is unable to provide any additional history at this time. No reported fevers or chills. No reported nausea or vomiting. No other aggravating relieving factors. No other associated symptoms Allergies: Coded Allergies: No Known Allergies (Unverified , 12/08/13) Patient History Past Medical History: CVA/TIA, dementia Past Surgical History: none Pertinent Family History: none Social History: Denies: alcohol use, drug use, smoking Immunizations: UTD Reviewed Nursing Documentation: PMH: Agreed, PSxH: Agreed Nursing Documentation-PMH Hx Hypertension: Yes Hx Pacemaker: No Hx Diabetes: Yes Hx Cancer: No Hx Cerebrovascular Accident: Yes Hx Transient Ischemic Attacks: Yes Hx Dementia: Yes Hx Seizures: No Hx Aphasia: Yes Review of Systems All Other Systems: limited Physical Exam Vital Signs Date Time Temp Pulse Resp B/P Pulse Ox O2 Delivery O2 Flow Rate FiO2 10/12/16 06:55 130 38 Mechanical Ventilator 100 10/12/16 06:59 97.5 153/105 100 Sp02 EP Interpretation: reviewed, normal General Appearance: mild distress, other - dementia Head: normocephalic ENT: normal ENT inspection Neck: tracheotomy Respiratory: decreased breath sounds, crackles Cardiovascular #1: tachycardia Gastrointestinal: normal inspection Rectal: deferred Genitourinary: no CVA tenderness Musculoskeletal: normal inspection Neurologic: other - dementia Psychiatric: other - dementia Skin: normal inspection Lymphatic: normal inspection Medical Decision Making Diagnostic Impression: Primary Impression: Pneumonia Qualified Codes: J18.1 - Lobar pneumonia, unspecified organism Additional Impressions: COPD (chronic obstructive pulmonary disease) Qualified Codes: J44.9 - Chronic obstructive pulmonary disease, unspecified CHF (congestive heart failure) Qualified Codes: I50.9 - Heart failure, unspecified Afib Qualified Codes: I48.91 - Unspecified atrial fibrillation ER Course Hospital Course 81-year-old M presenting to ED with respiratory distress, wheezing Differential diagnoses include: Pneumonia, CHF exacerbation, pneumothorax, fluid overload Clinical course Patient placed on stretcher. On monitoring tech. patient placed on ventilator. After initial history and physical, I ordered nebulizer treatments. I ordered labs, IV fluids, EKG, chest x-ray, blood cultures, UA. Labs -leukocytosis noted, hemoglobin/hematocrit stable, electrolytes okay, lactate okay troponins negative, BNP > 6000 CXR - R lobe infiltrate, cardiomegaly EKG- afib wtih RVR Antibiotics given. Tachycardia improved with IV fluids. Because of insurance patient will be admitted to Dr Prsesley. I feel this is a highly complex case requiring extensive working including EKG/ Rhythm strip, Xray/CT/US, Blood/urine lab work, repeat exams while in ED, and administration of strong opiates/narcotics for pain control, admission to hospital or close patient follow up. Diagnosis - pneumonia, COPD, CHF, Afib Patient admitted to [facility] in serious condition Labs Test 10/12/16 07:14 White Blood Count 19.3 K/UL (4.8-10.8) Red Blood Count 2.87 M/UL (4.70-6.10) Hemoglobin 8.7 G/DL (14.2-18.0) Hematocrit 27.6 % (42.0-52.0) Mean Corpuscular Volume 96 FL (80-99) Mean Corpuscular Hemoglobin 30.4 PG (27.0-31.0) Mean Corpuscular Hemoglobin Concent 31.7 G/DL (32.0-36.0) Red Cell Distribution Width 17.1 % (11.6-14.8) Platelet Count 523 K/UL (150-450) Mean Platelet Volume 7.7 FL (6.5-10.1) Neutrophils (%) (Auto) % (45.0-75.0) Lymphocytes (%) (Auto) % (20.0-45.0) Monocytes (%) (Auto) % (1.0-10.0) Eosinophils (%) (Auto) % (0.0-3.0) Basophils (%) (Auto) % (0.0-2.0) Urine Color Yellow Urine Appearance Slightly cloudy Urine pH 6 (4.5-8.0) Urine Specific [place] 1.010 (1.005-1.035) Urine Protein 3+ (NEGATIVE) Urine Glucose (UA) Negative (NEGATIVE) Urine Ketones Negative (NEGATIVE) Urine Occult Blood 3+ (NEGATIVE) Urine Nitrite Negative (NEGATIVE) Urine Bilirubin Negative (NEGATIVE) Urine Urobilinogen Normal MG/DL (0.0-1.0) Urine Leukocyte Esterase 2+ (NEGATIVE) Urine RBC 2-4 /HPF (0 - 0) Urine WBC 2-4 /HPF (0 - 0) Urine Squamous Epithelial Cells Few /LPF (NONE/OCC) Urine Bacteria Few /HPF (NONE) Urine Yeast Few /HPF (NONE) Sodium Level 137 mEQ/L (135-145) Potassium Level 4.6 mEQ/L (3.4-4.9) Chloride Level 100 mEQ/L (98-107) Carbon Dioxide Level 21 mEQ/L (20-30) Anion Gap 16 (5-15) Blood Urea Nitrogen 26 mg/dL (7-23) Creatinine 1.2 mg/dL (0.7-1.2) Estimat Glomerular Filtration Rate mL/min (>60) Glucose Level 131 mg/dL (74-106) Lactic Acid Level 1.70 mmol/L (0.66-2.22) Calcium Level 8.8 mg/dL (8.6-10.2) Total Bilirubin 0.4 mg/dL (0.0-1.2) Aspartate Amino Transf (AST/SGOT) 69 U/L (5-40) Alanine Aminotransferase (ALT/SGPT) 48 U/L (3-41) Alkaline Phosphatase 330 U/L (40-129) Total Creatine Kinase 111 U/L (38-174) Creatine Kinase MB 5.2 ng/mL (< 6.7) Creatine Kinase MB Relative Index 4.6 Troponin I < 0.30 ng/mL (<=0.30) Pro-B-Type Natriuretic Peptide 6447 pg/mL (0-450) Total Protein 8.9 g/dL (6.6-8.7) Albumin 2.9 g/dL (3.5-5.2) Globulin 6.0 g/dL Albumin/Globulin Ratio 0.4 (1.0-2.7) EKG Diagnostic Results Rate: tachycardiac Rhythm: other - afib ST Segments: no acute changes ASA given to the pt in ED: No Rhythm Strip Diag. Results EP Interpretation: yes Rhythm: NSR, no PVC's, no ectopy Chest X-Ray Diagnostic Results EP Interpretation: Yes Findings: no pneumothorax, no acute cardiopulmonary disease, other - R sided infiltrate. cardiomegaly Number of Views: 1 Last Vital Signs Date Time Temp Pulse Resp B/P Pulse Ox O2 Delivery O2 Flow Rate FiO2 10/12/16 07:30 98.2 110 36 139/88 100 Mechanical Ventilator 100 Status: improved Disposition: ADMITTED INPATIENT Condition: Serious Referrals: KENYA JAQUEZ (PCP) MIKAELA AGGARWAL M.D. October 12, 2016 08:52
[2016-10-12 08:59] LABS: ABG ALLEN TEST POSITIVE; ABG BASE EXCESS -5.6; ABG PCO2 38.9 mmHg (35.0-45.0)
--- NOTE | 2016-10-12 09:36 | Critical Care Progress Note ---
Assessment/Plan Assessment/Plan respiratory failure pneumonia congestion trach gt history of osteo leukocytosis possible sepsis PLAN care noted IV antibiotics respiratory care oxygen aspiration precautions nutrition consider ID evaluation Critical Care - Subjective Interval Events: patient seen and evaluated transferred 911 to the hospital for respiratory distress ROS Limited/Unobtainable: Yes Condition: critical Critical Care - Objective ET-Tube: 8.0 Last 24 Hour Vital Signs Date Time Temp Pulse Resp B/P Pulse Ox O2 Delivery O2 Flow Rate FiO2 10/12/16 09:11 132 38 100 10/12/16 07:30 98.2 110 36 139/88 100 Mechanical Ventilator 100 10/12/16 07:30 103 33 Mechanical Ventilator 100 10/12/16 06:59 97.5 131 24 153/105 100 Mechanical Ventilator 100 10/12/16 06:55 130 38 100 10/12/16 06:55 130 38 Mechanical Ventilator 100 Labs: Labs Test 10/12/16 07:14 10/12/16 08:53 White Blood Count 19.3 K/UL (4.8-10.8) Red Blood Count 2.87 M/UL (4.70-6.10) Hemoglobin 8.7 G/DL (14.2-18.0) Hematocrit 27.6 % (42.0-52.0) Mean Corpuscular Volume 96 FL (80-99) Mean Corpuscular Hemoglobin 30.4 PG (27.0-31.0) Mean Corpuscular Hemoglobin Concent 31.7 G/DL (32.0-36.0) Red Cell Distribution Width 17.1 % (11.6-14.8) Platelet Count 523 K/UL (150-450) Mean Platelet Volume 7.7 FL (6.5-10.1) Neutrophils (%) (Auto) % (45.0-75.0) Lymphocytes (%) (Auto) % (20.0-45.0) Monocytes (%) (Auto) % (1.0-10.0) Eosinophils (%) (Auto) % (0.0-3.0) Basophils (%) (Auto) % (0.0-2.0) Urine Color Yellow Urine Appearance Slightly cloudy Urine pH 6 (4.5-8.0) Urine Specific [place] 1.010 (1.005-1.035) Urine Protein 3+ (NEGATIVE) Urine Glucose (UA) Negative (NEGATIVE) Urine Ketones Negative (NEGATIVE) Urine Occult Blood 3+ (NEGATIVE) Urine Nitrite Negative (NEGATIVE) Urine Bilirubin Negative (NEGATIVE) Urine Urobilinogen Normal MG/DL (0.0-1.0) Urine Leukocyte Esterase 2+ (NEGATIVE) Urine RBC 2-4 /HPF (0 - 0) Urine WBC 2-4 /HPF (0 - 0) Urine Squamous Epithelial Cells Few /LPF (NONE/OCC) Urine Bacteria Few /HPF (NONE) Urine Yeast Few /HPF (NONE) Sodium Level 137 mEQ/L (135-145) Potassium Level 4.6 mEQ/L (3.4-4.9) Chloride Level 100 mEQ/L (98-107) Carbon Dioxide Level 21 mEQ/L (20-30) Anion Gap 16 (5-15) Blood Urea Nitrogen 26 mg/dL (7-23) Creatinine 1.2 mg/dL (0.7-1.2) Estimat Glomerular Filtration Rate mL/min (>60) Glucose Level 131 mg/dL (74-106) Lactic Acid Level 1.70 mmol/L (0.66-2.22) Calcium Level 8.8 mg/dL (8.6-10.2) Total Bilirubin 0.4 mg/dL (0.0-1.2) Aspartate Amino Transf (AST/SGOT) 69 U/L (5-40) Alanine Aminotransferase (ALT/SGPT) 48 U/L (3-41) Alkaline Phosphatase 330 U/L (40-129) Total Creatine Kinase 111 U/L (38-174) Creatine Kinase MB 5.2 ng/mL (< 6.7) Creatine Kinase MB Relative Index 4.6 Troponin I < 0.30 ng/mL (<=0.30) Pro-B-Type Natriuretic Peptide 6447 pg/mL (0-450) Total Protein 8.9 g/dL (6.6-8.7) Albumin 2.9 g/dL (3.5-5.2) Globulin 6.0 g/dL Albumin/Globulin Ratio 0.4 (1.0-2.7) Arterial Blood pH 7.326 (7.350-7.450) Arterial Blood Partial Pressure CO2 38.9 mmHg (35.0-45.0) Arterial Blood Partial Pressure O2 346.0 mmHg (75.0-100.0) Arterial Blood HCO3 19.9 mmol/L (22.0-26.0) Arterial Blood Oxygen Saturation 99.5 % (92.0-98.0) Arterial Blood Base Excess -5.6 Anderson Test Positive Objective: WDWN NAD reduced breath sounds bilaterally with noted rhonchi [id number] without MRG NABS nontender no HSM no CCE nonfocal poor LOC KENYA JAQUEZ October 12, 2016 09:36
[2016-10-12] MEDS ORDERED: Metoprolol 5mg/5ml Inj IVP ONE (09:45)
[2016-10-12 11:11] LABS: BAND NEUTROPHILS % (MANUAL) 0 % (0-8); BASOPHILS % (MANUAL) 0 % (0-2); EOSINOPHILS % (MANUAL) 1 % (0-3); LYMPHOCYTES % (MANUAL) 20 % (20-45); NEUTROPHILS % (MANUAL) 75 % (45-75); PLATELET ESTIMATE INCREASED; TOTAL CELLS COUNTED 100
[2016-10-12 11:12] LABS: ANISOCYTOSIS 1+; HYPOCHROMASIA 1+; PLATELET MORPHOLOGY NORMAL; POLYCHROMASIA OCCASIONAL
--- NOTE | 2016-10-12 13:40 | Infectious Diseases Prog Note ---
Assessment/Plan Problems: (1) HCAP (healthcare-associated pneumonia) Assessment & Plan: will send sputum for culture and start meropenem and vancomycin empirically (2) Sepsis Assessment & Plan: due to the above, will send blood culture , and start meropenem and vancomycin empirically pending culture results (3) Acute respiratory failure Assessment & Plan: due to the above, intubated, on mechanical ventilation , monitor ABG, and CXR (4) Shock liver Assessment & Plan: due to sepsis, monitor LFT, avoid hepatotoxic meds Subjective Allergies: Coded Allergies: No Known Allergies (Unverified , 12/08/13) Objective Vital Signs Last 24 Hour Vital Signs Date Time Temp Pulse Resp B/P Pulse Ox O2 Delivery O2 Flow Rate FiO2 10/12/16 13:27 84 35 100 10/12/16 12:30 97.0 91 30 106/72 100 Mechanical Ventilator 50 10/12/16 11:29 97.0 89 30 106/72 100 Mechanical Ventilator 10/12/16 10:33 118 36 100 10/12/16 10:30 97.6 108 33 104/63 100 Mechanical Ventilator 10/12/16 09:45 94 106/72 10/12/16 09:30 97.2 112 36 149/99 100 Mechanical Ventilator 50 10/12/16 09:11 132 38 100 10/12/16 09:10 50 10/12/16 08:30 97.9 104 36 125/84 99 Mechanical Ventilator 100 10/12/16 08:13 100 10/12/16 07:30 98.2 110 36 139/88 100 Mechanical Ventilator 100 10/12/16 07:30 103 33 Mechanical Ventilator 100 10/12/16 06:59 97.5 131 24 153/105 100 Mechanical Ventilator 100 10/12/16 06:55 130 38 100 10/12/16 06:55 130 38 Mechanical Ventilator 100 Height (Feet): 5 Height (Inches): 5.00 Weight (Pounds): 190 Laboratory Tests Test 10/12/16 07:14 10/12/16 08:53 White Blood Count 19.3 K/UL (4.8-10.8) H Red Blood Count 2.87 M/UL (4.70-6.10) L Hemoglobin 8.7 G/DL (14.2-18.0) L Hematocrit 27.6 % (42.0-52.0) L Mean Corpuscular Volume 96 FL (80-99) Mean Corpuscular Hemoglobin 30.4 PG (27.0-31.0) Mean Corpuscular Hemoglobin Concent 31.7 G/DL (32.0-36.0) L Red Cell Distribution Width 17.1 % (11.6-14.8) H Platelet Count 523 K/UL (150-450) H Mean Platelet Volume 7.7 FL (6.5-10.1) Neutrophils (%) (Auto) % (45.0-75.0) Lymphocytes (%) (Auto) % (20.0-45.0) Monocytes (%) (Auto) % (1.0-10.0) Eosinophils (%) (Auto) % (0.0-3.0) Basophils (%) (Auto) % (0.0-2.0) Differential Total Cells Counted 100 Neutrophils % (Manual) 75 % (45-75) Lymphocytes % (Manual) 20 % (20-45) Monocytes % (Manual) 4 % (1-10) Eosinophils % (Manual) 1 % (0-3) Basophils % (Manual) 0 % (0-2) Band Neutrophils 0 % (0-8) Platelet Estimate Increased H Platelet Morphology Normal Polychromasia Occasional Hypochromasia 1+ Anisocytosis 1+ Urine Color Yellow Urine Appearance Slightly cloudy Urine pH 6 (4.5-8.0) Urine Specific [place] 1.010 (1.005-1.035) Urine Protein 3+ (NEGATIVE) H Urine Glucose (UA) Negative (NEGATIVE) Urine Ketones Negative (NEGATIVE) Urine Occult Blood 3+ (NEGATIVE) H Urine Nitrite Negative (NEGATIVE) Urine Bilirubin Negative (NEGATIVE) Urine Urobilinogen Normal MG/DL (0.0-1.0) Urine Leukocyte Esterase 2+ (NEGATIVE) H Urine RBC 2-4 /HPF (0 - 0) H Urine WBC 2-4 /HPF (0 - 0) Urine Squamous Epithelial Cells Few /LPF (NONE/OCC) Urine Bacteria Few /HPF (NONE) Urine Yeast Few /HPF (NONE) H Sodium Level 137 mEQ/L (135-145) Potassium Level 4.6 mEQ/L (3.4-4.9) Chloride Level 100 mEQ/L (98-107) Carbon Dioxide Level 21 mEQ/L (20-30) Anion Gap 16 (5-15) H Blood Urea Nitrogen 26 mg/dL (7-23) H Creatinine 1.2 mg/dL (0.7-1.2) Estimat Glomerular Filtration Rate mL/min (>60) Glucose Level 131 mg/dL (74-106) H Lactic Acid Level 1.70 mmol/L (0.66-2.22) Calcium Level 8.8 mg/dL (8.6-10.2) Total Bilirubin 0.4 mg/dL (0.0-1.2) Aspartate Amino Transf (AST/SGOT) 69 U/L (5-40) H Alanine Aminotransferase (ALT/SGPT) 48 U/L (3-41) H Alkaline Phosphatase 330 U/L (40-129) H Total Creatine Kinase 111 U/L (38-174) Creatine Kinase MB 5.2 ng/mL (< 6.7) Creatine Kinase MB Relative Index 4.6 Troponin I < 0.30 ng/mL (<=0.30) Pro-B-Type Natriuretic Peptide 6447 pg/mL (0-450) H Total Protein 8.9 g/dL (6.6-8.7) H Albumin 2.9 g/dL (3.5-5.2) L Globulin 6.0 g/dL Albumin/Globulin Ratio 0.4 (1.0-2.7) L Arterial Blood pH 7.326 (7.350-7.450) Arterial Blood Partial Pressure CO2 38.9 mmHg (35.0-45.0) Arterial Blood Partial Pressure O2 346.0 mmHg (75.0-100.0) H Arterial Blood HCO3 19.9 mmol/L (22.0-26.0) L Arterial Blood Oxygen Saturation 99.5 % (92.0-98.0) H Arterial Blood Base Excess -5.6 Anderson Test Positive Karla Stringer M.D. October 12, 2016 13:40
[2016-10-12] MEDS ORDERED: Vancomycin 1 GM in D5W 275 ML IVPB SCH (14:00)
[2016-10-12] MEDS: Meropenem 1 GM in NS 110 ML IVPB SCH (15:00)
[2016-10-12] MEDS: Vancomycin 1.5 GM in D5W 325 ML IVPB SCH (16:21)
[2016-10-12] MEDS ORDERED: Vancomycin 1.5 GM in D5W 325 ML IVPB SCH (17:00)
--- NOTE | 2016-10-12 18:16 | History and Physical Report ---
DATE OF ADMISSION: 10/12/2016 TIME SEEN: 1 p.m. CONSULTANTS: 1. Adrien Hernandez M.D. 2. Dr. Pabon. CHIEF COMPLAINT: Fever, shortness of breath, respiratory failure, pneumonia, and sepsis. BRIEF HISTORY: This is an 81-year-old male from [facility], who presents to [place] ER with history of increased shortness of breath and fevers, noted to have pneumonia and sepsis, being admitted to [facility] for further care currently. Trach, vent, altered, lethargic in bed in ICU, and nonverbal. PAST MEDICAL HISTORY: History of CVA, respiratory failure, hypertension, atrial fibrillation, and COPD. PAST SURGICAL HISTORY: G-tube and trach. MEDICATIONS: Lopressor, , Zithromax, cefepime, and IV fluids. ALLERGIES: Denies. SOCIAL HISTORY: No smoking. No alcohol. No intravenous drug abuse. FAMILY HISTORY: Noncontributory. REVIEW OF SYSTEMS: Not available. PHYSICAL EXAMINATION: GENERAL: Calm, lethargic in bed, trach, vent, altered, and nonverbal. VITAL SIGNS: Temperature 97 degrees, pulse 89, respirations 30, and blood pressure 106/72. CARDIOVASCULAR: No murmur. LUNGS: Poor air exchange. ABDOMEN: Bowel sounds positive. Soft, nontender, and nondistended. EXTREMITIES: No cyanosis, clubbing, or edema. NEUROLOGIC: The patient is flaccid in bed, not following directions. LABORATORY DATA: Lab exam show white count 19.3, hemoglobin and hematocrit 8.7 and 27, and platelets 523,000. BUN and creatine are 26 and 1.2. Glucose 131. Troponin less than 0.3. BNP 6047. Urinalysis is 3+ occult blood and 2+ leukocyte esterase. ASSESSMENT: 1. Respiratory failure. 2. Tracheostomy and ventilator. 3. Urinary tract infection. 4. Pneumonia. 5. Sepsis. 6. Cerebrovascular accident. 7. Hypertension. 8. Atrial fibrillation. 9. Chronic obstructive pulmonary disease. PLAN: 1. Continue pre-medications. 2. . 3. Antibiotics per Infectious Disease. 4. OT, PT, and dietary evaluation. 5. CBC and BMP in the morning. 6. Resume home medications. 7. Dr. Hernandez, Dr. Pabon, and Dr. Moya to consult. We will continue to follow this patient medically. Emmett Pressley D.O. DR: PEREZ JOB#: [id number] CC:
[2016-10-12] MEDS: DuoNeb 0.5-3(2.5)mg/3ml neb HHN SCH ×2 (19:11→22:50)
--- NOTE | 2016-10-12 19:31 | Consultation ---
DATE OF CONSULTATION: INFECTIOUS DISEASE CONSULTATION CONSULTING PHYSICIAN: aKrla Stringer M.D. REQUESTING PHYSICIAN: Emmett Pressley D.O. REASON FOR CONSULTATION: Pneumonia and sepsis. Recommendation for antibiotics therapy. HISTORY OF PRESENT ILLNESS: The patient is an 81-year-old male, [facility] resident with history of dementia, CVA, and diabetes, who was sent to the emergency room at [facility] due to desaturation. The patient has a chronic respiratory failure. He has a trach and on ventilator. His O2 saturation was down around 80. He was suctioning and his oxygen has improved. The patient was found to be in distress when the paramedics arrived. In the emergency room, his oxygenation was 100% upon arrival. Chest x-ray showed a right-sided infiltration, seems to be pneumonia in nature, so he was given antibiotics and I was asked by the primary provider for antibiotics treatment and further management. As of note, he is demented, nonverbal, and cannot provide any history. History was mainly obtained from the medical record. PAST MEDICAL HISTORY: Significant for hypertension, diabetes, CVA, dementia, and aphasia. PAST SURGICAL HISTORY: He had tracheostomy and PEG tube placement. MEDICATIONS: He received cefepime and azithromycin in the emergency room. For the rest of his medications, please refer to [facility]. ALLERGIES: No known drug allergy. SOCIAL HISTORY: He is a [employer] resident. No recent drugs, tobacco, or alcohol. FAMILY HISTORY: Unable to obtain. REVIEW OF SYSTEMS: Unable to obtain. PHYSICAL EXAMINATION: VITAL SIGNS: Temperature 97 degrees, pulse 97, respirations 20, blood pressure 105/71, and saturation 100% on 100% of mechanical ventilation via ventilator. GENERAL: This is an elderly male with tracheostomy, on ventilator, lying in bed, open eyes spontaneously, alert, nonverbal, demented, and not in distress. HEENT: Normocephalic and atraumatic. Pupils are reactive to light. Dry oral mucosa. Poor dental hygiene. NECK: Supple. No lymphadenopathy. Trach site looks okay with no drainage. CARDIOVASCULAR: He is tachycardic. S1 and S2 positive. No murmur. LUNGS: He had diminished breathing sounds on the right side with crackles at the bases. Normal breathing efforts. ABDOMEN: Soft, nontender, and nondistended. Positive bowel sounds. No hepatosplenomegaly or ascites. EXTREMITIES: No edema or cyanosis. SKIN: He has some rash in the inguinal area with redness probably due to yeast and sacral wound. LABORATORY DATA: Labs showed white count of 19.3, platelet count of 523,000, and hemoglobin of 8.7. BUN of 36 and creatinine of 1.2. AST of 69, ALT of 48, and alkaline phosphatase of 330. Urinalysis showed +2 leukocyte esterase, 2 to 4 red blood cells, and few yeast. IMAGING: Chest x-ray showed congestive heart failure with bibasilar pleural effusion. Patchy airspace opacity in the right lung may represent atelectasis, alveolar pulmonary edema, or superimposed pneumonia. ASSESSMENT AND RECOMMENDATIONS: 1. Healthcare-acquired pneumonia. We will send sputum for culture. Start the patient on meropenem and vancomycin empirically. 2. Sepsis. Due to the above, we will send blood culture. Continue meropenem and vancomycin until culture obtained. We will tailor antibiotics as needed. 3. Acute respiratory failure due to the above. On mechanical ventilation and intubated through his trach. Monitor arterial blood gases and chest x-ray. Pulmonary is following. 4. Shock liver due to sepsis. Monitor liver function tests and avoid hepatotoxic medicines. Karla Stringer M.D. DR: AIRAM JOB#: [id number] CC:
[2016-10-12] MEDS: Heparin 5000 units/ml inj SUBQ SCH (20:29)
[2016-10-12] MEDS ORDERED: Piperacillin/Tazobactam 3.375 GM in D5W 110 ML IVPB SCH (21:00)
[2016-10-13 00:58] VITALS: BP 137/90
[2016-10-13] MEDS: Meropenem 1 GM in NS 110 ML IVPB SCH ×3 (02:42→22:22)
[2016-10-13] MEDS: DuoNeb 0.5-3(2.5)mg/3ml neb HHN SCH ×6 (03:13→23:07)
[2016-10-13 04:00] VITALS: BP 121/84
[2016-10-13 05:13] LABS: MEAN CORPUSCULAR HEMOGLOBIN 30.2 PG (27.0-31.0); MEAN CORPUSCULAR HGB CONC 30.9 G/DL (32.0-36.0); MEAN CORPUSCULAR VOLUME 98 FL (80-99); MEAN PLATELET VOLUME 8.1 FL (6.5-10.1); PLATELET COUNT 375 K/UL (150-450); RED BLOOD COUNT 2.58 M/UL (4.70-6.10); RED CELL DISTRIBUTION WIDTH 17.3 % (11.6-14.8); WHITE BLOOD COUNT 13.3 K/UL (4.8-10.8)
[2016-10-13 05:46] LABS: ANION GAP 16 (5-15); CALCIUM 8.3 mg/dL (8.6-10.2); CARBON DIOXIDE 18 mEQ/L (20-30); CHLORIDE 106 mEQ/L (98-107); CREATININE 0.9 mg/dL (0.7-1.2); HEMOLYSIS 10; POTASSIUM 5.4 mEQ/L (3.4-4.9); SODIUM 140 mEQ/L (135-145)
[2016-10-13 08:00] VITALS: BP_SYST 138; BP_SYST 30; BP_DIAS 62
[2016-10-13] MEDS ORDERED: Sodium Polystyrene Sulfonate 15gm Powder ORAL ONE (08:00)
--- NOTE | 2016-10-13 08:18 | Critical Care Progress Note ---
Assessment/Plan Assessment/Plan respiratory failure pneumonia congestion hypoxemia trach gt history of osteo leukocytosis possible sepsis anemia elevated K PLAN care noted IV antibiotics respiratory care oxygen aspiration precautions nutrition transfuse kayexalate follow up labs and cxr ID evaluation noted impression, plan, and exam edited and reviewed in detail care discussed with patient safety officer - Subjective Interval Events: on the ventilator care noted anemic and elevated K ROS Limited/Unobtainable: Yes Condition: critical EKG Rhythm: Sinus Rhythm Residuals: minimal Tube Feeding Tolerated: yes I&O: Intake and Output 10/12/16 10/13/16 19:00 07:00 Intake Total 2595 ml 530 ml Output Total 65 ml 400 ml Balance 2530 ml 130 ml Intake Free Water 100 ml 100 ml IV Total 2435 ml 110 ml Tube Feeding 60 ml 320 ml Output Urine Total 65 ml 400 ml # Voids 60 # Bowel Movements 1 1 Critical Care - Objective CXR: bilateral infiltrates Last 24 Hour Vital Signs Date Time Temp Pulse Resp B/P Pulse Ox O2 Delivery O2 Flow Rate FiO2 10/13/16 07:10 99 24 50 10/13/16 05:08 108 41 50 10/13/16 04:00 99.8 98 33 121/84 100 Mechanical Ventilator 50 10/13/16 04:00 105 10/13/16 04:00 50 10/13/16 03:19 112 36 100 Mechanical Ventilator 50 10/13/16 03:12 110 33 98 Mechanical Ventilator 50 10/13/16 03:12 110 33 50 10/13/16 02:30 102.0 10/13/16 01:10 143 40 50 10/13/16 00:58 99.9 103 37 137/90 100 Mechanical Ventilator 50 10/13/16 00:00 98 10/13/16 00:00 50 10/12/16 22:58 108 38 100 Mechanical Ventilator 50 10/12/16 22:50 104 38 100 Mechanical Ventilator 50 10/12/16 22:50 104 38 50 10/12/16 21:21 132 44 50 10/12/16 20:00 98.8 120 42 143/97 98 Mechanical Ventilator 50 10/12/16 20:00 50 10/12/16 20:00 122 10/12/16 19:14 105 33 100 Mechanical Ventilator 50 10/12/16 19:06 105 42 50 10/12/16 19:06 105 42 99 Mechanical Ventilator 50 10/12/16 17:30 88 35 100 10/12/16 16:00 97.7 85 18 118/66 100 Mechanical Ventilator 10/12/16 16:00 85 10/12/16 15:20 90 36 100 10/12/16 15:07 98 10/12/16 14:39 50 10/12/16 14:30 97.0 101 18 133/76 100 Mechanical Ventilator 10/12/16 14:07 86 33 105/71 100 Room Air 10/12/16 13:30 97.0 97 20 105/71 100 Mechanical Ventilator 10/12/16 13:27 84 35 100 10/12/16 12:30 97.0 91 30 106/72 100 Mechanical Ventilator 50 10/12/16 11:29 97.0 89 30 106/72 100 Mechanical Ventilator 10/12/16 10:33 118 36 100 10/12/16 10:30 97.6 108 33 104/63 100 Mechanical Ventilator 10/12/16 09:45 94 106/72 10/12/16 09:30 97.2 112 36 149/99 100 Mechanical Ventilator 50 10/12/16 09:11 132 38 100 10/12/16 09:10 50 10/12/16 08:30 97.9 104 36 125/84 99 Mechanical Ventilator 100 Labs: Labs Test 10/12/16 07:14 10/12/16 08:53 10/13/16 04:00 White Blood Count 19.3 K/UL (4.8-10.8) 13.3 K/UL (4.8-10.8) Red Blood Count 2.87 M/UL (4.70-6.10) 2.58 M/UL (4.70-6.10) Hemoglobin 8.7 G/DL (14.2-18.0) 7.8 G/DL (14.2-18.0) Hematocrit 27.6 % (42.0-52.0) 25.2 % (42.0-52.0) Mean Corpuscular Volume 96 FL (80-99) 98 FL (80-99) Mean Corpuscular Hemoglobin 30.4 PG (27.0-31.0) 30.2 PG (27.0-31.0) Mean Corpuscular Hemoglobin Concent 31.7 G/DL (32.0-36.0) 30.9 G/DL (32.0-36.0) Red Cell Distribution Width 17.1 % (11.6-14.8) 17.3 % (11.6-14.8) Platelet Count 523 K/UL (150-450) 375 K/UL (150-450) Mean Platelet Volume 7.7 FL (6.5-10.1) 8.1 FL (6.5-10.1) Neutrophils (%) (Auto) % (45.0-75.0) % (45.0-75.0) Lymphocytes (%) (Auto) % (20.0-45.0) % (20.0-45.0) Monocytes (%) (Auto) % (1.0-10.0) % (1.0-10.0) Eosinophils (%) (Auto) % (0.0-3.0) % (0.0-3.0) Basophils (%) (Auto) % (0.0-2.0) % (0.0-2.0) Differential Total Cells Counted 100 Neutrophils % (Manual) 75 % (45-75) Lymphocytes % (Manual) 20 % (20-45) Monocytes % (Manual) 4 % (1-10) Eosinophils % (Manual) 1 % (0-3) Basophils % (Manual) 0 % (0-2) Band Neutrophils 0 % (0-8) Platelet Estimate Increased Platelet Morphology Normal Polychromasia Occasional Hypochromasia 1+ Anisocytosis 1+ Urine Color Yellow Urine Appearance Slightly cloudy Urine pH 6 (4.5-8.0) Urine Specific [place] 1.010 (1.005-1.035) Urine Protein 3+ (NEGATIVE) Urine Glucose (UA) Negative (NEGATIVE) Urine Ketones Negative (NEGATIVE) Urine Occult Blood 3+ (NEGATIVE) Urine Nitrite Negative (NEGATIVE) Urine Bilirubin Negative (NEGATIVE) Urine Urobilinogen Normal MG/DL (0.0-1.0) Urine Leukocyte Esterase 2+ (NEGATIVE) Urine RBC 2-4 /HPF (0 - 0) Urine WBC 2-4 /HPF (0 - 0) Urine Squamous Epithelial Cells Few /LPF (NONE/OCC) Urine Bacteria Few /HPF (NONE) Urine Yeast Few /HPF (NONE) Sodium Level 137 mEQ/L (135-145) 140 mEQ/L (135-145) Potassium Level 4.6 mEQ/L (3.4-4.9) 5.4 mEQ/L (3.4-4.9) Chloride Level 100 mEQ/L (98-107) 106 mEQ/L (98-107) Carbon Dioxide Level 21 mEQ/L (20-30) 18 mEQ/L (20-30) Anion Gap 16 (5-15) 16 (5-15) Blood Urea Nitrogen 26 mg/dL (7-23) 21 mg/dL (7-23) Creatinine 1.2 mg/dL (0.7-1.2) 0.9 mg/dL (0.7-1.2) Estimat Glomerular Filtration Rate mL/min (>60) mL/min (>60) Glucose Level 131 mg/dL (74-106) 100 mg/dL (74-106) Lactic Acid Level 1.70 mmol/L (0.66-2.22) Calcium Level 8.8 mg/dL (8.6-10.2) 8.3 mg/dL (8.6-10.2) Total Bilirubin 0.4 mg/dL (0.0-1.2) Aspartate Amino Transf (AST/SGOT) 69 U/L (5-40) Alanine Aminotransferase (ALT/SGPT) 48 U/L (3-41) Alkaline Phosphatase 330 U/L (40-129) Total Creatine Kinase 111 U/L (38-174) Creatine Kinase MB 5.2 ng/mL (< 6.7) Creatine Kinase MB Relative Index 4.6 Troponin I < 0.30 ng/mL (<=0.30) Pro-B-Type Natriuretic Peptide 6447 pg/mL (0-450) Total Protein 8.9 g/dL (6.6-8.7) Albumin 2.9 g/dL (3.5-5.2) Globulin 6.0 g/dL Albumin/Globulin Ratio 0.4 (1.0-2.7) Arterial Blood pH 7.326 (7.350-7.450) Arterial Blood Partial Pressure CO2 38.9 mmHg (35.0-45.0) Arterial Blood Partial Pressure O2 346.0 mmHg (75.0-100.0) Arterial Blood HCO3 19.9 mmol/L (22.0-26.0) Arterial Blood Oxygen Saturation 99.5 % (92.0-98.0) Arterial Blood Base Excess -5.6 Anderson Test Positive Objective: WDWN NAD trach reduced breath sounds bilaterally with some rhonchi; no wheeze [id number] without MRG NABS nontender no HSM; no distention; GT no CCE nonfocal; reduced ROM poor LOC skin noted KENYA JAQUEZ October 13, 2016 08:18
[2016-10-13 08:33] LABS: BAND NEUTROPHILS % (MANUAL) 2 % (0-8); BASOPHILS % (MANUAL) 0 % (0-2); EOSINOPHILS % (MANUAL) 0 % (0-3); HYPOCHROMASIA 1+; LYMPHOCYTES % (MANUAL) 13 % (20-45); MACROCYTES 1+; NEUTROPHILS % (MANUAL) 77 % (45-75); PLATELET ESTIMATE ADEQUATE; PLATELET MORPHOLOGY NORMAL; TOTAL CELLS COUNTED 100
[2016-10-13 08:34] LABS: ANISOCYTOSIS 2+; POLYCHROMASIA 1+
[2016-10-13] MEDS: Pantoprazole Inj IVP SCH (08:51)
[2016-10-13] MEDS: Heparin 5000 units/ml inj SUBQ SCH ×2 (08:55→22:22)
[2016-10-13 09:11] LABS: ABG PCO2 34.4 mmHg (35.0-45.0)
[2016-10-13 09:12] LABS: ABG ALLEN TEST POSITIVE; ABG BASE EXCESS -4.1
[2016-10-13] MEDS ORDERED: Amikacin Rx to dose MISC PRN (11:00)
--- NOTE | 2016-10-13 11:02 | Diagnostic Imaging Report ---
Indication: Shortness of breath Technique: One view of the chest Comparison: 10/12/2016 Findings: Tracheostomy remains. There is decreased but persistent bilateral parenchymal opacity and generalized interstitial congestion. There is decreased left pleural fluid. Pleural fluid on the right remains unchanged. Impression: Improved but persistent bilateral interstitial and alveolar infiltrates versus edema, over one day Improved small left pleural effusion
[2016-10-13] MEDS: Amikacin 1,000 MG in NS 110 ML IV SCH (11:38)
[2016-10-13 12:00] VITALS: BP 152/88
--- NOTE | 2016-10-13 14:09 | General Progress Note ---
Assessment/Plan Problem List: (1) History of CVA (cerebrovascular accident) ICD Codes: Z86.73 - Personal history of transient ischemic attack (TIA), and cerebral infarction without residual deficits SNOMED: 811180573 (2) HTN (hypertension) ICD Codes: I10 - Essential (primary) hypertension SNOMED: 15784177 (3) Atrial fibrillation ICD Codes: I48.91 - Unspecified atrial fibrillation SNOMED: 97125299 (4) COPD (chronic obstructive pulmonary disease) ICD Codes: J44.9 - Chronic obstructive pulmonary disease, unspecified SNOMED: 39959603 Qualifiers: Qualified Codes: J44.9 - Chronic obstructive pulmonary disease, unspecified (5) Sepsis ICD Codes: A41.9 - Sepsis SNOMED: 46868009 (6) Pneumonia ICD Codes: J18.9 - Pneumonia, unspecified organism SNOMED: 270282111 Qualifiers: Qualified Codes: J18.1 - Lobar pneumonia, unspecified organism Status: stable, progressing, tolerating diet Assessment/Plan vent abx ot pt diet cbc bmp am Subjective Allergies: Coded Allergies: No Known Allergies (Unverified , 12/08/13) All Systems: reviewed and negative except above Subjective trach vent altered Objective Last 24 Hour Vital Signs Date Time Temp Pulse Resp B/P Pulse Ox O2 Delivery O2 Flow Rate FiO2 10/13/16 13:20 104 41 50 10/13/16 12:00 97.9 104 39 152/88 99 Mechanical Ventilator 50 10/13/16 12:00 105 10/13/16 12:00 50 10/13/16 11:15 112 40 100 Mechanical Ventilator 50 10/13/16 11:10 109 42 98 Mechanical Ventilator 50 10/13/16 11:10 109 42 50 10/13/16 09:30 120 44 50 10/13/16 08:51 132 138/82 10/13/16 08:00 50 10/13/16 08:00 98.4 120 30 30/ 20 10/13/16 08:00 115 10/13/16 07:15 114 36 100 Mechanical Ventilator 50 10/13/16 07:10 99 24 50 10/13/16 07:10 99 33 98 Mechanical Ventilator 50 10/13/16 05:08 108 41 50 10/13/16 04:00 99.8 98 33 121/84 100 Mechanical Ventilator 50 10/13/16 04:00 105 10/13/16 04:00 50 10/13/16 03:19 112 36 100 Mechanical Ventilator 50 10/13/16 03:12 110 33 98 Mechanical Ventilator 50 10/13/16 03:12 110 33 50 10/13/16 02:30 102.0 10/13/16 01:10 143 40 50 10/13/16 00:58 99.9 103 37 137/90 100 Mechanical Ventilator 50 10/13/16 00:00 98 10/13/16 00:00 50 10/12/16 22:58 108 38 100 Mechanical Ventilator 50 10/12/16 22:50 104 38 100 Mechanical Ventilator 50 10/12/16 22:50 104 38 50 10/12/16 21:21 132 44 50 10/12/16 20:00 98.8 120 42 143/97 98 Mechanical Ventilator 50 10/12/16 20:00 50 10/12/16 20:00 122 10/12/16 19:14 105 33 100 Mechanical Ventilator 50 10/12/16 19:06 105 42 50 10/12/16 19:06 105 42 99 Mechanical Ventilator 50 10/12/16 17:30 88 35 100 10/12/16 16:00 97.7 85 18 118/66 100 Mechanical Ventilator 10/12/16 16:00 85 10/12/16 15:20 90 36 100 10/12/16 15:07 98 10/12/16 14:39 50 10/12/16 14:30 97.0 101 18 133/76 100 Mechanical Ventilator Intake and Output 10/12/16 10/13/16 19:00 07:00 Intake Total 2595 ml 530 ml Output Total 65 ml 400 ml Balance 2530 ml 130 ml Intake Free Water 100 ml 100 ml IV Total 2435 ml 110 ml Tube Feeding 60 ml 320 ml Output Urine Total 65 ml 400 ml # Voids 60 # Bowel Movements 1 1 Laboratory Tests 10/13/16 04:00: White Blood Count 13.3H, Red Blood Count 2.58L, Hemoglobin 7.8L, Hematocrit 25.2L, Mean Corpuscular Volume 98, Mean Corpuscular Hemoglobin 30.2, Mean Corpuscular Hemoglobin Concent 30.9L, Red Cell Distribution Width 17.3H, Platelet Count 375, Mean Platelet Volume 8.1, Neutrophils (%) (Auto) , Lymphocytes (%) (Auto) , Monocytes (%) (Auto) , Eosinophils (%) (Auto) , Basophils (%) (Auto) , Differential Total Cells Counted 100, Neutrophils % ( Manual) 77H, Lymphocytes % (Manual) 13L, Monocytes % (Manual) 8, Eosinophils % ( Manual) 0, Basophils % (Manual) 0, Band Neutrophils 2, Platelet Estimate Adequate, Platelet Morphology Normal, Polychromasia 1+, Hypochromasia 1+, Anisocytosis 2+, Macrocytosis 1+, Sodium Level 140, Potassium Level 5.4H, Chloride Level 106, Carbon Dioxide Level 18L, Anion Gap 16H, Blood Urea Nitrogen 21, Creatinine 0.9, Estimat Glomerular Filtration Rate , Glucose Level 100, Calcium Level 8.3L 10/13/16 09:04: Arterial Blood pH 7.390, Arterial Blood Partial Pressure CO2 34.4L, Arterial Blood Partial Pressure O2 132.0H, Arterial Blood HCO3 20.4L, Arterial Blood Oxygen Saturation 98.5H, Arterial Blood Base Excess -4.1, Anderson Test Positive Height (Feet): 5 Height (Inches): 5.00 Weight (Pounds): 190 General Appearance: lethargic EENT: normal ENT inspection Neck: normal alignment Cardiovascular: normal peripheral pulses, normal rate, regular rhythm Respiratory/Chest: chest wall non-tender, lungs clear, normal breath sounds Abdomen: normal bowel sounds, non tender, soft Extremities: normal inspection Edema: no edema noted Arm (L), no edema noted Arm (R), no edema noted Leg (L), no edema noted Leg (R), no edema noted Pedal (L), no edema noted Pedal (R), no edema noted Generalized Neurologic: motor weakness Skin: normal pigmentation, warm/dry DEVEN GRACE October 13, 2016 14:09
[2016-10-13] MEDS ORDERED: Tubing IV Secondary IV ONE (14:33)
[2016-10-13] MEDS ORDERED: NS 275ml ONE (14:33)
--- NOTE | 2016-10-13 15:35 | Infectious Diseases Prog Note ---
Assessment/Plan Problems: (1) HCAP (healthcare-associated pneumonia) Assessment & Plan: continue to spike fever on meropenem and vancomycin , will add amikacin empirically pending culture results . (2) Sepsis Assessment & Plan: due to the above, await blood culture , will add amikacin since he is stil spiking fever, and continue meropenem and vancomycin empirically pending culture results (3) Acute respiratory failure Assessment & Plan: due to the above, intubated, on mechanical ventilation , monitor ABG, and CXR (4) Shock liver Assessment & Plan: due to sepsis, monitor LFT, avoid hepatotoxic meds Subjective ROS Limited/Unobtainable: Yes Allergies: Coded Allergies: No Known Allergies (Unverified , 12/08/13) Subjective he is intubated with trach , comfortable, not in distress Objective Vital Signs Last 24 Hour Vital Signs Date Time Temp Pulse Resp B/P Pulse Ox O2 Delivery O2 Flow Rate FiO2 10/13/16 15:15 107 41 100 Mechanical Ventilator 50 10/13/16 15:10 103 40 99 Mechanical Ventilator 50 10/13/16 15:10 103 41 50 10/13/16 13:20 104 41 50 10/13/16 12:00 97.9 104 39 152/88 99 Mechanical Ventilator 50 10/13/16 12:00 105 10/13/16 12:00 50 10/13/16 11:15 112 40 100 Mechanical Ventilator 50 10/13/16 11:10 109 42 98 Mechanical Ventilator 50 10/13/16 11:10 109 42 50 10/13/16 09:30 120 44 50 10/13/16 08:51 132 138/82 10/13/16 08:00 50 10/13/16 08:00 98.4 120 30 30/ 20 10/13/16 08:00 115 10/13/16 07:15 114 36 100 Mechanical Ventilator 50 10/13/16 07:10 99 24 50 10/13/16 07:10 99 33 98 Mechanical Ventilator 50 10/13/16 05:08 108 41 50 10/13/16 04:00 99.8 98 33 121/84 100 Mechanical Ventilator 50 10/13/16 04:00 105 10/13/16 04:00 50 10/13/16 03:19 112 36 100 Mechanical Ventilator 50 10/13/16 03:12 110 33 98 Mechanical Ventilator 50 10/13/16 03:12 110 33 50 10/13/16 02:30 102.0 10/13/16 01:10 143 40 50 10/13/16 00:58 99.9 103 37 137/90 100 Mechanical Ventilator 50 10/13/16 00:00 98 10/13/16 00:00 50 10/12/16 22:58 108 38 100 Mechanical Ventilator 50 10/12/16 22:50 104 38 100 Mechanical Ventilator 50 10/12/16 22:50 104 38 50 10/12/16 21:21 132 44 50 10/12/16 20:00 98.8 120 42 143/97 98 Mechanical Ventilator 50 10/12/16 20:00 50 10/12/16 20:00 122 10/12/16 19:14 105 33 100 Mechanical Ventilator 50 10/12/16 19:06 105 42 50 10/12/16 19:06 105 42 99 Mechanical Ventilator 50 10/12/16 17:30 88 35 100 10/12/16 16:00 97.7 85 18 118/66 100 Mechanical Ventilator 10/12/16 16:00 85 Height (Feet): 5 Height (Inches): 5.00 Weight (Pounds): 190 General Appearance: WD/WN, no acute distress HEENT: normocephalic, atraumatic, anicteric, mucous membranes moist Respiratory/Chest: chest wall non-tender, no respiratory distress, no accessory muscle use, decreased breath sounds, crackles/rales Cardiovascular: normal peripheral pulses, normal rate, regular rhythm, no gallop/murmur, no JVD Abdomen: normal bowel sounds, soft, non tender, no organomegaly, non distended , no mass, no scars Extremities: no cyanosis, no clubbing Skin: no rash, no lesions Microbiology Date/Time Source Procedure Growth Status 10/12/16 15:30 Sputum Gram Stain - Final Resulted 10/12/16 15:30 Sputum Sputum Culture Pending Resulted 10/12/16 07:14 Urine,Clean Catch Urine Culture - Preliminary Resulted Laboratory Tests Test 10/13/16 04:00 10/13/16 09:04 White Blood Count 13.3 K/UL (4.8-10.8) H Red Blood Count 2.58 M/UL (4.70-6.10) L Hemoglobin 7.8 G/DL (14.2-18.0) L Hematocrit 25.2 % (42.0-52.0) L Mean Corpuscular Volume 98 FL (80-99) Mean Corpuscular Hemoglobin 30.2 PG (27.0-31.0) Mean Corpuscular Hemoglobin Concent 30.9 G/DL (32.0-36.0) L Red Cell Distribution Width 17.3 % (11.6-14.8) H Platelet Count 375 K/UL (150-450) Mean Platelet Volume 8.1 FL (6.5-10.1) Neutrophils (%) (Auto) % (45.0-75.0) Lymphocytes (%) (Auto) % (20.0-45.0) Monocytes (%) (Auto) % (1.0-10.0) Eosinophils (%) (Auto) % (0.0-3.0) Basophils (%) (Auto) % (0.0-2.0) Differential Total Cells Counted 100 Neutrophils % (Manual) 77 % (45-75) H Lymphocytes % (Manual) 13 % (20-45) L Monocytes % (Manual) 8 % (1-10) Eosinophils % (Manual) 0 % (0-3) Basophils % (Manual) 0 % (0-2) Band Neutrophils 2 % (0-8) Platelet Estimate Adequate Platelet Morphology Normal Polychromasia 1+ Hypochromasia 1+ Anisocytosis 2+ Macrocytosis 1+ Sodium Level 140 mEQ/L (135-145) Potassium Level 5.4 mEQ/L (3.4-4.9) H Chloride Level 106 mEQ/L (98-107) Carbon Dioxide Level 18 mEQ/L (20-30) L Anion Gap 16 (5-15) H Blood Urea Nitrogen 21 mg/dL (7-23) Creatinine 0.9 mg/dL (0.7-1.2) Estimat Glomerular Filtration Rate mL/min (>60) Glucose Level 100 mg/dL (74-106) Calcium Level 8.3 mg/dL (8.6-10.2) L Arterial Blood pH 7.390 (7.350-7.450) Arterial Blood Partial Pressure CO2 34.4 mmHg (35.0-45.0) L Arterial Blood Partial Pressure O2 132.0 mmHg (75.0-100.0) H Arterial Blood HCO3 20.4 mmol/L (22.0-26.0) L Arterial Blood Oxygen Saturation 98.5 % (92.0-98.0) H Arterial Blood Base Excess -4.1 Anderson Test Positive Current Medications Medications (Trade) Dose Ordered Sig/Omi Route PRN Reason Start Time Stop Time Status Last Admin Dose Admin Acetaminophen (Tylenol) 650 mg Q6H PRN ORAL Mild Pain/Temp > 100.5 10/13/16 01:15 11/12/16 01:14 10/13/16 01:28 Albuterol/ Ipratropium (DuoNeb 0.5-3(2.5)mg/3ml) 3 ml Q4HRT HHN 10/12/16 19:00 10/17/16 18:59 10/13/16 15:10 Amikacin Protocol 1 ea 1 ea DAILY PRN MISC Per rx protocol 10/13/16 11:00 11/12/16 10:59 Amikacin Sulfate 1000 mg/Sodium Chloride 114 ml @ 114 mls/hr Q36H IV 10/13/16 11:00 10/20/16 10:59 10/13/16 11:38 Amlodipine Besylate (Norvasc) 10 mg DAILY ORAL 10/13/16 09:00 11/12/16 08:59 10/13/16 08:51 Heparin Sodium (Porcine) (Heparin 5000 units/ml) 5,000 units EVERY 12 HOURS SUBQ 10/12/16 21:00 11/11/16 20:59 10/13/16 08:55 Meropenem/Sodium Chloride (Merrem/Sodium Chloride) 110 ml @ 220 mls/hr Q8HR IVPB 10/13/16 14:30 10/18/16 14:29 10/13/16 15:28 Pantoprazole (Protonix) 40 mg DAILY IVP 10/13/16 09:00 11/12/16 08:59 10/13/16 08:51 Vancomycin HCl (Vanco rx to dose) 1 ea DAILY PRN MISC PER RX PROTOCOL 10/13/16 07:30 11/12/16 07:29 Vancomycin HCl/ Dextrose (Vancomycin/D5W) 325 ml @ 162.5 mls/ hr Q24H IVPB 10/12/16 16:00 10/17/16 15:59 10/12/16 16:21 Karla Stringer M.D. October 13, 2016 15:35
[2016-10-13 16:00] VITALS: BP 151/85
[2016-10-13] MEDS: Vancomycin 1.5 GM in D5W 325 ML IVPB SCH (16:27)
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
[2016-10-13 20:00] VITALS: BP 178/84
[2016-10-14] VITALS: BP 167/102
[2016-10-14] MEDS: DuoNeb 0.5-3(2.5)mg/3ml neb HHN SCH ×6 (03:17→22:53)
[2016-10-14 04:00] VITALS: BP 99/63
[2016-10-14 04:30] LABS: ANION GAP 14 (5-15); CALCIUM 8.4 mg/dL (8.6-10.2); CARBON DIOXIDE 21 mEQ/L (20-30); CHLORIDE 104 mEQ/L (98-107); CREATININE 1.1 mg/dL (0.7-1.2); HEMOLYSIS 14; POTASSIUM 4.7 mEQ/L (3.4-4.9); SODIUM 139 mEQ/L (135-145)
[2016-10-14 04:35] LABS: BASOPHILS % (AUTO) 1.2 % (0.0-2.0); EOSINOPHILS % (AUTO) 0.3 % (0.0-3.0); LYMPHOCYTES % (AUTO) 14.5 % (20.0-45.0); MEAN CORPUSCULAR HEMOGLOBIN 30.2 PG (27.0-31.0); MEAN CORPUSCULAR HGB CONC 32.5 G/DL (32.0-36.0); MEAN CORPUSCULAR VOLUME 93 FL (80-99); MEAN PLATELET VOLUME 7.8 FL (6.5-10.1); MONOCYTES % (AUTO) 13.9 % (1.0-10.0); NEUTROPHILS % (AUTO) 70.1 % (45.0-75.0); PLATELET COUNT 338 K/UL (150-450); RED BLOOD COUNT 3.12 M/UL (4.70-6.10); RED CELL DISTRIBUTION WIDTH 19.4 % (11.6-14.8); WHITE BLOOD COUNT 15.5 K/UL (4.8-10.8)
[2016-10-14] MEDS: Meropenem 1 GM in NS 110 ML IVPB SCH ×3 (05:39→21:17)
--- NOTE | 2016-10-14 07:53 | General Progress Note ---
Assessment/Plan Problem List: (1) History of CVA (cerebrovascular accident) ICD Codes: Z86.73 - Personal history of transient ischemic attack (TIA), and cerebral infarction without residual deficits SNOMED: 509937837 (2) HTN (hypertension) ICD Codes: I10 - Essential (primary) hypertension SNOMED: 74272856 (3) Atrial fibrillation ICD Codes: I48.91 - Unspecified atrial fibrillation SNOMED: 57537156 (4) COPD (chronic obstructive pulmonary disease) ICD Codes: J44.9 - Chronic obstructive pulmonary disease, unspecified SNOMED: 81144666 Qualifiers: Qualified Codes: J44.9 - Chronic obstructive pulmonary disease, unspecified (5) Sepsis ICD Codes: A41.9 - Sepsis SNOMED: 04940618 (6) Pneumonia ICD Codes: J18.9 - Pneumonia, unspecified organism SNOMED: 804017567 Qualifiers: Qualified Codes: J18.1 - Lobar pneumonia, unspecified organism Status: stable, progressing, tolerating diet Assessment/Plan vent abx ot pt diet cbc bmp am ltach eval Subjective Constitutional: Reports: weakness Allergies: Coded Allergies: No Known Allergies (Unverified , 12/08/13) All Systems: reviewed and negative except above Subjective trach vent altered Objective Last 24 Hour Vital Signs Date Time Temp Pulse Resp B/P Pulse Ox O2 Delivery O2 Flow Rate FiO2 10/14/16 05:12 95 39 50 10/14/16 04:00 97.9 81 20 99/63 99 Mechanical Ventilator 50 10/14/16 04:00 50 10/14/16 04:00 87 10/14/16 03:24 104 43 99 Mechanical Ventilator 50 10/14/16 03:18 113 43 98 Mechanical Ventilator 50 10/14/16 03:15 107 40 50 10/14/16 01:25 117 40 50 10/14/16 01:17 99.0 10/14/16 00:00 50 10/14/16 00:00 141 10/14/16 00:00 101.5 145 41 167/102 99 Mechanical Ventilator 50 10/13/16 23:16 115 43 99 Mechanical Ventilator 50 10/13/16 23:09 112 41 98 Mechanical Ventilator 50 10/13/16 23:00 112 39 50 10/13/16 21:00 104 42 50 10/13/16 20:00 100.6 121 23 178/84 99 Mechanical Ventilator 50 10/13/16 20:00 50 10/13/16 20:00 108 10/13/16 19:57 116 44 99 Mechanical Ventilator 50 10/13/16 19:11 114 40 99 Mechanical Ventilator 50 10/13/16 19:01 110 45 98 Mechanical Ventilator 50 10/13/16 18:50 110 43 50 10/13/16 17:15 99 43 50 10/13/16 16:00 110 10/13/16 16:00 50 10/13/16 16:00 98.2 109 41 151/85 99 Mechanical Ventilator 50 10/13/16 15:15 107 41 100 Mechanical Ventilator 50 10/13/16 15:10 103 40 99 Mechanical Ventilator 50 10/13/16 15:10 103 41 50 10/13/16 13:20 104 41 50 10/13/16 12:00 97.9 104 39 152/88 99 Mechanical Ventilator 50 10/13/16 12:00 105 10/13/16 12:00 50 10/13/16 11:15 112 40 100 Mechanical Ventilator 50 10/13/16 11:10 109 42 98 Mechanical Ventilator 50 10/13/16 11:10 109 42 50 10/13/16 09:30 120 44 50 10/13/16 08:51 132 138/82 10/13/16 08:00 50 10/13/16 08:00 98.4 120 30 138/62 100 Mechanical Ventilator 50 120 10/13/16 08:00 115 Intake and Output 10/13/16 10/14/16 19:00 07:00 Intake Total 1429.0 ml 1090 ml Balance 1429.0 ml 1090 ml Intake Free Water 100 ml 100 ml IV Total 549.0 ml 220 ml Tube Feeding 530 ml 490 ml Blood Product 250 ml 280 ml # Bowel Movements 1 Laboratory Tests 10/13/16 09:04: Arterial Blood pH 7.390, Arterial Blood Partial Pressure CO2 34.4L, Arterial Blood Partial Pressure O2 132.0H, Arterial Blood HCO3 20.4L, Arterial Blood Oxygen Saturation 98.5H, Arterial Blood Base Excess -4.1, Anderson Test Positive 10/13/16 23:05: Random Amikacin Level 14.3 10/14/16 03:45: White Blood Count 15.5H, Red Blood Count 3.12L, Hemoglobin 9.4L, Hematocrit 29.0L, Mean Corpuscular Volume 93, Mean Corpuscular Hemoglobin 30.2, Mean Corpuscular Hemoglobin Concent 32.5, Red Cell Distribution Width 19.4H, Platelet Count 338, Mean Platelet Volume 7.8, Neutrophils (%) (Auto) 70.1, Lymphocytes (%) (Auto) 14.5L, Monocytes (%) (Auto) 13.9H, Eosinophils (%) (Auto ) 0.3, Basophils (%) (Auto) 1.2, Sodium Level 139, Potassium Level 4.7, Chloride Level 104, Carbon Dioxide Level 21, Anion Gap 14, Blood Urea Nitrogen 19, Creatinine 1.1, Estimat Glomerular Filtration Rate , Glucose Level 173H, Calcium Level 8.4L Height (Feet): 5 Height (Inches): 5.00 Weight (Pounds): 190 General Appearance: lethargic, confused EENT: normal ENT inspection Neck: normal alignment Cardiovascular: normal peripheral pulses, normal rate, regular rhythm Respiratory/Chest: chest wall non-tender, lungs clear, normal breath sounds Abdomen: normal bowel sounds, non tender, soft Extremities: normal inspection Edema: no edema noted Arm (L), no edema noted Arm (R), no edema noted Leg (L), no edema noted Leg (R), no edema noted Pedal (L), no edema noted Pedal (R), no edema noted Generalized Neurologic: motor weakness Skin: normal pigmentation, warm/dry DEVEN GRACE October 14, 2016 07:53
[2016-10-14 08:00] VITALS: BP 143/99
[2016-10-14] MEDS: Heparin 5000 units/ml inj SUBQ SCH ×2 (08:18→21:16)
[2016-10-14] MEDS: Pantoprazole Inj IVP SCH (08:20)
--- NOTE | 2016-10-14 09:33 | Critical Care Progress Note ---
Assessment/Plan Assessment/Plan respiratory failure pneumonia congestion hypoxemia trach gt history of osteo leukocytosis possible sepsis anemia elevated K PLAN care noted IV antibiotics reviewed respiratory care oxygen aspiration precautions nutrition transfused kayexalate with good results follow up labs and cxr for further improvement ID evaluation noted dc plan once improved impression, plan, and exam edited and reviewed in detail care discussed with data coordinator - Subjective Interval Events: somewhat improved less congested ROS Limited/Unobtainable: Yes Condition: critical, improving EKG Rhythm: Sinus Rhythm Residuals: minimal Tube Feeding Tolerated: yes I&O: Intake and Output 10/13/16 10/14/16 19:00 07:00 Intake Total 1429.0 ml 1090 ml Balance 1429.0 ml 1090 ml Intake Free Water 100 ml 100 ml IV Total 549.0 ml 220 ml Tube Feeding 530 ml 490 ml Blood Product 250 ml 280 ml # Bowel Movements 1 Critical Care - Objective CXR: some improvement Last 24 Hour Vital Signs Date Time Temp Pulse Resp B/P Pulse Ox O2 Delivery O2 Flow Rate FiO2 10/14/16 09:01 112 39 50 10/14/16 08:16 88 143/99 10/14/16 08:00 97.3 88 22 143/99 98 Mechanical Ventilator 50 10/14/16 08:00 88 10/14/16 08:00 50 10/14/16 07:33 109 45 100 Mechanical Ventilator 50 10/14/16 07:23 108 45 50 10/14/16 07:23 108 45 98 Mechanical Ventilator 50 10/14/16 05:12 95 39 50 10/14/16 04:00 97.9 81 20 99/63 99 Mechanical Ventilator 50 10/14/16 04:00 50 10/14/16 04:00 87 10/14/16 03:24 104 43 99 Mechanical Ventilator 50 10/14/16 03:18 113 43 98 Mechanical Ventilator 50 10/14/16 03:15 107 40 50 10/14/16 01:25 117 40 50 10/14/16 01:17 99.0 10/14/16 00:00 50 10/14/16 00:00 141 10/14/16 00:00 101.5 145 41 167/102 99 Mechanical Ventilator 50 10/13/16 23:16 115 43 99 Mechanical Ventilator 50 10/13/16 23:09 112 41 98 Mechanical Ventilator 50 10/13/16 23:00 112 39 50 10/13/16 21:00 104 42 50 10/13/16 20:00 100.6 121 23 178/84 99 Mechanical Ventilator 50 10/13/16 20:00 50 10/13/16 20:00 108 10/13/16 19:57 116 44 99 Mechanical Ventilator 50 10/13/16 19:11 114 40 99 Mechanical Ventilator 50 10/13/16 19:01 110 45 98 Mechanical Ventilator 50 10/13/16 18:50 110 43 50 10/13/16 17:15 99 43 50 10/13/16 16:00 110 10/13/16 16:00 50 10/13/16 16:00 98.2 109 41 151/85 99 Mechanical Ventilator 50 10/13/16 15:15 107 41 100 Mechanical Ventilator 50 10/13/16 15:10 103 40 99 Mechanical Ventilator 50 10/13/16 15:10 103 41 50 10/13/16 13:20 104 41 50 10/13/16 12:00 97.9 104 39 152/88 99 Mechanical Ventilator 50 10/13/16 12:00 105 10/13/16 12:00 50 10/13/16 11:15 112 40 100 Mechanical Ventilator 50 10/13/16 11:10 109 42 98 Mechanical Ventilator 50 10/13/16 11:10 109 42 50 Labs: Labs Test 10/12/16 07:14 10/12/16 08:53 10/13/16 04:00 10/13/16 09:04 White Blood Count 19.3 K/UL (4.8-10.8) 13.3 K/UL (4.8-10.8) Red Blood Count 2.87 M/UL (4.70-6.10) 2.58 M/UL (4.70-6.10) Hemoglobin 8.7 G/DL (14.2-18.0) 7.8 G/DL (14.2-18.0) Hematocrit 27.6 % (42.0-52.0) 25.2 % (42.0-52.0) Mean Corpuscular Volume 96 FL (80-99) 98 FL (80-99) Mean Corpuscular Hemoglobin 30.4 PG (27.0-31.0) 30.2 PG (27.0-31.0) Mean Corpuscular Hemoglobin Concent 31.7 G/DL (32.0-36.0) 30.9 G/DL (32.0-36.0) Red Cell Distribution Width 17.1 % (11.6-14.8) 17.3 % (11.6-14.8) Platelet Count 523 K/UL (150-450) 375 K/UL (150-450) Mean Platelet Volume 7.7 FL (6.5-10.1) 8.1 FL (6.5-10.1) Neutrophils (%) (Auto) % (45.0-75.0) % (45.0-75.0) Lymphocytes (%) (Auto) % (20.0-45.0) % (20.0-45.0) Monocytes (%) (Auto) % (1.0-10.0) % (1.0-10.0) Eosinophils (%) (Auto) % (0.0-3.0) % (0.0-3.0) Basophils (%) (Auto) % (0.0-2.0) % (0.0-2.0) Differential Total Cells Counted 100 100 Neutrophils % (Manual) 75 % (45-75) 77 % (45-75) Lymphocytes % (Manual) 20 % (20-45) 13 % (20-45) Monocytes % (Manual) 4 % (1-10) 8 % (1-10) Eosinophils % (Manual) 1 % (0-3) 0 % (0-3) Basophils % (Manual) 0 % (0-2) 0 % (0-2) Band Neutrophils 0 % (0-8) 2 % (0-8) Platelet Estimate Increased Adequate Platelet Morphology Normal Normal Polychromasia Occasional 1+ Hypochromasia 1+ 1+ Anisocytosis 1+ 2+ Urine Color Yellow Urine Appearance Slightly cloudy Urine pH 6 (4.5-8.0) Urine Specific [place] 1.010 (1.005-1.035) Urine Protein 3+ (NEGATIVE) Urine Glucose (UA) Negative (NEGATIVE) Urine Ketones Negative (NEGATIVE) Urine Occult Blood 3+ (NEGATIVE) Urine Nitrite Negative (NEGATIVE) Urine Bilirubin Negative (NEGATIVE) Urine Urobilinogen Normal MG/DL (0.0-1.0) Urine Leukocyte Esterase 2+ (NEGATIVE) Urine RBC 2-4 /HPF (0 - 0) Urine WBC 2-4 /HPF (0 - 0) Urine Squamous Epithelial Cells Few /LPF (NONE/OCC) Urine Bacteria Few /HPF (NONE) Urine Yeast Few /HPF (NONE) Sodium Level 137 mEQ/L (135-145) 140 mEQ/L (135-145) Potassium Level 4.6 mEQ/L (3.4-4.9) 5.4 mEQ/L (3.4-4.9) Chloride Level 100 mEQ/L (98-107) 106 mEQ/L (98-107) Carbon Dioxide Level 21 mEQ/L (20-30) 18 mEQ/L (20-30) Anion Gap 16 (5-15) 16 (5-15) Blood Urea Nitrogen 26 mg/dL (7-23) 21 mg/dL (7-23) Creatinine 1.2 mg/dL (0.7-1.2) 0.9 mg/dL (0.7-1.2) Estimat Glomerular Filtration Rate mL/min (>60) mL/min (>60) Glucose Level 131 mg/dL (74-106) 100 mg/dL (74-106) Lactic Acid Level 1.70 mmol/L (0.66-2.22) Calcium Level 8.8 mg/dL (8.6-10.2) 8.3 mg/dL (8.6-10.2) Total Bilirubin 0.4 mg/dL (0.0-1.2) Aspartate Amino Transf (AST/SGOT) 69 U/L (5-40) Alanine Aminotransferase (ALT/SGPT) 48 U/L (3-41) Alkaline Phosphatase 330 U/L (40-129) Total Creatine Kinase 111 U/L (38-174) Creatine Kinase MB 5.2 ng/mL (< 6.7) Creatine Kinase MB Relative Index 4.6 Troponin I < 0.30 ng/mL (<=0.30) Pro-B-Type Natriuretic Peptide 6447 pg/mL (0-450) Total Protein 8.9 g/dL (6.6-8.7) Albumin 2.9 g/dL (3.5-5.2) Globulin 6.0 g/dL Albumin/Globulin Ratio 0.4 (1.0-2.7) Arterial Blood pH 7.326 (7.350-7.450) 7.390 (7.350-7.450) Arterial Blood Partial Pressure CO2 38.9 mmHg (35.0-45.0) 34.4 mmHg (35.0-45.0) Arterial Blood Partial Pressure O2 346.0 mmHg (75.0-100.0) 132.0 mmHg (75.0-100.0) Arterial Blood HCO3 19.9 mmol/L (22.0-26.0) 20.4 mmol/L (22.0-26.0) Arterial Blood Oxygen Saturation 99.5 % (92.0-98.0) 98.5 % (92.0-98.0) Arterial Blood Base Excess -5.6 -4.1 Anderson Test Positive Positive Macrocytosis 1+ Test 10/13/16 23:05 10/14/16 03:45 Random Amikacin Level 14.3 ug/mL White Blood Count 15.5 K/UL (4.8-10.8) Red Blood Count 3.12 M/UL (4.70-6.10) Hemoglobin 9.4 G/DL (14.2-18.0) Hematocrit 29.0 % (42.0-52.0) Mean Corpuscular Volume 93 FL (80-99) Mean Corpuscular Hemoglobin 30.2 PG (27.0-31.0) Mean Corpuscular Hemoglobin Concent 32.5 G/DL (32.0-36.0) Red Cell Distribution Width 19.4 % (11.6-14.8) Platelet Count 338 K/UL (150-450) Mean Platelet Volume 7.8 FL (6.5-10.1) Neutrophils (%) (Auto) 70.1 % (45.0-75.0) Lymphocytes (%) (Auto) 14.5 % (20.0-45.0) Monocytes (%) (Auto) 13.9 % (1.0-10.0) Eosinophils (%) (Auto) 0.3 % (0.0-3.0) Basophils (%) (Auto) 1.2 % (0.0-2.0) Sodium Level 139 mEQ/L (135-145) Potassium Level 4.7 mEQ/L (3.4-4.9) Chloride Level 104 mEQ/L (98-107) Carbon Dioxide Level 21 mEQ/L (20-30) Anion Gap 14 (5-15) Blood Urea Nitrogen 19 mg/dL (7-23) Creatinine 1.1 mg/dL (0.7-1.2) Estimat Glomerular Filtration Rate mL/min (>60) Glucose Level 173 mg/dL (74-106) Calcium Level 8.4 mg/dL (8.6-10.2) Objective: WDWN NAD EOMI trach reduced breath sounds bilaterally with residual rhonchi; no wheeze [id number] without MRG NABS nontender no HSM; no distention; GT no CCE nonfocal; reduced ROM poor LOC skin noted and reviewed exam reviewed and edited Micro: Microbiology Date/Time Source Procedure Growth Status 10/12/16 15:30 Sputum Gram Stain - Final Resulted 10/12/16 15:30 Sputum Sputum Culture Pending Resulted 10/12/16 07:14 Urine,Clean Catch Urine Culture - Preliminary Resulted 10/12/16 13:07 Rectum VRE Culture - Final Enterococcus Faecium - Vre Complete KENYA JAQUEZ October 14, 2016 09:33
[2016-10-14 12:00] VITALS: BP 134/76
--- NOTE | 2016-10-14 14:03 | Infectious Diseases Prog Note ---
Assessment/Plan Problems: (1) HCAP (healthcare-associated pneumonia) Assessment & Plan: with gram negative rods, on meropenem, amikacin and vancomycin empirically pending culture results . (2) Sepsis Assessment & Plan: due to the above, await blood culture , continue wide spectrum antibiotics pending culture results (3) Acute respiratory failure Assessment & Plan: due to the above, intubated, on mechanical ventilation , monitor ABG, and CXR (4) Shock liver Assessment & Plan: due to sepsis, monitor LFT, avoid hepatotoxic meds Subjective ROS Limited/Unobtainable: Yes Allergies: Coded Allergies: No Known Allergies (Unverified , 12/08/13) Subjective he is intubated with trach , tachypneic, mildly agitated , not in distress Objective Vital Signs Last 24 Hour Vital Signs Date Time Temp Pulse Resp B/P Pulse Ox O2 Delivery O2 Flow Rate FiO2 10/14/16 12:38 108 41 50 10/14/16 12:00 50 10/14/16 12:00 97.2 100 20 134/76 99 Mechanical Ventilator 50 10/14/16 12:00 100 10/14/16 11:09 117 44 100 Mechanical Ventilator 50 10/14/16 10:59 115 44 50 10/14/16 10:59 115 44 97 Mechanical Ventilator 50 10/14/16 09:01 112 39 50 10/14/16 08:16 88 143/99 10/14/16 08:00 97.3 88 22 143/99 98 Mechanical Ventilator 50 10/14/16 08:00 88 10/14/16 08:00 50 10/14/16 07:33 109 45 100 Mechanical Ventilator 50 10/14/16 07:23 108 45 50 10/14/16 07:23 108 45 98 Mechanical Ventilator 50 10/14/16 05:12 95 39 50 10/14/16 04:00 97.9 81 20 99/63 99 Mechanical Ventilator 50 10/14/16 04:00 50 10/14/16 04:00 87 10/14/16 03:24 104 43 99 Mechanical Ventilator 50 10/14/16 03:18 113 43 98 Mechanical Ventilator 50 10/14/16 03:15 107 40 50 10/14/16 01:25 117 40 50 10/14/16 01:17 99.0 10/14/16 00:00 50 10/14/16 00:00 141 10/14/16 00:00 101.5 145 41 167/102 99 Mechanical Ventilator 50 10/13/16 23:16 115 43 99 Mechanical Ventilator 50 10/13/16 23:09 112 41 98 Mechanical Ventilator 50 10/13/16 23:00 112 39 50 10/13/16 21:00 104 42 50 10/13/16 20:00 100.6 121 23 178/84 99 Mechanical Ventilator 50 10/13/16 20:00 50 10/13/16 20:00 108 10/13/16 19:57 116 44 99 Mechanical Ventilator 50 10/13/16 19:11 114 40 99 Mechanical Ventilator 50 10/13/16 19:01 110 45 98 Mechanical Ventilator 50 10/13/16 18:50 110 43 50 10/13/16 17:15 99 43 50 10/13/16 16:00 110 10/13/16 16:00 50 10/13/16 16:00 98.2 109 41 151/85 99 Mechanical Ventilator 50 10/13/16 15:15 107 41 100 Mechanical Ventilator 50 10/13/16 15:10 103 40 99 Mechanical Ventilator 50 10/13/16 15:10 103 41 50 Height (Feet): 5 Height (Inches): 5.00 Weight (Pounds): 190 General Appearance: WD/WN HEENT: normocephalic, atraumatic, anicteric, no JVD Respiratory/Chest: normal breath sounds, no respiratory distress, respiratory distress, decreased breath sounds, crackles/rales Cardiovascular: normal peripheral pulses, normal rate, regular rhythm, no gallop/murmur, no JVD Abdomen: normal bowel sounds, soft, non tender, no organomegaly, non distended , no mass Extremities: no cyanosis, no clubbing Skin: no rash, no lesions Microbiology Date/Time Source Procedure Growth Status 10/12/16 07:25 Blood Blood Culture - Preliminary NO GROWTH AFTER 48 HOURS Resulted 10/12/16 07:14 Blood Blood Culture - Preliminary NO GROWTH AFTER 48 HOURS Resulted 10/12/16 15:30 Sputum Gram Stain - Final Resulted 10/12/16 15:30 Sputum Culture - Preliminary Gram Negative Mango Resulted 10/12/16 14:30 Nasal Nares MRSA Culture - Final NO METHICILLIN RESISTANT STAPH AUREUS... Complete 10/12/16 07:14 Urine,Clean Catch Urine Culture - Preliminary Resulted 10/12/16 13:07 Rectum VRE Culture - Final Enterococcus Faecium - Vre Complete Laboratory Tests Test 10/13/16 23:05 10/14/16 03:45 Random Amikacin Level 14.3 ug/mL White Blood Count 15.5 K/UL (4.8-10.8) H Red Blood Count 3.12 M/UL (4.70-6.10) L Hemoglobin 9.4 G/DL (14.2-18.0) L Hematocrit 29.0 % (42.0-52.0) L Mean Corpuscular Volume 93 FL (80-99) Mean Corpuscular Hemoglobin 30.2 PG (27.0-31.0) Mean Corpuscular Hemoglobin Concent 32.5 G/DL (32.0-36.0) Red Cell Distribution Width 19.4 % (11.6-14.8) H Platelet Count 338 K/UL (150-450) Mean Platelet Volume 7.8 FL (6.5-10.1) Neutrophils (%) (Auto) 70.1 % (45.0-75.0) Lymphocytes (%) (Auto) 14.5 % (20.0-45.0) L Monocytes (%) (Auto) 13.9 % (1.0-10.0) H Eosinophils (%) (Auto) 0.3 % (0.0-3.0) Basophils (%) (Auto) 1.2 % (0.0-2.0) Sodium Level 139 mEQ/L (135-145) Potassium Level 4.7 mEQ/L (3.4-4.9) Chloride Level 104 mEQ/L (98-107) Carbon Dioxide Level 21 mEQ/L (20-30) Anion Gap 14 (5-15) Blood Urea Nitrogen 19 mg/dL (7-23) Creatinine 1.1 mg/dL (0.7-1.2) Estimat Glomerular Filtration Rate mL/min (>60) Glucose Level 173 mg/dL (74-106) H Calcium Level 8.4 mg/dL (8.6-10.2) L Current Medications Medications (Trade) Dose Ordered Sig/Omi Route PRN Reason Start Time Stop Time Status Last Admin Dose Admin Acetaminophen (Tylenol) 650 mg Q6H PRN ORAL Mild Pain/Temp > 100.5 5/26/17 01:15 11/12/16 01:14 10/14/16 12:53 Albuterol/ Ipratropium (DuoNeb 0.5-3(2.5)mg/3ml) 3 ml Q4HRT HHN 10/12/16 19:00 10/17/16 18:59 10/14/16 10:59 Amikacin Protocol 1 ea 1 ea DAILY PRN MISC Per rx protocol 10/13/16 11:00 11/12/16 10:59 Amikacin Sulfate 1000 mg/Sodium Chloride 114 ml @ 114 mls/hr Q36H IV 10/13/16 11:00 10/20/16 10:59 10/13/16 11:38 Amlodipine Besylate (Norvasc) 10 mg DAILY ORAL 10/13/16 09:00 11/12/16 08:59 10/14/16 08:16 Heparin Sodium (Porcine) (Heparin 5000 units/ml) 5,000 units EVERY 12 HOURS SUBQ 10/12/16 21:00 11/11/16 20:59 10/14/16 08:18 Meropenem/Sodium Chloride (Merrem/Sodium Chloride) 110 ml @ 220 mls/hr Q8HR IVPB 10/13/16 14:30 10/18/16 14:29 10/14/16 05:39 Pantoprazole (Protonix) 40 mg DAILY IVP 10/13/16 09:00 11/12/16 08:59 10/14/16 08:20 Vancomycin HCl (Vanco rx to dose) 1 ea DAILY PRN MISC PER RX PROTOCOL 10/13/16 07:30 11/12/16 07:29 Vancomycin HCl/ Dextrose (Vancomycin/D5W) 325 ml @ 162.5 mls/ hr Q24H IVPB 10/12/16 16:00 10/17/16 15:59 10/13/16 16:27 Karla Stringer M.D. October 14, 2016 14:03
[2016-10-14] MEDS ORDERED: D5W 275ml ONE (14:12)
[2016-10-14] MEDS ORDERED: Tubing Blood Filter IV ONE (14:12)
[2016-10-14] MEDS ORDERED: NS 275ml ONE (14:12)
[2016-10-14] MEDS ORDERED: Tubing IV Secondary IV ONE (14:12)
[2016-10-14] MEDS: Vancomycin 1.5 GM in D5W 325 ML IVPB SCH (15:02)
[2016-10-14 15:49] LABS: ABG BASE EXCESS -1.3; ABG PCO2 38.4 mmHg (35.0-45.0)
[2016-10-14] MEDS: Morphine Sulfate 4mg/ml Inj IVP PRN (15:50)
[2016-10-14 16:15] VITALS: BP 125/81
[2016-10-14 20:28] VITALS: BP 113/50
[2016-10-14] MEDS: Amikacin 1,000 MG in NS 110 ML IV SCH (23:02)
[2016-10-15] VITALS: BP 130/70
[2016-10-15] MEDS: DuoNeb 0.5-3(2.5)mg/3ml neb HHN SCH ×6 (00:50→19:14)
[2016-10-15] MEDS: Morphine Sulfate 4mg/ml Inj IVP PRN ×2 (03:48→09:12)
[2016-10-15 04:03] VITALS: BP 143/75
[2016-10-15 04:27] LABS: MEAN CORPUSCULAR HEMOGLOBIN 29.4 PG (27.0-31.0); MEAN CORPUSCULAR HGB CONC 31.7 G/DL (32.0-36.0); MEAN CORPUSCULAR VOLUME 93 FL (80-99); MEAN PLATELET VOLUME 7.6 FL (6.5-10.1); PLATELET COUNT 399 K/UL (150-450); RED BLOOD COUNT 3.43 M/UL (4.70-6.10); RED CELL DISTRIBUTION WIDTH 18.8 % (11.6-14.8); WHITE BLOOD COUNT 18.3 K/UL (4.8-10.8)
[2016-10-15 04:36] LABS: ANION GAP 14 (5-15); CALCIUM 8.7 mg/dL (8.6-10.2); CARBON DIOXIDE 24 mEQ/L (20-30); CHLORIDE 103 mEQ/L (98-107); HEMOLYSIS 1; POTASSIUM 4.4 mEQ/L (3.4-4.9); SODIUM 141 mEQ/L (135-145)
[2016-10-15] MEDS: Meropenem 1 GM in NS 110 ML IVPB SCH ×3 (05:46→22:29)
[2016-10-15 08:00] VITALS: BP 144/88
--- NOTE | 2016-10-15 08:12 | General Progress Note ---
Assessment/Plan Problem List: (1) History of CVA (cerebrovascular accident) ICD Codes: Z86.73 - Personal history of transient ischemic attack (TIA), and cerebral infarction without residual deficits SNOMED: 657737935 (2) HTN (hypertension) ICD Codes: I10 - Essential (primary) hypertension SNOMED: 64037101 (3) Atrial fibrillation ICD Codes: I48.91 - Unspecified atrial fibrillation SNOMED: 00614770 (4) COPD (chronic obstructive pulmonary disease) ICD Codes: J44.9 - Chronic obstructive pulmonary disease, unspecified SNOMED: 79819916 Qualifiers: Qualified Codes: J44.9 - Chronic obstructive pulmonary disease, unspecified (5) Sepsis ICD Codes: A41.9 - Sepsis SNOMED: 71882502 (6) Pneumonia ICD Codes: J18.9 - Pneumonia, unspecified organism SNOMED: 117612604 Qualifiers: Qualified Codes: J18.1 - Lobar pneumonia, unspecified organism Status: stable, progressing, tolerating diet Assessment/Plan vent abx ot pt diet cbc bmp am ltach eval transfer Subjective Constitutional: Reports: weakness Allergies: Coded Allergies: No Known Allergies (Unverified , 12/08/13) All Systems: reviewed and negative except above Subjective trach vent altered Objective Last 24 Hour Vital Signs Date Time Temp Pulse Resp B/P Pulse Ox O2 Delivery O2 Flow Rate FiO2 10/15/16 07:15 115 38 50 10/15/16 07:14 115 38 99 Mechanical Ventilator 50 10/15/16 07:05 50 10/15/16 07:05 101 33 97 Mechanical Ventilator 50 10/15/16 05:13 106 25 50 10/15/16 04:18 97.2 10/15/16 04:03 97.2 119 18 143/75 97 Mechanical Ventilator 10/15/16 04:00 112 10/15/16 04:00 50 10/15/16 03:05 135 47 50 10/15/16 03:05 Mechanical Ventilator 50 10/15/16 03:05 Mechanical Ventilator 50 10/15/16 01:10 111 35 50 10/15/16 00:00 112 10/15/16 00:00 99.1 121 18 130/70 97 Mechanical Ventilator 10/15/16 00:00 50 10/14/16 22:59 115 37 99 Mechanical Ventilator 50 10/14/16 22:53 50 10/14/16 22:53 113 37 98 Mechanical Ventilator 50 10/14/16 22:52 112 37 50 10/14/16 21:05 110 25 50 10/14/16 20:28 98.1 100 19 113/50 96 Mechanical Ventilator 10/14/16 20:00 99 10/14/16 20:00 50 10/14/16 19:00 110 38 99 Mechanical Ventilator 50 10/14/16 18:53 108 37 98 Mechanical Ventilator 50 10/14/16 18:52 108 37 50 10/14/16 17:07 98 28 50 10/14/16 16:15 99.7 114 24 125/81 98 Mechanical Ventilator 50 114 10/14/16 16:00 50 10/14/16 16:00 112 10/14/16 14:32 137 46 98 Mechanical Ventilator 50 10/14/16 14:32 137 46 98 Mechanical Ventilator 50 10/14/16 14:32 137 46 50 10/14/16 12:38 108 41 50 10/14/16 12:00 50 10/14/16 12:00 97.2 100 20 134/76 99 Mechanical Ventilator 50 10/14/16 12:00 100 10/14/16 11:09 117 44 100 Mechanical Ventilator 50 10/14/16 10:59 115 44 50 10/14/16 10:59 115 44 97 Mechanical Ventilator 50 10/14/16 09:01 112 39 50 10/14/16 08:16 88 143/99 Intake and Output 10/14/16 10/15/16 19:00 07:00 Intake Total 1397.0 ml 1389 ml Output Total 750 ml 500 ml Balance 647.0 ml 889 ml Intake Free Water 100 ml 100 ml IV Total 707.0 ml 554 ml Tube Feeding 560 ml 735 ml Other 30 ml Output Urine Total 750 ml 500 ml # Bowel Movements 1 Laboratory Tests 10/14/16 15:39: Arterial Blood pH 7.400, Arterial Blood Partial Pressure CO2 38.4, Arterial Blood Partial Pressure O2 112.0H, Arterial Blood HCO3 23.3, Arterial Blood Oxygen Saturation 98.0, Arterial Blood Base Excess -1.3, Anderson Test 10/15/16 03:05: White Blood Count 18.3H, Red Blood Count 3.43L, Hemoglobin 10.1L, Hematocrit 31.8L, Mean Corpuscular Volume 93, Mean Corpuscular Hemoglobin 29.4, Mean Corpuscular Hemoglobin Concent 31.7L, Red Cell Distribution Width 18.8H, Platelet Count 399, Mean Platelet Volume 7.6, Neutrophils (%) (Auto) , Lymphocytes (%) (Auto) , Monocytes (%) (Auto) , Eosinophils (%) (Auto) , Basophils (%) (Auto) , Sodium Level 141, Potassium Level 4.4, Chloride Level 103 , Carbon Dioxide Level 24, Anion Gap 14, Blood Urea Nitrogen 17, Creatinine 1.0 , Estimat Glomerular Filtration Rate , Glucose Level 153H, Calcium Level 8.7 Height (Feet): 5 Height (Inches): 5.00 Weight (Pounds): 190 General Appearance: lethargic EENT: normal ENT inspection Neck: normal alignment Cardiovascular: normal peripheral pulses, normal rate, regular rhythm Respiratory/Chest: chest wall non-tender, lungs clear, normal breath sounds Abdomen: normal bowel sounds, non tender, soft Extremities: normal inspection Edema: no edema noted Arm (L), no edema noted Arm (R), no edema noted Leg (L), no edema noted Leg (R), no edema noted Pedal (L), no edema noted Pedal (R), no edema noted Generalized Neurologic: motor weakness Skin: normal pigmentation, warm/dry DEVEN GRACE October 15, 2016 08:12
--- NOTE | 2016-10-15 08:50 | Critical Care Progress Note ---
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 - Subjective Interval Events: care noted somewhat tachy cultures reviewed ID following ROS Limited/Unobtainable: Yes Condition: critical EKG Rhythm: Sinus Tachycardia Residuals: minimal Tube Feeding Tolerated: yes I&O: Intake and Output 10/14/16 10/15/16 19:00 07:00 Intake Total 1397.0 ml 1389 ml Output Total 750 ml 500 ml Balance 647.0 ml 889 ml Intake Free Water 100 ml 100 ml IV Total 707.0 ml 554 ml Tube Feeding 560 ml 735 ml Other 30 ml Output Urine Total 750 ml 500 ml # Bowel Movements 1 Critical Care - Objective Last 24 Hour Vital Signs Date Time Temp Pulse Resp B/P Pulse Ox O2 Delivery O2 Flow Rate FiO2 10/15/16 08:00 97 10/15/16 08:00 50 10/15/16 08:00 98.8 114 23 144/88 99 Mechanical Ventilator 50 10/15/16 07:15 115 38 50 10/15/16 07:14 115 38 99 Mechanical Ventilator 50 10/15/16 07:05 50 10/15/16 07:05 101 33 97 Mechanical Ventilator 50 10/15/16 05:13 106 25 50 10/15/16 04:18 97.2 10/15/16 04:03 97.2 119 18 143/75 97 Mechanical Ventilator 10/15/16 04:00 112 10/15/16 04:00 50 10/15/16 03:05 135 47 50 10/15/16 03:05 Mechanical Ventilator 50 10/15/16 03:05 Mechanical Ventilator 50 10/15/16 01:10 111 35 50 10/15/16 00:00 112 10/15/16 00:00 99.1 121 18 130/70 97 Mechanical Ventilator 10/15/16 00:00 50 10/14/16 22:59 115 37 99 Mechanical Ventilator 50 10/14/16 22:53 50 10/14/16 22:53 113 37 98 Mechanical Ventilator 50 10/14/16 22:52 112 37 50 10/14/16 21:05 110 25 50 10/14/16 20:28 98.1 100 19 113/50 96 Mechanical Ventilator 10/14/16 20:00 99 10/14/16 20:00 50 10/14/16 19:00 110 38 99 Mechanical Ventilator 50 10/14/16 18:53 108 37 98 Mechanical Ventilator 50 10/14/16 18:52 108 37 50 10/14/16 17:07 98 28 50 10/14/16 16:15 99.7 114 24 125/81 98 Mechanical Ventilator 50 114 10/14/16 16:00 50 10/14/16 16:00 112 10/14/16 14:32 137 46 98 Mechanical Ventilator 50 10/14/16 14:32 137 46 98 Mechanical Ventilator 50 10/14/16 14:32 137 46 50 10/14/16 12:38 108 41 50 10/14/16 12:00 50 10/14/16 12:00 97.2 100 20 134/76 99 Mechanical Ventilator 50 10/14/16 12:00 100 10/14/16 11:09 117 44 100 Mechanical Ventilator 50 10/14/16 10:59 115 44 50 10/14/16 10:59 115 44 97 Mechanical Ventilator 50 10/14/16 09:01 112 39 50 Labs: Laboratory Tests Test 10/14/16 15:39 10/15/16 03:05 Arterial Blood pH 7.400 (7.350-7.450) Arterial Blood Partial Pressure CO2 38.4 mmHg (35.0-45.0) Arterial Blood Partial Pressure O2 112.0 mmHg (75.0-100.0) H Arterial Blood HCO3 23.3 mmol/L (22.0-26.0) Arterial Blood Oxygen Saturation 98.0 % (92.0-98.0) Arterial Blood Base Excess -1.3 Anderson Test White Blood Count 18.3 K/UL (4.8-10.8) H Red Blood Count 3.43 M/UL (4.70-6.10) L Hemoglobin 10.1 G/DL (14.2-18.0) L Hematocrit 31.8 % (42.0-52.0) L Mean Corpuscular Volume 93 FL (80-99) Mean Corpuscular Hemoglobin 29.4 PG (27.0-31.0) Mean Corpuscular Hemoglobin Concent 31.7 G/DL (32.0-36.0) L Red Cell Distribution Width 18.8 % (11.6-14.8) H Platelet Count 399 K/UL (150-450) Mean Platelet Volume 7.6 FL (6.5-10.1) Neutrophils (%) (Auto) % (45.0-75.0) Lymphocytes (%) (Auto) % (20.0-45.0) Monocytes (%) (Auto) % (1.0-10.0) Eosinophils (%) (Auto) % (0.0-3.0) Basophils (%) (Auto) % (0.0-2.0) Sodium Level 141 mEQ/L (135-145) Potassium Level 4.4 mEQ/L (3.4-4.9) Chloride Level 103 mEQ/L (98-107) Carbon Dioxide Level 24 mEQ/L (20-30) Anion Gap 14 (5-15) Blood Urea Nitrogen 17 mg/dL (7-23) Creatinine 1.0 mg/dL (0.7-1.2) Estimat Glomerular Filtration Rate mL/min (>60) Glucose Level 153 mg/dL (74-106) H Calcium Level 8.7 mg/dL (8.6-10.2) Objective: WDWN NAD EOMI trach reduced breath sounds bilaterally with some rhonchi; no wheeze S1S2RR tachy without MRG NABS nontender no HSM; no distention; GT no CCE nonfocal; reduced ROM poor LOC skin noted and reviewed exam reviewed and edited Micro: Microbiology Date/Time Source Procedure Growth Status 10/12/16 15:30 Sputum Gram Stain - Final Resulted 10/12/16 15:30 Sputum Culture - Preliminary Gram Negative Mango Resulted 10/12/16 14:30 Nasal Nares MRSA Culture - Final NO METHICILLIN RESISTANT STAPH AUREUS... 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
[2016-10-15] MEDS: Pantoprazole Inj IVP SCH (09:03)
[2016-10-15] MEDS: Heparin 5000 units/ml inj SUBQ SCH ×2 (09:06→20:18)
--- NOTE | 2016-10-15 10:29 | Diagnostic Imaging Report ---
Indication: Abnormal breath sounds Comparison: 10/13/16 A single view chest radiograph was obtained. Findings: Worsening airspace disease noted bilaterally. Tracheostomy and cardiomegaly are present. Right pleural effusion is present. Impression: Worsening airspace disease likely due to pulmonary edema
[2016-10-15 12:00] VITALS: BP 109/75
[2016-10-15 16:00] VITALS: BP 145/80
[2016-10-15] MEDS ORDERED: NS 275ml ONE (16:34)
[2016-10-15] MEDS: LORazepam Inj 2mg/ml 1ml IV PRN (17:36)
[2016-10-15 20:00] VITALS: BP 88/52
[2016-10-15] MEDS ORDERED: Vancomycin 1250mg/D5W 275ml IVPB SCH ×2 (20:00)
[2016-10-16] VITALS: BP 124/71
[2016-10-16] MEDS: DuoNeb 0.5-3(2.5)mg/3ml neb HHN SCH ×6 (03:14→23:22)
[2016-10-16 04:00] VITALS: BP 143/76
[2016-10-16] MEDS: Meropenem 1 GM in NS 110 ML IVPB SCH ×3 (05:09→23:10)
[2016-10-16 05:23] LABS: BASOPHILS % (AUTO) 0.9 % (0.0-2.0); EOSINOPHILS % (AUTO) 2.6 % (0.0-3.0); LYMPHOCYTES % (AUTO) 14.9 % (20.0-45.0); MEAN CORPUSCULAR VOLUME 93 FL (80-99); MEAN PLATELET VOLUME 7.4 FL (6.5-10.1); MONOCYTES % (AUTO) 9.3 % (1.0-10.0); NEUTROPHILS % (AUTO) 72.3 % (45.0-75.0); PLATELET COUNT 314 K/UL (150-450); RED BLOOD COUNT 2.79 M/UL (4.70-6.10); RED CELL DISTRIBUTION WIDTH 18.2 % (11.6-14.8); WHITE BLOOD COUNT 10.4 K/UL (4.8-10.8)
[2016-10-16 05:48] LABS: ANION GAP 12 (5-15); CALCIUM 8.1 mg/dL (8.6-10.2); CARBON DIOXIDE 25 mEQ/L (20-30); CHLORIDE 106 mEQ/L (98-107); CREATININE 1.1 mg/dL (0.7-1.2); HEMOLYSIS 2; POTASSIUM 4.7 mEQ/L (3.4-4.9); SODIUM 143 mEQ/L (135-145)
--- NOTE | 2016-10-16 07:56 | General Progress Note ---
Assessment/Plan Problem List: (1) History of CVA (cerebrovascular accident) ICD Codes: Z86.73 - Personal history of transient ischemic attack (TIA), and cerebral infarction without residual deficits SNOMED: 297918808 (2) HTN (hypertension) ICD Codes: I10 - Essential (primary) hypertension SNOMED: 15864153 (3) Atrial fibrillation ICD Codes: I48.91 - Unspecified atrial fibrillation SNOMED: 16526817 (4) COPD (chronic obstructive pulmonary disease) ICD Codes: J44.9 - Chronic obstructive pulmonary disease, unspecified SNOMED: 81621560 Qualifiers: Qualified Codes: J44.9 - Chronic obstructive pulmonary disease, unspecified (5) Sepsis ICD Codes: A41.9 - Sepsis SNOMED: 79444469 (6) Pneumonia ICD Codes: J18.9 - Pneumonia, unspecified organism SNOMED: 795819001 Qualifiers: Qualified Codes: J18.1 - Lobar pneumonia, unspecified organism Status: stable, progressing Assessment/Plan vent abx ot pt diet cbc bmp am dc plan Subjective Constitutional: Reports: weakness Allergies: Coded Allergies: No Known Allergies (Unverified , 12/08/13) All Systems: reviewed and negative except above Subjective trach vent altered Objective Last 24 Hour Vital Signs Date Time Temp Pulse Resp B/P Pulse Ox O2 Delivery O2 Flow Rate FiO2 10/16/16 06:42 124 24 100 Mechanical Ventilator 50 10/16/16 06:42 124 39 50 10/16/16 06:36 50 10/16/16 06:36 111 38 98 Mechanical Ventilator 50 10/16/16 05:32 122 35 50 10/16/16 04:00 99.6 106 39 143/76 100 Mechanical Ventilator 50 10/16/16 04:00 50 10/16/16 04:00 107 10/16/16 03:30 50 10/16/16 03:30 106 24 100 Mechanical Ventilator 50 10/16/16 03:14 108 44 96 Mechanical Ventilator 50 10/16/16 03:13 108 44 50 10/16/16 02:25 97.8 10/16/16 02:25 97.8 10/16/16 00:50 Mechanical Ventilator 10/16/16 00:50 124 10/16/16 00:49 120 39 50 10/16/16 00:00 50 10/16/16 00:00 99.3 118 37 124/71 97 Mechanical Ventilator 50 10/16/16 00:00 114 10/15/16 21:20 92 24 50 10/15/16 20:00 99.6 109 20 88/52 99 Mechanical Ventilator 50 10/15/16 20:00 50 10/15/16 20:00 105 10/15/16 19:30 50 10/15/16 19:30 104 23 100 Mechanical Ventilator 50 10/15/16 19:14 104 22 96 Mechanical Ventilator 50 10/15/16 19:12 94 21 50 10/15/16 17:12 120 42 50 10/15/16 16:00 50 10/15/16 16:00 99.8 121 38 145/80 99 Mechanical Ventilator 50 10/15/16 16:00 87 10/15/16 15:09 129 42 50 10/15/16 15:09 120 42 100 Mechanical Ventilator 50 10/15/16 15:00 122 40 99 Mechanical Ventilator 50 10/15/16 15:00 50 10/15/16 12:57 113 35 50 10/15/16 12:00 50 10/15/16 12:00 99.5 101 20 109/75 99 Mechanical Ventilator 50 10/15/16 12:00 97 10/15/16 10:44 111 37 50 10/15/16 10:41 103 31 100 Mechanical Ventilator 50 10/15/16 10:30 50 10/15/16 10:30 105 28 99 Mechanical Ventilator 50 10/15/16 09:20 119 35 50 10/15/16 09:05 97 144/88 10/15/16 08:00 97 10/15/16 08:00 50 10/15/16 08:00 98.8 114 23 144/88 99 Mechanical Ventilator 50 Intake and Output 10/15/16 10/16/16 19:00 07:00 Intake Total 1155 ml 1066.6 ml Output Total 200 ml 375 ml Balance 955 ml 691.6 ml Intake Free Water 150 ml 100 ml IV Total 220 ml 476.6 ml Tube Feeding 785 ml 490 ml Output Urine Total 200 ml 375 ml Laboratory Tests 10/15/16 14:47: Vancomycin Level Trough 19.1H 10/16/16 04:30: White Blood Count 10.4, Red Blood Count 2.79L, Hemoglobin 8.1L, Hematocrit 26.0L , Mean Corpuscular Volume 93, Mean Corpuscular Hemoglobin 29.0, Mean Corpuscular Hemoglobin Concent 31.0L, Red Cell Distribution Width 18.2H, Platelet Count 314, Mean Platelet Volume 7.4, Neutrophils (%) (Auto) 72.3, Lymphocytes (%) (Auto) 14.9L, Monocytes (%) (Auto) 9.3, Eosinophils (%) (Auto) 2.6, Basophils (%) (Auto) 0.9, Sodium Level 143, Potassium Level 4.7, Chloride Level 106, Carbon Dioxide Level 25, Anion Gap 12, Blood Urea Nitrogen 22, Creatinine 1.1, Estimat Glomerular Filtration Rate , Glucose Level 187H, Calcium Level 8.1L Height (Feet): 5 Height (Inches): 5.00 Weight (Pounds): 190 General Appearance: lethargic EENT: normal ENT inspection Neck: normal alignment Cardiovascular: normal peripheral pulses, normal rate, regular rhythm Respiratory/Chest: chest wall non-tender, lungs clear, normal breath sounds Abdomen: normal bowel sounds, non tender, soft Extremities: normal inspection Edema: no edema noted Arm (L), no edema noted Arm (R), no edema noted Leg (L), no edema noted Leg (R), no edema noted Pedal (L), no edema noted Pedal (R), no edema noted Generalized Neurologic: motor weakness Skin: normal pigmentation, warm/dry DEVEN GRACE October 16, 2016 07:56
[2016-10-16 08:00] VITALS: BP 146/82
[2016-10-16] MEDS: Heparin 5000 units/ml inj SUBQ SCH ×2 (08:58→20:59)
[2016-10-16] MEDS: Pantoprazole Inj IVP SCH (08:58)
--- NOTE | 2016-10-16 09:10 | Critical Care Progress Note ---
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 - Subjective Interval Events: cxr much worse on ventilator ROS Limited/Unobtainable: Yes EKG Rhythm: Sinus Rhythm Residuals: minimal Tube Feeding Tolerated: yes I&O: Intake and Output 10/15/16 10/16/16 19:00 07:00 Intake Total 1155 ml 1066.6 ml Output Total 200 ml 375 ml Balance 955 ml 691.6 ml Intake Free Water 150 ml 100 ml IV Total 220 ml 476.6 ml Tube Feeding 785 ml 490 ml Output Urine Total 200 ml 375 ml Critical Care - Objective CXR: significant infiltrates ?right effusion Last 24 Hour Vital Signs Date Time Temp Pulse Resp B/P Pulse Ox O2 Delivery O2 Flow Rate FiO2 10/16/16 09:02 121 41 50 10/16/16 08:58 112 138/75 10/16/16 07:57 109 10/16/16 07:57 50 10/16/16 06:42 124 24 100 Mechanical Ventilator 50 10/16/16 06:42 124 39 50 10/16/16 06:36 50 10/16/16 06:36 111 38 98 Mechanical Ventilator 50 10/16/16 05:32 122 35 50 10/16/16 04:00 99.6 106 39 143/76 100 Mechanical Ventilator 50 10/16/16 04:00 50 10/16/16 04:00 107 10/16/16 03:30 50 10/16/16 03:30 106 24 100 Mechanical Ventilator 50 10/16/16 03:14 108 44 96 Mechanical Ventilator 50 10/16/16 03:13 108 44 50 10/16/16 02:25 97.8 10/16/16 02:25 97.8 10/16/16 00:50 Mechanical Ventilator 10/16/16 00:50 124 10/16/16 00:49 120 39 50 10/16/16 00:00 50 10/16/16 00:00 99.3 118 37 124/71 97 Mechanical Ventilator 50 10/16/16 00:00 114 10/15/16 21:20 92 24 50 10/15/16 20:00 99.6 109 20 88/52 99 Mechanical Ventilator 50 10/15/16 20:00 50 10/15/16 20:00 105 10/15/16 19:30 50 10/15/16 19:30 104 23 100 Mechanical Ventilator 50 10/15/16 19:14 104 22 96 Mechanical Ventilator 50 10/15/16 19:12 94 21 50 10/15/16 17:12 120 42 50 10/15/16 16:00 50 10/15/16 16:00 99.8 121 38 145/80 99 Mechanical Ventilator 50 10/15/16 16:00 87 10/15/16 15:09 129 42 50 10/15/16 15:09 120 42 100 Mechanical Ventilator 50 10/15/16 15:00 122 40 99 Mechanical Ventilator 50 10/15/16 15:00 50 10/15/16 12:57 113 35 50 10/15/16 12:00 50 10/15/16 12:00 99.5 101 20 109/75 99 Mechanical Ventilator 50 10/15/16 12:00 97 10/15/16 10:44 111 37 50 10/15/16 10:41 103 31 100 Mechanical Ventilator 50 10/15/16 10:30 50 10/15/16 10:30 105 28 99 Mechanical Ventilator 50 10/15/16 09:20 119 35 50 Labs: Labs Test 10/13/16 23:05 10/14/16 03:45 10/14/16 15:39 10/15/16 03:05 Random Amikacin Level 14.3 ug/mL White Blood Count 15.5 K/UL (4.8-10.8) 18.3 K/UL (4.8-10.8) Red Blood Count 3.12 M/UL (4.70-6.10) 3.43 M/UL (4.70-6.10) Hemoglobin 9.4 G/DL (14.2-18.0) 10.1 G/DL (14.2-18.0) Hematocrit 29.0 % (42.0-52.0) 31.8 % (42.0-52.0) Mean Corpuscular Volume 93 FL (80-99) 93 FL (80-99) Mean Corpuscular Hemoglobin 30.2 PG (27.0-31.0) 29.4 PG (27.0-31.0) Mean Corpuscular Hemoglobin Concent 32.5 G/DL (32.0-36.0) 31.7 G/DL (32.0-36.0) Red Cell Distribution Width 19.4 % (11.6-14.8) 18.8 % (11.6-14.8) Platelet Count 338 K/UL (150-450) 399 K/UL (150-450) Mean Platelet Volume 7.8 FL (6.5-10.1) 7.6 FL (6.5-10.1) Neutrophils (%) (Auto) 70.1 % (45.0-75.0) % (45.0-75.0) Lymphocytes (%) (Auto) 14.5 % (20.0-45.0) % (20.0-45.0) Monocytes (%) (Auto) 13.9 % (1.0-10.0) % (1.0-10.0) Eosinophils (%) (Auto) 0.3 % (0.0-3.0) % (0.0-3.0) Basophils (%) (Auto) 1.2 % (0.0-2.0) % (0.0-2.0) Sodium Level 139 mEQ/L (135-145) 141 mEQ/L (135-145) Potassium Level 4.7 mEQ/L (3.4-4.9) 4.4 mEQ/L (3.4-4.9) Chloride Level 104 mEQ/L (98-107) 103 mEQ/L (98-107) Carbon Dioxide Level 21 mEQ/L (20-30) 24 mEQ/L (20-30) Anion Gap 14 (5-15) 14 (5-15) Blood Urea Nitrogen 19 mg/dL (7-23) 17 mg/dL (7-23) Creatinine 1.1 mg/dL (0.7-1.2) 1.0 mg/dL (0.7-1.2) Estimat Glomerular Filtration Rate mL/min (>60) mL/min (>60) Glucose Level 173 mg/dL (74-106) 153 mg/dL (74-106) Calcium Level 8.4 mg/dL (8.6-10.2) 8.7 mg/dL (8.6-10.2) Arterial Blood pH 7.400 (7.350-7.450) Arterial Blood Partial Pressure CO2 38.4 mmHg (35.0-45.0) Arterial Blood Partial Pressure O2 112.0 mmHg (75.0-100.0) Arterial Blood HCO3 23.3 mmol/L (22.0-26.0) Arterial Blood Oxygen Saturation 98.0 % (92.0-98.0) Arterial Blood Base Excess -1.3 Anderson Test Test 10/15/16 14:47 10/16/16 04:30 Vancomycin Level Trough 19.1 ug/mL (5.0-12.0) White Blood Count 10.4 K/UL (4.8-10.8) Red Blood Count 2.79 M/UL (4.70-6.10) Hemoglobin 8.1 G/DL (14.2-18.0) Hematocrit 26.0 % (42.0-52.0) Mean Corpuscular Volume 93 FL (80-99) Mean Corpuscular Hemoglobin 29.0 PG (27.0-31.0) Mean Corpuscular Hemoglobin Concent 31.0 G/DL (32.0-36.0) Red Cell Distribution Width 18.2 % (11.6-14.8) Platelet Count 314 K/UL (150-450) Mean Platelet Volume 7.4 FL (6.5-10.1) Neutrophils (%) (Auto) 72.3 % (45.0-75.0) Lymphocytes (%) (Auto) 14.9 % (20.0-45.0) Monocytes (%) (Auto) 9.3 % (1.0-10.0) Eosinophils (%) (Auto) 2.6 % (0.0-3.0) Basophils (%) (Auto) 0.9 % (0.0-2.0) Sodium Level 143 mEQ/L (135-145) Potassium Level 4.7 mEQ/L (3.4-4.9) Chloride Level 106 mEQ/L (98-107) Carbon Dioxide Level 25 mEQ/L (20-30) Anion Gap 12 (5-15) Blood Urea Nitrogen 22 mg/dL (7-23) Creatinine 1.1 mg/dL (0.7-1.2) Estimat Glomerular Filtration Rate mL/min (>60) Glucose Level 187 mg/dL (74-106) Calcium Level 8.1 mg/dL (8.6-10.2) Objective: WDWN NAD EOMI trach reduced breath sounds bilaterally with some rhonchi; reduced right; no wheeze S1S2RR RRR without MRG NABS nontender no HSM; no distention; GT no CCE nonfocal; reduced ROM poor LOC skin noted and reviewed exam reviewed and edited KENYA AJQUEZ October 16, 2016 09:10
[2016-10-16] MEDS: LORazepam Inj 2mg/ml 1ml IV PRN (09:47)
[2016-10-16] MEDS: Amikacin 1,000 MG in NS 110 ML IV SCH (09:50)
[2016-10-16 12:00] VITALS: BP 96/56
--- NOTE | 2016-10-16 15:42 | Infectious Diseases Prog Note ---
Assessment/Plan Problems: (1) HCAP (healthcare-associated pneumonia) Assessment & Plan: with E.coli, and Proteus Mirabilis ESBL + , will continue meropenem, empirically with zyvox for two weeks (2) Sepsis Assessment & Plan: due to the above, continue wide spectrum antibiotics , monitor blood culture results (3) Acute respiratory failure Assessment & Plan: due to the above, with fluids overload, continue diuresis, and mechanical ventilation , monitor ABG, and CXR (4) Shock liver Assessment & Plan: due to sepsis, monitor LFT, avoid hepatotoxic meds (5) UTI (urinary tract infection) due to Enterococcus Assessment & Plan: will switch vancomycin to zyvox, and treat for 2 weeks to cover penumonia too. 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 & Plan: on contact isolation Subjective ROS Limited/Unobtainable: Yes Allergies: Coded Allergies: No Known Allergies (Unverified , 12/08/13) Subjective he is resting in bed, awake, congested with diffuse wheezing , on mechanical ventilation through his trach Objective Vital Signs Last 24 Hour Vital Signs Date Time Temp Pulse Resp B/P Pulse Ox O2 Delivery O2 Flow Rate FiO2 10/16/16 14:52 111 31 50 10/16/16 14:51 111 22 100 Mechanical Ventilator 50 10/16/16 14:40 50 10/16/16 14:40 106 21 99 Mechanical Ventilator 50 10/16/16 13:09 114 36 50 10/16/16 12:00 98.2 95 20 96/56 100 Mechanical Ventilator 50 10/16/16 11:25 97 10/16/16 11:25 50 10/16/16 10:45 115 26 50 10/16/16 10:40 114 26 100 Mechanical Ventilator 50 10/16/16 10:30 116 28 98 Mechanical Ventilator 50 10/16/16 10:30 50 10/16/16 09:02 121 41 50 10/16/16 08:58 112 138/75 10/16/16 08:00 100.9 116 23 146/82 99 Mechanical Ventilator 50 10/16/16 07:57 109 10/16/16 07:57 50 10/16/16 06:42 124 24 100 Mechanical Ventilator 50 10/16/16 06:42 124 39 50 10/16/16 06:36 50 10/16/16 06:36 111 38 98 Mechanical Ventilator 50 10/16/16 05:32 122 35 50 10/16/16 04:00 99.6 106 39 143/76 100 Mechanical Ventilator 50 10/16/16 04:00 50 10/16/16 04:00 107 10/16/16 03:30 50 10/16/16 03:30 106 24 100 Mechanical Ventilator 50 10/16/16 03:14 108 44 96 Mechanical Ventilator 50 10/16/16 03:13 108 44 50 10/16/16 02:25 97.8 10/16/16 02:25 97.8 10/16/16 00:50 Mechanical Ventilator 10/16/16 00:50 124 10/16/16 00:49 120 39 50 10/16/16 00:00 50 10/16/16 00:00 99.3 118 37 124/71 97 Mechanical Ventilator 50 10/16/16 00:00 114 10/15/16 21:20 92 24 50 10/15/16 20:00 99.6 109 20 88/52 99 Mechanical Ventilator 50 10/15/16 20:00 50 10/15/16 20:00 105 10/15/16 19:30 50 10/15/16 19:30 104 23 100 Mechanical Ventilator 50 10/15/16 19:14 104 22 96 Mechanical Ventilator 50 10/15/16 19:12 94 21 50 10/15/16 17:12 120 42 50 10/15/16 16:00 50 10/15/16 16:00 99.8 121 38 145/80 99 Mechanical Ventilator 50 10/15/16 16:00 87 Height (Feet): 5 Height (Inches): 5.00 Weight (Pounds): 190 General Appearance: WD/WN, no acute distress HEENT: normocephalic, atraumatic, mucous membranes moist, no JVD, status post trach Respiratory/Chest: chest wall non-tender, no respiratory distress, no accessory muscle use, decreased breath sounds, crackles/rales, expiratory wheezing Cardiovascular: normal peripheral pulses, normal rate, regular rhythm, no gallop/murmur Abdomen: normal bowel sounds, soft, non tender, no organomegaly, non distended , no mass Extremities: no cyanosis, no clubbing Skin: no rash, no lesions Laboratory Tests Test 10/16/16 04:30 White Blood Count 10.4 K/UL (4.8-10.8) Red Blood Count 2.79 M/UL (4.70-6.10) L Hemoglobin 8.1 G/DL (14.2-18.0) L Hematocrit 26.0 % (42.0-52.0) L Mean Corpuscular Volume 93 FL (80-99) Mean Corpuscular Hemoglobin 29.0 PG (27.0-31.0) Mean Corpuscular Hemoglobin Concent 31.0 G/DL (32.0-36.0) L Red Cell Distribution Width 18.2 % (11.6-14.8) H Platelet Count 314 K/UL (150-450) Mean Platelet Volume 7.4 FL (6.5-10.1) Neutrophils (%) (Auto) 72.3 % (45.0-75.0) Lymphocytes (%) (Auto) 14.9 % (20.0-45.0) L Monocytes (%) (Auto) 9.3 % (1.0-10.0) Eosinophils (%) (Auto) 2.6 % (0.0-3.0) Basophils (%) (Auto) 0.9 % (0.0-2.0) Sodium Level 143 mEQ/L (135-145) Potassium Level 4.7 mEQ/L (3.4-4.9) Chloride Level 106 mEQ/L (98-107) Carbon Dioxide Level 25 mEQ/L (20-30) Anion Gap 12 (5-15) Blood Urea Nitrogen 22 mg/dL (7-23) Creatinine 1.1 mg/dL (0.7-1.2) Estimat Glomerular Filtration Rate mL/min (>60) Glucose Level 187 mg/dL (74-106) H Calcium Level 8.1 mg/dL (8.6-10.2) L Pro-B-Type Natriuretic Peptide 9069 pg/mL (0-450) H Current Medications Medications (Trade) Dose Ordered Sig/Omi Route PRN Reason Start Time Stop Time Status Last Admin Dose Admin Acetaminophen 650 mg 650 mg Q6H PRN ORAL Mild Pain/Temp > 100.5 10/13/16 01:15 11/12/16 01:14 10/16/16 01:26 Albuterol/ Ipratropium (DuoNeb 0.5-3(2.5)mg/3ml) 3 ml Q4HRT HHN 10/12/16 19:00 10/17/16 18:59 10/16/16 14:50 Amlodipine Besylate 10 mg 10 mg DAILY GT 10/15/16 09:00 11/14/16 08:59 10/16/16 08:58 Heparin Sodium (Porcine) (Heparin 5000 units/ml) 5,000 units EVERY 12 HOURS SUBQ 10/12/16 21:00 11/11/16 20:59 10/16/16 08:58 Linezolid (Zyvox) 300 ml @ 300 mls/hr Q12HR IVPB 10/16/16 12:00 10/23/16 11:59 10/16/16 12:26 Lorazepam (Ativan 2mg/ml 1ml) 1 mg Q3H PRN IV For Anxiety 10/14/16 15:30 10/21/16 15:29 10/16/16 09:47 Meropenem/Sodium Chloride (Merrem/Sodium Chloride) 110 ml @ 220 mls/hr Q8HR IVPB 10/13/16 14:30 10/18/16 14:29 10/16/16 14:13 Morphine Sulfate (Morphine Sulfate) 4 mg EVERY 3 HOURS PRN IVP Severe Pain (Pain Scale 7-10) 10/14/16 15:30 10/21/16 15:29 10/15/16 09:12 Pantoprazole (Protonix) 40 mg DAILY IVP 10/13/16 09:00 11/12/16 08:59 10/16/16 08:58 Karla Stringer M.D. October 16, 2016 15:41
[2016-10-16 16:00] VITALS: BP 139/57
[2016-10-16] MEDS ORDERED: NS 275ml ONE (17:18)
[2016-10-16 20:00] VITALS: BP 143/84
[2016-10-16] MEDS: Morphine Sulfate 4mg/ml Inj IVP PRN (21:36)
[2016-10-17] VITALS: BP 135/59
[2016-10-17 04:00] VITALS: BP 133/64
[2016-10-17] MEDS: DuoNeb 0.5-3(2.5)mg/3ml neb HHN SCH ×4 (04:42→15:17)
[2016-10-17 05:43] LABS: BASOPHILS % (AUTO) 1.1 % (0.0-2.0); EOSINOPHILS % (AUTO) 2.5 % (0.0-3.0); LYMPHOCYTES % (AUTO) 17.7 % (20.0-45.0); MEAN CORPUSCULAR HGB CONC 31.3 G/DL (32.0-36.0); MEAN CORPUSCULAR VOLUME 93 FL (80-99); MEAN PLATELET VOLUME 6.9 FL (6.5-10.1); MONOCYTES % (AUTO) 4.8 % (1.0-10.0); PLATELET COUNT 321 K/UL (150-450); RED BLOOD COUNT 3.03 M/UL (4.70-6.10); RED CELL DISTRIBUTION WIDTH 18.1 % (11.6-14.8); WHITE BLOOD COUNT 14.3 K/UL (4.8-10.8)
[2016-10-17] MEDS: Meropenem 1 GM in NS 110 ML IVPB SCH ×3 (05:48→21:38)
[2016-10-17 06:11] LABS: ANION GAP 12 (5-15); CALCIUM 8.4 mg/dL (8.6-10.2); CARBON DIOXIDE 27 mEQ/L (20-30); CHLORIDE 104 mEQ/L (98-107); HEMOLYSIS 28; POTASSIUM 4.6 mEQ/L (3.4-4.9); SODIUM 143 mEQ/L (135-145)
[2016-10-17 08:00] VITALS: BP 145/76
--- NOTE | 2016-10-17 08:03 | Critical Care Progress Note ---
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 with fiber optic assembly worker - Subjective Interval Events: tachycardic ID noted Zyvox for [address] pending ROS Limited/Unobtainable: Yes Condition: critical EKG Rhythm: Sinus Tachycardia Residuals: minimal Tube Feeding Tolerated: yes I&O: Intake and Output 10/16/16 10/17/16 19:00 07:00 Intake Total 1280 ml 1180 ml Output Total 400 ml Balance 1280 ml 780 ml Intake Free Water 100 ml 100 ml IV Total 410 ml 520 ml Tube Feeding 770 ml 560 ml Output Urine Total 400 ml # Voids 6 # Bowel Movements 2 Critical Care - Objective Last 24 Hour Vital Signs Date Time Temp Pulse Resp B/P Pulse Ox O2 Delivery O2 Flow Rate FiO2 10/17/16 07:35 112 30 Mechanical Ventilator 50 10/17/16 07:17 102 30 99 Mechanical Ventilator 50 10/17/16 07:03 112 30 50 10/17/16 07:03 50 10/17/16 07:02 112 30 99 Mechanical Ventilator 50 10/17/16 05:02 105 32 99 Mechanical Ventilator 50 10/17/16 04:43 111 22 99 Mechanical Ventilator 50 10/17/16 04:43 50 10/17/16 04:42 111 24 50 10/17/16 04:03 101 22 50 10/17/16 04:00 50 10/17/16 04:00 98.1 109 20 133/64 99 Mechanical Ventilator 10/17/16 04:00 97 10/17/16 01:23 112 31 50 10/17/16 00:00 50 10/17/16 00:00 98.2 112 22 135/59 100 Mechanical Ventilator 10/16/16 23:24 111 27 99 Mechanical Ventilator 50 10/16/16 23:23 108 25 99 Mechanical Ventilator 50 10/16/16 23:23 50 10/16/16 23:22 111 23 50 10/16/16 23:11 111 10/16/16 22:34 99.9 10/16/16 21:15 124 29 50 10/16/16 20:00 99.5 122 39 143/84 98 Mechanical Ventilator 10/16/16 20:00 50 10/16/16 20:00 130 10/16/16 19:07 50 10/16/16 19:07 109 22 100 Mechanical Ventilator 50 10/16/16 19:07 115 20 100 Mechanical Ventilator 50 10/16/16 19:05 108 36 50 10/16/16 16:40 109 10/16/16 16:40 50 10/16/16 16:33 116 29 50 10/16/16 16:00 50 10/16/16 16:00 99.5 113 21 139/57 100 Mechanical Ventilator 50 10/16/16 16:00 111 10/16/16 14:52 111 31 50 10/16/16 14:51 111 22 100 Mechanical Ventilator 50 10/16/16 14:40 50 10/16/16 14:40 106 21 99 Mechanical Ventilator 50 10/16/16 13:09 114 36 50 10/16/16 12:00 98.2 95 20 96/56 100 Mechanical Ventilator 50 10/16/16 11:25 97 10/16/16 11:25 50 10/16/16 10:45 115 26 50 10/16/16 10:40 114 26 100 Mechanical Ventilator 50 10/16/16 10:30 116 28 98 Mechanical Ventilator 50 10/16/16 10:30 50 10/16/16 09:02 121 41 50 10/16/16 08:58 112 138/75 Labs: Labs Test 10/14/16 15:39 10/15/16 03:05 10/15/16 14:47 10/16/16 04:30 Arterial Blood pH 7.400 (7.350-7.450) Arterial Blood Partial Pressure CO2 38.4 mmHg (35.0-45.0) Arterial Blood Partial Pressure O2 112.0 mmHg (75.0-100.0) Arterial Blood HCO3 23.3 mmol/L (22.0-26.0) Arterial Blood Oxygen Saturation 98.0 % (92.0-98.0) Arterial Blood Base Excess -1.3 Anderson Test White Blood Count 18.3 K/UL (4.8-10.8) 10.4 K/UL (4.8-10.8) Red Blood Count 3.43 M/UL (4.70-6.10) 2.79 M/UL (4.70-6.10) Hemoglobin 10.1 G/DL (14.2-18.0) 8.1 G/DL (14.2-18.0) Hematocrit 31.8 % (42.0-52.0) 26.0 % (42.0-52.0) Mean Corpuscular Volume 93 FL (80-99) 93 FL (80-99) Mean Corpuscular Hemoglobin 29.4 PG (27.0-31.0) 29.0 PG (27.0-31.0) Mean Corpuscular Hemoglobin Concent 31.7 G/DL (32.0-36.0) 31.0 G/DL (32.0-36.0) Red Cell Distribution Width 18.8 % (11.6-14.8) 18.2 % (11.6-14.8) Platelet Count 399 K/UL (150-450) 314 K/UL (150-450) Mean Platelet Volume 7.6 FL (6.5-10.1) 7.4 FL (6.5-10.1) Neutrophils (%) (Auto) % (45.0-75.0) 72.3 % (45.0-75.0) Lymphocytes (%) (Auto) % (20.0-45.0) 14.9 % (20.0-45.0) Monocytes (%) (Auto) % (1.0-10.0) 9.3 % (1.0-10.0) Eosinophils (%) (Auto) % (0.0-3.0) 2.6 % (0.0-3.0) Basophils (%) (Auto) % (0.0-2.0) 0.9 % (0.0-2.0) Sodium Level 141 mEQ/L (135-145) 143 mEQ/L (135-145) Potassium Level 4.4 mEQ/L (3.4-4.9) 4.7 mEQ/L (3.4-4.9) Chloride Level 103 mEQ/L (98-107) 106 mEQ/L (98-107) Carbon Dioxide Level 24 mEQ/L (20-30) 25 mEQ/L (20-30) Anion Gap 14 (5-15) 12 (5-15) Blood Urea Nitrogen 17 mg/dL (7-23) 22 mg/dL (7-23) Creatinine 1.0 mg/dL (0.7-1.2) 1.1 mg/dL (0.7-1.2) Estimat Glomerular Filtration Rate mL/min (>60) mL/min (>60) Glucose Level 153 mg/dL (74-106) 187 mg/dL (74-106) Calcium Level 8.7 mg/dL (8.6-10.2) 8.1 mg/dL (8.6-10.2) Vancomycin Level Trough 19.1 ug/mL (5.0-12.0) Pro-B-Type Natriuretic Peptide 9069 pg/mL (0-450) Test 10/17/16 04:40 White Blood Count 14.3 K/UL (4.8-10.8) Red Blood Count 3.03 M/UL (4.70-6.10) Hemoglobin 8.8 G/DL (14.2-18.0) Hematocrit 28.1 % (42.0-52.0) Mean Corpuscular Volume 93 FL (80-99) Mean Corpuscular Hemoglobin 29.0 PG (27.0-31.0) Mean Corpuscular Hemoglobin Concent 31.3 G/DL (32.0-36.0) Red Cell Distribution Width 18.1 % (11.6-14.8) Platelet Count 321 K/UL (150-450) Mean Platelet Volume 6.9 FL (6.5-10.1) Neutrophils (%) (Auto) 74.0 % (45.0-75.0) Lymphocytes (%) (Auto) 17.7 % (20.0-45.0) Monocytes (%) (Auto) 4.8 % (1.0-10.0) Eosinophils (%) (Auto) 2.5 % (0.0-3.0) Basophils (%) (Auto) 1.1 % (0.0-2.0) Sodium Level 143 mEQ/L (135-145) Potassium Level 4.6 mEQ/L (3.4-4.9) Chloride Level 104 mEQ/L (98-107) Carbon Dioxide Level 27 mEQ/L (20-30) Anion Gap 12 (5-15) Blood Urea Nitrogen 23 mg/dL (7-23) Creatinine 1.0 mg/dL (0.7-1.2) Estimat Glomerular Filtration Rate mL/min (>60) Glucose Level 198 mg/dL (74-106) Calcium Level 8.4 mg/dL (8.6-10.2) Objective: WDWN NAD EOMI trach reduced breath sounds bilaterally with scattered rhonchi; reduced right; no wheeze [id number] tachy RR without MRG NABS nontender no HSM; no distention; GT no CCE nonfocal; reduced ROM poor LOC skin noted and reviewed exam reviewed and edited KENYA JAQUEZ October 17, 2016 08:03
[2016-10-17] MEDS: Pantoprazole Inj IVP SCH (08:29)
[2016-10-17] MEDS: Heparin 5000 units/ml inj SUBQ SCH ×2 (08:30→20:25)
[2016-10-17 11:45] VITALS: BP 144/83
--- NOTE | 2016-10-17 12:36 | Diagnostic Imaging Report ---
APPROVED REPORT CPT Code: 17040 Present Symptoms Shortness of breath BILATERAL: Imaging reveals a patent deep venous system bilaterally. There is no evidence of thrombus within the femoral, popliteal or tibial segments. The greater saphenous veins are also within normal limits. Doppler indicates normal spontaneous flow within these segments.
[2016-10-17] MEDS: Morphine Sulfate 4mg/ml Inj IVP PRN (13:08)
--- NOTE | 2016-10-17 13:29 | General Progress Note ---
Assessment/Plan Problem List: (1) History of CVA (cerebrovascular accident) ICD Codes: Z86.73 - Personal history of transient ischemic attack (TIA), and cerebral infarction without residual deficits SNOMED: 317529441 (2) HTN (hypertension) ICD Codes: I10 - Essential (primary) hypertension SNOMED: 73445107 (3) Atrial fibrillation ICD Codes: I48.91 - Unspecified atrial fibrillation SNOMED: 86446892 (4) COPD (chronic obstructive pulmonary disease) ICD Codes: J44.9 - Chronic obstructive pulmonary disease, unspecified SNOMED: 88261215 Qualifiers: Qualified Codes: J44.9 - Chronic obstructive pulmonary disease, unspecified (5) Sepsis ICD Codes: A41.9 - Sepsis SNOMED: 54605814 (6) Pneumonia ICD Codes: J18.9 - Pneumonia, unspecified organism SNOMED: 087610233 Qualifiers: Qualified Codes: J18.1 - Lobar pneumonia, unspecified organism Status: stable, progressing, tolerating diet Assessment/Plan vent abx ot pt diet cbc bmp am dc plan Subjective Constitutional: Reports: weakness Allergies: Coded Allergies: No Known Allergies (Unverified , 12/08/13) All Systems: reviewed and negative except above Subjective trach vent altered Objective Last 24 Hour Vital Signs Date Time Temp Pulse Resp B/P Pulse Ox O2 Delivery O2 Flow Rate FiO2 10/17/16 12:00 117 10/17/16 12:00 50 10/17/16 11:45 98.2 112 32 144/83 100 Mechanical Ventilator 50 10/17/16 11:01 Mechanical Ventilator 10/17/16 11:00 126 Mechanical Ventilator 50 10/17/16 10:58 121 32 50 10/17/16 09:10 123 37 50 10/17/16 08:33 113 145/76 10/17/16 08:00 98.4 113 20 145/76 92 Mechanical Ventilator 50 10/17/16 08:00 50 10/17/16 08:00 101 10/17/16 07:35 112 30 Mechanical Ventilator 50 10/17/16 07:17 102 30 99 Mechanical Ventilator 50 10/17/16 07:03 112 30 50 10/17/16 07:03 50 10/17/16 07:02 112 30 99 Mechanical Ventilator 50 10/17/16 05:02 105 32 99 Mechanical Ventilator 50 10/17/16 04:43 111 22 99 Mechanical Ventilator 50 10/17/16 04:43 50 10/17/16 04:42 111 24 50 10/17/16 04:03 101 22 50 10/17/16 04:00 50 10/17/16 04:00 98.1 109 20 133/64 99 Mechanical Ventilator 10/17/16 04:00 97 10/17/16 01:23 112 31 50 10/17/16 00:00 50 10/17/16 00:00 98.2 112 22 135/59 100 Mechanical Ventilator 10/16/16 23:24 111 27 99 Mechanical Ventilator 50 10/16/16 23:23 108 25 99 Mechanical Ventilator 50 10/16/16 23:23 50 10/16/16 23:22 111 23 50 10/16/16 23:11 111 10/16/16 22:34 99.9 10/16/16 21:15 124 29 50 10/16/16 20:00 99.5 122 39 143/84 98 Mechanical Ventilator 10/16/16 20:00 50 10/16/16 20:00 130 10/16/16 19:07 50 10/16/16 19:07 109 22 100 Mechanical Ventilator 50 10/16/16 19:07 115 20 100 Mechanical Ventilator 50 10/16/16 19:05 108 36 50 10/16/16 16:40 109 10/16/16 16:40 50 10/16/16 16:33 116 29 50 10/16/16 16:00 50 10/16/16 16:00 99.5 113 21 139/57 100 Mechanical Ventilator 50 10/16/16 16:00 111 10/16/16 14:52 111 31 50 10/16/16 14:51 111 22 100 Mechanical Ventilator 50 10/16/16 14:40 50 10/16/16 14:40 106 21 99 Mechanical Ventilator 50 Intake and Output 10/16/16 10/17/16 19:00 07:00 Intake Total 1280 ml 1180 ml Output Total 400 ml Balance 1280 ml 780 ml Intake Free Water 100 ml 100 ml IV Total 410 ml 520 ml Tube Feeding 770 ml 560 ml Output Urine Total 400 ml # Voids 6 # Bowel Movements 2 Laboratory Tests 10/17/16 04:40: White Blood Count 14.3H, Red Blood Count 3.03L, Hemoglobin 8.8L, Hematocrit 28.1L, Mean Corpuscular Volume 93, Mean Corpuscular Hemoglobin 29.0, Mean Corpuscular Hemoglobin Concent 31.3L, Red Cell Distribution Width 18.1H, Platelet Count 321, Mean Platelet Volume 6.9, Neutrophils (%) (Auto) 74.0, Lymphocytes (%) (Auto) 17.7L, Monocytes (%) (Auto) 4.8, Eosinophils (%) (Auto) 2.5, Basophils (%) (Auto) 1.1, Sodium Level 143, Potassium Level 4.6, Chloride Level 104, Carbon Dioxide Level 27, Anion Gap 12, Blood Urea Nitrogen 23, Creatinine 1.0, Estimat Glomerular Filtration Rate , Glucose Level 198H, Calcium Level 8.4L Height (Feet): 5 Height (Inches): 5.00 Weight (Pounds): 190 General Appearance: lethargic EENT: normal ENT inspection Neck: normal alignment Cardiovascular: normal peripheral pulses, normal rate, regular rhythm Respiratory/Chest: chest wall non-tender, lungs clear, decreased breath sounds Abdomen: normal bowel sounds, non tender, soft Extremities: normal inspection Edema: no edema noted Arm (L), no edema noted Arm (R), no edema noted Leg (L), no edema noted Leg (R), no edema noted Pedal (L), no edema noted Pedal (R), no edema noted Generalized Neurologic: motor weakness Skin: normal pigmentation, warm/dry DEVEN GRACE October 17, 2016 13:29
[2016-10-17 16:40] VITALS: BP 129/74
[2016-10-17] MEDS ORDERED: NS 275ml ONE (17:02)
[2016-10-17] MEDS ORDERED: Tubing IV Secondary IV ONE (17:02)
--- NOTE | 2016-10-17 18:27 | Infectious Diseases Prog Note ---
Assessment/Plan Problems: (1) HCAP (healthcare-associated pneumonia) Assessment & Plan: due to E.coli, and Proteus Mirabilis ESBL + , continue meropenem, with zyvox for two weeks total (2) Sepsis Assessment & Plan: due to the above, continue wide spectrum antibiotics , monitor blood culture results (3) Acute respiratory failure Assessment & Plan: due to pneumonia , and fluids overload, await CT chest. continue antibiotics and diuresis, monitor ABG, and CXR (4) Shock liver Assessment & Plan: due to sepsis, monitor LFT, avoid hepatotoxic meds (5) UTI (urinary tract infection) due to Enterococcus Assessment & Plan: with VRE, ON zyvox, and treat for 2 weeks to cover penumonia too. 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 & Plan: on contact isolation Subjective ROS Limited/Unobtainable: Yes Allergies: Coded Allergies: No Known Allergies (Unverified , 12/08/13) Subjective he is comfortable, in bed , still congested with diffuse wheezing , on mechanical ventilation through his trach Objective Vital Signs Last 24 Hour Vital Signs Date Time Temp Pulse Resp B/P Pulse Ox O2 Delivery O2 Flow Rate FiO2 10/17/16 17:01 104 27 50 10/17/16 16:40 99.9 104 18 129/74 100 Mechanical Ventilator 50 10/17/16 16:00 50 10/17/16 16:00 107 10/17/16 15:26 104 24 99 Mechanical Ventilator 50 10/17/16 15:18 106 26 50 10/17/16 15:18 50 10/17/16 15:17 114 23 98 Mechanical Ventilator 50 10/17/16 13:38 98.2 10/17/16 12:56 150 37 50 10/17/16 12:00 117 10/17/16 12:00 50 10/17/16 11:45 98.2 112 32 144/83 100 Mechanical Ventilator 50 10/17/16 11:01 Mechanical Ventilator 10/17/16 11:00 126 Mechanical Ventilator 50 10/17/16 10:58 121 32 50 10/17/16 09:10 123 37 50 10/17/16 08:33 113 145/76 10/17/16 08:00 98.4 113 20 145/76 92 Mechanical Ventilator 50 10/17/16 08:00 50 10/17/16 08:00 101 10/17/16 07:35 112 30 Mechanical Ventilator 50 10/17/16 07:17 102 30 99 Mechanical Ventilator 50 10/17/16 07:03 112 30 50 10/17/16 07:03 50 10/17/16 07:02 112 30 99 Mechanical Ventilator 50 10/17/16 05:02 105 32 99 Mechanical Ventilator 50 10/17/16 04:43 111 22 99 Mechanical Ventilator 50 10/17/16 04:43 50 10/17/16 04:42 111 24 50 10/17/16 04:03 101 22 50 10/17/16 04:00 50 10/17/16 04:00 98.1 109 20 133/64 99 Mechanical Ventilator 10/17/16 04:00 97 10/17/16 01:23 112 31 50 10/17/16 00:00 50 10/17/16 00:00 98.2 112 22 135/59 100 Mechanical Ventilator 10/16/16 23:24 111 27 99 Mechanical Ventilator 50 10/16/16 23:23 108 25 99 Mechanical Ventilator 50 10/16/16 23:23 50 10/16/16 23:22 111 23 50 10/16/16 23:11 111 10/16/16 22:34 99.9 10/16/16 21:15 124 29 50 10/16/16 20:00 99.5 122 39 143/84 98 Mechanical Ventilator 10/16/16 20:00 50 10/16/16 20:00 130 10/16/16 19:07 50 10/16/16 19:07 109 22 100 Mechanical Ventilator 50 10/16/16 19:07 115 20 100 Mechanical Ventilator 50 10/16/16 19:05 108 36 50 Height (Feet): 5 Height (Inches): 5.00 Weight (Pounds): 190 General Appearance: WD/WN, no acute distress HEENT: normocephalic, atraumatic, anicteric, mucous membranes moist, no JVD, status post trach Respiratory/Chest: normal breath sounds, no respiratory distress, no accessory muscle use, decreased breath sounds, expiratory wheezing Cardiovascular: normal peripheral pulses, regularly irregular, no gallop/murmur Abdomen: normal bowel sounds, soft, non tender, no organomegaly, non distended , no mass, no scars Extremities: no cyanosis, no clubbing Skin: no rash, no lesions Laboratory Tests Test 10/17/16 04:40 White Blood Count 14.3 K/UL (4.8-10.8) H Red Blood Count 3.03 M/UL (4.70-6.10) L Hemoglobin 8.8 G/DL (14.2-18.0) L Hematocrit 28.1 % (42.0-52.0) L Mean Corpuscular Volume 93 FL (80-99) Mean Corpuscular Hemoglobin 29.0 PG (27.0-31.0) Mean Corpuscular Hemoglobin Concent 31.3 G/DL (32.0-36.0) L Red Cell Distribution Width 18.1 % (11.6-14.8) H Platelet Count 321 K/UL (150-450) Mean Platelet Volume 6.9 FL (6.5-10.1) Neutrophils (%) (Auto) 74.0 % (45.0-75.0) Lymphocytes (%) (Auto) 17.7 % (20.0-45.0) L Monocytes (%) (Auto) 4.8 % (1.0-10.0) Eosinophils (%) (Auto) 2.5 % (0.0-3.0) Basophils (%) (Auto) 1.1 % (0.0-2.0) Sodium Level 143 mEQ/L (135-145) Potassium Level 4.6 mEQ/L (3.4-4.9) Chloride Level 104 mEQ/L (98-107) Carbon Dioxide Level 27 mEQ/L (20-30) Anion Gap 12 (5-15) Blood Urea Nitrogen 23 mg/dL (7-23) Creatinine 1.0 mg/dL (0.7-1.2) Estimat Glomerular Filtration Rate mL/min (>60) Glucose Level 198 mg/dL (74-106) H Calcium Level 8.4 mg/dL (8.6-10.2) L Current Medications Medications (Trade) Dose Ordered Sig/Omi Route PRN Reason Start Time Stop Time Status Last Admin Dose Admin Acetaminophen 650 mg 650 mg Q6H PRN ORAL Mild Pain/Temp > 100.5 10/13/16 01:15 11/12/16 01:14 10/16/16 21:35 Albuterol/ Ipratropium (DuoNeb 0.5-3(2.5)mg/3ml) 3 ml Q4HRT HHN 10/12/16 19:00 10/17/16 18:59 10/17/16 15:17 Amlodipine Besylate 10 mg 10 mg DAILY GT 10/15/16 09:00 11/14/16 08:59 10/17/16 08:33 Heparin Sodium (Porcine) (Heparin 5000 units/ml) 5,000 units EVERY 12 HOURS SUBQ 10/12/16 21:00 11/11/16 20:59 10/17/16 08:30 Lansoprazole (Prevacid) 30 mg DAILY GT 10/18/16 09:00 11/17/16 08:59 Linezolid (Zyvox) 300 ml @ 300 mls/hr Q12HR IVPB 10/16/16 12:00 10/23/16 11:59 10/17/16 08:29 Lorazepam (Ativan 2mg/ml 1ml) 1 mg Q3H PRN IV For Anxiety 10/14/16 15:30 10/21/16 15:29 10/16/16 09:47 Meropenem/Sodium Chloride (Merrem/Sodium Chloride) 110 ml @ 220 mls/hr Q8HR IVPB 10/13/16 14:30 10/22/16 14:29 10/17/16 13:08 Morphine Sulfate (Morphine Sulfate) 4 mg EVERY 3 HOURS PRN IVP Severe Pain (Pain Scale 7-10) 10/14/16 15:30 10/21/16 15:29 10/17/16 13:08 Karla Stringer M.D. October 17, 2016 18:26
[2016-10-17 20:00] VITALS: BP 156/86
[2016-10-18] VITALS: BP 153/80
[2016-10-18 04:00] VITALS: BP 142/83
[2016-10-18 04:50] LABS: BASOPHILS % (AUTO) 0.8 % (0.0-2.0); EOSINOPHILS % (AUTO) 3.3 % (0.0-3.0); LYMPHOCYTES % (AUTO) 18.3 % (20.0-45.0); MEAN CORPUSCULAR HEMOGLOBIN 29.3 PG (27.0-31.0); MEAN CORPUSCULAR VOLUME 92 FL (80-99); MEAN PLATELET VOLUME 7.6 FL (6.5-10.1); MONOCYTES % (AUTO) 7.6 % (1.0-10.0); PLATELET COUNT 372 K/UL (150-450); RED BLOOD COUNT 3.33 M/UL (4.70-6.10); WHITE BLOOD COUNT 11.8 K/UL (4.8-10.8)
[2016-10-18 04:59] LABS: ANION GAP 9 (5-15); CALCIUM 8.4 mg/dL (8.6-10.2); CARBON DIOXIDE 32 mEQ/L (20-30); CHLORIDE 98 mEQ/L (98-107); HEMOLYSIS 3; POTASSIUM 4.1 mEQ/L (3.4-4.9); SODIUM 139 mEQ/L (135-145)
[2016-10-18] MEDS: Meropenem 1 GM in NS 110 ML IVPB SCH ×3 (06:07→22:15)
--- NOTE | 2016-10-18 07:52 | Diagnostic Imaging Report ---
Clinical Indication: SOB, COPD, history of pneumonia Technique: Spiral acquisitions obtained through the chest. No IV contrast utilized, per referring physician request. Multiplanar reconstructions generated. Total dose length product 1006 mGycm. CTDIvol(s) 20 mGy. Dose reduction achieved using automated exposure control Comparison: None Findings:There is a large right pleural effusion, occupies approximately 50% of the right hemithorax. There is a moderate size left-sided pleural effusion, as well. There is considerable compressive atelectasis of much of the entire right lung. Dense consolidation is seen involving most of the right lower lobe and right middle lobe. The right upper lobe demonstrates mild congestive change but no consolidation in the areas that are not atelectatic. A 3 mm nodule is seen in the right upper lobe, image 14 of series 5. Considerable compressive atelectasis and to lesser extent some dense consolidation is seen posteriorly in the left upper lobe. Most of the left lower lobe is consolidated or atelectatic. Aerated portions of the left lung demonstrate mild congestive change as well. The heart size is mildly enlarged. There is a small amount of pericardial fluid. No mediastinal or hilar mass or adenopathy. There is a tracheostomy. No axillary or chest wall mass or adenopathy demonstrated. Limited views of the upper abdomen demonstrate a subcentimeter left renal lesion which is too small to characterize. There is a gastrostomy which appears to be in good position. The bones demonstrate mild degenerative proliferative change of the thoracic spine. Impression: Large right and moderate size left-sided pleural effusions Extensive bilateral consolidation and atelectasis, as described. The consolidation may reflect pulmonary edema or pneumonia, and correlation with clinical findings is recommended. Presence of generalized interstitial congestion and large pleural effusions suggest the former, however. Mild cardiomegaly Trace pericardial fluid Tracheostomy and gastrostomy Subcentimeter left renal low-attenuation lesion, thought characterize, most likely benign simple cortical cysts. No further followup necessary Degenerative spondylosis The CT scanner at [facility] is accredited by the [employer] and the scans are performed using protocols designed to limit radiation exposure to as low as reasonably achievable to attain images of sufficient resolution adequate for diagnostic evaluation.
[2016-10-18 08:00] VITALS: BP 153/87
[2016-10-18] MEDS: Heparin 5000 units/ml inj SUBQ SCH ×2 (08:10→21:10)
--- NOTE | 2016-10-18 08:50 | Critical Care Progress Note ---
Assessment/Plan Assessment/Plan respiratory failure pneumonia congestion hypoxemia trach gt history of osteo leukocytosis possible sepsis anemia elevated K VRE colonized significant pulmonary infiltrates with effusion tachycardia PLAN care noted add beta jaqui antibiotics reviewed respiratory care CT chest noted thoracentesis BNP- significantly elevated oxygen aspiration precautions nutrition monitor vital signs follow up labs and monitor vital signs dc if heart rate controlled impression, plan, and exam edited and reviewed in detail care discussed with obiee consultant - Subjective Interval Events: Ct chest reviewed care noted ROS Limited/Unobtainable: Yes EKG Rhythm: Sinus Rhythm Residuals: minimal Tube Feeding Tolerated: yes I&O: Intake and Output 10/17/16 10/18/16 19:00 07:00 Intake Total 1430 ml 990 ml Output Total 2850 ml 550 ml Balance -1420 ml 440 ml Intake Free Water 200 ml 50 ml IV Total 410 ml 520 ml Tube Feeding 770 ml 420 ml Other 50 ml Output Urine Total 2850 ml 550 ml Critical Care - Objective Last 24 Hour Vital Signs Date Time Temp Pulse Resp B/P Pulse Ox O2 Delivery O2 Flow Rate FiO2 10/18/16 08:11 117 153/87 10/18/16 08:00 50 10/18/16 08:00 98.4 117 19 153/87 100 Mechanical Ventilator 50 10/18/16 06:43 107 33 50 10/18/16 04:59 95 24 50 10/18/16 04:00 94 10/18/16 04:00 50 10/18/16 04:00 98.5 94 20 142/83 100 Mechanical Ventilator 50 10/18/16 03:25 100 21 50 10/18/16 01:25 101 39 50 10/18/16 00:11 87 25 50 10/18/16 00:00 99 10/18/16 00:00 50 10/18/16 00:00 98.0 106 20 153/80 100 Mechanical Ventilator 50 10/17/16 21:35 118 28 50 10/17/16 21:23 98.2 10/17/16 20:02 50 10/17/16 20:00 96 10/17/16 20:00 100.8 116 17 156/86 100 Mechanical Ventilator 50 10/17/16 19:23 Mechanical Ventilator 10/17/16 19:23 125 10/17/16 19:22 121 35 50 10/17/16 17:01 104 27 50 10/17/16 16:40 99.9 104 18 129/74 100 Mechanical Ventilator 50 10/17/16 16:00 50 10/17/16 16:00 107 10/17/16 15:26 104 24 99 Mechanical Ventilator 50 10/17/16 15:18 106 26 50 10/17/16 15:18 50 10/17/16 15:17 114 23 98 Mechanical Ventilator 50 10/17/16 13:38 98.2 10/17/16 12:56 150 37 50 10/17/16 12:00 117 10/17/16 12:00 50 10/17/16 11:45 98.2 112 32 144/83 100 Mechanical Ventilator 50 10/17/16 11:01 Mechanical Ventilator 10/17/16 11:00 126 Mechanical Ventilator 50 10/17/16 10:58 121 32 50 10/17/16 09:10 123 37 50 Labs: Labs Test 10/15/16 14:47 10/16/16 04:30 10/17/16 04:40 10/18/16 03:10 Vancomycin Level Trough 19.1 ug/mL (5.0-12.0) White Blood Count 10.4 K/UL (4.8-10.8) 14.3 K/UL (4.8-10.8) 11.8 K/UL (4.8-10.8) Red Blood Count 2.79 M/UL (4.70-6.10) 3.03 M/UL (4.70-6.10) 3.33 M/UL (4.70-6.10) Hemoglobin 8.1 G/DL (14.2-18.0) 8.8 G/DL (14.2-18.0) 9.8 G/DL (14.2-18.0) Hematocrit 26.0 % (42.0-52.0) 28.1 % (42.0-52.0) 30.5 % (42.0-52.0) Mean Corpuscular Volume 93 FL (80-99) 93 FL (80-99) 92 FL (80-99) Mean Corpuscular Hemoglobin 29.0 PG (27.0-31.0) 29.0 PG (27.0-31.0) 29.3 PG (27.0-31.0) Mean Corpuscular Hemoglobin Concent 31.0 G/DL (32.0-36.0) 31.3 G/DL (32.0-36.0) 32.0 G/DL (32.0-36.0) Red Cell Distribution Width 18.2 % (11.6-14.8) 18.1 % (11.6-14.8) 17.0 % (11.6-14.8) Platelet Count 314 K/UL (150-450) 321 K/UL (150-450) 372 K/UL (150-450) Mean Platelet Volume 7.4 FL (6.5-10.1) 6.9 FL (6.5-10.1) 7.6 FL (6.5-10.1) Neutrophils (%) (Auto) 72.3 % (45.0-75.0) 74.0 % (45.0-75.0) 70.0 % (45.0-75.0) Lymphocytes (%) (Auto) 14.9 % (20.0-45.0) 17.7 % (20.0-45.0) 18.3 % (20.0-45.0) Monocytes (%) (Auto) 9.3 % (1.0-10.0) 4.8 % (1.0-10.0) 7.6 % (1.0-10.0) Eosinophils (%) (Auto) 2.6 % (0.0-3.0) 2.5 % (0.0-3.0) 3.3 % (0.0-3.0) Basophils (%) (Auto) 0.9 % (0.0-2.0) 1.1 % (0.0-2.0) 0.8 % (0.0-2.0) Sodium Level 143 mEQ/L (135-145) 143 mEQ/L (135-145) 139 mEQ/L (135-145) Potassium Level 4.7 mEQ/L (3.4-4.9) 4.6 mEQ/L (3.4-4.9) 4.1 mEQ/L (3.4-4.9) Chloride Level 106 mEQ/L (98-107) 104 mEQ/L (98-107) 98 mEQ/L (98-107) Carbon Dioxide Level 25 mEQ/L (20-30) 27 mEQ/L (20-30) 32 mEQ/L (20-30) Anion Gap 12 (5-15) 12 (5-15) 9 (5-15) Blood Urea Nitrogen 22 mg/dL (7-23) 23 mg/dL (7-23) 22 mg/dL (7-23) Creatinine 1.1 mg/dL (0.7-1.2) 1.0 mg/dL (0.7-1.2) 1.0 mg/dL (0.7-1.2) Estimat Glomerular Filtration Rate mL/min (>60) mL/min (>60) mL/min (>60) Glucose Level 187 mg/dL (74-106) 198 mg/dL (74-106) 115 mg/dL (74-106) Calcium Level 8.1 mg/dL (8.6-10.2) 8.4 mg/dL (8.6-10.2) 8.4 mg/dL (8.6-10.2) Pro-B-Type Natriuretic Peptide 9069 pg/mL (0-450) Objective: WDWN NAD EOMI trach reduced breath sounds bilaterally without rhonchi; reduced right; no wheeze [id number] tachy RR without MRG NABS nontender no HSM; no distention; GT no CCE nonfocal; reduced ROM poor LOC skin noted and reviewed exam reviewed and edited KENYA JAQUEZ October 18, 2016 08:50
[2016-10-18 09:29] LABS: INR 1.2 (0.9-1.1)
[2016-10-18] MEDS: Metoprolol 25mg tab ORAL SCH ×2 (10:08→20:59)
--- NOTE | 2016-10-18 10:43 | Diagnostic Imaging Report ---
Indication: Dyspnea Technique: One view of the chest Comparison: 10/14/2016 Findings: Again demonstrated is diffuse bilateral right. The left interstitial and airspace disease, possibly slightly improved. Right-sided pleural effusion persists, may be slightly larger. There is probably a small amount of pleural fluid on the left as well. The heart is mildly enlarged. Tracheostomy is again demonstrated. Impression: Bilateral right greater than left interstitial and alveolar parenchymal disease, perhaps slightly improved since previous exam of 4 days earlier Slightly increased right-sided pleural effusion, stable smaller left-sided pleural effusion
[2016-10-18 12:00] VITALS: BP 148/76
--- NOTE | 2016-10-18 14:11 | General Progress Note ---
Assessment/Plan Problem List: (1) History of CVA (cerebrovascular accident) ICD Codes: Z86.73 - Personal history of transient ischemic attack (TIA), and cerebral infarction without residual deficits SNOMED: 785006561 (2) HTN (hypertension) ICD Codes: I10 - Essential (primary) hypertension SNOMED: 65357644 (3) Atrial fibrillation ICD Codes: I48.91 - Unspecified atrial fibrillation SNOMED: 38611786 (4) COPD (chronic obstructive pulmonary disease) ICD Codes: J44.9 - Chronic obstructive pulmonary disease, unspecified SNOMED: 12948047 Qualifiers: Qualified Codes: J44.9 - Chronic obstructive pulmonary disease, unspecified (5) Sepsis ICD Codes: A41.9 - Sepsis SNOMED: 21530917 (6) Pneumonia ICD Codes: J18.9 - Pneumonia, unspecified organism SNOMED: 086521633 Qualifiers: Qualified Codes: J18.1 - Lobar pneumonia, unspecified organism Status: stable, progressing, tolerating diet Assessment/Plan vent abx ot pt diet cbc bmp am dc plan Subjective Constitutional: Reports: weakness Allergies: Coded Allergies: No Known Allergies (Unverified , 12/08/13) All Systems: reviewed and negative except above Subjective trach vent altered Objective Last 24 Hour Vital Signs Date Time Temp Pulse Resp B/P Pulse Ox O2 Delivery O2 Flow Rate FiO2 10/18/16 12:51 105 33 50 10/18/16 12:00 90 10/18/16 12:00 98.6 108 27 148/76 99 Mechanical Ventilator 50 10/18/16 12:00 50 10/18/16 11:21 113 30 50 10/18/16 10:08 111 146/88 10/18/16 09:25 110 29 50 10/18/16 08:11 117 153/87 10/18/16 08:00 50 10/18/16 08:00 94 10/18/16 08:00 98.4 117 19 153/87 100 Mechanical Ventilator 50 10/18/16 06:43 107 33 50 10/18/16 04:59 95 24 50 10/18/16 04:00 94 10/18/16 04:00 50 10/18/16 04:00 98.5 94 20 142/83 100 Mechanical Ventilator 50 10/18/16 03:25 100 21 50 10/18/16 01:25 101 39 50 10/18/16 00:11 87 25 50 10/18/16 00:00 99 10/18/16 00:00 50 10/18/16 00:00 98.0 106 20 153/80 100 Mechanical Ventilator 50 10/17/16 21:35 118 28 50 10/17/16 21:23 98.2 10/17/16 20:02 50 10/17/16 20:00 96 10/17/16 20:00 100.8 116 17 156/86 100 Mechanical Ventilator 50 10/17/16 19:23 Mechanical Ventilator 10/17/16 19:23 125 10/17/16 19:22 121 35 50 10/17/16 17:01 104 27 50 10/17/16 16:40 99.9 104 18 129/74 100 Mechanical Ventilator 50 10/17/16 16:00 50 10/17/16 16:00 107 10/17/16 15:26 104 24 99 Mechanical Ventilator 50 10/17/16 15:18 106 26 50 10/17/16 15:18 50 10/17/16 15:17 114 23 98 Mechanical Ventilator 50 Intake and Output 10/17/16 10/18/16 19:00 07:00 Intake Total 1430 ml 1060 ml Output Total 2850 ml 550 ml Balance -1420 ml 510 ml Intake Free Water 200 ml 50 ml IV Total 410 ml 520 ml Tube Feeding 770 ml 490 ml Other 50 ml Output Urine Total 2850 ml 550 ml Laboratory Tests 10/18/16 03:10: White Blood Count 11.8H, Red Blood Count 3.33L, Hemoglobin 9.8L, Hematocrit 30.5L, Mean Corpuscular Volume 92, Mean Corpuscular Hemoglobin 29.3, Mean Corpuscular Hemoglobin Concent 32.0, Red Cell Distribution Width 17.0H, Platelet Count 372, Mean Platelet Volume 7.6, Neutrophils (%) (Auto) 70.0, Lymphocytes (%) (Auto) 18.3L, Monocytes (%) (Auto) 7.6, Eosinophils (%) (Auto) 3.3H, Basophils (%) (Auto) 0.8, Sodium Level 139, Potassium Level 4.1, Chloride Level 98, Carbon Dioxide Level 32H, Anion Gap 9, Blood Urea Nitrogen 22, Creatinine 1.0, Estimat Glomerular Filtration Rate , Glucose Level 115H, Calcium Level 8.4L 10/18/16 09:05: Prothrombin Time 12.0H, Prothromb Time International Ratio 1.2H Height (Feet): 5 Height (Inches): 5.00 Weight (Pounds): 190 General Appearance: lethargic EENT: normal ENT inspection Neck: normal alignment Cardiovascular: normal peripheral pulses, normal rate, regular rhythm Respiratory/Chest: chest wall non-tender, lungs clear, normal breath sounds Abdomen: normal bowel sounds, non tender, soft Extremities: normal inspection Edema: no edema noted Arm (L), no edema noted Arm (R), no edema noted Leg (L), no edema noted Leg (R), no edema noted Pedal (L), no edema noted Pedal (R), no edema noted Generalized Neurologic: motor weakness Skin: normal pigmentation, warm/dry DEVEN GRACE October 18, 2016 14:11
--- NOTE | 2016-10-18 15:11 | Infectious Diseases Prog Note ---
Assessment/Plan Problems: (1) HCAP (healthcare-associated pneumonia) Assessment & Plan: due to E.coli, and Proteus Mirabilis ESBL + , continue meropenem, with zyvox for two weeks total . EOT 10/30/16 (2) Sepsis Assessment & Plan: due to the above, continue wide spectrum antibiotics , monitor blood culture results (3) Acute respiratory failure Assessment & Plan: due to pneumonia and large pleural effusion, recommend thoracentesis and fluids to be sent for culture , fungal and AFB, continue antibiotics and diuresis, monitor ABG, and CXR (4) Shock liver Assessment & Plan: improving, due to sepsis, monitor LFT, avoid hepatotoxic meds (5) UTI (urinary tract infection) due to Enterococcus Assessment & Plan: with VRE, ON zyvox, and treat for 2 weeks to cover penumonia too. 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 & Plan: he is colonized by now. Subjective ROS Limited/Unobtainable: Yes Allergies: Coded Allergies: No Known Allergies (Unverified , 12/08/13) Subjective he was lying in bed, comfortable , on mechanical ventilation through his trach, afebrile. Objective Vital Signs Last 24 Hour Vital Signs Date Time Temp Pulse Resp B/P Pulse Ox O2 Delivery O2 Flow Rate FiO2 10/18/16 12:51 105 33 50 10/18/16 12:00 90 10/18/16 12:00 98.6 108 27 148/76 99 Mechanical Ventilator 50 10/18/16 12:00 50 10/18/16 11:21 113 30 50 10/18/16 10:08 111 146/88 10/18/16 09:25 110 29 50 10/18/16 08:11 117 153/87 10/18/16 08:00 50 10/18/16 08:00 94 10/18/16 08:00 98.4 117 19 153/87 100 Mechanical Ventilator 50 10/18/16 06:43 107 33 50 10/18/16 04:59 95 24 50 10/18/16 04:00 94 10/18/16 04:00 50 10/18/16 04:00 98.5 94 20 142/83 100 Mechanical Ventilator 50 10/18/16 03:25 100 21 50 10/18/16 01:25 101 39 50 10/18/16 00:11 87 25 50 10/18/16 00:00 99 10/18/16 00:00 50 10/18/16 00:00 98.0 106 20 153/80 100 Mechanical Ventilator 50 10/17/16 21:35 118 28 50 10/17/16 21:23 98.2 10/17/16 20:02 50 10/17/16 20:00 96 10/17/16 20:00 100.8 116 17 156/86 100 Mechanical Ventilator 50 10/17/16 19:23 Mechanical Ventilator 10/17/16 19:23 125 10/17/16 19:22 121 35 50 10/17/16 17:01 104 27 50 10/17/16 16:40 99.9 104 18 129/74 100 Mechanical Ventilator 50 10/17/16 16:00 50 10/17/16 16:00 107 10/17/16 15:26 104 24 99 Mechanical Ventilator 50 10/17/16 15:18 106 26 50 10/17/16 15:18 50 10/17/16 15:17 114 23 98 Mechanical Ventilator 50 Height (Feet): 5 Height (Inches): 5.00 Weight (Pounds): 190 General Appearance: WD/WN, no acute distress HEENT: normocephalic, atraumatic, anicteric, mucous membranes moist Respiratory/Chest: chest wall non-tender, no respiratory distress, no accessory muscle use, decreased breath sounds, expiratory wheezing Cardiovascular: normal peripheral pulses, normal rate, regular rhythm, no gallop/murmur Abdomen: normal bowel sounds, soft, non tender, no organomegaly, non distended , no mass Extremities: no cyanosis, no clubbing Skin: no rash, no lesions Laboratory Tests Test 10/18/16 03:10 10/18/16 09:05 White Blood Count 11.8 K/UL (4.8-10.8) H Red Blood Count 3.33 M/UL (4.70-6.10) L Hemoglobin 9.8 G/DL (14.2-18.0) L Hematocrit 30.5 % (42.0-52.0) L Mean Corpuscular Volume 92 FL (80-99) Mean Corpuscular Hemoglobin 29.3 PG (27.0-31.0) Mean Corpuscular Hemoglobin Concent 32.0 G/DL (32.0-36.0) Red Cell Distribution Width 17.0 % (11.6-14.8) H Platelet Count 372 K/UL (150-450) Mean Platelet Volume 7.6 FL (6.5-10.1) Neutrophils (%) (Auto) 70.0 % (45.0-75.0) Lymphocytes (%) (Auto) 18.3 % (20.0-45.0) L Monocytes (%) (Auto) 7.6 % (1.0-10.0) Eosinophils (%) (Auto) 3.3 % (0.0-3.0) H Basophils (%) (Auto) 0.8 % (0.0-2.0) Sodium Level 139 mEQ/L (135-145) Potassium Level 4.1 mEQ/L (3.4-4.9) Chloride Level 98 mEQ/L (98-107) Carbon Dioxide Level 32 mEQ/L (20-30) H Anion Gap 9 (5-15) Blood Urea Nitrogen 22 mg/dL (7-23) Creatinine 1.0 mg/dL (0.7-1.2) Estimat Glomerular Filtration Rate mL/min (>60) Glucose Level 115 mg/dL (74-106) H Calcium Level 8.4 mg/dL (8.6-10.2) L Prothrombin Time 12.0 SEC (9.30-11.50) H Prothromb Time International Ratio 1.2 (0.9-1.1) H Current Medications Medications (Trade) Dose Ordered Sig/Omi Route PRN Reason Start Time Stop Time Status Last Admin Dose Admin Acetaminophen 650 mg 650 mg Q6H PRN ORAL Mild Pain/Temp > 100.5 10/13/16 01:15 11/12/16 01:14 10/17/16 20:24 Amlodipine Besylate 10 mg 10 mg DAILY GT 10/15/16 09:00 11/14/16 08:59 10/18/16 08:11 Heparin Sodium (Porcine) (Heparin 5000 units/ml) 5,000 units EVERY 12 HOURS SUBQ 10/12/16 21:00 11/11/16 20:59 10/18/16 08:10 Lansoprazole (Prevacid) 30 mg DAILY GT 10/18/16 09:00 11/17/16 08:59 10/18/16 08:10 Linezolid (Zyvox) 300 ml @ 300 mls/hr Q12HR IVPB 10/16/16 12:00 10/23/16 11:59 10/18/16 08:10 Lorazepam (Ativan 2mg/ml 1ml) 1 mg Q3H PRN IV For Anxiety 10/14/16 15:30 10/21/16 15:29 10/16/16 09:47 Meropenem/Sodium Chloride (Merrem/Sodium Chloride) 110 ml @ 220 mls/hr Q8HR IVPB 10/13/16 14:30 10/22/16 14:29 10/18/16 13:18 Metoprolol Tartrate (Lopressor) 25 mg Q12HR ORAL 10/18/16 10:00 11/17/16 09:59 10/18/16 10:08 Morphine Sulfate (Morphine Sulfate) 4 mg EVERY 3 HOURS PRN IVP Severe Pain (Pain Scale 7-10) 10/14/16 15:30 10/21/16 15:29 10/17/16 13:08 Karla Stringer M.D. October 18, 2016 15:11
[2016-10-18 16:00] VITALS: BP 158/88
--- NOTE | 2016-10-18 16:33 | Diagnostic Imaging Report ---
Indications: Pleural effusion Technique: Ultrasound used to localize optimal puncture site. Sterile prepping and draping chest. Local anesthesia with 1% lidocaine. Under real-time ultrasound guidance, puncture pleural space using thoracentesis needle. Stylet removed. Catheter placed to vacuum bottle suction. Total 1.3 milliliters of fluid aspirated. Patient tolerated procedure well, without immediate complication. Findings: Followup sonography demonstrates complete resolution of pleural fluid. Impression: Successful ultrasound-guided thoracentesis, yielding 1.3 milliliters of fluid
[2016-10-18] MEDS: LORazepam Inj 2mg/ml 1ml IV PRN (17:39)
[2016-10-18 18:08] LABS: ABG ALLEN TEST POSITIVE; ABG BASE EXCESS 9.6; ABG PCO2 56.4 mmHg (35.0-45.0)
[2016-10-18 20:00] VITALS: BP 130/63
[2016-10-19] VITALS: BP 110/65
[2016-10-19 04:00] VITALS: BP 125/77
[2016-10-19 04:40] LABS: BASOPHILS % (AUTO) 1.2 % (0.0-2.0); EOSINOPHILS % (AUTO) 2.4 % (0.0-3.0); MEAN CORPUSCULAR HEMOGLOBIN 28.4 PG (27.0-31.0); MEAN CORPUSCULAR HGB CONC 31.1 G/DL (32.0-36.0); MEAN CORPUSCULAR VOLUME 91 FL (80-99); MEAN PLATELET VOLUME 7.7 FL (6.5-10.1); MONOCYTES % (AUTO) 6.3 % (1.0-10.0); PLATELET COUNT 398 K/UL (150-450); RED BLOOD COUNT 3.44 M/UL (4.70-6.10); WHITE BLOOD COUNT 12.2 K/UL (4.8-10.8)
[2016-10-19 04:52] LABS: ANION GAP 11 (5-15); CALCIUM 8.4 mg/dL (8.6-10.2); CARBON DIOXIDE 34 mEQ/L (20-30); CHLORIDE 99 mEQ/L (98-107); CREATININE 0.9 mg/dL (0.7-1.2); HEMOLYSIS 1; POTASSIUM 4.3 mEQ/L (3.4-4.9); SODIUM 144 mEQ/L (135-145)
[2016-10-19] MEDS: Meropenem 1 GM in NS 110 ML IVPB SCH ×2 (06:10→13:15)
[2016-10-19 07:42] VITALS: BP 142/77
[2016-10-19] MEDS: Metoprolol 25mg tab ORAL SCH (08:06)
[2016-10-19] MEDS: Heparin 5000 units/ml inj SUBQ SCH (08:07)
--- NOTE | 2016-10-19 08:59 | Critical Care Progress Note ---
Assessment/Plan Assessment/Plan respiratory failure pneumonia congestion hypoxemia trach gt history of osteo leukocytosis possible sepsis anemia elevated K VRE colonized significant pulmonary infiltrates with effusion tachycardia PLAN care noted increase beta jaqui antibiotics reviewed respiratory care CT chest noted thoracentesis completed BNP- significantly elevated; lasix as able oxygen aspiration precautions nutrition monitor vital signs follow up labs and monitor vital signs dc once heart ratek better controlled impression, plan, and exam edited and reviewed in detail care discussed with guidance counselor - Subjective Interval Events: dc held due to tachycardia hypertensive on beta jaqui ROS Limited/Unobtainable: Yes EKG Rhythm: Sinus Tachycardia Residuals: minimal Tube Feeding Tolerated: yes I&O: Intake and Output 10/18/16 10/19/16 19:00 07:00 Intake Total 1520 ml 1330 ml Output Total 500 ml 700 ml Balance 1020 ml 630 ml Intake Free Water 100 ml 200 ml IV Total 410 ml 520 ml Tube Feeding 840 ml 560 ml Other 170 ml 50 ml Output Urine Total 500 ml 700 ml # Bowel Movements 1 4 Critical Care - Objective Last 24 Hour Vital Signs Date Time Temp Pulse Resp B/P Pulse Ox O2 Delivery O2 Flow Rate FiO2 10/19/16 08:38 109 34 50 10/19/16 08:06 110 142/77 10/19/16 08:05 110 142/77 10/19/16 07:42 97.8 110 20 142/77 100 Mechanical Ventilator 50 10/19/16 07:03 98 32 50 10/19/16 04:44 89 30 50 10/19/16 04:00 99.1 103 20 125/77 100 Mechanical Ventilator 50 10/19/16 04:00 50 10/19/16 04:00 95 10/19/16 02:43 85 30 50 10/19/16 01:06 90 30 50 10/19/16 00:00 98.4 82 20 110/65 100 Mechanical Ventilator 50 10/19/16 00:00 50 10/19/16 00:00 93 10/18/16 23:24 89 30 50 10/18/16 21:20 112 27 50 10/18/16 20:59 100 130/63 10/18/16 20:00 99.3 100 20 130/63 100 Mechanical Ventilator 50 10/18/16 20:00 50 10/18/16 20:00 106 10/18/16 19:03 113 23 50 10/18/16 19:00 99.0 5/31/17 16:40 122 33 50 10/18/16 16:33 107 10/18/16 16:00 50 10/18/16 16:00 99.5 118 20 158/88 100 Mechanical Ventilator 50 10/18/16 15:10 103 30 50 10/18/16 12:51 105 33 50 10/18/16 12:00 90 10/18/16 12:00 98.6 108 27 148/76 99 Mechanical Ventilator 50 10/18/16 12:00 50 10/18/16 11:21 113 30 50 10/18/16 10:08 111 146/88 10/18/16 09:25 110 29 50 Labs: Labs Test 10/17/16 04:40 10/18/16 03:10 10/18/16 09:05 10/18/16 18:00 White Blood Count 14.3 K/UL (4.8-10.8) 11.8 K/UL (4.8-10.8) Red Blood Count 3.03 M/UL (4.70-6.10) 3.33 M/UL (4.70-6.10) Hemoglobin 8.8 G/DL (14.2-18.0) 9.8 G/DL (14.2-18.0) Hematocrit 28.1 % (42.0-52.0) 30.5 % (42.0-52.0) Mean Corpuscular Volume 93 FL (80-99) 92 FL (80-99) Mean Corpuscular Hemoglobin 29.0 PG (27.0-31.0) 29.3 PG (27.0-31.0) Mean Corpuscular Hemoglobin Concent 31.3 G/DL (32.0-36.0) 32.0 G/DL (32.0-36.0) Red Cell Distribution Width 18.1 % (11.6-14.8) 17.0 % (11.6-14.8) Platelet Count 321 K/UL (150-450) 372 K/UL (150-450) Mean Platelet Volume 6.9 FL (6.5-10.1) 7.6 FL (6.5-10.1) Neutrophils (%) (Auto) 74.0 % (45.0-75.0) 70.0 % (45.0-75.0) Lymphocytes (%) (Auto) 17.7 % (20.0-45.0) 18.3 % (20.0-45.0) Monocytes (%) (Auto) 4.8 % (1.0-10.0) 7.6 % (1.0-10.0) Eosinophils (%) (Auto) 2.5 % (0.0-3.0) 3.3 % (0.0-3.0) Basophils (%) (Auto) 1.1 % (0.0-2.0) 0.8 % (0.0-2.0) Sodium Level 143 mEQ/L (135-145) 139 mEQ/L (135-145) Potassium Level 4.6 mEQ/L (3.4-4.9) 4.1 mEQ/L (3.4-4.9) Chloride Level 104 mEQ/L (98-107) 98 mEQ/L (98-107) Carbon Dioxide Level 27 mEQ/L (20-30) 32 mEQ/L (20-30) Anion Gap 12 (5-15) 9 (5-15) Blood Urea Nitrogen 23 mg/dL (7-23) 22 mg/dL (7-23) Creatinine 1.0 mg/dL (0.7-1.2) 1.0 mg/dL (0.7-1.2) Estimat Glomerular Filtration Rate mL/min (>60) mL/min (>60) Glucose Level 198 mg/dL (74-106) 115 mg/dL (74-106) Calcium Level 8.4 mg/dL (8.6-10.2) 8.4 mg/dL (8.6-10.2) Prothrombin Time 12.0 SEC (9.30-11.50) Prothromb Time International Ratio 1.2 (0.9-1.1) Arterial Blood pH 7.420 (7.350-7.450) Arterial Blood Partial Pressure CO2 56.4 mmHg (35.0-45.0) Arterial Blood Partial Pressure O2 82.7 mmHg (75.0-100.0) Arterial Blood HCO3 35.8 mmol/L (22.0-26.0) Arterial Blood Oxygen Saturation 96.7 % (92.0-98.0) Arterial Blood Base Excess 9.6 Anderson Test Positive Test 10/19/16 04:00 White Blood Count 12.2 K/UL (4.8-10.8) Red Blood Count 3.44 M/UL (4.70-6.10) Hemoglobin 9.8 G/DL (14.2-18.0) Hematocrit 31.4 % (42.0-52.0) Mean Corpuscular Volume 91 FL (80-99) Mean Corpuscular Hemoglobin 28.4 PG (27.0-31.0) Mean Corpuscular Hemoglobin Concent 31.1 G/DL (32.0-36.0) Red Cell Distribution Width 17.0 % (11.6-14.8) Platelet Count 398 K/UL (150-450) Mean Platelet Volume 7.7 FL (6.5-10.1) Neutrophils (%) (Auto) 73.0 % (45.0-75.0) Lymphocytes (%) (Auto) 17.0 % (20.0-45.0) Monocytes (%) (Auto) 6.3 % (1.0-10.0) Eosinophils (%) (Auto) 2.4 % (0.0-3.0) Basophils (%) (Auto) 1.2 % (0.0-2.0) Sodium Level 144 mEQ/L (135-145) Potassium Level 4.3 mEQ/L (3.4-4.9) Chloride Level 99 mEQ/L (98-107) Carbon Dioxide Level 34 mEQ/L (20-30) Anion Gap 11 (5-15) Blood Urea Nitrogen 22 mg/dL (7-23) Creatinine 0.9 mg/dL (0.7-1.2) Estimat Glomerular Filtration Rate mL/min (>60) Glucose Level 131 mg/dL (74-106) Calcium Level 8.4 mg/dL (8.6-10.2) Objective: WDWN NAD EOMI trach reduced breath sounds bilaterally without rhonchi; reduced right; no wheeze S1S2RR tachy RR without MRG NABS nontender no HSM; no distention; GT no CCE nonfocal; reduced ROM poor LOC skin noted and reviewed exam reviewed and edited KENYA JAQUEZ Oct 19, 2016 08:59
--- NOTE | 2016-10-19 10:08 | Diagnostic Imaging Report ---
Indication: Post thoracentesis Technique: One view of the chest Comparison: 7 hours earlier Findings: The heart is mildly enlarged. There is interim resolution of previously demonstrated right-sided pleural effusion. No gross pneumothorax. There is hazy infiltrate in the right midlung. Infiltrates in the left mid and lower lung persists. Tracheostomy is again demonstrated. Gastrostomy balloon is now visible Impression: Resolved right pleural effusion, post thoracentesis. No radiographically evident complication Bilateral parenchymal disease, as described
[2016-10-19] MEDS ORDERED: Metoprolol 25mg tab ORAL ONE (11:00)
[2016-10-19 11:36] VITALS: BP 131/73
--- NOTE | 2016-10-19 13:40 | General Progress Note ---
Assessment/Plan Problem List: (1) History of CVA (cerebrovascular accident) ICD Codes: Z86.73 - Personal history of transient ischemic attack (TIA), and cerebral infarction without residual deficits SNOMED: 699715992 (2) HTN (hypertension) ICD Codes: I10 - Essential (primary) hypertension SNOMED: 84264928 (3) Atrial fibrillation ICD Codes: I48.91 - Unspecified atrial fibrillation SNOMED: 67073400 (4) COPD (chronic obstructive pulmonary disease) ICD Codes: J44.9 - Chronic obstructive pulmonary disease, unspecified SNOMED: 58615490 Qualifiers: Qualified Codes: J44.9 - Chronic obstructive pulmonary disease, unspecified (5) Sepsis ICD Codes: A41.9 - Sepsis SNOMED: 37779899 (6) Pneumonia ICD Codes: J18.9 - Pneumonia, unspecified organism SNOMED: 083423347 Qualifiers: Qualified Codes: J18.1 - Lobar pneumonia, unspecified organism Status: stable, progressing, tolerating diet Assessment/Plan vent abx ot pt diet dc to snf Subjective Constitutional: Reports: weakness Allergies: Coded Allergies: No Known Allergies (Unverified , 12/08/13) All Systems: reviewed and negative except above Subjective trach vent altered Objective Last 24 Hour Vital Signs Date Time Temp Pulse Resp B/P Pulse Ox O2 Delivery O2 Flow Rate FiO2 10/19/16 12:15 93 27 50 10/19/16 12:00 50 10/19/16 11:37 78 10/19/16 11:36 97.5 91 20 131/73 100 Mechanical Ventilator 50 10/19/16 10:59 115 142/77 10/19/16 10:46 115 35 50 10/19/16 08:38 109 34 50 10/19/16 08:06 110 142/77 10/19/16 08:05 110 142/77 10/19/16 08:00 50 10/19/16 08:00 103 10/19/16 07:42 97.8 110 20 142/77 100 Mechanical Ventilator 50 10/19/16 07:03 98 32 50 10/19/16 04:44 89 30 50 10/19/16 04:00 99.1 103 20 125/77 100 Mechanical Ventilator 50 10/19/16 04:00 50 10/19/16 04:00 95 10/19/16 02:43 85 30 50 10/19/16 01:06 90 30 50 10/19/16 00:00 98.4 82 20 110/65 100 Mechanical Ventilator 50 10/19/16 00:00 50 10/19/16 00:00 93 10/18/16 23:24 89 30 50 10/18/16 21:20 112 27 50 10/18/16 20:59 100 130/63 10/18/16 20:00 99.3 100 20 130/63 100 Mechanical Ventilator 50 10/18/16 20:00 50 10/18/16 20:00 106 10/18/16 19:03 113 23 50 10/18/16 19:00 99.0 10/18/16 16:40 122 33 50 10/18/16 16:33 107 10/18/16 16:00 50 10/18/16 16:00 99.5 118 20 158/88 100 Mechanical Ventilator 50 10/18/16 15:10 103 30 50 Intake and Output 10/18/16 10/19/16 19:00 07:00 Intake Total 1520 ml 1330 ml Output Total 500 ml 700 ml Balance 1020 ml 630 ml Intake Free Water 100 ml 200 ml IV Total 410 ml 520 ml Tube Feeding 840 ml 560 ml Other 170 ml 50 ml Output Urine Total 500 ml 700 ml # Bowel Movements 1 4 Laboratory Tests 10/18/16 18:00: Arterial Blood pH 7.420, Arterial Blood Partial Pressure CO2 56.4*H, Arterial Blood Partial Pressure O2 82.7, Arterial Blood HCO3 35.8H, Arterial Blood Oxygen Saturation 96.7, Arterial Blood Base Excess 9.6, Anderson Test Positive 10/19/16 04:00: White Blood Count 12.2H, Red Blood Count 3.44L, Hemoglobin 9.8L, Hematocrit 31.4L, Mean Corpuscular Volume 91, Mean Corpuscular Hemoglobin 28.4, Mean Corpuscular Hemoglobin Concent 31.1L, Red Cell Distribution Width 17.0H, Platelet Count 398, Mean Platelet Volume 7.7, Neutrophils (%) (Auto) 73.0, Lymphocytes (%) (Auto) 17.0L, Monocytes (%) (Auto) 6.3, Eosinophils (%) (Auto) 2.4, Basophils (%) (Auto) 1.2, Sodium Level 144, Potassium Level 4.3, Chloride Level 99, Carbon Dioxide Level 34H, Anion Gap 11, Blood Urea Nitrogen 22, Creatinine 0.9, Estimat Glomerular Filtration Rate , Glucose Level 131H, Calcium Level 8.4L Height (Feet): 5 Height (Inches): 5.00 Weight (Pounds): 190 General Appearance: lethargic EENT: normal ENT inspection Neck: normal alignment Cardiovascular: normal peripheral pulses, normal rate, regular rhythm Respiratory/Chest: chest wall non-tender, lungs clear, normal breath sounds Abdomen: normal bowel sounds, non tender, soft Extremities: normal inspection Edema: no edema noted Arm (L), no edema noted Arm (R), no edema noted Leg (L), no edema noted Leg (R), no edema noted Pedal (L), no edema noted Pedal (R), no edema noted Generalized Neurologic: motor weakness Skin: normal pigmentation, warm/dry DEVEN GRACE Oct 19, 2016 13:40
[2016-10-19] MEDS ORDERED: NS 275ml ONE (14:09)
[2016-10-19] MEDS ORDERED: Tubing IV Secondary IV ONE (14:09)
[2016-10-19] MEDS ORDERED: Metoprolol 50mg tab ORAL SCH (21:00)
--- NOTE | 2016-10-20 11:09 | Discharge Summary ---
Discharge Summary Hospital Course Date of Admission October 12, 2016 at 07:47 Date of Discharge Oct 19, 2016 at 14:10 Admitting Diagnosis resp distress HPI Jena Jeffrey is a 81 year old male who was admitted on October 12, 2016 at 07:47 for Respiratory Distress Hospital Course [id number] Discharge Discharge Disposition Patient was discharged to SNF/Subacute Facility(03) Discharge Diagnoses: Shonna Angeles NP Oct 20, 2016 11:09
--- NOTE | 2016-10-21 02:00 | Discharge Summary 2 SIG ---
DATE OF ADMISSION: 10/12/2016 DATE OF DISCHARGE: 10/19/2016 CONSULTANTS: 1. Adrien Hernandez M.D. 2. Karla Stringer M.D. BRIEF HOSPITAL COURSE: The patient is an 81-year-old male from [facility] who presented to [facility] for increased shortness of breath and fever. Per prison report, O2 saturation were in the 80s. On evaluation at ED, chest x-ray showed right lobe infiltrate. WBC was elevated to 19. EKG showed atrial fibrillation with RVR. Heart rate improved with IV hydration. He was admitted to [facility] and was followed by Dr. Hernandez, sales and management trainee for vent management. He was hooked on mechanical ventilator and was started on IV antibiotics. Infectious Disease specialist consult done. The patient was started on meropenem and vancomycin empirically. Subsequent chest x-rays showed pleural effusion. He underwent thoracentesis yielding 1.3 mL of fluid. Chest CT showed a large right and moderate left-sided pleural effusions with extensive bilateral consolidation and atelectasis. Subsequent chest x-ray also showed pleural effusion and the patient underwent thoracentesis on 10/18/2016 yielding 1.3 mL of fluid. He came in with pressure ulcers. Wound care was rendered. LFTs were elevated secondary to shock liver due to sepsis. Urine culture showed growth of Enterococcus VRE. Sputum culture showed growth of E. coli and Proteus mirabilis ESBL. He was recommended to continue meropenem with Zyvox for two weeks. He was then discharged back to subacute facility. He had an episode of tachycardia. Beta-jaqui was increased. He was eventually discharged back to subacute facility. FINAL DIAGNOSES: 1. Acute on chronic respiratory failure. 2. Healthcare-associated pneumonia with Escherichia coli and Proteus mirabilis extended-spectrum beta-lactamase . 3. Sepsis. 4. Urinary tract infection with enterococcus. 5. Shock liver. 6. Vancomycin-resistant enterococci colonized. 7. Gastrostomy tube feed. 8. Anemia. 9. Hyperkalemia. 10. Pulmonary infiltrates with effusion status post thoracentesis. 11. Tachycardia. 12. Multiple pressure ulcers present on admission. Emmett Pressley D.O. I have been assigned to dictate discharge summary on this account and I was not involved in the patient's management. Shonna Angeles N.P. DR: Leonardo JOB#: [id number] CC:
== END 2016-10-19 14:10 | DRG 720 ==
LOC: EDBD 07:10 → EMR 07:39 → 2W 07:47 → EDBEDREQ 13:29 → 2W 10-13 00:06
PROC: 5A1955Z Respiratory Ventilation, Greater than 96 Consecutive Hours (ICD-10-PCS; principal; 2016-10-12)
PROC: 0W993ZZ Drainage of Right Pleural Cavity, Percutaneous Approach (ICD-10-PCS; 2016-10-18)
DX: A41.9 Sepsis, unspecified organism (principal); J96.21 Acute and chronic respiratory failure with hypoxia; K72.00 Acute and subacute hepatic failure without coma; J18.9 Pneumonia, unspecified organism; J90 Pleural effusion, not elsewhere classified; J44.0 Chronic obstructive pulmonary disease with (acute) lower respiratory infection; L89.114 Pressure ulcer of right upper back, stage 4; L89.614 Pressure ulcer of right heel, stage 4; L89.514 Pressure ulcer of right ankle, stage 4; Z93.0 Tracheostomy status; I10 Essential (primary) hypertension; E11.8 Type 2 diabetes mellitus with unspecified complications; F03.90 Unspecified dementia, unspecified severity, without behavioral disturbance, psychotic disturbance, mood disturbance, and anxiety; I69.320 Aphasia following cerebral infarction; N39.0 Urinary tract infection, site not specified; J98.11 Atelectasis; D64.9 Anemia, unspecified; E87.5 Hyperkalemia; I48.91 Unspecified atrial fibrillation; Z93.1 Gastrostomy status; B95.2 Enterococcus as the cause of diseases classified elsewhere; R00.0 Tachycardia, unspecified
CPT/HCPCS: 36415; 36600; 71010; 71250; 76942; 80048; 80053; 80150; 80202; 81003; 82550; 82553; 82803; 83605; 83880; 84484; 85007; 85025; 85610; 86850; 86900; 86901; 86920; 87040; 87070; 87081; 87086; 87181; 87205; 93005; 93970; 94002; 94003; 94640; 94664; 97803; J7620

== ENCOUNTER 2016-10-26 11:08 | Emergency (ER) | payer MEDICARE, OTHER ==
[~2016-10-26] VITALS: Ht 157.5 cm; Wt 86.2 kg
[~2016-10-26 11:08] MED LIST changes: +PANTOPRAZOLE SO40 MG GT
[2016-10-26 11:16] VITALS: BP 134/76
--- NOTE | 2016-10-26 12:23 | Diagnostic Imaging Report ---
Indication: SOB Technique: One view of the chest Comparison: 10/18/2016 Findings: There is evidence of interim reaccumulation of pleural fluid on the right. There is probably a smaller pleural effusion on the left. Interstitial and alveolar parenchymal infiltrates versus edema persists, appear slightly worse. The heart is borderline enlarged. Tracheostomy remains. Gastrostomy balloon is visualized. Impression: Evidence of reaccumulation of right-sided pleural effusion Bilateral diffuse interstitial and alveolar infiltrates versus edema, possibly increased since 10/18/2016 Other stable findings as described
--- NOTE | 2016-10-26 12:58 | Emergency Room Report ---
History of Present Illness General Chief Complaint: Dyspnea/Respdistress Source: Medical Record, EMS, PMD Present Illness HPI [id number] BIBEMS From SNF for alleged episode of "desaturation." EMS and SNF was not specific as to which level of desaturation. Afebrile, normal vitals at SNF. Patient not contributing to HPI currently. Per EMR, patient had recent admission for same. Presented in ED for same noted "desaturation" level and was found to be hypoxic to 80s, mucous plug in trach and lobar PNA with pleural effusion requiring thoracentesis. Allergies: Coded Allergies: No Known Allergies (Unverified , 12/08/13) Patient History Past Medical History: see triage record, old chart reviewed Past Surgical History: unable to obtain Pertinent Family History: unable to obtain Social History: Denies: alcohol use, drug use, smoking Immunizations: UTD Reviewed Nursing Documentation: PMH: Agreed, PSxH: Agreed Nursing Documentation-PMH Hx Hypertension: Yes Hx Pacemaker: No Hx Diabetes: Yes Hx Cancer: No Hx Cerebrovascular Accident: Yes Hx Transient Ischemic Attacks: Yes Hx Dementia: Yes Hx Seizures: No Hx Aphasia: Yes Review of Systems All Other Systems: limited - Patient aphasic Physical Exam Vital Signs Date Time Temp Pulse Resp B/P Pulse Ox O2 Delivery O2 Flow Rate FiO2 10/26/16 10:57 85 16 149/72 100 Mechanical Ventilator 10/26/16 11:00 50 10/26/16 11:16 99.5 Sp02 EP Interpretation: reviewed, normal General Appearance: normal inspection, well appearing, no apparent distress, alert, GCS 15, non-toxic Head: normocephalic, atraumatic Eyes: bilateral eye EOMI, bilateral eye PERRL ENT: normal ENT inspection, hearing grossly normal, normal voice Neck: normal inspection, full range of motion, supple, no bony tend Respiratory: lungs clear, normal breath sounds, no rhonchi, no respiratory distress, no retraction, no accessory muscle use, speaking full sentences Cardiovascular #1: normal inspection, normal peripheral pulses, regular rate, rhythm, no edema Gastrointestinal: normal inspection, normal bowel sounds, non tender, soft, no guarding, no hernia Genitourinary: no CVA tenderness Musculoskeletal: normal inspection, back normal, normal range of motion, Juan Daniel' s Sign negative Neurologic: normal inspection, alert, responsive, 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 Afebrile. No hypoxic episodes in ED. CXR shows recurrent right pleural effusion Dr Sommer requesting drainage and send back to [facility]. Endorsed to Dr Thakkar at 230 to followup thoracentesis and coordinate transfer back to [facility] Chest X-Ray Diagnostic Results EP Interpretation: Yes Findings: no consolidation, no pneumothorax, other - Right pleural effusion Last Vital Signs Date Time Temp Pulse Resp B/P Pulse Ox O2 Delivery O2 Flow Rate FiO2 10/26/16 12:38 70 29 50 10/26/16 11:30 Mechanical Ventilator 10/26/16 11:16 99.5 134/76 99 Status: improved Disposition: [facility] JOSELYN NOONAN M.D. Oct 26, 2016 12:58
[2016-10-26 13:11] LABS: BASOPHILS % (AUTO) 0.6 % (0.0-2.0); EOSINOPHILS % (AUTO) 0.7 % (0.0-3.0); LYMPHOCYTES % (AUTO) 11.9 % (20.0-45.0); MEAN CORPUSCULAR HEMOGLOBIN 27.9 PG (27.0-31.0); MEAN CORPUSCULAR HGB CONC 30.9 G/DL (32.0-36.0); MEAN CORPUSCULAR VOLUME 90 FL (80-99); MEAN PLATELET VOLUME 6.4 FL (6.5-10.1); MONOCYTES % (AUTO) 4.7 % (1.0-10.0); NEUTROPHILS % (AUTO) 82.1 % (45.0-75.0); PLATELET COUNT 673 K/UL (150-450); RED BLOOD COUNT 3.28 M/UL (4.70-6.10); RED CELL DISTRIBUTION WIDTH 16.8 % (11.6-14.8); WHITE BLOOD COUNT 16.8 K/UL (4.8-10.8)
[2016-10-26 13:19] LABS: INR 1.1 (0.9-1.1); PROTHROMBIN TIME 11.7 SEC (9.30-11.50)
[2016-10-26 13:26] LABS: ALANINE AMINOTRANSFERASE 15 U/L (3-41); ALBUMIN/GLOBULIN RATIO 0.3 (1.0-2.7); ANION GAP 14 (5-15); ASPARTATE AMINO TRANSFERASE 20 U/L (5-40); CALCIUM 8.1 mg/dL (8.6-10.2); CARBON DIOXIDE 27 mEQ/L (20-30); CHLORIDE 104 mEQ/L (98-107); CREATININE 1.2 mg/dL (0.7-1.2); HEMOLYSIS 1; POTASSIUM 3.5 mEQ/L (3.4-4.9); SODIUM 145 mEQ/L (135-145); TOTAL PROTEIN 7.7 g/dL (6.6-8.7)
[2016-10-26 13:30] VITALS: BP 111/60
[2016-10-26 15:37] VITALS: BP 110/61
[2016-10-26 18:10] VITALS: BP 132/70
[2016-10-26 20:10] VITALS: BP 153/83
[2016-10-26 20:50] VITALS: BP 153/83
--- NOTE | 2016-11-09 13:24 | Diagnostic Imaging Report ---
Indications: Pleural effusion Technique: Ultrasound used to localize optimal puncture site. Sterile prepping and draping right chest. Local anesthesia with 1% lidocaine. Under real-time ultrasound guidance, puncture pleural space using thoracentesis needle. Stylet removed. Catheter placed to vacuum bottle suction. Total 1200 milliliters of fluid aspirated. Patient tolerated procedure well, without immediate complication. Findings: Followup sonography demonstrates complete resolution of pleural fluid. Impression: Successful ultrasound-guided thoracentesis, yielding 1200 milliliters of fluid
--- NOTE | 2016-11-09 13:24 | Diagnostic Imaging Report ---
Indication: Status post thoracentesis Technique: One view of the chest Comparison: 3-1/2 hours earlier Findings: Interim resolution of previously demonstrated right-sided pleural effusion, post thoracentesis. No gross pneumothorax Band of atelectasis is seen in the right infrahilar region. Bilateral interstitial disease and left-sided patchy alveolar consolidation is again demonstrated. There may be some pleural fluid on the left as well. Tracheostomy is noted. Gastrostomy balloon is noted. Heart size is normal. Impression: Interim resolution of previously demonstrated right-sided pleural effusion, status post thoracentesis. No radiographically evident complication. Right infrahilar atelectasis Other stable findings as described
== END 2016-10-26 20:50 ==
LOC: EDBD 11:08 → EMR 12:56
DX: R09.02 Hypoxemia (principal); J90 Pleural effusion, not elsewhere classified; I10 Essential (primary) hypertension; E11.9 Type 2 diabetes mellitus without complications; R47.01 Aphasia; Z86.73 Personal history of transient ischemic attack (TIA), and cerebral infarction without residual deficits; F03.90 Unspecified dementia, unspecified severity, without behavioral disturbance, psychotic disturbance, mood disturbance, and anxiety
CPT/HCPCS: 36415; 71010; 76942; 80053; 85025; 85610; 94002; 94003; 94664

== ENCOUNTER 2016-11-08 19:15 | Inpatient (IN) | payer MEDICARE, OTHER ==
[~2016-11-08] VITALS: Ht 170.2 cm; Wt 84.8 kg
[2016-11-08 20:00] VITALS: BP 132/77
[2016-11-08 20:21] LABS: BASOPHILS % (AUTO) 0.8 % (0.0-2.0); EOSINOPHILS % (AUTO) 2.3 % (0.0-3.0); LYMPHOCYTES % (AUTO) 15.3 % (20.0-45.0); MEAN CORPUSCULAR HEMOGLOBIN 29.3 PG (27.0-31.0); MEAN CORPUSCULAR HGB CONC 31.7 G/DL (32.0-36.0); MEAN CORPUSCULAR VOLUME 92 FL (80-99); MEAN PLATELET VOLUME 6.9 FL (6.5-10.1); MONOCYTES % (AUTO) 4.3 % (1.0-10.0); NEUTROPHILS % (AUTO) 77.3 % (45.0-75.0); PLATELET COUNT 644 K/UL (150-450); RED CELL DISTRIBUTION WIDTH 19.3 % (11.6-14.8); WHITE BLOOD COUNT 15.4 K/UL (4.8-10.8)
[2016-11-08 20:29] LABS: APPEARANCE,URINE CLEAR; KETONES,URINE NEGATIVE (NEGATIVE); LEUKOCYTE ESTERASE ,URINE 1+ (NEGATIVE); NITRITE,URINE NEGATIVE (NEGATIVE); PH,URINE 6 (4.5-8.0); PROTEIN,URINE 3+ (NEGATIVE); UROBILINOGEN,URINE NORMAL MG/DL (0.0-1.0)
[2016-11-08 20:38] LABS: ALANINE AMINOTRANSFERASE 22 U/L (3-41); ALBUMIN/GLOBULIN RATIO 0.2 (1.0-2.7); ASPARTATE AMINO TRANSFERASE 50 U/L (5-40); CALCIUM 8.3 mg/dL (8.6-10.2); CARBON DIOXIDE 24 mEQ/L (20-30); HEMOLYSIS 151; TOTAL PROTEIN 8.4 g/dL (6.6-8.7)
[2016-11-08 20:39] LABS: ANION GAP 16 (5-15); CHLORIDE 97 mEQ/L (98-107); POTASSIUM 4.5 mEQ/L (3.4-4.9); SODIUM 137 mEQ/L (135-145)
[2016-11-08 20:43] LABS: REFLEX LACTIC ACID YES OR NO YES
[2016-11-08 20:46] LABS: TROPONIN I < 0.30 ng/mL (<=0.30)
[2016-11-08 20:49] LABS: CKMB 2.9 ng/mL (< 6.7)
--- NOTE | 2016-11-08 20:52 | Emergency Room Report ---
History of Present Illness General Chief Complaint: Dyspnea/Respdistress Source: Medical Record, EMS, PMD Present Illness HPI This patient is brought in from a long-term facility. His history respiratory failure and is ventilator dependent with a tracheostomy. He also has a PEG tube. He was brought in by EMS because the long-term facility noted that he became very tachypneic. He states that he does have a history of anxiety and so they did give him Ativan with significant reduction his tachypnea. However, they sent him in for further evaluation. There no other complaints. The patient is unable to give a history. Allergies: Coded Allergies: No Known Allergies (Unverified , 12/08/13) Patient History Past Medical History: see triage record, HTN, OR, CAD, CHF, dementia, other - Parkinson's Social History: Denies: alcohol use, drug use, smoking Reviewed Nursing Documentation: PMH: Agreed, PSxH: Agreed Nursing Documentation-PMH Hx Hypertension: Yes Hx Pacemaker: No Hx Diabetes: Yes Hx Cancer: No Hx Cerebrovascular Accident: Yes Hx Transient Ischemic Attacks: Yes Hx Dementia: Yes Hx Seizures: No Hx Aphasia: Yes Review of Systems All Other Systems: limited Physical Exam Vital Signs Date Time Temp Pulse Resp B/P Pulse Ox O2 Delivery O2 Flow Rate FiO2 11/08/16 19:10 99 132/77 100 Ambu-Bag 15.0 11/08/16 19:26 25 50 Sp02 EP Interpretation: reviewed, normal, other - On ventilator General Appearance: no apparent distress, alert, GCS 15, Chronically Ill Head: normocephalic, atraumatic ENT: no angioedema, other - Trach in place Neck: normal inspection, other - See ENT exam Respiratory: no respiratory distress, rales, wheezing Cardiovascular #1: regular rate, rhythm, no edema, systolic murmur Gastrointestinal: normal bowel sounds, soft, non-distended, no guarding, other - PEG in place Rectal: deferred Musculoskeletal: other - Anasarca, at baseline. Neurologic: other - Trach, non-verbal. Unable to fully assess. Non-focal. At baseline. Skin: other Medical Decision Making Diagnostic Impression: Primary Impression: Sepsis Additional Impressions: HCAP (healthcare-associated pneumonia) COPD (chronic obstructive pulmonary disease) ER Course She presents in sepsis with an elevated white blood cell count and lactic acid. He is a healthcare associated pneumonia on chest x-ray. I am also concerned that there is an element of congestive heart failure given the diffuse opacifications. Went ahead and treated this patient with broad-spectrum antibiotics and IV fluids. Patient ventilator dependent and is admitted to the ICU. The patient is a poor prognosis. This patient is critically ill. This patient required complex medical decision- making, aggressive intervention, extensive laboratory workup and monitoring. Critical care time: 40 minutes. Labs Test 11/08/16 19:38 11/08/16 20:11 White Blood Count 15.4 K/UL (4.8-10.8) Red Blood Count 2.80 M/UL (4.70-6.10) Hemoglobin 8.2 G/DL (14.2-18.0) Hematocrit 25.9 % (42.0-52.0) Mean Corpuscular Volume 92 FL (80-99) Mean Corpuscular Hemoglobin 29.3 PG (27.0-31.0) Mean Corpuscular Hemoglobin Concent 31.7 G/DL (32.0-36.0) Red Cell Distribution Width 19.3 % (11.6-14.8) Platelet Count 644 K/UL (150-450) Mean Platelet Volume 6.9 FL (6.5-10.1) Neutrophils (%) (Auto) 77.3 % (45.0-75.0) Lymphocytes (%) (Auto) 15.3 % (20.0-45.0) Monocytes (%) (Auto) 4.3 % (1.0-10.0) Eosinophils (%) (Auto) 2.3 % (0.0-3.0) Basophils (%) (Auto) 0.8 % (0.0-2.0) Sodium Level 137 mEQ/L (135-145) Potassium Level 4.5 mEQ/L (3.4-4.9) Chloride Level 97 mEQ/L (98-107) Carbon Dioxide Level 24 mEQ/L (20-30) Anion Gap 16 (5-15) Blood Urea Nitrogen 20 mg/dL (7-23) Creatinine 1.0 mg/dL (0.7-1.2) Estimat Glomerular Filtration Rate mL/min (>60) Glucose Level 151 mg/dL (74-106) Lactic Acid Level 2.70 mmol/L (0.66-2.22) Calcium Level 8.3 mg/dL (8.6-10.2) Total Bilirubin 0.4 mg/dL (0.0-1.2) Aspartate Amino Transf (AST/SGOT) 50 U/L (5-40) Alanine Aminotransferase (ALT/SGPT) 22 U/L (3-41) Alkaline Phosphatase 805 U/L (40-129) Total Creatine Kinase 129 U/L (38-174) Creatine Kinase MB 2.9 ng/mL (< 6.7) Creatine Kinase MB Relative Index 2.2 Troponin I < 0.30 ng/mL (<=0.30) Total Protein 8.4 g/dL (6.6-8.7) Albumin 1.9 g/dL (3.5-5.2) Globulin 6.5 g/dL Albumin/Globulin Ratio 0.2 (1.0-2.7) Urine Color Yellow Urine Appearance Clear Urine pH 6 (4.5-8.0) Urine Specific [place] 1.010 (1.005-1.035) Urine Protein 3+ (NEGATIVE) Urine Glucose (UA) Negative (NEGATIVE) Urine Ketones Negative (NEGATIVE) Urine Occult Blood Negative (NEGATIVE) Urine Nitrite Negative (NEGATIVE) Urine Bilirubin Negative (NEGATIVE) Urine Urobilinogen Normal MG/DL (0.0-1.0) Urine Leukocyte Esterase 1+ (NEGATIVE) Urine RBC 0-2 /HPF (0 - 0) Urine WBC 2-4 /HPF (0 - 0) Urine Squamous Epithelial Cells None /LPF (NONE/OCC) Urine Bacteria Occasional /HPF (NONE) EKG Diagnostic Results Rate: normal Rhythm: NSR ST Segments: no acute changes Rhythm Strip Diag. Results EP Interpretation: yes Rate: 80's Rhythm: NSR, no PVC's, no ectopy Chest X-Ray Diagnostic Results Chest X-Ray Ordered: Yes # of Views/Limited/Complete: 1 View Interpretation: no pneumothorax, other - multiple opacities, +pleural effusion. + patchy opacities, +cardiomegaly Indication: Shortness of Breath Impression: Other - Multilobar opacities. Date Electronically Signed: Nov 08, 2016 Time Electronically Signed: 21:47 Interpreting ER Physician: Kenneth Last Vital Signs Date Time Temp Pulse Resp B/P Pulse Ox O2 Delivery O2 Flow Rate FiO2 11/08/16 20:00 96 20 132/77 100 Mechanical Ventilator 15.0 50 Disposition: ADMITTED INPATIENT Condition: Critical Referrals: KENYA JAQUEZ (PCP) HEIDE TELLEZ D.O. Nov 08, 2016 20:52
[2016-11-08 20:53] LABS: BACTERIA,URINE OCCASIONAL /HPF; RBC,URINE 0-2 /HPF (0 - 0)
[2016-11-08 20:54] VITALS: BP 96/57
[2016-11-08] MEDS ORDERED: LANSOPRAZOLE30 MG ORAL (21:28)
[2016-11-08] MEDS ORDERED: DIGOXIN125 MCG GT (21:28)
[2016-11-08] MEDS ORDERED: FAMOTIDINE20 MG ORAL (21:28)
[2016-11-08] MEDS ORDERED: ATIVAN1 MG GT (21:28)
[2016-11-08] MEDS ORDERED: ZINC50 M1 GT (21:28)
[2016-11-08] MEDS ORDERED: METOPROLOL TART50 M1 ORAL (21:28)
[2016-11-08] MEDS ORDERED: OMEPRAZOLE20 M2 ORAL (21:28)
[2016-11-08] MEDS ORDERED: ZYVOX600 MG GT (21:28)
[2016-11-08] MEDS ORDERED: Meropenem 1 GM in NS 110 ML IVPB ONE (21:45)
[2016-11-08] MEDS ORDERED: Meropenem 1gm vial ONE (22:20)
[2016-11-08] MEDS ORDERED: LORazepam Inj 2mg/ml 1ml ONE (22:33)
[2016-11-08] MEDS ORDERED: LORazepam Inj 2mg/ml 1ml IV ONE (22:45)
[2016-11-08 23:20] VITALS: BP 104/54
[2016-11-09 00:30] VITALS: BP 132/73
[2016-11-09] MEDS ORDERED: DuoNeb 0.5-3(2.5)mg/3ml neb ONE (01:57)
[2016-11-09 04:00] VITALS: BP 117/63
[2016-11-09] MEDS ORDERED: Zolpidem 5mg tab GT PRN (06:45)
[2016-11-09] MEDS ORDERED: Acetaminophen 650mg/20.3ml GT PRN (06:45)
[2016-11-09 08:00] VITALS: BP 98/58
--- NOTE | 2016-11-09 08:27 | Diagnostic Imaging Report ---
Indications: Dyspnea Technique: Portable AP chest Findings: Comparison: 11/08/16 Pulmonary inflation has decreased. Cardiomegaly, bilateral interstitial infiltrates, right and probable smaller left pleural effusions, suggestion of airspace consolidation right lung base persist, unchanged. No new abnormality identified. IMPRESSION: Bilateral congestive changes, likely stable given differences in technique Underlying pneumonia in right lung base not excludable, unchanged
[2016-11-09] MEDS: Heparin 5000 units/ml inj SUBQ SCH ×2 (08:42→21:18)
[2016-11-09] MEDS: Digoxin Elixir 0.125mg GT SCH (08:42)
[2016-11-09] MEDS ORDERED: LORazepam 1mg tab GT SCH (09:00)
[2016-11-09] MEDS ORDERED: Pantoprazole Inj IVP SCH (09:00)
[2016-11-09] MEDS ORDERED: Vancomycin 1250mg/D5W 275ml IVPB ONE ×2 (10:00)
--- NOTE | 2016-11-09 10:30 | Diagnostic Imaging Report ---
Indications: Shortness of breath Technique: Audible AP chest Findings: Comparison: 10/26/2016 Cardiomegaly, pulmonary vascular redistribution, bilateral mixed interstitial and alveolar opacities, bibasal pleural effusions persist, increased. Aortic arch calcification, gastrostomy tube, tracheostomy again noted. IMPRESSION: Worsening of bilateral congestive changes. Underlying pneumonia not excludable.
--- NOTE | 2016-11-09 11:00 | History and Physical Report ---
DATE OF ADMISSION: 11/08/2016 CHIEF COMPLAINT: Pneumonia and sepsis. HISTORY OF PRESENT ILLNESS: This is a pleasant 81-year-old male, he has a history of chronic respiratory failure, COPD, ischemic cardiomyopathy, hypertension, CHF and dementia, who [facility] with shortness of breath and tachypnea. I actually saw the patient early in the day at that time, he was stable he apparently became tachypneic. He was given Ativan for was thought to be anxiety, but did persisted and he was sent to the emergency room. On evaluation there chest x-ray showed evidence of bilateral infiltrates consistent with pneumonia. The patient has been started on broad-spectrum IV antibiotic therapy. He is now admitted for further evaluation and care. He is nonverbal at baseline, so unable find any history. In the emergency room, his white count was noted to be 15,000. Urine was clear. PAST MEDICAL HISTORY: As above. PAST SURGICAL HISTORY: Trach and a G-tube. MEDICATIONS: Current medications reconciled and reviewed. ALLERGIES: None. SOCIAL HISTORY: There is no known history of tobacco, ethanol, or drugs. FAMILY HISTORY: None. REVIEW OF SYSTEMS: Unobtainable. PHYSICAL EXAMINATION: VITAL SIGNS: Temperature 98.0 degrees, blood pressure 117/63, pulse 87, respirations 20. GENERAL: The patient is in no apparent distress. HEART: Regular rate and rhythm. LUNGS: Lungs are clear. ABDOMEN: Soft, nontender and nondistended. EXTREMITIES: Without clubbing, cyanosis, or edema. LABORATORY DATA: White count 15,000, hemoglobin 8.2, and hematocrit of 25. Sodium 137 and potassium 4.5. Lactic acid was 2.7. Chest x-ray, bilateral infiltrates. ASSESSMENT: This is an unfortunate male with history of encephalopathy, chronic respiratory failure, history of ischemic cardiomyopathy, hypertension, CHRONIC OBSTRUCTIVE PULMONARY DISEASE, AND DEMENTIA ADMITTED WITH: 1. Sepsis secondary to pneumonia positive healthcare associated pneumonia versus aspiration pneumonia. 2. Sepsis. 3. Encephalopathy. 4. Hypertension. 5. Chronic obstructive pulmonary disease. 6. History of ischemic cardiomyopathy. PLAN: Broad-spectrum antibiotics, vent support, respiratory treatments. Continue G-tube feeds. Followup pending cultures. ID and Pulmonary consultation will be obtained. 1. The medications at. Alvaro Castanon M.D. DR: Mackenzie JOB#: [id number] CC:
[2016-11-09] MEDS: DuoNeb 0.5-3(2.5)mg/3ml neb HHN SCH ×4 (11:06→23:15)
[2016-11-09 12:00] VITALS: BP 135/66
[2016-11-09] MEDS: LORazepam Inj 2mg/ml 1ml IV PRN ×2 (12:40→18:59)
[2016-11-09] MEDS: Piperacillin/Tazobactam 3.375 GM in D5W 110 ML IVPB SCH ×2 (12:40→21:16)
[2016-11-09 16:00] VITALS: BP 98/51
--- NOTE | 2016-11-09 19:30 | Consultation ---
DATE OF CONSULTATION: 11/08/2016 CARDIOLOGY CONSULTATION REQUESTING PHYSICIAN: Alvaro Castanon M.D. REASON FOR CONSULT: Evaluate for congestive heart failure. HISTORY OF PRESENT ILLNESS: This is an 81-year-old male residing at a subacute facility who is ventilator-dependent and has a tracheostomy as well as gastrostomy tube for nutrition. He was brought into the emergency room by paramedics because of increasing tachypnea and shortness of breath. The patient apparently was given Ativan due to her history of anxiety and improved, however, further evaluation reveals several clinical abnormalities prompting this admission. Chest x-ray revealing bilateral pulmonary infiltrates and edema. PAST MEDICAL HISTORY: 1. Hypertension. 2. Type 2 diabetes mellitus. 3. Cerebrovascular disease with dementia. 4. Ventilator-dependent respiratory failure. 5. Coronary artery disease with stable angina. 6. Paroxysmal atrial fibrillation. ALLERGIES: None known. SOCIAL HISTORY: Not obtainable. FAMILY HISTORY: Not known. REVIEW OF SYSTEMS: Presently not obtainable. Pertinent data from a [facility] records are reviewed and data outlined above. PHYSICAL EXAMINATION: VITAL SIGNS: Blood pressure 132/77, pulse 99, respiratory rate 25, afebrile. LUNGS: Coarse breath sounds. Scattered rhonchi. Some accessory muscle use. Oropharynx clear. CARDIAC: Irregular, normal S1 and S2 with a 1/6 early systolic murmur at apex. ABDOMEN: Soft. G-tube intact. EXTREMITIES: With trace edema. Trach site with no bleeding. LABORATORY AND DIAGNOSTIC DATA: White count is 15.4 and hemoglobin 8.2. Sodium 137, potassium 4.5, bicarbonate 24, BUN 20, and creatinine 1. Lactic acid 2.7. Urinalysis with 2-4 white cells. IMPRESSION: 1. Healthcare-acquired pneumonia. 2. Ventilator-dependent respiratory failure. 3. Pleural effusion, component of acute on chronic diastolic congestive heart failure. 4. Hypertensive heart disease. 5. Insulin-requiring diabetes with multiple complications. 6. Lactic acidosis. 7. Sepsis. 8. Paroxysmal atrial fibrillation with slightly increased ventricular rates. PLAN: Ventilator support, bronchodilators, respiratory hygiene, and empiric antibiotics. Hold diuresis. Check natriuretic peptide assay. Monitor clinical parameters. Anti-platelet and anti-lipid drugs. Continue digitalis for rate control. We will follow with you during this hospital stay. Les Orantes M.D. DR: MAYLIN JOB#: [id number] CC: ELIZABETH
--- NOTE | 2016-11-09 19:30 | Progress Note ---
DATE: 11/09/2016 CARDIOLOGY PROGRESS NOTE SUBJECTIVE: The patient has no respiratory distress. He is on ventilator support. Lactic acid level has normalized. OBJECTIVE: VITAL SIGNS: Blood pressure 98/51, pulse 70, respiratory 28, and temperature 99.8 degrees. LUNGS: Coarse breath sounds. Scattered rhonchi. HEART: Irregular rhythm and rate. Normal S1 and S2 with a fourth heart sound. ABDOMEN: Soft. EXTREMITIES: Trace edema. LABORATORY AND DIAGNOSTIC DATA: Chest x-ray reveals pulmonary venous congestion and small pleural effusion. No new laboratory studies. IMPRESSION: 1. Health-care acquired pneumonia. 2. Ventilator-dependent respiratory failure. 3. Acute on chronic diastolic congestive heart failure. 4. Severe protein-calorie malnutrition. 5. Anemia, multifactorial. 6. Diabetes mellitus with complications. 7. Recovered lactic acidosis. 8. Recovering sepsis. 9. Paroxysmal atrial fibrillation. PLAN: 1. Antimicrobials. 2. Respiratory hygiene. 3. Diuresis x1. 4. Trend natriuretic peptide assay. 5. Protein supplement by feeding tube. 6. Continue ventilator support. 7. No current plan to wean. 8. Digitalis for rate control. Les Orantes M.D. DR: MAYLIN JOB#: [id number] CC: ELIZABETH
[2016-11-09 20:00] VITALS: BP 112/68
--- NOTE | 2016-11-09 20:30 | Consultation ---
DATE OF CONSULTATION: 11/09/2016 REASON FOR CONSULTATION: Respiratory failure and pneumonia. REASON FOR ADMISSION: Respiratory failure, pneumonia, sepsis. HISTORY OF PRESENT ILLNESS: The patient is an 81-year-old male who is unfortunately doing poorly. The patient was noted to be tachypneic and on evaluation was noted to have significant leukocytosis. The patient was seen and evaluated in the emergency room and was noted to have pneumonia and sepsis. The patient now admitted to the [facility] and I was called to see and evaluate further. The patient just recently seen in the subacute and apparently had acute deterioration in his overall status. The patient has prior history of pleural effusion requiring thoracentesis. The patient has had prior admission to the emergency room as well and underwent thoracentesis and was transferred back. X-ray suggest bilateral infiltrates and effusion. The patient was stared on broad-spectrum antibiotics and I was called to assist and evaluate. PAST MEDICAL HISTORY: Notable for chronic respiratory failure, chronic obstructive pulmonary disease, history of cardiomyopathy, history of hypertension, congestive heart failure, dementia, history of pleural effusions. MEDICATIONS: Reviewed. ALLERGIES: Reviewed. SOCIAL HISTORY: Nonsmoker and nondrinker. FAMILY HISTORY: Otherwise noncontributory. REVIEW OF SYSTEMS: Unobtainable due to the patient's mental state. PHYSICAL EXAMINATION: GENERAL: The patient is an ill appearing male, withdrawn, and nonverbal. VITAL SIGNS: Temperature 98.4, pulse 88, respiratory rate 24, blood pressure 135/66, saturation 97% and 50% on FiO2. HEENT: Otherwise fairly negative. NECK: Supple. Tracheostomy is midline. Carotids are 2+. LUNGS: Coarse breath sounds. Moderate air entry. Decreased at both bases. CARDIAC: S1 and S2. Regular rate and rhythm. Slightly distant without murmurs or rubs. ABDOMEN: Soft, nontender, and nondistended. G-tube in place. EXTREMITIES: No cyanosis or clubbing. Some edema. NEUROLOGIC: Withdrawn. LABORATORY AND DIAGNOSTIC DATA: Lab data reviewed. White cell count 15.4, hemoglobin 8.2, hematocrit 25.2, and platelets of 644,000. Chemistry noted and reviewed. Blood sugar 151. Alkaline phosphatase 85. X-ray with congestive changes consistent with pulmonary edema versus small pleural effusions. IMPRESSION: 1. Respiratory failure, chronic. 2. Bilateral pleural effusion, probable associated pneumonia, evidence of leukocytosis, possible sepsis. 3. Lactic acidosis. 4. Hyperglycemia, diabetes. 5. Anemia. 6. Thrombocytosis. RECOMMENDATION: 1. Supportive care. 2. Aggressive IV antibiotics . 3. Respiratory care. 4. Monitor fluid status. 5. Monitor labs and recommend further. 6. ID evaluation. 7. Continue with cardiac medications. 8. Followup cultures and adjust. 9. Deep venous thrombosis prophylaxis. 10. Nutritional support. 11. Ventilatory support. 12. We will continue to follow and optimize care, pending evaluation. Adrien Hernandez M.D. DR: Annie JOB#: [id number] CC:
[2016-11-09] MEDS: Vancomycin 750mg/D5W 275ml IVPB SCH ×2 (21:17)
[2016-11-10] VITALS: BP 126/62
[2016-11-10] MEDS: LORazepam Inj 2mg/ml 1ml IV PRN (00:25)
[2016-11-10] MEDS: DuoNeb 0.5-3(2.5)mg/3ml neb HHN SCH ×6 (03:00→23:07)
[2016-11-10 04:00] VITALS: BP 126/60
[2016-11-10 05:52] LABS: MEAN CORPUSCULAR HEMOGLOBIN 30.1 PG (27.0-31.0); MEAN CORPUSCULAR HGB CONC 32.7 G/DL (32.0-36.0); MEAN CORPUSCULAR VOLUME 92 FL (80-99); MEAN PLATELET VOLUME 6.9 FL (6.5-10.1); PLATELET COUNT 556 K/UL (150-450); RED BLOOD COUNT 2.37 M/UL (4.70-6.10); RED CELL DISTRIBUTION WIDTH 19.1 % (11.6-14.8); WHITE BLOOD COUNT 13.5 K/UL (4.8-10.8)
[2016-11-10] MEDS: Piperacillin/Tazobactam 3.375 GM in D5W 110 ML IVPB SCH ×3 (05:59→22:12)
[2016-11-10 06:18] LABS: ANION GAP 16 (5-15); CALCIUM 7.9 mg/dL (8.6-10.2); CARBON DIOXIDE 22 mEQ/L (20-30); CHLORIDE 100 mEQ/L (98-107); HEMOLYSIS 59; SODIUM 138 mEQ/L (135-145)
[2016-11-10] MEDS: Heparin 2000 units/Ns 1000ml IV SCH (07:45)
[2016-11-10 08:00] VITALS: BP 108/54
[2016-11-10] MEDS: Lidocaine 1% Plain 30 ml INJ SCH (08:00)
[2016-11-10] MEDS ORDERED: Heparin Sod 1000 units/ml 10ml IV ONE (08:00)
[2016-11-10 08:01] LABS: ANISOCYTOSIS 2+; BAND NEUTROPHILS % (MANUAL) 0 % (0-8); BASOPHILS % (MANUAL) 0 % (0-2); EOSINOPHILS % (MANUAL) 5 % (0-3); HYPOCHROMASIA 3+; LYMPHOCYTES % (MANUAL) 36 % (20-45); NEUTROPHILS % (MANUAL) 52 % (45-75); PLATELET ESTIMATE INCREASED; PLATELET MORPHOLOGY NORMAL; POIKILOCYTOSIS 2+; POLYCHROMASIA 1+; SPHEROCYTES 2+; TOTAL CELLS COUNTED 100
--- NOTE | 2016-11-10 08:20 | Pulmonology Progress Note ---
Assessment/Plan Assessment/Plan IMPRESSION: 1. Respiratory failure, chronic. 2. Bilateral pleural effusion, probable associated pneumonia, evidence of leukocytosis, possible sepsis. 3. Lactic acidosis. 4. Hyperglycemia, diabetes. 5. Anemia. 6. Thrombocytosis. PLAN care noted ventilator support IV antibiotics transfuse care noted and discussed with RT nutrition hope to dc soon impression, plan, and exam edited and reviewed in detail care discussed with RN Subjective ROS Limited/Unobtainable: Yes Allergies: Coded Allergies: No Known Allergies (Unverified , 12/08/13) Subjective needs transfusion care noted replacement given Objective Last 24 Hour Vital Signs Date Time Temp Pulse Resp B/P Pulse Ox O2 Delivery O2 Flow Rate FiO2 11/10/16 07:43 45 11/10/16 07:43 87 20 100 Mechanical Ventilator 45 11/10/16 07:36 45 11/10/16 07:36 88 20 50 11/10/16 07:36 88 20 100 Mechanical Ventilator 45 11/10/16 05:20 86 20 50 11/10/16 04:00 99.6 87 25 126/60 98 Mechanical Ventilator 45 11/10/16 04:00 45 11/10/16 04:00 90 11/10/16 03:26 77 24 100 Mechanical Ventilator 45 11/10/16 03:01 45 11/10/16 03:01 77 20 98 Mechanical Ventilator 45 11/10/16 03:00 77 20 50 11/10/16 01:15 75 20 50 11/10/16 00:00 99.7 90 20 126/62 98 Mechanical Ventilator 45 11/10/16 00:00 45 11/10/16 00:00 100 11/09/16 23:25 90 25 100 Mechanical Ventilator 45 11/09/16 23:15 89 25 50 11/09/16 23:15 45 11/09/16 23:15 89 25 100 Mechanical Ventilator 45 11/09/16 21:12 91 20 50 11/09/16 20:00 98.2 80 20 112/68 97 Mechanical Ventilator 45 11/09/16 20:00 50 11/09/16 20:00 89 11/09/16 19:24 91 24 100 Mechanical Ventilator 45 11/09/16 18:55 95 23 100 Mechanical Ventilator 45 11/09/16 18:55 45 11/09/16 18:54 95 23 50 11/09/16 16:54 69 20 50 11/09/16 16:00 99.8 72 20 98/51 100 Mechanical Ventilator 50 11/09/16 16:00 50 11/09/16 16:00 70 11/09/16 14:30 68 20 50 11/09/16 14:30 67 20 99 Mechanical Ventilator 50 11/09/16 14:20 50 11/09/16 14:20 66 20 98 Mechanical Ventilator 50 11/09/16 13:17 68 20 50 11/09/16 12:00 87 11/09/16 12:00 98.4 88 24 135/66 97 Mechanical Ventilator 50 11/09/16 12:00 50 11/09/16 10:50 68 20 99 Mechanical Ventilator 50 11/09/16 10:50 67 20 50 11/09/16 10:40 73 20 98 Mechanical Ventilator 50 11/09/16 10:40 50 11/09/16 09:06 74 20 50 11/09/16 08:43 78 98/58 11/09/16 08:42 78 Intake and Output 11/09/16 11/10/16 19:00 07:00 Intake Total 1250.0 ml 1163.486 ml Output Total 600 ml 1000 ml Balance 650.0 ml 163.486 ml Intake Free Water 300 ml 200 ml IV Total 110.0 ml 473.486 ml Tube Feeding 840 ml 490 ml Output Urine Total 600 ml 1000 ml # Bowel Movements 2 Objective GENERAL: The patient is an ill appearing male, withdrawn, and nonverbal. HEENT: Otherwise fairly negative. NECK: Supple. Tracheostomy is midline. Carotids are 2+. LUNGS: Coarse breath sounds. Moderate air entry. Decreased at both bases. CARDIAC: S1 and S2. Regular rate and rhythm. Slightly distant without murmurs or rubs. ABDOMEN: Soft, nontender, and nondistended. G-tube in place. EXTREMITIES: No cyanosis or clubbing. Some edema. NEUROLOGIC: Withdrawn. reviewed and edited Microbiology Date/Time Source Procedure Growth Status 11/08/16 19:55 Blood Blood Culture - Preliminary NO GROWTH AFTER 24 HOURS Resulted 11/08/16 19:55 Blood Blood Culture - Preliminary NO GROWTH AFTER 24 HOURS Resulted Laboratory Tests 11/09/16 19:45: Magnesium Level 1.8 11/10/16 03:30: White Blood Count 13.5H, Red Blood Count 2.37L, Hemoglobin 7.1L, Hematocrit 21.8L, Mean Corpuscular Volume 92, Mean Corpuscular Hemoglobin 30.1, Mean Corpuscular Hemoglobin Concent 32.7, Red Cell Distribution Width 19.1H, Platelet Count 556H, Mean Platelet Volume 6.9, Neutrophils (%) (Auto) , Lymphocytes (%) (Auto) , Monocytes (%) (Auto) , Eosinophils (%) (Auto) , Basophils (%) (Auto) , Differential Total Cells Counted 100, Neutrophils % ( Manual) 52, Lymphocytes % (Manual) 36, Monocytes % (Manual) 7, Eosinophils % ( Manual) 5H, Basophils % (Manual) 0, Band Neutrophils 0, Platelet Estimate IncreasedH, Platelet Morphology Normal, Polychromasia 1+, Hypochromasia 3+, Poikilocytosis 2+, Anisocytosis 2+, Spherocytes 2+, Sodium Level 138, Potassium Level 4.0, Chloride Level 100, Carbon Dioxide Level 22, Anion Gap 16H, Blood Urea Nitrogen 20, Creatinine 1.0, Estimat Glomerular Filtration Rate , Glucose Level 115H, Calcium Level 7.9L, Pro-B-Type Natriuretic Peptide 7089H Current Medications Medications (Trade) Dose Ordered Sig/Omi Route PRN Reason Start Time Stop Time Status Last Admin Dose Admin Acetaminophen (Tylenol) 650 mg Q4HR PRN NG Headache/Temp > 101/mild pain 11/09/16 06:45 12/09/16 06:44 Al Hydroxide/Mg Hydroxide (Mylanta) 30 ml EVERY 4 HOURS PRN GT Nausea & Vomiting 11/09/16 09:00 12/09/16 08:59 Albuterol/ Ipratropium (DuoNeb 0.5-3(2.5)mg/3ml) 3 ml Q4HRT HHN 11/09/16 11:00 11/14/16 10:59 11/10/16 07:36 Amlodipine Besylate (Norvasc) 10 mg DAILY GT 11/09/16 09:00 12/09/16 08:59 Chlorhexidine Gluconate (Nery-Hex 2%) 1 applic Q24H TOPIC 11/10/16 21:00 12/10/16 20:59 Digoxin (Lanoxin) 0.125 mg DAILY GT 11/09/16 09:00 12/09/16 08:59 11/09/16 08:42 Fish Oil 1000 mg 1,000 mg DAILY ORAL 11/09/16 09:00 12/09/16 08:59 11/09/16 10:30 Heparin Sodium (Porcine) (Heparin 5000 units/ml) 5,000 units EVERY 12 HOURS SUBQ 11/09/16 09:00 12/09/16 08:59 11/09/16 21:18 Heparin Sodium/ Sodium Chloride (Heparin 2000 units/Ns 1000ml premix) 2,000 unit ONCE IV 11/10/16 07:45 11/11/16 23:59 Lansoprazole (Prevacid) 30 mg DAILY GT 11/09/16 09:00 12/09/16 08:59 11/09/16 08:43 Lidocaine HCl (Xylocaine 1% 30ml) 30 ml ONCE INJ 11/10/16 08:00 11/11/16 23:59 Lorazepam 1 mg 1 mg Q4H PRN IV For Anxiety 11/09/16 07:45 11/16/16 07:44 11/10/16 00:25 Piperacillin Sod/ Tazobactam Sod/ Dextrose (Zosyn/D5W) 110 ml @ 27.5 mls/hr Q8HR IVPB 11/09/16 12:00 11/16/16 11:59 11/10/16 05:59 Vancomycin HCl (Vanco rx to dose) 1 ea DAILY PRN MISC . 11/09/16 09:00 12/09/16 08:59 Vancomycin HCl/ Dextrose (Vancomycin/D5W) 275 ml @ 183.708 mls/hr Q12HR@1000,2200 IVPB 11/09/16 22:00 11/14/16 21:59 11/09/16 21:17 Zolpidem Tartrate (Ambien) 5 mg HSPRN PRN GT Insomnia 11/09/16 06:45 12/09/16 06:44 KENYA JAQUEZ Nov 10, 2016 08:20
[2016-11-10] MEDS: Heparin 5000 units/ml inj SUBQ SCH ×2 (09:00→21:13)
[2016-11-10] MEDS: Vancomycin 750mg/D5W 275ml IVPB SCH ×4 (09:23→22:11)
[2016-11-10] MEDS: Digoxin Elixir 0.125mg GT SCH (09:23)
[2016-11-10] MEDS ORDERED: NS 275ml ONE (10:09)
[2016-11-10] MEDS ORDERED: Tubing IV Secondary IV ONE (10:09)
--- NOTE | 2016-11-10 11:33 | Pre-Procedure Note/Attestation ---
Pre-Procedure Note/Attestation Complete Prior to Procedure Planned Procedure: not applicable Procedure Narrative: PICC Indications for Procedure Pre-Operative Diagnosis: Sepsis. 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 Attestation I attest that I discussed the nature of the procedure; its benefits; risks and complications; and alternatives (and the risks and benefits of such alternatives ), prior to the procedure, with the patient (or the patient's legal veterans contact representative). I attest that, if there was a reasonable possibility of needing a blood transfusion, the patient (or the patient's legal veterans contact representative) was given the [facility] standardized written summary, pursuant to the Issac Jeannine Blood Safety Act ([place] Health and Safety Code # 1645, as amended). I attest that I re-evaluated the patient just prior to the surgery and that there has been no change in the patient's H&P, except as documented below: Discussed with pt's. son at [address] aMALI Salmon M.D. Nov 10, 2016 11:33
[2016-11-10 12:00] VITALS: BP 105/55
--- NOTE | 2016-11-10 14:37 | General Progress Note ---
Assessment/Plan Problem List: (1) Malfunction of gastrostomy tube ICD Codes: K94.23 - Gastrostomy malfunction SNOMED: 624179171 (2) KINGA (acute kidney injury) ICD Codes: N17.9 - Acute kidney failure, unspecified SNOMED: 89047774 (3) Acute respiratory failure ICD Codes: J96.00 - Acute respiratory failure, unspecified whether with hypoxia or hypercapnia SNOMED: 83819003 (4) Sepsis ICD Codes: A41.9 - Sepsis SNOMED: 91267989 (5) HTN (hypertension) ICD Codes: I10 - Essential (primary) hypertension SNOMED: 37535622 (6) Atrial fibrillation ICD Codes: I48.91 - Unspecified atrial fibrillation SNOMED: 70249735 Status: stable Assessment/Plan iv abx follow up cultures transfuse vent resp rx gt feeds monitor for bleeding. Subjective ROS Limited/Unobtainable: Yes Constitutional: Reports: malaise, weakness HEENT: Reports: no symptoms Cardiovascular: Reports: no symptoms Respiratory: Reports: cough, shortness of breath, sputum Gastrointestinal/Abdominal: Reports: no symptoms Genitourinary: Reports: no symptoms Neurologic/Psychiatric: Reports: no symptoms Endocrine: Reports: no symptoms Hematologic/Lymphatic: Reports: no symptoms Allergies: Coded Allergies: No Known Allergies (Unverified , 12/08/13) All Systems: reviewed and negative except above Subjective no events. decrease h/h noted. no bleeding noted. poorly responsive. on the vent. Objective Last 24 Hour Vital Signs Date Time Temp Pulse Resp B/P Pulse Ox O2 Delivery O2 Flow Rate FiO2 11/10/16 12:34 84 20 50 11/10/16 12:19 45 11/10/16 12:00 99.6 87 20 105/55 97 Mechanical Ventilator 45 11/10/16 11:00 86 20 100 Mechanical Ventilator 45 11/10/16 10:50 87 22 50 11/10/16 10:50 45 11/10/16 10:50 86 22 100 Mechanical Ventilator 45 11/10/16 09:23 94 11/10/16 09:11 89 20 50 11/10/16 09:00 94 108/54 11/10/16 08:31 73 11/10/16 08:00 99.0 82 20 108/54 99 Mechanical Ventilator 45 11/10/16 07:43 45 11/10/16 07:43 87 20 100 Mechanical Ventilator 45 11/10/16 07:36 45 11/10/16 07:36 88 20 50 11/10/16 07:36 88 20 100 Mechanical Ventilator 45 11/10/16 05:20 86 20 50 11/10/16 04:00 99.6 87 25 126/60 98 Mechanical Ventilator 45 11/10/16 04:00 45 11/10/16 04:00 90 11/10/16 03:26 77 24 100 Mechanical Ventilator 45 11/10/16 03:01 45 11/10/16 03:01 77 20 98 Mechanical Ventilator 45 11/10/16 03:00 77 20 50 11/10/16 01:15 75 20 50 11/10/16 00:00 99.7 90 20 126/62 98 Mechanical Ventilator 45 11/10/16 00:00 45 11/10/16 00:00 100 11/09/16 23:25 90 25 100 Mechanical Ventilator 45 11/09/16 23:15 89 25 50 11/09/16 23:15 45 11/09/16 23:15 89 25 100 Mechanical Ventilator 45 11/09/16 21:12 91 20 50 11/09/16 20:00 98.2 80 20 112/68 97 Mechanical Ventilator 45 11/09/16 20:00 50 11/09/16 20:00 89 11/09/16 19:24 91 24 100 Mechanical Ventilator 45 11/09/16 18:55 95 23 100 Mechanical Ventilator 45 11/09/16 18:55 45 11/09/16 18:54 95 23 50 11/09/16 16:54 69 20 50 11/09/16 16:00 99.8 72 20 98/51 100 Mechanical Ventilator 50 11/09/16 16:00 50 11/09/16 16:00 70 Intake and Output 11/09/16 11/10/16 19:00 07:00 Intake Total 1250.0 ml 1163.486 ml Output Total 600 ml 1000 ml Balance 650.0 ml 163.486 ml Intake Free Water 300 ml 200 ml IV Total 110.0 ml 473.486 ml Tube Feeding 840 ml 490 ml Output Urine Total 600 ml 1000 ml # Bowel Movements 2 Laboratory Tests 11/09/16 19:45: Magnesium Level 1.8 11/10/16 03:30: White Blood Count 13.5H, Red Blood Count 2.37L, Hemoglobin 7.1L, Hematocrit 21.8L, Mean Corpuscular Volume 92, Mean Corpuscular Hemoglobin 30.1, Mean Corpuscular Hemoglobin Concent 32.7, Red Cell Distribution Width 19.1H, Platelet Count 556H, Mean Platelet Volume 6.9, Neutrophils (%) (Auto) , Lymphocytes (%) (Auto) , Monocytes (%) (Auto) , Eosinophils (%) (Auto) , Basophils (%) (Auto) , Differential Total Cells Counted 100, Neutrophils % ( Manual) 52, Lymphocytes % (Manual) 36, Monocytes % (Manual) 7, Eosinophils % ( Manual) 5H, Basophils % (Manual) 0, Band Neutrophils 0, Platelet Estimate IncreasedH, Platelet Morphology Normal, Polychromasia 1+, Hypochromasia 3+, Poikilocytosis 2+, Anisocytosis 2+, Spherocytes 2+, Sodium Level 138, Potassium Level 4.0, Chloride Level 100, Carbon Dioxide Level 22, Anion Gap 16H, Blood Urea Nitrogen 20, Creatinine 1.0, Estimat Glomerular Filtration Rate , Glucose Level 115H, Calcium Level 7.9L, Pro-B-Type Natriuretic Peptide 7089H Height (Feet): 5 Height (Inches): 7.00 Weight (Pounds): 177 General Appearance: WD/WN, alert Neck: supple Cardiovascular: regular rhythm Respiratory/Chest: lungs clear, normal breath sounds, no respiratory distress Abdomen: normal bowel sounds, non tender, soft, no organomegaly Neurologic: disoriented, unresponsive, aphasia YAN HARRIS Nov 10, 2016 14:37
[2016-11-10 16:00] VITALS: BP 117/76
--- NOTE | 2016-11-10 17:25 | Diagnostic Imaging Report ---
Indications: Needs long-term IV access Technique: Procedure performed at bedside. Procedural timeout performed. Ultrasound confirms patent compressible right vein. Total sterile technique, including sterile probe cover and sterile gel, sterile gloves, hand hygiene, hat, mask,, sterile gown, large sterile drape, and preparation with 2% chlorhexidine utilized. Local anesthesia with 1% lidocaine. Under real-time ultrasound guidance, puncture left brachial vein using 21-gauge needle, passage 0.018 guidewire, exchange for 5 Burmese peel-away sheath. 5 Burmese Bard dual-lumen power PICC cut to 44 cm. It was inserted through the peel-away sheath. Peel-away sheath and guidewire removed. Catheter fixed to the skin. Both catheter ports aspirated and flushed. Patient tolerated procedure well, without immediate complication. Followup chest x-ray obtained, documents catheter tip position at the high right atrium Impression: Successful bedside placement of left arm PICC under sonographic guidance, as described above.
--- NOTE | 2016-11-10 18:45 | Consultation ---
DATE OF CONSULTATION: 11/10/2016 INFECTIOUS DISEASES CONSULTATION REFERRING PHYSICIAN: Adrien Hernandez M.D. REASON FOR CONSULTATION: Pneumonia. HISTORY OF PRESENTING ILLNESS: This is an 81-year-old gentleman with history of respiratory failure, status post tracheostomy, COPD, hypertension, and cardiomyopathy, who is transferred from a detention facility with shortness of breath. He was found to have bilateral infiltrates with pneumonia and leukocytosis and an Infectious Diseases consultation has been obtained for antibiotics. PAST MEDICAL HISTORY: 1. History of respiratory failure, status post tracheostomy. 2. Chronic obstructive pulmonary disease. 3. Ischemic cardiomyopathy. 4. Hypertension. 5. Congestive heart failure. 6. Dementia. 7. Status post G-tube placement. MEDICATIONS: As an inpatient, the patient is on chlorhexidine, gluconate, lidocaine, vancomycin, Zosyn, albuterol, amlodipine, digoxin, Prevacid, fish oil, subcutaneous heparin, Mylanta, lorazepam, Ativan, and Ambien. ALLERGIES: No known drug allergies. SOCIAL HISTORY: No history of smoking, alcohol, or drug use. FAMILY HISTORY: Unknown. REVIEW OF SYSTEMS: Unable to obtain currently. PHYSICAL EXAMINATION: VITAL SIGNS: Temperature of 99 degrees, T-max of 99.8, pulse of 86, respiratory rate 20, blood pressure of 108/54, and O2 saturation 100%. HEENT: Pupils equally reactive to light and accommodation. Mouth appears clean without thrush. NECK: Supple. No adenopathy. No JVD. CARDIOVASCULAR: Regular rate and rhythm. No murmurs. LUNGS: Clear to auscultation bilaterally. No crackles. No wheezes. ABDOMEN: Soft and nontender. G-tube site appears clean. EXTREMITIES: No cyanosis, no clubbing, and no edema. LABORATORY DATA: White count of 15.4 yesterday, white count of 13.5 today, hemoglobin 7.1, hematocrit 21.8, MCV 92, and platelet count of 556,000 with neutrophils of 52%. Sodium 138, potassium 4, chloride 100, bicarbonate 22, BUN 20, creatinine 1, glucose 115, and calcium 7.9. Brain natriuretic peptide 7089 on 11/08/2016. Total bilirubin 0.4. AST 50, ALT 22, and alkaline phosphatase 805. CK of 129 and CK-MB 2.9. Troponin less than 0.3. Total protein 8.4 and albumin 1.9. UA showing 2 to 4 white cells. Blood cultures growing gram-positive cocci in clusters. Chest x-ray showing bilateral congestive changes, underlying pneumonia in the right lung base not excluded. ASSESSMENT: This is an 81-year-old gentleman with history of respiratory failure, status post tracheostomy, and hypertension, who comes in with possible aspiration pneumonia. 1. Respiratory failure, status post tracheostomy. 2. Congestive heart failure. 3. Hypertension. 4. Positive blood cultures with gram-positive cocci. PLAN: 1. Continue vancomycin and Zosyn. 2. We will order sputum for Gram stain and culture. 3. We will follow up cultures and adjust antibiotics accordingly. I would like to thank, Dr. Martinez, for this consultation. Shantel Boland M.D. DR: KIRSTIN JOB#: [id number] CC:
[2016-11-10 20:00] VITALS: BP 118/58
[2016-11-10] MEDS: Dyna-Hex 2% Top Sol 8oz TOPIC SCH (21:11)
[2016-11-11] VITALS: BP 122/61
--- NOTE | 2016-11-11 01:15 | Progress Note ---
DATE: 11/10/2016 SUBJECTIVE: The patient remains on ventilator support. Poorly responsive. No signs of bleeding noted. Monitored rhythm sinus. OBJECTIVE: VITAL SIGNS: Blood pressure 105/55, heart rate 87, respiratory rate 20, and temperature 99.6. LUNGS: Bilateral breath sounds. No wheezing. Few rhonchi. HEART: Irregular rhythm and rate. Normal S1 and S2. ABDOMEN: Soft. G-tube intact. EXTREMITIES: No edema. LABORATORY DATA: White count 13.5, hemoglobin 7.1, and platelets 556,000. Potassium 4, BUN 20, and creatinine 1. Pro-natriuretic peptide 7089. PICC line site clean and dry. IMPRESSION: 1. Healthcare-acquired pneumonia. 2. Acute on chronic diastolic congestive heart failure. 3. Ventilator-dependent respiratory failure. 4. Pleural effusion. 5. Recovering lactic acidosis. 6. Severe anemia. 7. Paroxysmal atrial fibrillation. PLAN: 1. Packed red blood cell transfusion. 2. Diuresis. 3. Ventilator support. 4. Antimicrobial therapy per Infectious Disease guidance consultant. 5. Titrate antihypertensives. 6. Reassess need for beta jaqui in addition to digoxin, for rate control. Les Orantes M.D. DR: Juliana JOB#: [id number] CC: ELIZABETH
--- NOTE | 2016-11-11 01:17 | Wound Care Consultation ---
Wound Assessment Wound Assessment #1: Wound Number: #1 Wound Present on Admission: Yes New Wound: No Status Change of Wound: No Wound Location Body Site Modif: right, dorsal - aspect of foot Wound Type: pressure ulcer Royer Test: Does not Royer Pressure Ulcer Stage: IV/unstageable - unstageable. Wound Thickness: Full Thickness Wound Length: 1.0 Wound Width: 1.0 Wound Depth: utd Percent of Wound Black/Brown: 100 Wound Drainage Amount: None Wound Drainage Odor: None/Absent Tissue Surrounding Wound: Erythemic Wound General Appearance: Blackened Wound Assessment #2: Wound Number: #2 Wound Present on Admission: Yes New Wound: No Status Change of Wound: No Wound Location Body Site Modif: right, lower Wound Location Body Site: leg - extending to dorsal foot scattered. Wound Type: scab Royer Test: Does not Royer Wound Thickness: Partial Thickness Percent of Wound Langeloth/Red: 50 Percent of Wound Black/Brown: 50 - scattered Wound Drainage Amount: None Wound Drainage Odor: None/Absent Tissue Surrounding Wound: Erythemic Wound General Appearance: Reddened, Blackened Wound Assessment #3: Wound Present on Admission: Yes New Wound: No Status Change of Wound: No Wound Location Body Site: abdominal fold Wound Type: rash - intertrigo Royer Test: Does not Royer Percent of Wound Langeloth/Red: 100 Wound Drainage Amount: None Wound Drainage Odor: None/Absent Tissue Surrounding Wound: Macerated Wound General Appearance: Reddened, Open to air Wound Assessment #4: Wound Number: #4 Wound Present on Admission: Yes New Wound: No Status Change of Wound: No Wound Location Body Site Modif: right, upper, lateral Wound Location Body Site: other - trunk , armpit fold extending to back. Wound Type: rash - intertrigo Royer Test: Does not Royer Wound Thickness: Partial Thickness - noted partial skin loss Wound Drainage Description: Serous Wound Drainage Amount: Scant Wound Drainage Odor: None/Absent Tissue Surrounding Wound: Macerated Wound General Appearance: Reddened, Open to air Wound Assessment #5: Wound Number: #5 Wound Present on Admission: Yes New Wound: No Status Change of Wound: No Wound Location Body Site: perineal area - extending to scrotal area Wound Type: chemical burn - with erosion partial skin loss Royer Test: Does not Royer Wound Thickness: Partial Thickness Percent of Wound Langeloth/Red: 100 - scattered Wound Drainage Description: Serous Wound Drainage Amount: Scant Wound Drainage Odor: None/Absent Tissue Surrounding Wound: Macerated Wound General Appearance: Reddened, Open to air Wound Assessment #6: Wound Number: #6 Wound Present on Admission: Yes New Wound: No Status Change of Wound: No Wound Location Body Site: sacral Wound Type: pressure ulcer Royer Test: Does not Royer Pressure Ulcer Stage: III - scattered ,close in proximity. Wound Thickness: Full Thickness Wound Length: 6.0 Wound Width: 3.5 Wound Depth: 0.3 Percent of Wound Langeloth/Red: 90 Percent of Wound Bed Yellow/Wh: 10 Wound Drainage Description: Serosanguineous Wound Drainage Amount: Moderate Wound Drainage Odor: None/Absent Tissue Surrounding Wound: Erythemic Wound General Appearance: Reddened Wound Assessment #7: Wound Number: #7 Wound Present on Admission: Yes New Wound: No Status Change of Wound: No Wound Location Body Site Modif: right, lower Wound Location Body Site: back Wound Type: scar Royer Test: Does not Royer Wound Thickness: Full Thickness Wound Length: 2.0 Wound Width: 3.0 Percent of Wound Langeloth/Red: 100 Wound Drainage Amount: None Wound Drainage Odor: None/Absent Tissue Surrounding Wound: Intact Wound General Appearance: Asymptomatic, Open to air Wound Assessment #8: Wound Number: #8 Wound Present on Admission: Yes New Wound: No Status Change of Wound: No Wound Location Body Site Modif: right, upper Wound Location Body Site: back Wound Type: pressure ulcer Royer Test: Does not Royer Pressure Ulcer Stage: IV/unstageable Wound Thickness: Full Thickness Wound Length: 2.0 Wound Width: 2.0 Wound Depth: utd Percent of Wound Bed Yellow/Wh: 50 Percent of Wound Purple/Maroon: 50 Wound Drainage Description: Serosanguineous Wound Drainage Amount: Moderate Wound Drainage Odor: None/Absent Tissue Surrounding Wound: Erythemic Wound General Appearance: Reddened, Draining Wound Comment #1 right dorsal aspect of foot unstageable pressure ulcer. #2 right lower extremity extending to dorsal aspect of foot scattered scabs. #3 abdominal fold rash intertrigo. #4 right upper lateral trunk , armpit fold extending to back rash intertrigo. #5 perineal area extending to scrotal area chemical burn with erosion. #6 Sacral pressure ulcer stage III. #7 right lower back full thickness scar tissue. #8 right upper back pressure ulcer stage IV/unstageable. Recommendation. - Local wound care as ordered per protocol. - Low air loss mattress. - Keep clean and dry. - Turn and reposition. - Offload affected sites. - Heel protectors. -Offload heels and feet. - Optimize nutrition -Avoid shear and friction. - Assess and notify MD for any further change of condition to skin noted. SONI SABILLON Nov 11, 2016 01:17
[2016-11-11] MEDS: DuoNeb 0.5-3(2.5)mg/3ml neb HHN SCH ×5 (02:55→22:41)
[2016-11-11] MEDS: LORazepam Inj 2mg/ml 1ml IV PRN (03:14)
[2016-11-11 04:00] VITALS: BP 123/65
[2016-11-11] MEDS: Piperacillin/Tazobactam 3.375 GM in D5W 110 ML IVPB SCH ×3 (05:20→22:07)
[2016-11-11 06:31] LABS: BASOPHILS % (AUTO) 0.9 % (0.0-2.0); EOSINOPHILS % (AUTO) 5.3 % (0.0-3.0); LYMPHOCYTES % (AUTO) 25.6 % (20.0-45.0); MEAN CORPUSCULAR HEMOGLOBIN 29.8 PG (27.0-31.0); MEAN CORPUSCULAR HGB CONC 32.6 G/DL (32.0-36.0); MEAN CORPUSCULAR VOLUME 92 FL (80-99); MEAN PLATELET VOLUME 7.2 FL (6.5-10.1); MONOCYTES % (AUTO) 5.4 % (1.0-10.0); NEUTROPHILS % (AUTO) 62.8 % (45.0-75.0); PLATELET COUNT 559 K/UL (150-450); RED BLOOD COUNT 3.04 M/UL (4.70-6.10); RED CELL DISTRIBUTION WIDTH 17.8 % (11.6-14.8); WHITE BLOOD COUNT 13.4 K/UL (4.8-10.8)
[2016-11-11 07:12] LABS: ALANINE AMINOTRANSFERASE 17 U/L (3-41); ALBUMIN/GLOBULIN RATIO 0.4 (1.0-2.7); ANION GAP 14 (5-15); ASPARTATE AMINO TRANSFERASE 24 U/L (5-40); CALCIUM 8.2 mg/dL (8.6-10.2); CARBON DIOXIDE 29 mEQ/L (20-30); CHLORIDE 104 mEQ/L (98-107); CREATININE 0.9 mg/dL (0.7-1.2); HEMOLYSIS 2; POTASSIUM 3.4 mEQ/L (3.4-4.9); SODIUM 147 mEQ/L (135-145); TOTAL PROTEIN 7.6 g/dL (6.6-8.7)
[2016-11-11] MEDS: Heparin 2000 units/Ns 1000ml IV SCH (07:45)
[2016-11-11 08:00] VITALS: BP 127/77
[2016-11-11] MEDS: Lidocaine 1% Plain 30 ml INJ SCH (08:00)
[2016-11-11] MEDS: Digoxin Elixir 0.125mg GT SCH (08:31)
[2016-11-11] MEDS: Heparin 5000 units/ml inj SUBQ SCH ×2 (08:33→22:02)
--- NOTE | 2016-11-11 10:02 | Pulmonology Progress Note ---
Assessment/Plan Assessment/Plan IMPRESSION: 1. Respiratory failure, chronic. 2. Bilateral pleural effusion, probable associated pneumonia, evidence of leukocytosis, possible sepsis. 3. Lactic acidosis. 4. Hyperglycemia, diabetes. 5. Anemia. 6. Thrombocytosis. 7. sepsis/ bacteremia PLAN care noted ventilator support IV antibiotics- adjust transfuse care noted and discussed with RT nutrition ID follow up monitor electrolytes stabilize no wean guarded impression, plan, and exam edited and reviewed in detail care discussed with RN Subjective ROS Limited/Unobtainable: Yes Allergies: Coded Allergies: No Known Allergies (Unverified , 12/08/13) Subjective multiple culture positive remains ill care noted in detail Objective Last 24 Hour Vital Signs Date Time Temp Pulse Resp B/P Pulse Ox O2 Delivery O2 Flow Rate FiO2 11/11/16 08:31 97 11/11/16 08:30 97 127/77 11/11/16 08:00 99.6 97 20 127/77 96 Mechanical Ventilator 45 11/11/16 07:10 92 21 100 Mechanical Ventilator 45 11/11/16 07:05 98 21 45 11/11/16 07:05 45 11/11/16 07:05 98 20 96 Mechanical Ventilator 45 11/11/16 04:54 90 23 50 11/11/16 04:00 45 11/11/16 04:00 98.8 97 31 123/65 96 11/11/16 04:00 93 11/11/16 02:55 134 11/11/16 02:55 135 11/11/16 02:46 101 36 50 11/11/16 00:55 96 21 50 11/11/16 00:00 101 11/11/16 00:00 45 11/11/16 00:00 98.4 90 22 122/61 98 11/10/16 23:22 100 22 100 Mechanical Ventilator 45 11/10/16 23:14 45 11/10/16 23:07 107 26 100 Mechanical Ventilator 45 11/10/16 23:06 102 26 50 11/10/16 20:58 91 20 50 11/10/16 20:05 90 20 100 Mechanical Ventilator 45 11/10/16 20:05 45 11/10/16 20:00 45 11/10/16 20:00 91 11/10/16 20:00 98.6 89 25 118/58 97 11/10/16 19:58 92 22 100 Mechanical Ventilator 45 11/10/16 19:56 92 20 50 11/10/16 16:33 86 20 50 11/10/16 16:22 45 11/10/16 16:00 99.0 93 20 117/76 99 Mechanical Ventilator 45 11/10/16 15:06 84 20 100 Mechanical Ventilator 45 11/10/16 14:58 86 20 50 11/10/16 14:48 87 20 100 Mechanical Ventilator 45 11/10/16 14:48 45 11/10/16 12:34 84 20 50 11/10/16 12:19 45 11/10/16 12:00 99.6 87 20 105/55 97 Mechanical Ventilator 45 11/10/16 11:00 86 20 100 Mechanical Ventilator 45 11/10/16 10:50 87 22 50 11/10/16 10:50 45 11/10/16 10:50 86 22 100 Mechanical Ventilator 45 Intake and Output 11/10/16 11/11/16 19:00 07:00 Intake Total 990 ml 1494.9 ml Output Total 750 ml 2700 ml Balance 240 ml -1205.1 ml Intake Free Water 100 ml 150 ml IV Total 504.9 ml Tube Feeding 140 ml 840 ml Blood Product 750 ml Output Urine Total 750 ml 2700 ml # Voids 2 # Bowel Movements 2 Objective GENERAL: The patient is an ill appearing male, withdrawn, and nonverbal. HEENT: Otherwise fairly negative. NECK: Supple. Tracheostomy is midline. Carotids are 2+. LUNGS: reduced breath sounds. Moderate air entry. Decreased at both bases. scattered rhonchi CARDIAC: S1 and S2. Regular rate and rhythm. Slightly distant without murmurs or rubs. ABDOMEN: Soft, nontender, and nondistended. G-tube in place. no HSM EXTREMITIES: No cyanosis or clubbing. Some edema. NEUROLOGIC: Withdrawn. reviewed and edited Microbiology Date/Time Source Procedure Growth Status 11/08/16 19:55 Blood Blood Culture - Preliminary Staphylococcus Species Resulted 11/08/16 19:55 Blood Blood Culture - Preliminary Staphylococcus Species Resulted 11/10/16 13:50 Sputum Gram Stain - Final Resulted 11/10/16 13:50 Sputum Culture - Preliminary Gram Negative Mango Resulted 11/09/16 00:45 Back Gram Stain - Final Resulted 11/09/16 00:45 Wound Culture - Preliminary A.baumanii Complx - Mdr Gram Negative Mango Resulted Laboratory Tests 11/10/16 20:50: Vancomycin Level Trough 13.7H 11/11/16 04:00: White Blood Count 13.4H, Red Blood Count 3.04L, Hemoglobin 9.1L, Hematocrit 27.8L, Mean Corpuscular Volume 92, Mean Corpuscular Hemoglobin 29.8, Mean Corpuscular Hemoglobin Concent 32.6, Red Cell Distribution Width 17.8H, Platelet Count 559H, Mean Platelet Volume 7.2, Neutrophils (%) (Auto) 62.8, Lymphocytes (%) (Auto) 25.6, Monocytes (%) (Auto) 5.4, Eosinophils (%) (Auto) 5.3H, Basophils (%) (Auto) 0.9, Sodium Level 147H, Potassium Level 3.4, Chloride Level 104, Carbon Dioxide Level 29, Anion Gap 14, Blood Urea Nitrogen 14, Creatinine 0.9, Estimat Glomerular Filtration Rate , Glucose Level 151H, Calcium Level 8.2L, Total Bilirubin 0.5, Aspartate Amino Transf (AST/SGOT) 24, Alanine Aminotransferase (ALT/SGPT) 17, Alkaline Phosphatase 919H, Total Protein 7.6, Albumin 2.2L, Globulin 5.4, Albumin/Globulin Ratio 0.4L Current Medications Medications (Trade) Dose Ordered Sig/Omi Route PRN Reason Start Time Stop Time Status Last Admin Dose Admin Acetaminophen (Tylenol) 650 mg Q4HR PRN NG Headache/Temp > 101/mild pain 11/09/16 06:45 12/09/16 06:44 Al Hydroxide/Mg Hydroxide (Mylanta) 30 ml EVERY 4 HOURS PRN GT Nausea & Vomiting 11/09/16 09:00 12/09/16 08:59 Albuterol/ Ipratropium (DuoNeb 0.5-3(2.5)mg/3ml) 3 ml Q4HRT HHN 11/09/16 11:00 11/14/16 10:59 11/11/16 07:39 Amlodipine Besylate (Norvasc) 10 mg DAILY GT 11/09/16 09:00 12/09/16 08:59 11/11/16 08:30 Chlorhexidine Gluconate (Nery-Hex 2%) 1 applic Q24H TOPIC 11/10/16 21:00 12/10/16 20:59 11/10/16 21:11 Digoxin (Lanoxin) 0.125 mg DAILY GT 11/09/16 09:00 12/09/16 08:59 11/11/16 08:31 Fish Oil 1000 mg 1,000 mg DAILY ORAL 11/09/16 09:00 12/09/16 08:59 11/11/16 08:30 Heparin Sodium (Porcine) (Heparin 5000 units/ml) 5,000 units EVERY 12 HOURS SUBQ 11/09/16 09:00 12/09/16 08:59 11/11/16 08:33 Heparin Sodium/ Sodium Chloride (Heparin 2000 units/Ns 1000ml premix) 2,000 unit ONCE IV 11/10/16 07:45 11/11/16 23:59 Lansoprazole (Prevacid) 30 mg DAILY GT 11/09/16 09:00 12/09/16 08:59 11/11/16 08:30 Lidocaine HCl (Xylocaine 1% 30ml) 30 ml ONCE INJ 11/10/16 08:00 11/11/16 23:59 Lorazepam 1 mg 1 mg Q4H PRN IV For Anxiety 11/09/16 07:45 11/16/16 07:44 11/11/16 03:14 Nystatin (Nystop Powder) 1 applic THREE TIMES A DAY TOPIC 11/11/16 10:00 12/11/16 09:59 Piperacillin Sod/ Tazobactam Sod/ Dextrose (Zosyn/D5W) 110 ml @ 27.5 mls/hr Q8HR IVPB 11/09/16 12:00 11/16/16 11:59 11/11/16 05:20 Vancomycin HCl (Vanco rx to dose) 1 ea DAILY PRN MISC . 11/09/16 09:00 12/09/16 08:59 Vancomycin HCl/ Dextrose (Vancomycin/D5W) 275 ml @ 183.708 mls/hr Q12HR@1000,2200 IVPB 11/09/16 22:00 11/14/16 21:59 11/10/16 22:11 Vitamin A/Vitamin D (A & D Oint) 1 applic EVERY 12 HOURS TOPIC 11/11/16 09:00 12/11/16 08:59 Zolpidem Tartrate (Ambien) 5 mg HSPRN PRN GT Insomnia 11/09/16 06:45 12/09/16 06:44 KENYA JAQUEZ Nov 11, 2016 10:02
[2016-11-11] MEDS: Vancomycin 750mg/D5W 275ml IVPB SCH ×4 (10:14→22:05)
[2016-11-11 12:00] VITALS: BP 106/57
[2016-11-11] MEDS: Nystatin Powder 100,000 units/gm 15gm TOPIC SCH ×3 (12:20→17:41)
[2016-11-11] MEDS: Vitamin A&D Oint 2oz Tube TOPIC SCH ×2 (12:20→22:07)
[2016-11-11] MEDS: Acetaminophen 650mg/20.3ml NG PRN (12:20)
--- NOTE | 2016-11-11 13:42 | General Progress Note ---
Assessment/Plan Problem List: (1) Malfunction of gastrostomy tube ICD Codes: K94.23 - Gastrostomy malfunction SNOMED: 694538944 (2) KINGA (acute kidney injury) ICD Codes: N17.9 - Acute kidney failure, unspecified SNOMED: 16007155 (3) Acute respiratory failure ICD Codes: J96.00 - Acute respiratory failure, unspecified whether with hypoxia or hypercapnia SNOMED: 98054776 (4) Sepsis ICD Codes: A41.9 - Sepsis SNOMED: 81613037 (5) HTN (hypertension) ICD Codes: I10 - Essential (primary) hypertension SNOMED: 89335232 (6) Atrial fibrillation ICD Codes: I48.91 - Unspecified atrial fibrillation SNOMED: 93037930 Status: stable, progressing Assessment/Plan iv abx follow up cultures transfuse vent resp rx gt feeds monitor for bleeding. Subjective ROS Limited/Unobtainable: Yes Constitutional: Reports: malaise, weakness HEENT: Reports: no symptoms Cardiovascular: Reports: no symptoms Respiratory: Reports: cough, shortness of breath, sputum Gastrointestinal/Abdominal: Reports: difficulty swallowing Genitourinary: Reports: no symptoms Neurologic/Psychiatric: Reports: pre-existing deficit Endocrine: Reports: no symptoms Hematologic/Lymphatic: Reports: anemia Allergies: Coded Allergies: No Known Allergies (Unverified , 12/08/13) All Systems: reviewed and negative except above Subjective no events. decrease h/h noted. no bleeding noted. poorly responsive. on the vent. +fevers on iv abx Objective Last 24 Hour Vital Signs Date Time Temp Pulse Resp B/P Pulse Ox O2 Delivery O2 Flow Rate FiO2 11/11/16 12:00 100.1 99 21 106/57 100 Nasal Cannula 2.0 11/11/16 11:09 98 22 100 Mechanical Ventilator 45 11/11/16 11:08 95 20 97 Mechanical Ventilator 45 11/11/16 11:05 45 11/11/16 11:05 95 20 45 11/11/16 09:05 96 20 45 11/11/16 08:31 97 11/11/16 08:30 97 127/77 11/11/16 08:00 89 11/11/16 08:00 99.6 97 20 127/77 96 Mechanical Ventilator 45 11/11/16 08:00 45 11/11/16 07:10 92 21 100 Mechanical Ventilator 45 11/11/16 07:05 98 21 45 11/11/16 07:05 45 11/11/16 07:05 98 20 96 Mechanical Ventilator 45 11/11/16 04:54 90 23 50 11/11/16 04:00 45 11/11/16 04:00 98.8 97 31 123/65 96 11/11/16 04:00 93 11/11/16 02:55 134 11/11/16 02:55 135 11/11/16 02:46 101 36 50 11/11/16 00:55 96 21 50 11/11/16 00:00 101 11/11/16 00:00 45 11/11/16 00:00 98.4 90 22 122/61 98 11/10/16 23:22 100 22 100 Mechanical Ventilator 45 11/10/16 23:14 45 11/10/16 23:07 107 26 100 Mechanical Ventilator 45 11/10/16 23:06 102 26 50 11/10/16 20:58 91 20 50 11/10/16 20:05 90 20 100 Mechanical Ventilator 45 11/10/16 20:05 45 11/10/16 20:00 45 11/10/16 20:00 91 11/10/16 20:00 98.6 89 25 118/58 97 11/10/16 19:58 92 22 100 Mechanical Ventilator 45 11/10/16 19:56 92 20 50 11/10/16 16:33 86 20 50 11/10/16 16:22 45 11/10/16 16:00 99.0 93 20 117/76 99 Mechanical Ventilator 45 11/10/16 15:06 84 20 100 Mechanical Ventilator 45 11/10/16 14:58 86 20 50 11/10/16 14:48 87 20 100 Mechanical Ventilator 45 11/10/16 14:48 45 Intake and Output 11/10/16 11/11/16 19:00 07:00 Intake Total 990 ml 1564.9 ml Output Total 750 ml 2700 ml Balance 240 ml -1135.1 ml Intake Free Water 100 ml 150 ml IV Total 504.9 ml Tube Feeding 140 ml 910 ml Blood Product 750 ml Output Urine Total 750 ml 2700 ml # Voids 2 # Bowel Movements 2 Laboratory Tests 11/10/16 20:50: Vancomycin Level Trough 13.7H 11/11/16 04:00: White Blood Count 13.4H, Red Blood Count 3.04L, Hemoglobin 9.1L, Hematocrit 27.8L, Mean Corpuscular Volume 92, Mean Corpuscular Hemoglobin 29.8, Mean Corpuscular Hemoglobin Concent 32.6, Red Cell Distribution Width 17.8H, Platelet Count 559H, Mean Platelet Volume 7.2, Neutrophils (%) (Auto) 62.8, Lymphocytes (%) (Auto) 25.6, Monocytes (%) (Auto) 5.4, Eosinophils (%) (Auto) 5.3H, Basophils (%) (Auto) 0.9, Sodium Level 147H, Potassium Level 3.4, Chloride Level 104, Carbon Dioxide Level 29, Anion Gap 14, Blood Urea Nitrogen 14, Creatinine 0.9, Estimat Glomerular Filtration Rate , Glucose Level 151H, Calcium Level 8.2L, Total Bilirubin 0.5, Aspartate Amino Transf (AST/SGOT) 24, Alanine Aminotransferase (ALT/SGPT) 17, Alkaline Phosphatase 919H, Total Protein 7.6, Albumin 2.2L, Globulin 5.4, Albumin/Globulin Ratio 0.4L Height (Feet): 5 Height (Inches): 7.00 Weight (Pounds): 177 Objective General Appearance: WD/WN, alert Neck: supple Cardiovascular: regular rhythm Respiratory/Chest: lungs clear, normal breath sounds, no respiratory distress Abdomen: normal bowel sounds, non tender, soft, no organomegaly Neurologic: disoriented, unresponsive, aphasia YAN HARRIS Nov 11, 2016 13:42
[2016-11-11] MEDS ORDERED: Sterile Water Irrig 1000ml IRRIG ONE (14:37)
[2016-11-11] MEDS ORDERED: NS 275ml ONE (14:37)
[2016-11-11] MEDS ORDERED: Tubing IV Secondary IV ONE (14:37)
[2016-11-11 16:00] VITALS: BP 118/66
[2016-11-11 20:00] VITALS: BP 134/62
[2016-11-11] MEDS: Dyna-Hex 2% Top Sol 8oz TOPIC SCH ×2 (22:04→22:06)
[2016-11-11] MEDS ORDERED: KCl 10% 20 mEq/15ml liquid NG ONE (23:30)
[2016-11-12] VITALS: BP 134/77
[2016-11-12] MEDS: Acetaminophen 650mg/20.3ml NG PRN ×3 (00:10→20:34)
--- NOTE | 2016-11-12 00:45 | Progress Note ---
DATE: 11/11/2016 CARDIOLOGY PROGRESS NOTE SUBJECTIVE: The patient has low-grade fevers. of bleeding. No drop in hemoglobin noted. Monitored rhythm sinus and sinus tachycardia. OBJECTIVE: VITAL SIGNS: T max 100.1, blood pressure 106/57, pulse 99, and respiratory rate 21. LUNGS: Bilateral breath sounds. Few rhonchi. HEART: Irregular rhythm. Rapid rate. Normal S1 and S2. There is a fourth heart sound. ABDOMEN: Soft. EXTREMITIES: No edema. LABORATORY DATA: White count 13.4 and hemoglobin 9.1 post transfusion. Potassium 3.4, sodium 147, bicarbonate 29, BUN 14, and creatinine 0.9. Albumin is 2.2. Pro-natriuretic peptide is 7089 yesterday. IMPRESSION: 1. Anemia status post transfusion. 2. Dehydration. 3. Hypernatremia. 4. Hypokalemia. 5. Chronic diastolic congestive heart failure. 6. Severe protein-calorie malnutrition. 7. Health-care acquired pneumonia. 8. Ventilator-dependent respiratory failure. 9. Atrial fibrillation with rapid ventricular response. PLAN: 1. Monitor hemoglobin. 2. Hold diuresis. 3. Free water replacement. 4. Titrate antihypertensive. 5. Continue digitalis; consider add'l agent for rate control. Les Orantes M.D. DR: JENNY JOB#: [id number] CC: ELIZABETH
[2016-11-12] MEDS: DuoNeb 0.5-3(2.5)mg/3ml neb HHN SCH ×7 (03:27→22:48)
[2016-11-12 04:00] VITALS: BP 120/58
[2016-11-12] MEDS: Piperacillin/Tazobactam 3.375 GM in D5W 110 ML IVPB SCH ×3 (05:42→22:17)
[2016-11-12 08:00] VITALS: BP 94/48
--- NOTE | 2016-11-12 08:25 | Infectious Diseases Prog Note ---
Assessment/Plan Assessment/Plan A; Bacteremia Pneumonia with MDR Acinetobacter Multiple pressure ulcers VDRF Anemia Dementia P; Continue Zosyn & Vancomycin Add Colistin inhaler will f/u cultures Subjective ROS Limited/Unobtainable: Yes Allergies: Coded Allergies: No Known Allergies (Unverified , 12/08/13) Objective Vital Signs Last 24 Hour Vital Signs Date Time Temp Pulse Resp B/P Pulse Ox O2 Delivery O2 Flow Rate FiO2 11/12/16 07:36 82 20 95 Mechanical Ventilator 45 11/12/16 07:25 85 20 45 11/12/16 07:25 45 11/12/16 07:25 85 20 96 Mechanical Ventilator 45 11/12/16 05:10 86 20 45 11/12/16 04:00 98.6 90 20 120/58 96 Mechanical Ventilator 2.0 45 11/12/16 04:00 87 11/12/16 03:59 45 11/12/16 03:58 45 11/12/16 03:57 90 20 96 Mechanical Ventilator 45 11/12/16 03:52 95 20 96 Mechanical Ventilator 45 11/12/16 03:52 45 11/12/16 03:22 88 20 45 11/12/16 01:05 82 20 45 11/12/16 00:40 98.7 11/12/16 00:30 93 20 98 Mechanical Ventilator 45 11/12/16 00:20 92 22 97 Mechanical Ventilator 45 11/12/16 00:20 45 11/12/16 00:00 45 11/12/16 00:00 100.0 101 20 134/77 98 Mechanical Ventilator 2.0 45 11/12/16 00:00 45 11/11/16 23:51 101 20 45 11/11/16 22:52 90 21 98 Mechanical Ventilator 45 11/11/16 22:41 90 22 97 Mechanical Ventilator 45 11/11/16 22:41 45 11/11/16 21:13 96 20 45 11/11/16 20:00 98.1 82 20 134/62 96 Mechanical Ventilator 2.0 45 11/11/16 20:00 45 11/11/16 20:00 104 11/11/16 19:01 82 21 45 11/11/16 17:05 77 20 45 11/11/16 16:00 99.1 92 21 118/66 96 Mechanical Ventilator 45 11/11/16 16:00 45 11/11/16 15:41 78 11/11/16 15:10 78 20 98 Mechanical Ventilator 45 11/11/16 15:05 45 11/11/16 15:05 79 20 97 Mechanical Ventilator 45 11/11/16 15:05 78 20 45 11/11/16 13:05 85 20 45 11/11/16 12:00 100.1 99 21 106/57 100 Nasal Cannula 2.0 11/11/16 12:00 45 11/11/16 11:55 89 11/11/16 11:09 98 22 100 Mechanical Ventilator 45 11/11/16 11:08 95 20 97 Mechanical Ventilator 45 11/11/16 11:05 45 11/11/16 11:05 95 20 45 11/11/16 09:05 96 20 45 11/11/16 08:31 97 11/11/16 08:30 97 127/77 Height (Feet): 5 Height (Inches): 7.00 Weight (Pounds): 177 HEENT: status post trach Respiratory/Chest: lungs clear, other - on ventilator Cardiovascular: normal rate Abdomen: soft, non tender, other - GT feeding Extremities: other Skin: ulcers Neurologic/Psychiatric: aphasia Microbiology Date/Time Source Procedure Growth Status 11/10/16 13:50 Sputum Gram Stain - Final Resulted 11/10/16 13:50 Sputum Culture - Preliminary Gram Negative Mango Resulted Current Medications Medications (Trade) Dose Ordered Sig/Omi Route PRN Reason Start Time Stop Time Status Last Admin Dose Admin Acetaminophen (Tylenol) 650 mg Q4HR PRN NG Headache/Temp > 101/mild pain 11/09/16 06:45 12/09/16 06:44 11/12/16 00:10 Al Hydroxide/Mg Hydroxide (Mylanta) 30 ml EVERY 4 HOURS PRN GT Nausea & Vomiting 11/09/16 09:00 12/09/16 08:59 Albuterol/ Ipratropium (DuoNeb 0.5-3(2.5)mg/3ml) 3 ml Q4HRT HHN 11/09/16 11:00 11/14/16 10:59 11/12/16 07:25 Amlodipine Besylate (Norvasc) 10 mg DAILY GT 11/09/16 09:00 12/09/16 08:59 11/11/16 08:30 Chlorhexidine Gluconate (Nery-Hex 2%) 1 applic Q24H TOPIC 11/10/16 21:00 12/10/16 20:59 11/11/16 22:06 Digoxin (Lanoxin) 0.125 mg DAILY GT 11/09/16 09:00 12/09/16 08:59 11/11/16 08:31 Fish Oil 1000 mg 1,000 mg DAILY ORAL 11/09/16 09:00 12/09/16 08:59 11/11/16 08:30 Heparin Sodium (Porcine) (Heparin 5000 units/ml) 5,000 units EVERY 12 HOURS SUBQ 11/09/16 09:00 12/09/16 08:59 11/11/16 22:02 Lansoprazole (Prevacid) 30 mg DAILY GT 11/09/16 09:00 12/09/16 08:59 11/11/16 08:30 Lorazepam 1 mg 1 mg Q4H PRN IV For Anxiety 11/09/16 07:45 11/16/16 07:44 11/11/16 03:14 Nystatin (Nystop Powder) 1 applic THREE TIMES A DAY TOPIC 11/11/16 10:00 12/11/16 09:59 11/11/16 17:41 Piperacillin Sod/ Tazobactam Sod/ Dextrose (Zosyn/D5W) 110 ml @ 27.5 mls/hr Q8HR IVPB 11/09/16 12:00 11/16/16 11:59 11/12/16 05:42 Vancomycin HCl (Vanco rx to dose) 1 ea DAILY PRN MISC . 11/09/16 09:00 12/09/16 08:59 Vancomycin HCl/ Dextrose (Vancomycin/D5W) 275 ml @ 183.708 mls/hr Q12HR@1000,2200 IVPB 11/09/16 22:00 11/14/16 21:59 11/11/16 22:05 Vitamin A/Vitamin D (A & D Oint) 1 applic EVERY 12 HOURS TOPIC 11/11/16 09:00 12/11/16 08:59 11/11/16 22:07 Zolpidem Tartrate (Ambien) 5 mg HSPRN PRN GT Insomnia 11/09/16 06:45 12/09/16 06:44 LUZ MARIA LAWLER Nov 12, 2016 08:25
[2016-11-12] MEDS: Digoxin Elixir 0.125mg GT SCH (08:43)
[2016-11-12] MEDS: Heparin 5000 units/ml inj SUBQ SCH ×2 (08:46→20:03)
[2016-11-12] MEDS: Vitamin A&D Oint 2oz Tube TOPIC SCH ×2 (08:49→20:02)
[2016-11-12] MEDS: Nystatin Powder 100,000 units/gm 15gm TOPIC SCH ×3 (08:49→17:20)
--- NOTE | 2016-11-12 08:52 | General Progress Note ---
Assessment/Plan Problem List: (1) Malfunction of gastrostomy tube ICD Codes: K94.23 - Gastrostomy malfunction SNOMED: 262018424 (2) KINGA (acute kidney injury) ICD Codes: N17.9 - Acute kidney failure, unspecified SNOMED: 23687678 (3) Acute respiratory failure ICD Codes: J96.00 - Acute respiratory failure, unspecified whether with hypoxia or hypercapnia SNOMED: 31675521 (4) Sepsis ICD Codes: A41.9 - Sepsis SNOMED: 55295766 (5) HTN (hypertension) ICD Codes: I10 - Essential (primary) hypertension SNOMED: 74042251 (6) Atrial fibrillation ICD Codes: I48.91 - Unspecified atrial fibrillation SNOMED: 64105251 Status: stable, progressing Assessment/Plan iv abx/inhaled abx follow up cultures transfuse as needed monitor labs vent resp rx gt feeds monitor for bleeding. Subjective ROS Limited/Unobtainable: Yes Constitutional: Reports: malaise, weakness HEENT: Reports: no symptoms Cardiovascular: Reports: no symptoms Respiratory: Reports: sputum Gastrointestinal/Abdominal: Reports: difficulty swallowing Genitourinary: Reports: no symptoms Neurologic/Psychiatric: Reports: pre-existing deficit Endocrine: Reports: no symptoms Hematologic/Lymphatic: Reports: anemia Allergies: Coded Allergies: No Known Allergies (Unverified , 12/08/13) All Systems: reviewed and negative except above Subjective no events. remains on the vent. poorly responsive at baseline. tolerating feeds. no fevers. on multiple iv abx as well as inhaled abx. Objective Last 24 Hour Vital Signs Date Time Temp Pulse Resp B/P Pulse Ox O2 Delivery O2 Flow Rate FiO2 11/12/16 08:48 78 94/48 11/12/16 08:43 78 11/12/16 07:36 82 20 95 Mechanical Ventilator 45 11/12/16 07:25 85 20 45 11/12/16 07:25 45 11/12/16 07:25 85 20 96 Mechanical Ventilator 45 11/12/16 05:10 86 20 45 11/12/16 04:00 98.6 90 20 120/58 96 Mechanical Ventilator 2.0 45 11/12/16 04:00 87 11/12/16 03:59 45 11/12/16 03:58 45 11/12/16 03:57 90 20 96 Mechanical Ventilator 45 11/12/16 03:52 95 20 96 Mechanical Ventilator 45 11/12/16 03:52 45 11/12/16 03:22 88 20 45 11/12/16 01:05 82 20 45 11/12/16 00:40 98.7 11/12/16 00:30 93 20 98 Mechanical Ventilator 45 11/12/16 00:20 92 22 97 Mechanical Ventilator 45 11/12/16 00:20 45 11/12/16 00:00 45 11/12/16 00:00 100.0 101 20 134/77 98 Mechanical Ventilator 2.0 45 11/12/16 00:00 45 11/11/16 23:51 101 20 45 11/11/16 22:52 90 21 98 Mechanical Ventilator 45 11/11/16 22:41 90 22 97 Mechanical Ventilator 45 11/11/16 22:41 45 11/11/16 21:13 96 20 45 11/11/16 20:00 98.1 82 20 134/62 96 Mechanical Ventilator 2.0 45 11/11/16 20:00 45 11/11/16 20:00 104 11/11/16 19:01 82 21 45 11/11/16 17:05 77 20 45 11/11/16 16:00 99.1 92 21 118/66 96 Mechanical Ventilator 45 11/11/16 16:00 45 11/11/16 15:41 78 11/11/16 15:10 78 20 98 Mechanical Ventilator 45 11/11/16 15:05 45 11/11/16 15:05 79 20 97 Mechanical Ventilator 45 11/11/16 15:05 78 20 45 11/11/16 13:05 85 20 45 11/11/16 12:00 100.1 99 21 106/57 100 Nasal Cannula 2.0 11/11/16 12:00 45 11/11/16 11:55 89 11/11/16 11:09 98 22 100 Mechanical Ventilator 45 11/11/16 11:08 95 20 97 Mechanical Ventilator 45 11/11/16 11:05 45 11/11/16 11:05 95 20 45 11/11/16 09:05 96 20 45 Intake and Output 11/11/16 11/12/16 19:00 07:00 Intake Total 1705.000 ml 1382.5 ml Output Total 201 ml 450 ml Balance 1504.000 ml 932.5 ml Intake Free Water 200 ml 200 ml IV Total 385.000 ml 412.5 ml Tube Feeding 1120 ml 770 ml Output Urine Total 200 ml 450 ml Stool Total 1 ml # Voids 2 # Bowel Movements 3 Height (Feet): 5 Height (Inches): 7.00 Weight (Pounds): 177 Objective General Appearance: WD/WN, alert Neck: supple Cardiovascular: regular rhythm Respiratory/Chest: lungs clear, normal breath sounds, no respiratory distress Abdomen: normal bowel sounds, non tender, soft, no organomegaly Neurologic: disoriented, unresponsive, aphasia YAN HARRIS Nov 12, 2016 08:52
[2016-11-12] MEDS ORDERED: NS 275ml ONE (09:59)
[2016-11-12] MEDS: Vancomycin 750mg/D5W 275ml IVPB SCH ×4 (11:01→22:17)
[2016-11-12] MEDS: Colistin for inhalation INH SCH ×2 (11:09→20:20)
[2016-11-12 12:00] VITALS: BP 105/54
--- NOTE | 2016-11-12 14:34 | Pulmonology Progress Note ---
Assessment/Plan Assessment/Plan IMPRESSION: 1. Respiratory failure, chronic. 2. Bilateral pleural effusion, probable associated pneumonia, evidence of leukocytosis, possible sepsis. 3. Lactic acidosis. 4. Hyperglycemia, diabetes. 5. Anemia. 6. Thrombocytosis. 7. sepsis/ bacteremia PLAN care noted ventilator support IV antibiotics- adjust per ID transfused care noted and discussed with RT nutrition ID follow up monitor electrolytes stabilize no wean guarded prognosis impression, plan, and exam edited and reviewed in detail care discussed with RN Subjective ROS Limited/Unobtainable: Yes Allergies: Coded Allergies: No Known Allergies (Unverified , 12/08/13) Subjective multiple culture positive remains ill WBC elevated care noted in detail Objective Last 24 Hour Vital Signs Date Time Temp Pulse Resp B/P Pulse Ox O2 Delivery O2 Flow Rate FiO2 11/12/16 12:54 80 20 45 11/12/16 12:00 99.8 88 20 105/54 99 Mechanical Ventilator 45 11/12/16 12:00 45 11/12/16 11:55 76 11/12/16 11:55 86 11/12/16 11:15 85 20 97 Mechanical Ventilator 45 11/12/16 11:12 45 11/12/16 11:11 91 20 95 Mechanical Ventilator 45 11/12/16 11:09 94 20 45 11/12/16 08:53 84 20 45 11/12/16 08:48 78 94/48 11/12/16 08:43 78 11/12/16 08:00 99.5 78 20 94/48 100 Mechanical Ventilator 45 11/12/16 08:00 45 11/12/16 07:36 82 20 95 Mechanical Ventilator 45 11/12/16 07:25 85 20 45 11/12/16 07:25 45 11/12/16 07:25 85 20 96 Mechanical Ventilator 45 11/12/16 05:10 86 20 45 11/12/16 04:00 98.6 90 20 120/58 96 Mechanical Ventilator 2.0 45 11/12/16 04:00 87 11/12/16 03:59 45 11/12/16 03:58 45 11/12/16 03:57 90 20 96 Mechanical Ventilator 45 11/12/16 03:52 95 20 96 Mechanical Ventilator 45 11/12/16 03:52 45 11/12/16 03:22 88 20 45 11/12/16 01:05 82 20 45 11/12/16 00:40 98.7 11/12/16 00:30 93 20 98 Mechanical Ventilator 45 11/12/16 00:20 92 22 97 Mechanical Ventilator 45 11/12/16 00:20 45 11/12/16 00:00 45 11/12/16 00:00 100.0 101 20 134/77 98 Mechanical Ventilator 2.0 45 11/12/16 00:00 45 11/11/16 23:51 101 20 45 11/11/16 22:52 90 21 98 Mechanical Ventilator 45 11/11/16 22:41 90 22 97 Mechanical Ventilator 45 11/11/16 22:41 45 11/11/16 21:13 96 20 45 11/11/16 20:00 98.1 82 20 134/62 96 Mechanical Ventilator 2.0 45 11/11/16 20:00 45 11/11/16 20:00 104 11/11/16 19:01 82 21 45 11/11/16 17:05 77 20 45 11/11/16 16:00 99.1 92 21 118/66 96 Mechanical Ventilator 45 11/11/16 16:00 45 11/11/16 15:41 78 11/11/16 15:10 78 20 98 Mechanical Ventilator 45 11/11/16 15:05 45 11/11/16 15:05 79 20 97 Mechanical Ventilator 45 11/11/16 15:05 78 20 45 Intake and Output 11/11/16 11/12/16 19:00 07:00 Intake Total 1705.000 ml 1382.5 ml Output Total 201 ml 450 ml Balance 1504.000 ml 932.5 ml Intake Free Water 200 ml 200 ml IV Total 385.000 ml 412.5 ml Tube Feeding 1120 ml 770 ml Output Urine Total 200 ml 450 ml Stool Total 1 ml # Voids 2 # Bowel Movements 3 Objective GENERAL: The patient is an ill appearing male, withdrawn, and nonverbal. HEENT: Otherwise fairly negative. NECK: Supple. Tracheostomy is midline. Carotids are 2+. LUNGS: reduced breath sounds. Moderate air entry. Decreased at both bases. scattered rhonchi CARDIAC: S1 and S2. Regular rate and rhythm. Slightly distant without murmurs or rubs. ABDOMEN: Soft, nontender, and nondistended. G-tube in place. no HSM EXTREMITIES: No cyanosis or clubbing. Some edema. NEUROLOGIC: Withdrawn. reviewed and edited Microbiology Date/Time Source Procedure Growth Status 11/10/16 13:50 Sputum Gram Stain - Final Resulted 11/10/16 13:50 Sputum Culture - Preliminary Gram Negative Mango Resulted Laboratory Tests 11/12/16 13:00: Sodium Level [Pending], Potassium Level [Pending], Chloride Level [Pending], Carbon Dioxide Level [Pending], Blood Urea Nitrogen [Pending], Creatinine [ Pending], Estimat Glomerular Filtration Rate [Pending], Glucose Level [Pending] , Calcium Level [Pending], Magnesium Level [Pending], Pro-B-Type Natriuretic Peptide [Pending], Digoxin Level [Pending] Current Medications Medications (Trade) Dose Ordered Sig/Omi Route PRN Reason Start Time Stop Time Status Last Admin Dose Admin Acetaminophen (Tylenol) 650 mg Q4HR PRN NG Headache/Temp > 101/mild pain 11/09/16 06:45 12/09/16 06:44 11/12/16 14:30 Al Hydroxide/Mg Hydroxide (Mylanta) 30 ml EVERY 4 HOURS PRN GT Nausea & Vomiting 11/09/16 09:00 12/09/16 08:59 Albuterol/ Ipratropium (DuoNeb 0.5-3(2.5)mg/3ml) 3 ml Q4HRT HHN 11/09/16 11:00 11/14/16 10:59 11/12/16 11:08 Amlodipine Besylate (Norvasc) 10 mg DAILY GT 11/09/16 09:00 12/09/16 08:59 11/11/16 08:30 Chlorhexidine Gluconate (Nery-Hex 2%) 1 applic Q24H TOPIC 11/10/16 21:00 12/10/16 20:59 11/11/16 22:06 Colistimethate Sodium (Colistin *inhalation use only*) 75 mg Q12HR@ INH 11/12/16 10:00 11/19/16 09:59 11/12/16 11:09 Digoxin (Lanoxin) 0.125 mg DAILY GT 11/09/16 09:00 12/09/16 08:59 11/12/16 08:43 Fish Oil 1000 mg 1,000 mg DAILY ORAL 11/09/16 09:00 12/09/16 08:59 11/12/16 08:43 Heparin Sodium (Porcine) (Heparin 5000 units/ml) 5,000 units EVERY 12 HOURS SUBQ 11/09/16 09:00 12/09/16 08:59 11/12/16 08:46 Lansoprazole (Prevacid) 30 mg DAILY GT 11/09/16 09:00 12/09/16 08:59 11/12/16 08:43 Lorazepam 1 mg 1 mg Q4H PRN IV For Anxiety 11/09/16 07:45 11/16/16 07:44 11/11/16 03:14 Nystatin (Nystop Powder) 1 applic THREE TIMES A DAY TOPIC 11/11/16 10:00 12/11/16 09:59 11/12/16 14:19 Piperacillin Sod/ Tazobactam Sod/ Dextrose (Zosyn/D5W) 110 ml @ 27.5 mls/hr Q8HR IVPB 11/09/16 12:00 11/16/16 11:59 11/12/16 14:19 Vancomycin HCl (Vanco rx to dose) 1 ea DAILY PRN MISC . 11/09/16 09:00 12/09/16 08:59 Vancomycin HCl/ Dextrose (Vancomycin/D5W) 275 ml @ 183.708 mls/hr Q12HR@1000,2200 IVPB 11/09/16 22:00 11/14/16 21:59 11/12/16 11:01 Vitamin A/Vitamin D (A & D Oint) 1 applic EVERY 12 HOURS TOPIC 11/11/16 09:00 12/11/16 08:59 11/12/16 08:49 Zolpidem Tartrate (Ambien) 5 mg HSPRN PRN GT Insomnia 11/09/16 06:45 12/09/16 06:44 KENYA JAQUEZ Nov 12, 2016 14:34
[2016-11-12 14:54] LABS: ANION GAP 14 (5-15); CARBON DIOXIDE 27 mEQ/L (20-30); CHLORIDE 100 mEQ/L (98-107); CREATININE 0.8 mg/dL (0.7-1.2); HEMOLYSIS 1; MAGNESIUM 1.6 mg/dL (1.7-2.5); POTASSIUM 3.2 mEQ/L (3.4-4.9); SODIUM 141 mEQ/L (135-145)
[2016-11-12 15:16] LABS: DIGOXIN 1.1 ng/mL (0.5-2.0)
[2016-11-12 16:00] VITALS: BP 115/64
[2016-11-12 20:00] VITALS: BP 121/63
[2016-11-12] MEDS ORDERED: Acetaminophen 650mg/20.3ml ONE (20:33)
--- NOTE | 2016-11-12 22:30 | Progress Note ---
DATE: 11/12/2016 CARDIOLOGY PROGRESS NOTE SUBJECTIVE: The patient is poorly responsive. Tolerating feeding on ventilator support. Monitored rhythm, atrial fibrillation. Her ventricular rate has improved. OBJECTIVE: VITAL SIGNS: Blood pressure 194/48, pulse 78, respiratory rate 20 and afebrile. NECK: Thin trach secretions. LUNGS: Bilateral breath sounds. HEART: Irregularly irregular rhythm. Normal S1 and S2. ABDOMEN: Soft. EXTREMITIES: Trace edema. LABORATORY AND DIAGNOSTIC DATA: Sodium 141, potassium 3.2, bicarbonate 27, BUN 11 and creatinine 0.8. Pro-natriuretic peptide decreased to 5800. Magnesium 1.6. Sputum is gram-negative nathaniel. IMPRESSION: 1. Atrial fibrillation, now rate controlled. 2. Ventilator-dependent respiratory failure. 3. Healthcare-acquired pneumonia. 4. Dehydration, resolved. 5. Hypernatremia, corrected. 6. Hypomagnesemia. 7. Hypokalemia. 8. Severe protein-calorie malnutrition. PLAN: 1. Antimicrobials. 2. Ventilator support. 3. IV magnesium. 4. Replace potassium per G-tube. 5. Continue nutrition by G-tube with protein supplement. 6. Maintain digitalis for rate control. Les Orantes M.D. DR: MAYLIN JOB#: [id number] CC:
[2016-11-13] VITALS (7 sets, daily range): BP systolic 116–150; BP diastolic 54–86
[2016-11-13] MEDS: DuoNeb 0.5-3(2.5)mg/3ml neb HHN SCH ×6 (03:21→23:12)
[2016-11-13] MEDS: Piperacillin/Tazobactam 3.375 GM in D5W 110 ML IVPB SCH ×3 (05:10→22:04)
[2016-11-13 06:24] LABS: BASOPHILS % (AUTO) 0.7 % (0.0-2.0); EOSINOPHILS % (AUTO) 7.1 % (0.0-3.0); LYMPHOCYTES % (AUTO) 26.2 % (20.0-45.0); MEAN CORPUSCULAR HEMOGLOBIN 29.8 PG (27.0-31.0); MEAN CORPUSCULAR HGB CONC 32.5 G/DL (32.0-36.0); MEAN CORPUSCULAR VOLUME 92 FL (80-99); MONOCYTES % (AUTO) 7.7 % (1.0-10.0); NEUTROPHILS % (AUTO) 58.3 % (45.0-75.0); PLATELET COUNT 589 K/UL (150-450); RED BLOOD COUNT 3.13 M/UL (4.70-6.10); RED CELL DISTRIBUTION WIDTH 18.3 % (11.6-14.8); WHITE BLOOD COUNT 13.9 K/UL (4.8-10.8)
[2016-11-13 06:28] LABS: ALANINE AMINOTRANSFERASE 20 U/L (3-41); ALBUMIN/GLOBULIN RATIO 0.3 (1.0-2.7); ANION GAP 15 (5-15); ASPARTATE AMINO TRANSFERASE 35 U/L (5-40); CALCIUM 8.3 mg/dL (8.6-10.2); CARBON DIOXIDE 28 mEQ/L (20-30); CHLORIDE 101 mEQ/L (98-107); CREATININE 0.8 mg/dL (0.7-1.2); HEMOLYSIS 0; POTASSIUM 3.3 mEQ/L (3.4-4.9); SODIUM 144 mEQ/L (135-145); TOTAL PROTEIN 7.7 g/dL (6.6-8.7)
[2016-11-13] MEDS: Heparin 5000 units/ml inj SUBQ SCH ×2 (08:49→20:45)
[2016-11-13] MEDS: Digoxin Elixir 0.125mg GT SCH (08:51)
[2016-11-13] MEDS: Nystatin Powder 100,000 units/gm 15gm TOPIC SCH ×3 (08:51→17:05)
[2016-11-13] MEDS: Vitamin A&D Oint 2oz Tube TOPIC SCH ×2 (08:51→20:41)
--- NOTE | 2016-11-13 08:51 | Pulmonology Progress Note ---
Assessment/Plan Assessment/Plan IMPRESSION: 1. Respiratory failure, chronic. 2. Bilateral pleural effusion, probable associated pneumonia, evidence of leukocytosis, possible sepsis. 3. Lactic acidosis. 4. Hyperglycemia, diabetes. 5. Anemia. 6. Thrombocytosis. 7. sepsis/ bacteremia PLAN care noted ventilator support IV antibiotics- noted monitor HH care noted and discussed with RT nutrition ID follow up for clearance monitor electrolytes stabilize no wean at present guarded prognosis impression, plan, and exam edited and reviewed in detail care discussed with RN Subjective ROS Limited/Unobtainable: Yes Allergies: Coded Allergies: No Known Allergies (Unverified , 12/08/13) Subjective multiple culture positive and noted remains ill WBC elevation better care noted in detail Objective Last 24 Hour Vital Signs Date Time Temp Pulse Resp B/P Pulse Ox O2 Delivery O2 Flow Rate FiO2 11/13/16 07:12 79 24 98 Mechanical Ventilator 45 11/13/16 07:04 87 22 95 Mechanical Ventilator 45 11/13/16 07:04 45 11/13/16 07:00 75 22 45 11/13/16 05:11 81 20 45 11/13/16 04:00 84 11/13/16 04:00 98.2 95 17 124/74 94 Mechanical Ventilator 11/13/16 04:00 45 11/13/16 03:25 85 20 97 Mechanical Ventilator 45 11/13/16 03:22 45 11/13/16 03:21 82 20 96 Mechanical Ventilator 45 11/13/16 03:21 82 20 45 11/13/16 01:10 87 20 45 11/13/16 00:00 86 11/13/16 00:00 45 11/13/16 00:00 97.9 86 18 142/86 99 Mechanical Ventilator 11/12/16 23:16 89 20 97 Mechanical Ventilator 45 11/12/16 23:07 45 11/12/16 23:06 87 20 96 Mechanical Ventilator 45 11/12/16 23:06 87 20 45 11/12/16 21:04 97.8 11/12/16 20:39 83 20 45 11/12/16 20:39 90 20 98 Mechanical Ventilator 2.0 45 11/12/16 20:20 91 20 97 Mechanical Ventilator 45 11/12/16 20:00 45 11/12/16 20:00 86 11/12/16 20:00 99.6 90 19 121/63 95 Mechanical Ventilator 11/12/16 19:57 81 20 95 Mechanical Ventilator 45 11/12/16 19:39 45 11/12/16 19:38 80 20 97 Mechanical Ventilator 45 11/12/16 19:14 80 20 45 11/12/16 17:00 94 20 45 11/12/16 16:00 45 11/12/16 16:00 99.1 94 20 115/64 96 Mechanical Ventilator 45 11/12/16 15:51 93 11/12/16 15:06 91 23 97 Mechanical Ventilator 45 11/12/16 14:53 100 24 95 Mechanical Ventilator 45 11/12/16 14:53 45 11/12/16 14:52 105 24 45 11/12/16 12:54 80 20 45 11/12/16 12:00 99.8 88 20 105/54 99 Mechanical Ventilator 45 11/12/16 12:00 45 11/12/16 11:55 76 11/12/16 11:55 86 11/12/16 11:15 85 20 97 Mechanical Ventilator 45 11/12/16 11:12 45 11/12/16 11:11 91 20 95 Mechanical Ventilator 45 11/12/16 11:09 94 20 45 11/12/16 08:53 84 20 45 Intake and Output 11/12/16 11/13/16 19:00 07:00 Intake Total 1457.500 ml 1283.7 ml Balance 1457.500 ml 1283.7 ml Intake Free Water 150 ml 150 ml IV Total 467.500 ml 293.7 ml Tube Feeding 840 ml 840 ml # Voids 2 # Bowel Movements 2 3 Objective GENERAL: The patient is an ill appearing male, withdrawn, and nonverbal. HEENT: Otherwise fairly negative. NECK: Supple. Tracheostomy is midline. Carotids are 2+. LUNGS: reduced breath sounds. Moderate air entry. Decreased at both bases. scattered rhonchi CARDIAC: S1 and S2. Regular rate and rhythm. Slightly distant without murmurs or rubs. ABDOMEN: Soft, nontender, and nondistended. G-tube in place. no HSM EXTREMITIES: No cyanosis or clubbing. Some edema. NEUROLOGIC: Withdrawn. reviewed and edited Microbiology Date/Time Source Procedure Growth Status 11/10/16 13:50 Sputum Gram Stain - Final Resulted 11/10/16 13:50 Sputum Culture - Preliminary Gram Negative Bacillus 1 Gram Negative Bacillus 2 Resulted Laboratory Tests 11/12/16 13:00: Sodium Level 141, Potassium Level 3.2L, Chloride Level 100, Carbon Dioxide Level 27, Anion Gap 14, Blood Urea Nitrogen 11, Creatinine 0.8, Estimat Glomerular Filtration Rate , Glucose Level 132H, Calcium Level 8.0L, Magnesium Level 1.6L, Pro-B-Type Natriuretic Peptide 5801H, Digoxin Level 1.1 11/13/16 04:00: Sodium Level 144, Potassium Level 3.3L, Chloride Level 101, Carbon Dioxide Level 28, Anion Gap 15, Blood Urea Nitrogen 10, Creatinine 0.8, Estimat Glomerular Filtration Rate , Glucose Level 127H, Calcium Level 8.3L, Digoxin Level 1.0, White Blood Count 13.9H, Red Blood Count 3.13L, Hemoglobin 9.3L, Hematocrit 28.6L, Mean Corpuscular Volume 92, Mean Corpuscular Hemoglobin 29.8, Mean Corpuscular Hemoglobin Concent 32.5, Red Cell Distribution Width 18.3H, Platelet Count 589H, Mean Platelet Volume 7.0, Neutrophils (%) (Auto) 58.3, Lymphocytes (%) (Auto) 26.2, Monocytes (%) (Auto) 7.7, Eosinophils (%) (Auto) 7.1H, Basophils (%) (Auto) 0.7, Total Bilirubin 0.8, Aspartate Amino Transf (AST /SGOT) 35, Alanine Aminotransferase (ALT/SGPT) 20, Alkaline Phosphatase 857H, Total Protein 7.7, Albumin 2.0L, Globulin 5.7, Albumin/Globulin Ratio 0.3L Current Medications Medications (Trade) Dose Ordered Sig/Omi Route PRN Reason Start Time Stop Time Status Last Admin Dose Admin Acetaminophen (Tylenol) 650 mg Q4HR PRN NG Headache/Temp > 101/mild pain 11/09/16 06:45 12/09/16 06:44 11/12/16 20:34 Al Hydroxide/Mg Hydroxide (Mylanta) 30 ml EVERY 4 HOURS PRN GT Nausea & Vomiting 11/09/16 09:00 12/09/16 08:59 Albuterol/ Ipratropium (DuoNeb 0.5-3(2.5)mg/3ml) 3 ml Q4HRT HHN 11/09/16 11:00 11/14/16 10:59 11/13/16 07:04 Amlodipine Besylate (Norvasc) 10 mg DAILY GT 11/09/16 09:00 12/09/16 08:59 11/11/16 08:30 Chlorhexidine Gluconate (Nery-Hex 2%) 1 applic Q24H TOPIC 11/10/16 21:00 12/10/16 20:59 11/11/16 22:06 Colistimethate Sodium (Colistin *inhalation use only*) 75 mg Q12HR@10,22 INH 11/12/16 10:00 11/19/16 09:59 11/12/16 20:20 Digoxin (Lanoxin) 0.125 mg DAILY GT 11/09/16 09:00 12/09/16 08:59 11/12/16 08:43 Fish Oil 1000 mg 1,000 mg DAILY ORAL 11/09/16 09:00 12/09/16 08:59 11/12/16 08:43 Heparin Sodium (Porcine) (Heparin 5000 units/ml) 5,000 units EVERY 12 HOURS SUBQ 11/09/16 09:00 12/09/16 08:59 11/12/16 20:03 Lansoprazole (Prevacid) 30 mg DAILY GT 11/09/16 09:00 12/09/16 08:59 11/12/16 08:43 Lorazepam 1 mg 1 mg Q4H PRN IV For Anxiety 11/09/16 07:45 11/16/16 07:44 11/11/16 03:14 Nystatin (Nystop Powder) 1 applic THREE TIMES A DAY TOPIC 11/11/16 10:00 12/11/16 09:59 11/12/16 17:20 Piperacillin Sod/ Tazobactam Sod/ Dextrose (Zosyn/D5W) 110 ml @ 27.5 mls/hr Q8HR IVPB 11/09/16 12:00 11/16/16 11:59 11/13/16 05:10 Vancomycin HCl (Vanco rx to dose) 1 ea DAILY PRN MISC . 11/09/16 09:00 12/09/16 08:59 Vancomycin HCl/ Dextrose (Vancomycin/D5W) 275 ml @ 183.708 mls/hr Q12HR@1000,2200 IVPB 11/09/16 22:00 6/27/17 21:59 11/12/16 22:17 Vitamin A/Vitamin D (A & D Oint) 1 applic EVERY 12 HOURS TOPIC 11/11/16 09:00 12/11/16 08:59 11/12/16 20:02 Zolpidem Tartrate (Ambien) 5 mg HSPRN PRN GT Insomnia 11/09/16 06:45 12/09/16 06:44 KENYA JAQUEZ Nov 13, 2016 08:51
[2016-11-13] MEDS: Acetaminophen 650mg/20.3ml NG PRN (08:53)
--- NOTE | 2016-11-13 09:28 | Infectious Diseases Prog Note ---
Assessment/Plan Assessment/Plan A; Positive blood culture with CoNS, likely contamination Pneumonia with GNR Multiple pressure ulcers VDRF Anemia Dementia P; Continue Zosyn & Colistin inhaler Discontinue Vancomycin will f/u cultures Subjective ROS Limited/Unobtainable: Yes Allergies: Coded Allergies: No Known Allergies (Unverified , 12/08/13) Objective Vital Signs Last 24 Hour Vital Signs Date Time Temp Pulse Resp B/P Pulse Ox O2 Delivery O2 Flow Rate FiO2 11/13/16 09:02 72 20 45 11/13/16 08:59 45 11/13/16 08:51 84 11/13/16 08:51 84 145/97 11/13/16 07:12 79 24 98 Mechanical Ventilator 45 11/13/16 07:04 87 22 95 Mechanical Ventilator 45 11/13/16 07:04 45 11/13/16 07:00 75 22 45 11/13/16 05:11 81 20 45 11/13/16 04:00 84 11/13/16 04:00 98.2 95 17 124/74 94 Mechanical Ventilator 11/13/16 04:00 45 11/13/16 03:25 85 20 97 Mechanical Ventilator 45 11/13/16 03:22 45 11/13/16 03:21 82 20 96 Mechanical Ventilator 45 11/13/16 03:21 82 20 45 11/13/16 01:10 87 20 45 11/13/16 00:00 86 11/13/16 00:00 45 11/13/16 00:00 97.9 86 18 142/86 99 Mechanical Ventilator 11/12/16 23:16 89 20 97 Mechanical Ventilator 45 11/12/16 23:07 45 11/12/16 23:06 87 20 96 Mechanical Ventilator 45 11/12/16 23:06 87 20 45 11/12/16 21:04 97.8 11/12/16 20:39 83 20 45 11/12/16 20:39 90 20 98 Mechanical Ventilator 2.0 45 11/12/16 20:20 91 20 97 Mechanical Ventilator 45 11/12/16 20:00 45 11/12/16 20:00 86 11/12/16 20:00 99.6 90 19 121/63 95 Mechanical Ventilator 11/12/16 19:57 81 20 95 Mechanical Ventilator 45 11/12/16 19:39 45 11/12/16 19:38 80 20 97 Mechanical Ventilator 45 11/12/16 19:14 80 20 45 11/12/16 17:00 94 20 45 11/12/16 16:00 45 11/12/16 16:00 99.1 94 20 115/64 96 Mechanical Ventilator 45 11/12/16 15:51 93 11/12/16 15:06 91 23 97 Mechanical Ventilator 45 11/12/16 14:53 100 24 95 Mechanical Ventilator 45 11/12/16 14:53 45 11/12/16 14:52 105 24 45 11/12/16 12:54 80 20 45 11/12/16 12:00 99.8 88 20 105/54 99 Mechanical Ventilator 45 11/12/16 12:00 45 11/12/16 11:55 76 11/12/16 11:55 86 11/12/16 11:15 85 20 97 Mechanical Ventilator 45 11/12/16 11:12 45 11/12/16 11:11 91 20 95 Mechanical Ventilator 45 11/12/16 11:09 94 20 45 Height (Feet): 5 Height (Inches): 7.00 Weight (Pounds): 177 HEENT: status post trach Respiratory/Chest: rhonchi - bilaterally, other - on ventilator Cardiovascular: normal rate Abdomen: soft, non tender, other - GT feeding Extremities: no edema, other - left arm PICC line Neurologic/Psychiatric: other - opens eyes Microbiology Date/Time Source Procedure Growth Status 11/10/16 13:50 Sputum Gram Stain - Final Resulted 11/10/16 13:50 Sputum Culture - Preliminary Gram Negative Bacillus 1 Gram Negative Bacillus 2 Resulted Laboratory Tests Test 11/12/16 13:00 11/13/16 04:00 Sodium Level 141 mEQ/L (135-145) 144 mEQ/L (135-145) Potassium Level 3.2 mEQ/L (3.4-4.9) L 3.3 mEQ/L (3.4-4.9) L Chloride Level 100 mEQ/L (98-107) 101 mEQ/L (98-107) Carbon Dioxide Level 27 mEQ/L (20-30) 28 mEQ/L (20-30) Anion Gap 14 (5-15) 15 (5-15) Blood Urea Nitrogen 11 mg/dL (7-23) 10 mg/dL (7-23) Creatinine 0.8 mg/dL (0.7-1.2) 0.8 mg/dL (0.7-1.2) Estimat Glomerular Filtration Rate mL/min (>60) mL/min (>60) Glucose Level 132 mg/dL (74-106) H 127 mg/dL (74-106) H Calcium Level 8.0 mg/dL (8.6-10.2) L 8.3 mg/dL (8.6-10.2) L Magnesium Level 1.6 mg/dL (1.7-2.5) L Pro-B-Type Natriuretic Peptide 5801 pg/mL (0-450) H Digoxin Level 1.1 ng/mL (0.5-2.0) 1.0 ng/mL (0.5-2.0) White Blood Count 13.9 K/UL (4.8-10.8) H Red Blood Count 3.13 M/UL (4.70-6.10) L Hemoglobin 9.3 G/DL (14.2-18.0) L Hematocrit 28.6 % (42.0-52.0) L Mean Corpuscular Volume 92 FL (80-99) Mean Corpuscular Hemoglobin 29.8 PG (27.0-31.0) Mean Corpuscular Hemoglobin Concent 32.5 G/DL (32.0-36.0) Red Cell Distribution Width 18.3 % (11.6-14.8) H Platelet Count 589 K/UL (150-450) H Mean Platelet Volume 7.0 FL (6.5-10.1) Neutrophils (%) (Auto) 58.3 % (45.0-75.0) Lymphocytes (%) (Auto) 26.2 % (20.0-45.0) Monocytes (%) (Auto) 7.7 % (1.0-10.0) Eosinophils (%) (Auto) 7.1 % (0.0-3.0) H Basophils (%) (Auto) 0.7 % (0.0-2.0) Total Bilirubin 0.8 mg/dL (0.0-1.2) Aspartate Amino Transf (AST/SGOT) 35 U/L (5-40) Alanine Aminotransferase (ALT/SGPT) 20 U/L (3-41) Alkaline Phosphatase 857 U/L (40-129) H Total Protein 7.7 g/dL (6.6-8.7) Albumin 2.0 g/dL (3.5-5.2) L Globulin 5.7 g/dL Albumin/Globulin Ratio 0.3 (1.0-2.7) L Current Medications Medications (Trade) Dose Ordered Sig/Omi Route PRN Reason Start Time Stop Time Status Last Admin Dose Admin Acetaminophen (Tylenol) 650 mg Q4HR PRN NG Headache/Temp > 101/mild pain 11/09/16 06:45 12/09/16 06:44 11/13/16 08:53 Al Hydroxide/Mg Hydroxide (Mylanta) 30 ml EVERY 4 HOURS PRN GT Nausea & Vomiting 11/09/16 09:00 12/09/16 08:59 Albuterol/ Ipratropium (DuoNeb 0.5-3(2.5)mg/3ml) 3 ml Q4HRT HHN 11/09/16 11:00 11/14/16 10:59 11/13/16 07:04 Amlodipine Besylate (Norvasc) 10 mg DAILY GT 11/09/16 09:00 12/09/16 08:59 11/13/16 08:51 Chlorhexidine Gluconate (Nery-Hex 2%) 1 applic Q24H TOPIC 11/10/16 21:00 12/10/16 20:59 11/11/16 22:06 Colistimethate Sodium (Colistin *inhalation use only*) 75 mg Q12HR@10,22 INH 11/12/16 10:00 11/19/16 09:59 11/12/16 20:20 Digoxin (Lanoxin) 0.125 mg DAILY GT 11/09/16 09:00 12/09/16 08:59 11/13/16 08:51 Fish Oil 1000 mg 1,000 mg DAILY ORAL 11/09/16 09:00 12/09/16 08:59 11/13/16 08:50 Heparin Sodium (Porcine) (Heparin 5000 units/ml) 5,000 units EVERY 12 HOURS SUBQ 11/09/16 09:00 12/09/16 08:59 11/13/16 08:49 Lansoprazole (Prevacid) 30 mg DAILY GT 11/09/16 09:00 12/09/16 08:59 11/13/16 08:50 Lorazepam 1 mg 1 mg Q4H PRN IV For Anxiety 11/09/16 07:45 11/16/16 07:44 11/11/16 03:14 Nystatin (Nystop Powder) 1 applic THREE TIMES A DAY TOPIC 11/11/16 10:00 12/11/16 09:59 11/13/16 08:51 Piperacillin Sod/ Tazobactam Sod/ Dextrose (Zosyn/D5W) 110 ml @ 27.5 mls/hr Q8HR IVPB 11/09/16 12:00 11/16/16 11:59 11/13/16 05:10 Potassium Chloride (K-Dur) 20 meq ONCE ONCE ORAL 11/13/16 10:00 11/13/16 10:01 Vancomycin HCl (Vanco rx to dose) 1 ea DAILY PRN MISC . 11/09/16 09:00 12/09/16 08:59 Vancomycin HCl/ Dextrose (Vancomycin/D5W) 275 ml @ 183.708 mls/hr Q12HR@1000,2200 IVPB 11/09/16 22:00 11/14/16 21:59 11/12/16 22:17 Vitamin A/Vitamin D (A & D Oint) 1 applic EVERY 12 HOURS TOPIC 11/11/16 09:00 12/11/16 08:59 11/13/16 08:51 Zolpidem Tartrate (Ambien) 5 mg HSPRN PRN GT Insomnia 11/09/16 06:45 12/09/16 06:44 LUZ MARIA LAWLER Nov 13, 2016 09:28
[2016-11-13] MEDS: Colistin for inhalation INH SCH ×2 (10:00→21:17)
[2016-11-13] MEDS ORDERED: KCl 10% 20 mEq/15ml liquid NG ONE (20:30)
[2016-11-13] MEDS: Dyna-Hex 2% Top Sol 8oz TOPIC SCH (20:40)
[2016-11-13] MEDS: Metoprolol Tartrate 12.5mg TAB GT SCH (20:41)
[2016-11-14] MEDS ORDERED: Acetaminophen 650mg/20.3ml GT PRN
--- NOTE | 2016-11-14 00:01 | Progress Note ---
November 13, 2016 CARDIOLOGY PROGRESS NOTE SUBJECTIVE: The patient's rhythm remains atrial fibrillation with episodes of flutter. He remains on ventilator support. OBJECTIVE: VITAL SIGNS: Blood pressure 124/74, pulse 75 to 110, respirations 17 to 22, and no fevers. HEENT: Thin trach secretions. LUNGS: Coarse breath sounds. Scattered rhonchi. HEART: Irregularly irregular rhythm. Normal S1 and S2. ABDOMEN: Soft. EXTREMITIES: No edema. LABORATORY DATA: White count 13.9 and hemoglobin 9.3. Potassium 3.3, BUN 10, and creatinine 0.8. Albumin 2.0. Magnesium yesterday was 1.6. Digoxin level is 1.0. IMPRESSION: 1. Atrial fibrillation with episodes of increased ventricular response. 2. Possible coagulase-negative Staph bacteremia versus contamination. 3. Gram-negative pneumonia. 4. Ventilator-dependent respiratory failure. 5. Chronic anemia. 6. Severe protein-calorie malnutrition. PLAN: 1. Antimicrobials. 2. Follow up cultures. 3. Add low-dose beta-jaqui. 4. Replace electrolytes as needed. 5. Maintain adequate free water intake. 6. Protein supplement by feeding tube. Les Orantes M.D. DR: RICHARD JOB#: [id number] CC: [email or web address]
[2016-11-14] MEDS: DuoNeb 0.5-3(2.5)mg/3ml neb HHN SCH ×2 (03:07→07:21)
[2016-11-14 04:00] VITALS: BP 140/68
[2016-11-14 05:13] LABS: BASOPHILS % (AUTO) 0.8 % (0.0-2.0); EOSINOPHILS % (AUTO) 7.4 % (0.0-3.0); LYMPHOCYTES % (AUTO) 26.1 % (20.0-45.0); MEAN CORPUSCULAR HEMOGLOBIN 29.2 PG (27.0-31.0); MEAN CORPUSCULAR HGB CONC 31.7 G/DL (32.0-36.0); MEAN CORPUSCULAR VOLUME 92 FL (80-99); MEAN PLATELET VOLUME 7.1 FL (6.5-10.1); MONOCYTES % (AUTO) 5.6 % (1.0-10.0); PLATELET COUNT 567 K/UL (150-450); RED BLOOD COUNT 3.08 M/UL (4.70-6.10); RED CELL DISTRIBUTION WIDTH 17.3 % (11.6-14.8); WHITE BLOOD COUNT 12.8 K/UL (4.8-10.8)
[2016-11-14] MEDS: Piperacillin/Tazobactam 3.375 GM in D5W 110 ML IVPB SCH (05:24)
[2016-11-14 05:37] LABS: ALANINE AMINOTRANSFERASE 18 U/L (3-41); ALBUMIN/GLOBULIN RATIO 0.4 (1.0-2.7); ANION GAP 12 (5-15); ASPARTATE AMINO TRANSFERASE 28 U/L (5-40); CALCIUM 8.2 mg/dL (8.6-10.2); CARBON DIOXIDE 28 mEQ/L (20-30); CHLORIDE 100 mEQ/L (98-107); CREATININE 0.9 mg/dL (0.7-1.2); HEMOLYSIS 3; POTASSIUM 3.7 mEQ/L (3.4-4.9); SODIUM 140 mEQ/L (135-145); TOTAL PROTEIN 7.7 g/dL (6.6-8.7)
[2016-11-14] MEDS: Colistin for inhalation INH SCH ×2 (07:29→23:16)
[2016-11-14] MEDS: LORazepam Inj 2mg/ml 1ml IV PRN (07:59)
[2016-11-14 08:00] VITALS: BP 118/81
--- NOTE | 2016-11-14 08:14 | Pulmonology Progress Note ---
Assessment/Plan Assessment/Plan IMPRESSION: 1. Respiratory failure, chronic. 2. Bilateral pleural effusion, probable associated pneumonia, evidence of leukocytosis, possible sepsis. 3. Lactic acidosis. 4. Hyperglycemia, diabetes. 5. Anemia. 6. Thrombocytosis. 7. sepsis/ bacteremia PLAN care noted ventilator support IV antibiotics- noted and discussed with ID monitor HH care noted and discussed with RT nutrition monitor electrolytes stabilize no wean at present dc to snf to complete antibiotics after discharge pending follow up cxr and abg guarded prognosis impression, plan, and exam edited and reviewed in detail care discussed with RN Subjective ROS Limited/Unobtainable: Yes Allergies: Coded Allergies: No Known Allergies (Unverified , 12/08/13) Subjective multiple cultures positive remains ill WBC better care noted in detail slightly tachypneic Objective Last 24 Hour Vital Signs Date Time Temp Pulse Resp B/P Pulse Ox O2 Delivery O2 Flow Rate FiO2 11/14/16 08:01 60 11/14/16 07:38 88 24 100 Mechanical Ventilator 45 11/14/16 07:27 84 20 100 Mechanical Ventilator 45 11/14/16 07:27 80 20 97 Mechanical Ventilator 45 11/14/16 07:23 95 20 45 11/14/16 07:15 97 20 100 Mechanical Ventilator 45 11/14/16 07:15 98 20 97 Mechanical Ventilator 45 11/14/16 07:15 45 11/14/16 04:56 77 20 45 11/14/16 04:00 98.2 86 21 140/68 100 Mechanical Ventilator 45 11/14/16 04:00 102 11/14/16 04:00 45 11/14/16 03:10 45 11/14/16 03:10 90 20 97 Mechanical Ventilator 45 11/14/16 03:10 88 20 97 Mechanical Ventilator 45 11/14/16 03:07 87 20 45 11/14/16 00:59 97 20 45 11/14/16 00:00 45 11/14/16 00:00 95 11/13/16 23:32 99.5 103 20 150/77 100 Mechanical Ventilator 45 11/13/16 23:14 98 20 99 Mechanical Ventilator 45 11/13/16 23:14 45 11/13/16 23:13 84 20 97 Mechanical Ventilator 45 11/13/16 22:59 88 20 45 11/13/16 21:21 90 22 100 Mechanical Ventilator 15.0 45 11/13/16 21:20 85 20 98 Mechanical Ventilator 45 11/13/16 21:14 85 20 45 11/13/16 21:00 45 11/13/16 20:41 86 141/58 11/13/16 20:30 99.1 86 20 141/58 97 Mechanical Ventilator 45 11/13/16 20:00 92 11/13/16 19:13 45 11/13/16 19:13 84 20 94 Mechanical Ventilator 45 11/13/16 19:13 93 20 95 Mechanical Ventilator 45 11/13/16 19:05 94 20 45 11/13/16 16:55 81 20 45 11/13/16 16:15 97.9 70 20 116/72 100 Mechanical Ventilator 45 11/13/16 16:14 45 11/13/16 16:00 74 11/13/16 14:54 70 20 99 Mechanical Ventilator 45 11/13/16 14:46 45 11/13/16 14:46 76 20 97 Mechanical Ventilator 45 11/13/16 14:42 75 20 45 11/13/16 13:06 78 20 45 11/13/16 12:05 45 11/13/16 12:00 86 11/13/16 12:00 98.1 90 20 121/54 96 11/13/16 11:23 81 20 98 Mechanical Ventilator 11/13/16 11:14 85 20 95 Mechanical Ventilator 45 11/13/16 11:14 45 11/13/16 11:11 83 20 45 11/13/16 10:10 83 20 97 Mechanical Ventilator 15.0 45 11/13/16 10:00 91 20 97 Mechanical Ventilator 45 11/13/16 09:02 72 20 45 11/13/16 08:59 45 11/13/16 08:51 84 11/13/16 08:51 84 145/97 Intake and Output 11/13/16 11/14/16 19:00 07:00 Intake Total 1030 ml 784.6 ml Output Total 500 ml 350 ml Balance 530 ml 434.6 ml Intake Free Water 150 ml 100 ml IV Total 234.6 ml Tube Feeding 140 ml 420 ml Other 740 ml 30 ml Output Urine Total 500 ml 350 ml # Voids 1 # Bowel Movements 2 2 Objective GENERAL: The patient is an ill appearing male, withdrawn, and nonverbal. HEENT: Otherwise fairly negative. NECK: Supple. Tracheostomy is midline. Carotids are 2+. LUNGS: reduced breath sounds. Moderate air entry. Decreased at both bases. scattered rhonchi CARDIAC: S1 and S2. Regular rate and rhythm. Slightly distant without murmurs or rubs. ABDOMEN: Soft, nontender, and nondistended. G-tube in place. no HSM EXTREMITIES: No cyanosis or clubbing. Some edema. NEUROLOGIC: Withdrawn. reviewed and edited Laboratory Tests 11/14/16 03:00: White Blood Count 12.8H, Red Blood Count 3.08L, Hemoglobin 9.0L, Hematocrit 28.3L, Mean Corpuscular Volume 92, Mean Corpuscular Hemoglobin 29.2, Mean Corpuscular Hemoglobin Concent 31.7L, Red Cell Distribution Width 17.3H, Platelet Count 567H, Mean Platelet Volume 7.1, Neutrophils (%) (Auto) 60.0, Lymphocytes (%) (Auto) 26.1, Monocytes (%) (Auto) 5.6, Eosinophils (%) (Auto) 7.4H, Basophils (%) (Auto) 0.8, Sodium Level 140, Potassium Level 3.7, Chloride Level 100, Carbon Dioxide Level 28, Anion Gap 12, Blood Urea Nitrogen 10, Creatinine 0.9, Estimat Glomerular Filtration Rate , Glucose Level 116H, Calcium Level 8.2L, Magnesium Level 2.0, Total Bilirubin 0.8, Aspartate Amino Transf (AST/SGOT) 28, Alanine Aminotransferase (ALT/SGPT) 18, Alkaline Phosphatase 689H, Pro-B-Type Natriuretic Peptide 4547H, Total Protein 7.7, Albumin 2.2L, Globulin 5.5, Albumin/Globulin Ratio 0.4L Current Medications Medications (Trade) Dose Ordered Sig/Omi Route PRN Reason Start Time Stop Time Status Last Admin Dose Admin Acetaminophen (Tylenol) 650 mg Q4HR PRN GT Headache/Temp > 101/mild pain 11/14/16 00:00 12/14/16 00:00 Al Hydroxide/Mg Hydroxide (Mylanta) 30 ml EVERY 4 HOURS PRN GT Nausea & Vomiting 11/09/16 09:00 12/09/16 08:59 Albuterol/ Ipratropium (DuoNeb 0.5-3(2.5)mg/3ml) 3 ml Q4HRT HHN 11/09/16 11:00 11/14/16 10:59 11/14/16 07:21 Amlodipine Besylate (Norvasc) 10 mg DAILY GT 11/09/16 09:00 12/09/16 08:59 11/13/16 08:51 Chlorhexidine Gluconate (Nery-Hex 2%) 1 applic Q24H TOPIC 11/10/16 21:00 12/10/16 20:59 11/13/16 20:40 Colistimethate Sodium (Colistin *inhalation use only*) 75 mg Q12HR@10,22 INH 11/12/16 10:00 11/19/16 09:59 11/14/16 07:29 Digoxin (Lanoxin) 0.125 mg DAILY GT 11/09/16 09:00 12/09/16 08:59 11/13/16 08:51 Fish Oil 1000 mg 1,000 mg DAILY ORAL 11/09/16 09:00 12/09/16 08:59 11/13/16 08:50 Heparin Sodium (Porcine) (Heparin 5000 units/ml) 5,000 units EVERY 12 HOURS SUBQ 11/09/16 09:00 12/09/16 08:59 11/13/16 20:45 Lansoprazole (Prevacid) 30 mg DAILY GT 11/09/16 09:00 12/09/16 08:59 11/13/16 08:50 Lorazepam (Ativan 2mg/ml 1ml) 1 mg Q4H PRN IV For Anxiety 11/09/16 07:45 11/16/16 07:44 11/14/16 07:59 Metoprolol Tartrate (Lopressor) 12.5 mg Q12HR GT 11/13/16 21:00 12/13/16 20:59 11/13/16 20:41 Nystatin (Nystop Powder) 1 applic THREE TIMES A DAY TOPIC 11/11/16 10:00 12/11/16 09:59 11/13/16 17:05 Piperacillin Sod/ Tazobactam Sod/ Dextrose (Zosyn/D5W) 110 ml @ 27.5 mls/hr Q8HR IVPB 11/09/16 12:00 11/16/16 11:59 11/14/16 05:24 Vitamin A/Vitamin D (A & D Oint) 1 applic EVERY 12 HOURS TOPIC 11/11/16 09:00 12/11/16 08:59 11/13/16 20:41 Zolpidem Tartrate (Ambien) 5 mg HSPRN PRN GT Insomnia 11/09/16 06:45 12/09/16 06:44 KENYA JAQUEZ Nov 14, 2016 08:14
[2016-11-14 09:22] LABS: ABG ALLEN TEST POSITIVE; ABG BASE EXCESS 2.7; ABG PCO2 48.6 mmHg (35.0-45.0)
--- NOTE | 2016-11-14 10:07 | Diagnostic Imaging Report ---
Indications: Shortness of breath Technique: Brad AP chest Findings: Comparison: 11/09/16 Pulmonary inflation has improved. Cardiomegaly, pulmonary vascular redistribution, diffuse bilateral interstitial infiltrates, linear and patchy consolidative alveolar opacities in both lungs, bilateral costophrenic angle blunting suggesting pleural effusions right greater than left unchanged. PICC has been placed via left upper extremity, tip in region of right atrium. No other interval change. IMPRESSION: Stable bilateral congestive changes Stable bilateral atelectasis and/or pneumonias Stable bilateral pleural effusions Interval PICC placement
[2016-11-14] MEDS: Nystatin Powder 100,000 units/gm 15gm TOPIC SCH ×3 (10:10→17:39)
[2016-11-14] MEDS: Metoprolol Tartrate 12.5mg TAB GT SCH ×2 (10:11→20:11)
[2016-11-14] MEDS: Digoxin Elixir 0.125mg GT SCH (10:11)
[2016-11-14] MEDS: Vitamin A&D Oint 2oz Tube TOPIC SCH ×2 (10:14→20:10)
[2016-11-14] MEDS: Heparin 5000 units/ml inj SUBQ SCH ×2 (10:14→20:12)
[2016-11-14] MEDS ORDERED: NS 275ml ONE (11:14)
[2016-11-14 12:00] VITALS: BP 107/69
--- NOTE | 2016-11-14 12:30 | Infectious Diseases Prog Note ---
"Assessment/Plan Assessment/Plan antibiotics : zosyn, inhaled colistin A 1. serratia | acenitoabcter pneumonia 2. leucocytosis improving 3. respiratory failure 4. HTN 5. COPD 6. + blood cultures with coag neg staph likely contaminated P 1. d/c zosyn 2. start and continue ceftriaxone 4 more days 3. continue inhaled colistin 4 more days 4. will follow up cultures Subjective ROS Limited/Unobtainable: Yes Allergies: Coded Allergies: No Known Allergies (Unverified , 12/08/13) Objective Vital Signs Last 24 Hour Vital Signs Date Time Temp Pulse Resp B/P Pulse Ox O2 Delivery O2 Flow Rate FiO2 11/14/16 11:24 70 20 50 11/14/16 10:11 89 118/81 11/14/16 10:11 89 11/14/16 10:11 89 118/81 11/14/16 09:36 55 11/14/16 08:52 89 25 45 11/14/16 08:01 60 11/14/16 08:00 94 11/14/16 08:00 100.6 90 27 118/81 95 Mechanical Ventilator 45 11/14/16 07:38 88 24 100 Mechanical Ventilator 45 11/14/16 07:27 84 20 100 Mechanical Ventilator 45 11/14/16 07:27 80 20 97 Mechanical Ventilator 45 11/14/16 07:23 95 20 45 11/14/16 07:15 97 20 100 Mechanical Ventilator 45 11/14/16 07:15 98 20 97 Mechanical Ventilator 45 11/14/16 07:15 45 11/14/16 04:56 77 20 45 11/14/16 04:00 98.2 86 21 140/68 100 Mechanical Ventilator 45 11/14/16 04:00 102 11/14/16 04:00 45 11/14/16 03:10 45 11/14/16 03:10 90 20 97 Mechanical Ventilator 45 11/14/16 03:10 88 20 97 Mechanical Ventilator 45 11/14/16 03:07 87 20 45 11/14/16 00:59 97 20 45 11/14/16 00:00 45 11/14/16 00:00 95 11/13/16 23:32 99.5 103 20 150/77 100 Mechanical Ventilator 45 11/13/16 23:14 98 20 99 Mechanical Ventilator 45 11/13/16 23:14 45 11/13/16 23:13 84 20 97 Mechanical Ventilator 45 11/13/16 22:59 88 20 45 11/13/16 21:21 90 22 100 Mechanical Ventilator 15.0 45 11/13/16 21:20 85 20 98 Mechanical Ventilator 45 11/13/16 21:14 85 20 45 11/13/16 21:00 45 11/13/16 20:41 86 141/58 11/13/16 20:30 99.1 86 20 141/58 97 Mechanical Ventilator 45 11/13/16 20:00 92 11/13/16 19:13 45 11/13/16 19:13 84 20 94 Mechanical Ventilator 45 11/13/16 19:13 93 20 95 Mechanical Ventilator 45 11/13/16 19:05 94 20 45 11/13/16 16:55 81 20 45 11/13/16 16:15 97.9 70 20 116/72 100 Mechanical Ventilator 45 11/13/16 16:14 45 11/13/16 16:00 74 11/13/16 14:54 70 20 99 Mechanical Ventilator 45 11/13/16 14:46 45 11/13/16 14:46 76 20 97 Mechanical Ventilator 45 11/13/16 14:42 75 20 45 11/13/16 13:06 78 20 45 Height (Feet): 5 Height (Inches): 7.00 Weight (Pounds): 177 HEENT: status post trach Respiratory/Chest: rhonchi - bilaterally Cardiovascular: normal rate, regular rhythm, no gallop/murmur Abdomen: soft, non tender, other - GT Extremities: other - + edema, left arm PICC Laboratory Tests Test 11/14/16 03:00 11/14/16 09:05 White Blood Count 12.8 K/UL (4.8-10.8) H Red Blood Count 3.08 M/UL (4.70-6.10) L Hemoglobin 9.0 G/DL (14.2-18.0) L Hematocrit 28.3 % (42.0-52.0) L Mean Corpuscular Volume 92 FL (80-99) Mean Corpuscular Hemoglobin 29.2 PG (27.0-31.0) Mean Corpuscular Hemoglobin Concent 31.7 G/DL (32.0-36.0) L Red Cell Distribution Width 17.3 % (11.6-14.8) H Platelet Count 567 K/UL (150-450) H Mean Platelet Volume 7.1 FL (6.5-10.1) Neutrophils (%) (Auto) 60.0 % (45.0-75.0) Lymphocytes (%) (Auto) 26.1 % (20.0-45.0) Monocytes (%) (Auto) 5.6 % (1.0-10.0) Eosinophils (%) (Auto) 7.4 % (0.0-3.0) H Basophils (%) (Auto) 0.8 % (0.0-2.0) Sodium Level 140 mEQ/L (135-145) Potassium Level 3.7 mEQ/L (3.4-4.9) Chloride Level 100 mEQ/L (98-107) Carbon Dioxide Level 28 mEQ/L (20-30) Anion Gap 12 (5-15) Blood Urea Nitrogen 10 mg/dL (7-23) Creatinine 0.9 mg/dL (0.7-1.2) Estimat Glomerular Filtration Rate mL/min (>60) Glucose Level 116 mg/dL (74-106) H Calcium Level 8.2 mg/dL (8.6-10.2) L Magnesium Level 2.0 mg/dL (1.7-2.5) Total Bilirubin 0.8 mg/dL (0.0-1.2) Aspartate Amino Transf (AST/SGOT) 28 U/L (5-40) Alanine Aminotransferase (ALT/SGPT) 18 U/L (3-41) Alkaline Phosphatase 689 U/L (40-129) H Pro-B-Type Natriuretic Peptide 4547 pg/mL (0-450) H Total Protein 7.7 g/dL (6.6-8.7) Albumin 2.2 g/dL (3.5-5.2) L Globulin 5.5 g/dL Albumin/Globulin Ratio 0.4 (1.0-2.7) L Arterial Blood pH 7.382 (7.350-7.450) Arterial Blood Partial Pressure CO2 48.6 mmHg (35.0-45.0) H Arterial Blood Partial Pressure O2 50.9 mmHg (75.0-100.0) L Arterial Blood HCO3 28.2 mmol/L (22.0-26.0) H Arterial Blood Oxygen Saturation 82.5 % (92.0-98.0) L Arterial Blood Base Excess 2.7 Anderson Test Positive HOLLAND ARCHULETA Nov 14, 2016 12:30"
[2016-11-14] MEDS: Ascorbic Acid 500mg tab ORAL SCH (14:48)
[2016-11-14] MEDS ORDERED: cefTRIAXone 1 GM in D5W 55 ML IVPB SCH (15:00)
[2016-11-14 16:00] VITALS: BP 127/66
[2016-11-14 20:00] VITALS: BP 136/88
[2016-11-14] MEDS: Dyna-Hex 2% Top Sol 8oz TOPIC SCH (20:10)
--- NOTE | 2016-11-14 22:15 | Progress Note ---
DATE: 11/14/2016 CARDIOLOGY PROGRESS NOTE: SUBJECTIVE: The patient remains on ventilator support. Monitored rhythm is atrial fibrillation. Rate control is improved. OBJECTIVE: LUNGS: Bilateral breath sounds. Scattered rhonchi. HEART: Irregularly irregular rhythm. Normal S1 and S2. EXTREMITIES: Trace edema. ABDOMEN: G-tube intact. LABORATORY DATA: White count is 5.8 and hemoglobin 9. Potassium is 3.7. Pro-natriuretic peptide is decreasing to 4500. Albumin is 2.2. IMPRESSION: 1. Atrial fibrillation, better rate controlled. 2. Acute on chronic diastolic congestive heart failure, now recovering. 3. Severe protein-calorie malnutrition, on gastrostomy tube replacement feedings. 4. Ventilator-dependent respiratory failure. 5. Healthcare-acquired pneumonia with sepsis, resolved. 6. Lactic acidosis. PLAN: 1. Antimicrobials. 2. Continue beta-jaqui and Digitalis. 3. Long-term ventilator support. 4. Replace electrolytes as needed. 5. No plan for additional diuresis at this time, expect flow mobilization of extravascular edema. Les Orantes M.D. DR: aTwana JOB#: [id number] CC:
[2016-11-15] VITALS: BP 130/70
[2016-11-15 04:00] VITALS: BP 155/78
[2016-11-15] MEDS: Colistin for inhalation INH SCH (06:43)
[2016-11-15 08:00] VITALS: BP 117/61
[2016-11-15] MEDS: Vitamin A&D Oint 2oz Tube TOPIC SCH (09:00)
--- NOTE | 2016-11-15 09:27 | Pulmonology Progress Note ---
Assessment/Plan Assessment/Plan IMPRESSION: 1. Respiratory failure, chronic. 2. Bilateral pleural effusion, probable associated pneumonia, evidence of leukocytosis, possible sepsis. 3. Lactic acidosis. 4. Hyperglycemia, diabetes. 5. Anemia. 6. Thrombocytosis. 7. sepsis/ bacteremia PLAN care noted and reviewed ventilator support as is IV antibiotics- noted and discussed with ID monitor HH care noted and discussed with RT nutrition monitor electrolytes no wean at present dc to snf today guarded prognosis impression, plan, and exam edited and reviewed in detail care discussed with RN Subjective ROS Limited/Unobtainable: Yes Allergies: Coded Allergies: No Known Allergies (Unverified , 12/08/13) Subjective multiple cultures positive remains ill but near baseline WBC better but slightly elevated care noted in detail Objective Last 24 Hour Vital Signs Date Time Temp Pulse Resp B/P Pulse Ox O2 Delivery O2 Flow Rate FiO2 11/15/16 09:01 61 20 50 11/15/16 08:00 99.0 69 20 117/61 97 Mechanical Ventilator 50 11/15/16 08:00 50 11/15/16 06:49 87 20 100 Mechanical Ventilator 50 11/15/16 06:47 90 20 50 11/15/16 06:40 90 20 100 Mechanical Ventilator 50 11/15/16 05:25 87 26 50 11/15/16 04:00 99.9 86 28 155/78 94 Mechanical Ventilator 50 11/15/16 04:00 50 11/15/16 04:00 88 11/15/16 03:52 88 23 50 11/15/16 01:48 97 21 50 11/15/16 00:00 50 11/15/16 00:00 98.5 63 20 130/70 97 Nasal Cannula 3.0 11/15/16 00:00 106 11/14/16 23:28 92 21 100 Mechanical Ventilator 45 11/14/16 23:13 90 25 100 Mechanical Ventilator 45 11/14/16 23:12 85 25 50 11/14/16 21:34 65 21 50 11/14/16 20:11 85 136/88 11/14/16 20:00 97.9 85 24 136/88 97 Mechanical Ventilator 50 11/14/16 20:00 86 11/14/16 20:00 50 11/14/16 19:26 70 20 50 11/14/16 16:47 66 20 50 11/14/16 16:00 50 11/14/16 16:00 99.1 78 21 127/66 96 Mechanical Ventilator 50 11/14/16 16:00 77 11/14/16 15:18 74 24 50 11/14/16 13:05 65 20 50 11/14/16 12:00 66 11/14/16 12:00 98.4 66 20 107/69 99 Mechanical Ventilator 50 11/14/16 12:00 60 11/14/16 11:24 70 20 50 11/14/16 10:11 89 118/81 11/14/16 10:11 89 11/14/16 10:11 89 118/81 11/14/16 09:36 55 Intake and Output 11/14/16 11/15/16 19:00 07:00 Intake Total 1147.5 ml 220 ml Output Total 450 ml 200 ml Balance 697.5 ml 20 ml Intake Free Water 150 ml 50 ml IV Total 137.5 ml Tube Feeding 840 ml 140 ml Other 20 ml 30 ml Output Urine Total 450 ml 200 ml # Bowel Movements 1 1 Objective GENERAL: The patient is an ill appearing male, withdrawn, and nonverbal. HEENT: Otherwise fairly negative. NECK: Supple. Tracheostomy is midline. Carotids are 2+. LUNGS: reduced breath sounds. Moderate air entry. Decreased at both bases. minimal rhonchi CARDIAC: S1 and S2. Regular rate and rhythm. Slightly distant without murmurs or rubs. ABDOMEN: Soft, nontender, and nondistended. G-tube in place. no HSM EXTREMITIES: No cyanosis or clubbing. Some edema. NEUROLOGIC: Withdrawn. reviewed and edited Current Medications Medications (Trade) Dose Ordered Sig/Omi Route PRN Reason Start Time Stop Time Status Last Admin Dose Admin Acetaminophen 650 mg 650 mg Q4HR PRN GT Headache/Temp > 101/mild pain 11/14/16 00:00 12/14/16 00:00 Al Hydroxide/Mg Hydroxide (Mylanta) 30 ml EVERY 4 HOURS PRN GT Nausea & Vomiting 11/09/16 09:00 12/09/16 08:59 Amlodipine Besylate (Norvasc) 10 mg DAILY GT 11/09/16 09:00 12/09/16 08:59 11/14/16 10:11 Ascorbic Acid (Vitamin C) 500 mg DAILY ORAL 11/14/16 15:00 12/14/16 14:59 11/14/16 14:48 Ceftriaxone Sodium/Dextrose (Rocephin/D5W) 55 ml @ 110 mls/hr Q24H IVPB 11/14/16 15:00 11/21/16 14:59 11/14/16 14:48 Chlorhexidine Gluconate (Nery-Hex 2%) 1 applic Q24H TOPIC 11/10/16 21:00 12/10/16 20:59 11/14/16 20:10 Colistimethate Sodium (Colistin *inhalation use only*) 75 mg Q12HR@, INH 11/12/16 10:00 11/19/16 09:59 11/15/16 06:43 Digoxin (Lanoxin) 0.125 mg DAILY GT 11/09/16 09:00 12/09/16 08:59 11/14/16 10:11 Fish Oil (Fish Oil) 1,000 mg DAILY ORAL 11/09/16 09:00 12/09/16 08:59 11/14/16 10:11 Heparin Sodium (Porcine) (Heparin 5000 units/ml) 5,000 units EVERY 12 HOURS SUBQ 11/09/16 09:00 12/09/16 08:59 11/14/16 20:12 Lansoprazole (Prevacid) 30 mg DAILY GT 11/09/16 09:00 12/09/16 08:59 11/14/16 10:10 Lorazepam (Ativan 2mg/ml 1ml) 1 mg Q4H PRN IV For Anxiety 11/09/16 07:45 11/16/16 07:44 11/14/16 07:59 Metoprolol Tartrate (Lopressor) 12.5 mg Q12HR GT 11/13/16 21:00 12/13/16 20:59 11/14/16 20:11 Nystatin (Nystop Powder) 1 applic THREE TIMES A DAY TOPIC 11/11/16 10:00 12/11/16 09:59 11/14/16 17:39 Vitamin A/Vitamin D (A & D Oint) 1 applic EVERY 12 HOURS TOPIC 11/11/16 09:00 12/11/16 08:59 11/14/16 20:10 Zolpidem Tartrate (Ambien) 5 mg HSPRN PRN GT Insomnia 11/09/16 06:45 12/09/16 06:44 KENYA JAQUEZ Nov 15, 2016 09:27
[2016-11-15] MEDS: Metoprolol Tartrate 12.5mg TAB GT SCH (09:28)
[2016-11-15] MEDS: Ascorbic Acid 500mg tab ORAL SCH (09:29)
[2016-11-15] MEDS: Digoxin Elixir 0.125mg GT SCH (09:29)
[2016-11-15] MEDS: Heparin 5000 units/ml inj SUBQ SCH (09:30)
[2016-11-15] MEDS: Nystatin Powder 100,000 units/gm 15gm TOPIC SCH ×2 (09:30→13:00)
--- NOTE | 2016-11-15 11:39 | Infectious Diseases Prog Note ---
"Assessment/Plan Assessment/Plan antibiotics : ceftriaxone, inhaled colistin A 1. serratia | acenitoabcter pneumonia 2. leucocytosis improving 3. respiratory failure 4. HTN 5. COPD 6. + blood cultures with coag neg staph likely contaminated P 1. continue ceftriaxone 3 more days 2. continue inhaled colistin 3 more days 3. will follow up cultures Subjective ROS Limited/Unobtainable: Yes Allergies: Coded Allergies: No Known Allergies (Unverified , 12/08/13) Objective Vital Signs Last 24 Hour Vital Signs Date Time Temp Pulse Resp B/P Pulse Ox O2 Delivery O2 Flow Rate FiO2 11/15/16 10:43 70 20 50 11/15/16 09:29 61 11/15/16 09:29 61 117/61 11/15/16 09:28 61 117/61 11/15/16 09:01 61 20 50 11/15/16 08:00 65 11/15/16 08:00 99.0 69 20 117/61 97 Mechanical Ventilator 50 11/15/16 08:00 50 11/15/16 06:49 87 20 100 Mechanical Ventilator 50 11/15/16 06:47 90 20 50 11/15/16 06:40 90 20 100 Mechanical Ventilator 50 11/15/16 05:25 87 26 50 11/15/16 04:00 99.9 86 28 155/78 94 Mechanical Ventilator 50 11/15/16 04:00 50 11/15/16 04:00 88 11/15/16 03:52 88 23 50 11/15/16 01:48 97 21 50 11/15/16 00:00 50 11/15/16 00:00 98.5 63 20 130/70 97 Nasal Cannula 3.0 11/15/16 00:00 106 11/14/16 23:28 92 21 100 Mechanical Ventilator 45 11/14/16 23:13 90 25 100 Mechanical Ventilator 45 11/14/16 23:12 85 25 50 11/14/16 21:34 65 21 50 11/14/16 20:11 85 136/88 11/14/16 20:00 97.9 85 24 136/88 97 Mechanical Ventilator 50 11/14/16 20:00 86 11/14/16 20:00 50 11/14/16 19:26 70 20 50 11/14/16 16:47 66 20 50 11/14/16 16:00 50 11/14/16 16:00 99.1 78 21 127/66 96 Mechanical Ventilator 50 11/14/16 16:00 77 11/14/16 15:18 74 24 50 11/14/16 13:05 65 20 50 11/14/16 12:00 66 11/14/16 12:00 98.4 66 20 107/69 99 Mechanical Ventilator 50 11/14/16 12:00 60 Height (Feet): 5 Height (Inches): 7.00 Weight (Pounds): 187 HEENT: status post trach Respiratory/Chest: rhonchi - bilaterally Cardiovascular: normal rate, regular rhythm, no gallop/murmur Abdomen: soft, non tender, other - GT Extremities: other - + edema bilaterally, left arm PICC HOLLAND ARCHULETA Nov 15, 2016 11:39"
[2016-11-15 12:00] VITALS: BP 138/69
--- NOTE | 2016-11-15 22:30 | Progress Note ---
DATE: 11/15/2016 SUBJECTIVE: Condition has improved. Monitored rhythm, atrial fibrillation, rate controlled. OBJECTIVE: VITAL SIGNS: Blood pressure 117/61, pulse 69, respiratory rate 20. Heart rate ranging from 61 to 90. LUNGS: Bilateral breath sounds. Scattered rhonchi. Thin trach secretions. HEART: Irregularly irregular rhythm. ABDOMEN: Soft. No edema. G-tube intact. IMPRESSION: 1. Respiratory failure. 2. Hospital-acquired pneumonia. 3. Atrial fibrillation. 4. Acute on chronic diastolic congestive heart failure. PLAN: 1. Stable for discharge to subacute nursing facility to complete antimicrobials, long-term vent support expected. 2. Maintain current cardiovascular regimen for rate control of atrial fibrillation and volume management. 3. Discharge medication regimen reviewed. Les Orantes M.D. DR: Glenroy JOB#: [id number] CC:
--- NOTE | 2016-11-16 | Consultation ---
DATE OF CONSULTATION: 11/15/2016 GASTROENTEROLOGY CONSULTATION CONSULTING PHYSICIAN: Trent Kan M.D. CHIEF COMPLAINT: I was asked to see this patient by Dr. Adrien Hernandez for gastrostomy tube occlusion. HISTORY OF PRESENT ILLNESS: The patient is a debilitated 81-year-old man from the facility who is ventilator dependent as well as tracheostomy dependent, who is admitted with a gastrostomy tube occlusion. Despite multiple maneuvers, this could not be fixed and therefore this consultation was generated. The patient himself was unable to provide any history. Most of information was only available from the chart. PAST MEDICAL HISTORY: History of hypertension, history of diabetes, cerebrovascular disease with dementia, ventilator dependence, coronary artery disease, , and paroxysmal atrial fibrillation. ALLERGIES: None. FAMILY HISTORY: Not available. SOCIAL HISTORY: Unobtainable. REVIEW OF SYSTEMS: Unobtainable. PHYSICAL EXAMINATION: GENERAL: This is a debilitated man, seen in his room. HEENT: Normocephalic and atraumatic. Sclerae anicteric. Oropharynx clear. Dentition is poor. NECK: Supple. CHEST: Reveals scattered rhonchi. CARDIOVASCULAR: Revealed regular rate. ABDOMEN: Soft with a gastrostomy tube, which was occluded. It was about 16-Honduran or so. The gastrostomy catheter was removed and replaced with an 18-Honduran standard balloon tip gastrostomy placement catheter, which was flushed and connected. EXTREMITIES: Revealed contractions. LABORATORY DATA: Noted. ASSESSMENT: This patient has dysphagia and has had a gastrostomy tube, which was occluded and now in place. Routine gastrostomy tube care will be resumed by the nursing staff is especially instructed and medication crushing and adequate flushing will be emphasized. RECOMMENDATIONS: 1. Resume tube feeding. 2. Aggressive crushing and flushing of medications via gastrostomy catheter. 3. Elevate head of bed. Thank you for asking me to participate in care this patient. Trent Kan M.D. DR: Clay JOB#: [id number] CC:
--- NOTE | 2016-11-16 14:22 | Discharge Summary ---
Discharge Summary Hospital Course Date of Admission Nov 08, 2016 at 21:55 Date of Discharge Nov 15, 2016 at 13:10 Admitting Diagnosis SEPSIS,PNEUMONIA HPI Jena Jeffrey is a 81 year old male who was admitted on Nov 08, 2016 at 21:55 for Sepsis Hospital Course [id number] Discharge Discharge Disposition Patient was discharged to SNF/Subacute Facility(03) Discharge Diagnoses: Shonna Angeles NP Nov 16, 2016 14:22
--- NOTE | 2016-11-16 23:16 | Discharge Summary 2 SIG ---
DATE OF ADMISSION: 11/08/2016 DATE OF DISCHARGE: 11/15/2016 CONSULTANTS: 1. Trent Kan M.D. 2. Les Orantes M.D. 3. Shantel Boland M.D. 4. Alvaro Castanon M.D. BRIEF HOSPITAL COURSE: The patient is an 81-year-old male with history of chronic respiratory failure, COPD, ischemic cardiomyopathy, hypertension, CHF and dementia who [facility] due to shortness of breath and tachypnea. He was given Ativan, as it was thought to be from anxiety, however, symptoms persisted and the patient was sent to emergency room. On evaluation at ED, WBC was elevated to 15.4. Lactic acid was 2.7. Chest x-ray done showed bilateral infiltrates consistent with pneumonia. He has been started on broad-spectrum IV antibiotics and was admitted to [facility] for sepsis secondary to pneumonia. He was given ventilator support and bronchodilators. The patient has a pleural effusion, component of acute on chronic diastolic congestive heart failure. He had a PICC line inserted to the left arm on 11/10/2016. He was started on G-tube feed and was also given vancomycin and Zosyn. Blood culture showed growth of coagulase-negative staphylococcal course, probably contaminant. Sputum culture with Acinetobacter multidrug resistant and serratia. He came in with multiple pressure ulcers. Wound culture showed growth of Acinetobacter multidrug resistant, Klebsiella pneumonia and Proteus mirabilis. Vancomycin was discontinued and he was given Zosyn and colistin inhaler. He was provided daily wound care. He had episodes of atrial fibrillation with increased ventricular response, was given low-dose beta jaqui and digitalis. Dr. Kan was consulted, as there was a problem the G-tube occlusion. Gastrostomy catheter was removed and replaced with an 18-Divehi distended balloon tip gastrostomy catheter. Tube feedings were then restarted. The patient had guarded prognosis and was eventually discharged back to [facility]. FINAL DIAGNOSES: 1. Sepsis. 2. Chronic respiratory failure. 3. Serratia/Acinetobacter pneumonia. 4. Acute on chronic diastolic congestive heart failure. 5. Atrial fibrillation. 6. Severe protein-calorie malnutrition. 7. Lactic acidosis. 8. Anemia. 9. Thrombocytosis. 10. Multiple decubitus pressure ulcer, present on admission. 11. Hypokalemia. 12. Hypomagnesemia. 13. Hypernatremia. 14. Dehydration, resolved. Adrien Hernandez M.D. I have been assigned to dictate discharge summary on this account and I was not involved in the patient's management. Shonna Angeles N.P. DR: AUGUSTO JOB#: [id number] CC:
== END 2016-11-15 13:10 | DRG 710 ==
LOC: EDBD 19:15 → EMR 19:30 → EDBEDREQ 21:43 → 2W 21:55 → EDBEDREQSVC 22:54 → EDBEDREQ 22:54 → 2W 11-09 01:13
PROC: 5A1955Z Respiratory Ventilation, Greater than 96 Consecutive Hours (ICD-10-PCS; principal; 2016-11-08)
PROC: 02H633Z Insertion of Infusion Device into Right Atrium, Percutaneous Approach (ICD-10-PCS; 2016-11-10)
PROC: B244ZZZ Ultrasonography of Right Heart (ICD-10-PCS; 2016-11-10)
PROC: 30233N1 Transfusion of Nonautologous Red Blood Cells into Peripheral Vein, Percutaneous Approach (ICD-10-PCS; 2016-11-10)
DX: A41.9 Sepsis, unspecified organism (principal); E43 Unspecified severe protein-calorie malnutrition; J15.6 Pneumonia due to other Gram-negative bacteria; G93.40 Encephalopathy, unspecified; I50.33 Acute on chronic diastolic (congestive) heart failure; N17.9 Acute kidney failure, unspecified; J96.10 Chronic respiratory failure, unspecified whether with hypoxia or hypercapnia; Z99.11 Dependence on respirator [ventilator] status; I11.0 Hypertensive heart disease with heart failure; J44.9 Chronic obstructive pulmonary disease, unspecified; E11.65 Type 2 diabetes mellitus with hyperglycemia; I25.5 Ischemic cardiomyopathy; Z68.27 Body mass index [BMI] 27.0-27.9, adult; D64.9 Anemia, unspecified; Z93.0 Tracheostomy status; I25.2 Old myocardial infarction; G20 Parkinson's disease; F02.80 Dementia in other diseases classified elsewhere, unspecified severity, without behavioral disturbance, psychotic disturbance, mood disturbance, and anxiety; Y95 Nosocomial condition; Z79.4 Long term (current) use of insulin; I48.0 Paroxysmal atrial fibrillation; E87.6 Hypokalemia; E87.1 Hypo-osmolality and hyponatremia; E83.42 Hypomagnesemia; I48.92 Unspecified atrial flutter; R13.10 Dysphagia, unspecified; E86.0 Dehydration; L89.90 Pressure ulcer of unspecified site, unspecified stage; K94.29 Other complications of gastrostomy; Y83.3 Surgical operation with formation of external stoma as the cause of abnormal reaction of the patient, or of later complication, without mention of misadventure at the time of the procedure; Y92.129 Unspecified place in nursing home as the place of occurrence of the external cause
CPT/HCPCS: 36415; 36569; 36600; 71010; 76937; 80048; 80053; 80162; 80202; 81003; 82550; 82553; 82803; 82962; 83605; 83735; 83880; 84484; 85007; 85025; 86850; 86900; 86901; 86920; 87040; 87070; 87181; 87205; 93005; 94002; 94003; 94640; J7620; J8499

== ENCOUNTER 2016-12-02 11:14 | Emergency (ER) | payer MEDICARE, OTHER ==
[~2016-12-02] VITALS: Ht 172.7 cm; Wt 72.6 kg
[~2016-12-02 11:14] MED LIST changes: +ATIVAN1 MG GT; +DIGOXIN125 MCG GT; +LANSOPRAZOLE30 MG ORAL; +METOPROLOL TART50 M1 ORAL; +OMEPRAZOLE20 M2 ORAL; +ZINC50 M1 GT; +ZYVOX600 MG GT
[2016-12-02 11:15] VITALS: BP 123/65
[2016-12-02 12:28] LABS: BASOPHILS % (AUTO) 0.7 % (0.0-2.0); EOSINOPHILS % (AUTO) 6.1 % (0.0-3.0); LYMPHOCYTES % (AUTO) 18.3 % (20.0-45.0); MEAN CORPUSCULAR HEMOGLOBIN 29.8 PG (27.0-31.0); MEAN CORPUSCULAR HGB CONC 31.8 G/DL (32.0-36.0); MEAN CORPUSCULAR VOLUME 94 FL (80-99); MEAN PLATELET VOLUME 7.8 FL (6.5-10.1); MONOCYTES % (AUTO) 4.3 % (1.0-10.0); NEUTROPHILS % (AUTO) 70.6 % (45.0-75.0); PLATELET COUNT 347 K/UL (150-450); RED BLOOD COUNT 3.23 M/UL (4.70-6.10); RED CELL DISTRIBUTION WIDTH 17.7 % (11.6-14.8); WHITE BLOOD COUNT 11.4 K/UL (4.8-10.8)
[2016-12-02 12:33] LABS: INR 1.1 (0.9-1.1); PROTHROMBIN TIME 11.1 SEC (9.30-11.50)
[2016-12-02 12:35] LABS: ALANINE AMINOTRANSFERASE 48 U/L (3-41); ALBUMIN/GLOBULIN RATIO 0.3 (1.0-2.7); ANION GAP 10 (5-15); ASPARTATE AMINO TRANSFERASE 84 U/L (5-40); CALCIUM 8.7 mg/dL (8.6-10.2); CARBON DIOXIDE 27 mEQ/L (20-30); CHLORIDE 108 mEQ/L (98-107); CREATININE 1.3 mg/dL (0.7-1.2); HEMOLYSIS 4; POTASSIUM 5.2 mEQ/L (3.4-4.9); SODIUM 145 mEQ/L (135-145); TOTAL PROTEIN 7.7 g/dL (6.6-8.7); TROPONIN I < 0.30 ng/mL (<=0.30)
[2016-12-02 12:50] LABS: ABG PCO2 41.3 mmHg (35.0-45.0)
[2016-12-02 12:51] LABS: ABG ALLEN TEST POSITIVE; ABG BASE EXCESS 3.7
[2016-12-02 13:00] VITALS: BP 105/54
[2016-12-02] MEDS ORDERED: Sodium Polystyrene Sulfonate Enema RECTAL ONE (13:15)
[2016-12-02] MEDS ORDERED: Sodium Polystyrene Sulfonate 15gm Powder GT ONE (13:30)
--- NOTE | 2016-12-02 14:02 | Emergency Room Report ---
History of Present Illness General Chief Complaint: Abnormal Labs Present Illness HPI Patient is 81-year-old male sent in by [facility] for anemia. Patient had previously had low hemoglobin. This was approximately 7. Patient not been having any known bleeding. Patient was noted to have slightly low oxygen saturation when checked by EMS. The patient is vent and G-tube dependent. Patient not been vomiting. The primary care physician is Dr. Hernandez. Allergies: Coded Allergies: No Known Allergies (Unverified , 12/08/13) Patient History Reviewed Nursing Documentation: PMH: Agreed, PSxH: Agreed Nursing Documentation-PMH Hx Cardiac Problems: Yes - a-fib Hx Hypertension: No Hx Pacemaker: No Hx Asthma: No Hx COPD: Yes - respiratory distress vent dependant Hx Diabetes: Yes Hx Cancer: No Hx Gastrointestinal Problems: Yes - gtube Hx Neurological Problems: Yes - arthrities Hx Cerebrovascular Accident: No Hx Transient Ischemic Attacks: Yes Hx Dementia: Yes Hx Parkinson's Disease: Yes Hx Seizures: No Hx Aphasia: Yes Review of Systems All Other Systems: limited - by mental status Physical Exam Vital Signs Date Time Temp Pulse Resp B/P Pulse Ox O2 Delivery O2 Flow Rate FiO2 12/02/16 11:15 96.6 66 20 123/65 95 Mechanical Ventilator 50 General Appearance: no apparent distress, non-toxic, obese Eyes: bilateral eye PERRL Neck: tracheotomy Respiratory: lungs clear, normal breath sounds, no rhonchi Cardiovascular #1: other - gtub Gastrointestinal: normal bowel sounds, non tender, soft Musculoskeletal: normal inspection Neurologic: aphasia Medical Decision Making Diagnostic Impression: Primary Impression: Prerenal azotemia Additional Impression: Hyperkalemia ER Course Patient presented for generalized weakness. Differential diagnosis included was not limited to anemia, urinary tract infection, electrolyte abnormality, hypothyroidism, myocardial infarction, myasthenia gravis, dehydration, among others. Because of complexity of patient's case laboratory testing and imaging studies were ordered.Patient was given Kayexalate by G-tube. Laboratory testing showed no evidence of low hemoglobin. Patient was noted to have osteomyelitis of his ankle and alkaline phosphatase was noted be elevated consistent with osteomyelitis. Patient was discussed with Dr. Hernandez who will continue to manage the patient at facility. Last Vital Signs Date Time Temp Pulse Resp B/P Pulse Ox O2 Delivery O2 Flow Rate FiO2 12/02/16 13:00 90 20 105/54 99 Mechanical Ventilator 50 12/02/16 11:22 96.1 Status: improved Disposition: [facility] Condition: Stable Patient Instructions: Hyperkalemia Ulices Smith Dec 02, 2016 14:02
[2016-12-02 14:13] VITALS: BP 116/66
--- NOTE | 2016-12-07 09:45 | Cardiology Report ---
APPROVED REPORT EKG Measurement Heart [id number] Atrial fibrillation Low voltage QRS Cannot rule out Anterior infarct, age undetermined Abnormal ECG
== END 2016-12-02 14:13 ==
LOC: EDBD 11:14 → EMR 11:55 → CANBEDREQ 13:19 → EMR 14:13
DX: R39.2 Extrarenal uremia (principal); E87.5 Hyperkalemia; D64.9 Anemia, unspecified; R53.1 Weakness; Z93.1 Gastrostomy status; Z99.81 Dependence on supplemental oxygen; J44.9 Chronic obstructive pulmonary disease, unspecified; I48.91 Unspecified atrial fibrillation; Z86.73 Personal history of transient ischemic attack (TIA), and cerebral infarction without residual deficits; F03.90 Unspecified dementia, unspecified severity, without behavioral disturbance, psychotic disturbance, mood disturbance, and anxiety
CPT/HCPCS: 36415; 36600; 80053; 82803; 84484; 85025; 85610; 85730; 86850; 86900; 86901; 93005; 94002; 96360; 99284; J7040